=== PATIENT | female | born 1960 | race Caucasian/White ===

== ENCOUNTER 2021-10-06 17:25 | Emergency (ER) | payer OTHER, SELFPAY ==
--- NOTE | ~2021-10-06 | XR_ITS ---
EXAMINATION: XR chest 2V DATE: 10/06/2021 20:00 INDICATION: Hypertension and chest pain TECHNIQUE: AP and lateral views of the chest are obtained. COMPARISON: None available FINDINGS: The lung volumes are low. No definite airspace opacities are identified. There is no pleura l effusion or pneumothorax. The cardiomediastinal silhouette is normal. There is moderate thoracic sp ondylosis. There are multiple age-indeterminate thoracic and lumbar compression fractures. IMPRESSION: 1. No acute cardiopulmonary abnormality. Reviewed, dictated and finalized at location F.
[2021-10-06 17:39] VITALS: BP 116/68; PULSE 79; RESP 16; TEMP 36.7; O2SAT 100
--- NOTE | 2021-10-06 19:48 | ECG_ITS ---
Measurements Intervals [place] Rate: 72 P: 144 NC: 173 QRS: -27 QRSD: 140 T: -13 QT: 447 QTc: 489 Interpretive Statements SINUS RHYTHM BORDERLINE LEFT AXIS DEVIATION [QRS AXIS < -20] INTRAVENTRICULAR CONDUCTION DELAY [130+ ms QRS DURATION] LEFT VENTRICULAR HYPERTROPHY SECONDARY REPOLARIZATION NO PREVIOUS ECG AVAILABLE FOR COMPARISON Electronically Signed On 10-07-2021 11:23:50 CDT by Enmanuel Duke M.D.
[2021-10-06] MEDS: ACETAMINOPHEN 500 MG TABLET 1000 MG PO (20:07)
[2021-10-06] MEDS: MECLIZINE HCL 25 MG TABLET PO (20:08)
[2021-10-06 20:18] LABS: Basophils Percent Auto 0.3 % (0.2-1.2); Hemoglobin 12.5 g/dL (12.0-15.0); Immature Granulocyte Absolute 0.06 K/mm3 (0.00-0.031); Immature Granulocyte Percent A 0.5 % (0-0.5); Lymphocytes Absolute Auto 1.81 K/mm3 (0.9-3.2); Lymphocytes Percent Auto 16.5 % (18.3-44.2); Mean Corpuscular HGB Conc 32.1 g/dl (32-36); Mean Corpuscular Hemoglobin 28.1 pg (26-34); Mean Corpuscular Volume 87.6 fl (80-100); Mean Platelet Volume 12.4 fl (7.4-10.4); Monocytes Absolute Auto 0.8 K/mm3 (0.1-0.6); Monocytes Percent Auto 7.1 % (2.6-8.5); Neutrophils Absolute Auto 8.3 K/mm3 (1.3-6.7); Neutrophils Percent Auto 75.6 % (45.5-73.1); Platelet Count Result 193 k/mm3 (150-375); Red Blood Count 4.45 M/mm3 (4.2-5.4); Red Cell Distribution Width 14.4 % (11.5-14.5)
[2021-10-06 20:28] LABS: Alanine Aminotransferase 21 U/L (4-35); Albumin Level 4.4 g/dL (3.5-5.1); Alkaline Phosphatase 117 U/L (38-126); Anion Gap 9 mmol/L (8-16); Aspartate Amino Transferase 27 U/L (14-36); Bilirubin,Total 0.6 mg/dL (0.2-1.3); Blood Urea Nitrogen 29 mg/dL (7-17); Calcium 8.9 mg/dL (8.4-10.2); Carbon Dioxide 23 mmol/L (22-30); Chloride 107 mmol/L (98-107); Estimated Glomerular Filt Rate > 60; Glucose 112 mg/dL (65-110); Potassium 3.5 mmol/L (3.4-5.0); Sodium 139 mmol/L (137-145)
[2021-10-06 20:29] LABS: INR 1.1; Prothrombin Time 13.7 Seconds (11.1-14.7)
[2021-10-06 20:30] LABS: Partial Thromboplastin Time 30.2 SECONDS (22.3-36.8)
--- NOTE | 2021-10-06 20:44 | ED.GENADULT ---
HPI - General Adult General Chief complaint: Recheck/Abnormal Lab/Rx Stated complaint: htn Time Seen by Provider: 10/06/21 19:35 History of Present Illness HPI narrative: Patient is a 61-year-old female who presents ER with concerns for elevated blood pressures. Occurred last night and systolic was in the 200s. Patient was having back and shoulder pain. Symptoms have since subsided. No chest pain or pressure. Patient is also reporting some intermittent dizziness which is been going on for couple days and precipitated her discomfort last night. Worse with movement of head. No sinus congestion or sore throat or cough. Patient does report history of heart failure but no CAD. Related Data Allergies Allergy/AdvReac Type Severity Reaction Status Date / Time codeine AdvReac Nausea Verified 10/06/21 20:48 Review of Systems Review of Systems: All systems reviewed & are unremarkable except as noted in HPI and below Constitutional: Constitutional: Denies chills, Denies fever(s) and Denies weakness ENT: Reports dizziness and Denies sore throat Cardiovascular: Cardiovascular: Denies chest pain, Denies rapid heart rate and Denies radiating jaw, neck or arm pain Respiratory: Respiratory: Denies cough, Denies dyspnea and Denies wheezing Gastrointestinal: Gastrointestinal: Denies abdominal pain, Denies nausea and Denies vomiting Musculoskeletal: Musculoskeletal: Reports back pain and Reports arthralgias PMFSH Past Medical History Medical History (Updated 10/06/21 @ 21:39 by Harris Kim MD) Asthma Hard of hearing Hypertension Neuropathy Surgical History Surgical History (Updated 10/06/21 @ 21:39 by Harris Kim MD) History of section History of cholecystectomy History of hysterectomy Social History Social History (Updated 10/06/21 @ 21:39 by Harris Kim MD) Smoking status: Never smoker Exam Narrative: GENERAL: Well-appearing, well-nourished, and in no acute distress. HEAD: Normocephalic, atraumatic. EYES: PERRL and EOMI. ENT: Mucous membranes moist. TMs normal bilaterally. CHEST: Clear to auscultation. No respiratory distress. HEART: Regular rate and rhythm. Normal peripheral pulses. ABDOMEN: Soft, nontender, nondistended. EXTREMITIES: Normal range of motion. 2+ edema. SKIN: Warm, dry, no rash. NEURO: Alert and oriented x3. PSYCH: Normal mood and affect. Course Course Emergency Course: Patient resting comfortably. Dizziness improved with meclizine. Patient has no chest pain or shortness of breath. She reports that she has had that shoulder pain yesterday. Blood pressure has been within a normal range that is noncritical. Discharge home and follow-up with PCP. Vital Signs Vital signs: Vital Signs Temperature 98.0 F 10/06/21 17:39 Pulse Rate 79 10/06/21 17:39 Respiratory Rate 16 10/06/21 17:39 Blood Pressure 116/68 10/06/21 17:39 Pulse Oximetry 100 10/06/21 17:39 Temperature 98.0 F 10/06/21 17:39 Pulse Rate 73 10/06/21 21:17 Respiratory Rate 20 10/06/21 21:17 Blood Pressure 145/80 H 10/06/21 21:17 Pulse Oximetry 99 10/06/21 21:17 Medical Decision Making Vital Signs Vital Signs: Vital Signs Temperature 98.0 F 10/06/21 17:39 Pulse Rate 79 10/06/21 17:39 Respiratory Rate 16 10/06/21 17:39 Blood Pressure 116/68 10/06/21 17:39 Pulse Oximetry 100 10/06/21 17:39 Temperature 98.0 F 10/06/21 17:39 Pulse Rate 73 10/06/21 21:17 Respiratory Rate 20 10/06/21 21:17 Blood Pressure 145/80 H 10/06/21 21:17 Pulse Oximetry 99 10/06/21 21:17 Lab Data Result diagrams: 10/06/21 20:12 10/06/21 20:12 Labs: Lab Results 10/06/21 10/06/21 10/06/21 Range/Units 20:11 20:12 20:12 WBC 11.0 H (4.5-10.0) K/mm3 RBC 4.45 (4.2-5.4) M/mm3 Hgb 12.5 (12.0-15.0) g/dL Hct 39.0 (37.0-47.0) % MCV 87.6 (80-100) fl MCH 28.1 (26-34) pg MCHC 32.1 (32-
[2021-10-06 21:17] VITALS: BP 145/80; PULSE 73; RESP 20; O2SAT 99
[2021-10-06 21:18] LABS: Troponin I < 0.012 ng/mL (0.000-0.034)
== END 2021-10-06 21:55 | disposition home or self-care (01) ==
PROVIDERS: Emergency Provider Emergency Medicine
DX: I10 Essential (primary) hypertension (principal); R42 Dizziness and giddiness; J45.909 Unspecified asthma, uncomplicated; G62.9 Polyneuropathy, unspecified; I45.9 Conduction disorder, unspecified; I51.7 Cardiomegaly
CPT/HCPCS: 36415; 71046; 80053; 84484; 85025; 85610; 85730; 93005; 99284; A9270

== ENCOUNTER 2022-09-11 12:08 | Outpatient (CLI) | payer OTHER, SELFPAY ==
[2022-09-11 12:32] LABS: Basophils Percent Auto 0.6 % (0.2-1.2); Eosinophils Absolute Auto 0.3 K/mm3 (0-0.3); Eosinophils Percent Auto 5.9 % (0-4.4); Hematocrit 39.9 % (37.0-47.0); Hemoglobin 12.8 g/dL (12.0-15.0); Immature Granulocyte Absolute 0.01 K/mm3 (0.00-0.031); Immature Granulocyte Percent A 0.2 % (0-0.5); Lymphocytes Absolute Auto 2.04 K/mm3 (0.9-3.2); Lymphocytes Percent Auto 38.9 % (18.3-44.2); Mean Corpuscular HGB Conc 32.1 g/dl (32-36); Mean Corpuscular Hemoglobin 27.8 pg (26-34); Mean Corpuscular Volume 86.6 fl (80-100); Mean Platelet Volume 12.4 fl (7.4-10.4); Monocytes Absolute Auto 0.5 K/mm3 (0.1-0.6); Monocytes Percent Auto 10.1 % (2.6-8.5); Neutrophils Absolute Auto 2.3 K/mm3 (1.3-6.7); Neutrophils Percent Auto 44.3 % (45.5-73.1); Platelet Count Result 164 k/mm3 (150-375); Red Blood Count 4.61 M/mm3 (4.2-5.4); Red Cell Distribution Width 14.9 % (11.5-14.5); White Blood Count 5.2 K/mm3 (4.5-10.0)
[2022-09-11 12:41] LABS: Appearance Urine Clear (Clear); Bacteria Urine None Seen /hpf; Bilirubin Urine Negative (Negative); Blood Urine Negative (Negative); Color Urine Dark Yellow (Yellow); Glucose Urine UA Negative (Negative); Ketones Urine Negative (Negative); Leukocyte Esterase Ur Trace LEU/UL (NEGATIVE); Nitrate Urine Negative (Negative); Non Pathogenic Casts 0-2; Protein Urine Trace mg/dL (Negative); RBC Urine 0-2 /hpf (0-2); Specific Grav Ur 1.025 (1.001-1.035); Squamous Epithelial Cell Urine Occasional /hpf (Few); WBC Urine 0-5 /hpf (0-3)
[2022-09-11 12:44] LABS: Add Urine Microscopic? YES
[2022-09-11 12:47] LABS: Alanine Aminotransferase 24 U/L (6-35); Albumin Level 4.1 g/dL (3.5-5.1); Alkaline Phosphatase 122 U/L (38-126); Anion Gap 7 mmol/L (8-16); Aspartate Amino Transferase 30 U/L (14-36); Bilirubin,Total 1.7 mg/dL (0.2-1.3); Blood Urea Nitrogen 23 mg/dL (7-17); Calcium 9.2 mg/dL (8.4-10.2); Carbon Dioxide 28 mmol/L (22-30); Chloride 105 mmol/L (98-107); Cholesterol 185 mg/dL (0-200); Estimated Glomerular Filt Rate > 60; Glucose 105 mg/dL (65-110); HDL Direct 43 mg/dL; Hemoglobin A1C 5.1 % (<5.7); Sodium 140 mmol/L (137-145); Triglycerides 351 mg/dL (<150)
[2022-09-11 12:57] LABS: LDL Cholesterol Direct 65 mg/dL
[2022-09-11 14:05] LABS: Folic Acid 9.2 ng/mL (2.76->20)
== END 2022-09-11 12:09 | disposition home or self-care (01) ==
LOC: ANHLAB 12:09
PROVIDERS: PCP Internal Medicine; Visit Provider Internal Medicine
DX: E66.01 Morbid (severe) obesity due to excess calories (principal); R73.9 Hyperglycemia, unspecified
CPT/HCPCS: 36415; 80053; 80061; 81001; 82607; 82746; 83036; 84443; 85025; 86038

== ENCOUNTER 2022-10-02 15:50 | Outpatient (CLI) | payer OTHER, SELFPAY ==
--- NOTE | ~2022-10-02 | XR_ITS ---
XR foot LT min 3V 10/02/2022 16:58 Indication: Left foot pain Procedure: 4 views left foot Comparison: No prior studies for comparison. Findings: Osteopenia. Lisfranc joint intact. There is a degenerative calcaneal enthesophyte. There is mild polyarticular osteoarthritis. No focal soft tissue abnormality. There are vascular calcificatio ns of the foot. No erosive changes. Impression: 1: No acute fracture. 2: Polyarticular osteoarthritis. Reviewed, dictated and finalized at location A. Impression: 1: No acute fracture. 2: Polyarticular osteoarthritis.
--- NOTE | ~2022-10-02 | XR_ITS ---
XR lumbar spine 2-3V 10/02/2022 16:58 Indication: Back pain. Procedure: 3 views lumbar spine Comparison: No prior studies for comparison. Findings: There is expected lumbar lordosis. There are compression fractures of T8, T11, T12 and L1, age indeterminate. There is disc narrowing at T11-12, T12-L1 and L1-2. No evidence for spondylolisthe sis. Impression: 1: Multiple compression fractures of the lower thoracic and upper lumbar spine, age indeterminate. 2: Moderate lumbar spondylosis. Reviewed, dictated and finalized at location A. Impression: 1: Multiple compression fractures of the lower thoracic and upper lumbar spine, age indeterminate. 2: Moderate lumbar spondylosis.
== END 2022-10-02 15:51 | disposition home or self-care (01) ==
PROVIDERS: PCP Internal Medicine; Visit Provider Clinical Nurse Specialist
DX: M79.675 Pain in left toe(s) (principal); M54.9 Dorsalgia, unspecified; M15.9 Polyosteoarthritis, unspecified; M47.816 Spondylosis without myelopathy or radiculopathy, lumbar region; M48.55XA Collapsed vertebra, not elsewhere classified, thoracolumbar region, initial encounter for fracture
CPT/HCPCS: 72100; 73630

== ENCOUNTER 2022-10-25 14:32 | Outpatient (CLI) | payer OTHER, SELFPAY ==
--- NOTE | ~2022-10-25 | MR_ITS ---
EXAMINATION: MR thoracic spine wo con DATE: 10/25/2022 15:32 INDICATION: Compression fractures in thoracic spine. TECHNIQUE: Magnetic resonance imaging (MRI) of the thoracic spine was performed without intravenous c ontrast. COMPARISON: Lumbar spine radiographs 10/02/2022, chest 2 views 10/06/2021 FINDINGS: There is kyphosis of thoracic spine. There is a chronic compression fracture of T2 with 1/5 loss of height. There is a chronic compression fracture of T7 with 2/5 loss of height. There is a ch ronic burst fracture of T8 with 3/5 loss of height and retropulsion of bone 2 mm into central spinal canal. There are chronic burst fractures of T11, T12, and L1 with 2/5 loss of height and retropulsion of bone 3 mm into central spinal canal. There are hemangiomas in T2, T4, and T10 vertebral bodies. T here is mildly decreased disc height from T4-T5 through T6-T7 and at T8-T9. At T6-T7, there is a nadya tral protrusion with mild central canal stenosis. At T8-T9, the disc is bulging with mild central can al stenosis. There is multilevel mild to moderate facet joint osteoarthritis. On the right, there is mild neural foraminal stenosis at T8-T9 and T11-T12. On the left, there is mild neural foraminal sten osis at T2-T3 and T11-T12. The spinal cord signal intensity is normal. The conus medullaris is at L1. IMPRESSION: 1. Multiple chronic vertebral body fractures. 2. Mild thoracic spondylosis. 3. Thoracic kyphosis. Reviewed, dictated and finalized at location E.
== END 2022-10-25 14:33 | disposition home or self-care (01) ==
PROVIDERS: PCP Internal Medicine; Visit Provider Clinical Nurse Specialist
DX: S22.000A Wedge compression fracture of unspecified thoracic vertebra, initial encounter for closed fracture (principal); M47.814 Spondylosis without myelopathy or radiculopathy, thoracic region; M40.204 Unspecified kyphosis, thoracic region
CPT/HCPCS: 72146

== ENCOUNTER 2022-11-15 10:17 | Outpatient (CLI) | payer OTHER, SELFPAY ==
--- NOTE | 2022-11-15 11:00 | NEURO_ITS ---
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 # Mild asymmetrical sensory neuropathy but with good motor responses though requiring extra strength stimulation. No neurogenic changes noted. # Clinical correlation recommended. Nerve Conduction Studies Anti Sensory Summary Table Stim Site NR Peak (ms) P-T Amp (?V) Site1 Site2 Delta-P (ms) Dist (cm) Gary (m/s) Left Sup Fibular Anti Sensory (Ant Lat Mall) 14 cm 3.8 10.2 14 cm Ant Lat Mall 3.8 16.0 42 Right Sup Fibular Anti Sensory (Ant Lat Mall) NO RESPONSE 14 cm NR 14 cm Ant Lat Mall 16.0 Left Sural Anti Sensory (Lat Mall) Calf 4.0 9.1 Calf Lat Mall 4.0 16.0 40 Right Sural Anti Sensory (Lat Mall) Calf 4.0 5.8 Calf Lat Mall 4.0 16.0 40 Motor Summary Table Stim Site NR Onset (ms) O-P Amp (mV) Site1 Site2 Delta-0 (ms) Dist (cm) Gary (m/s) Left Peroneal Motor (Vastus Med) Ankle 4.1 1.0 Popit Ankle 6.9 37.0 54 Popit 11.0 0.9 Right Peroneal Motor (Vastus Med) Ankle 4.1 0.7 Popit Ankle 6.5 36.0 55 Popit 10.6 0.9 Left Tibial Motor (Abd Fournier Brev) Ankle 4.1 5.9 Knee Ankle 7.6 39.0 51 Knee 11.7 3.4 Right Tibial Motor (Abd Fournier Brev) Ankle 4.0 5.8 Knee Ankle 7.4 40.0 54 Knee 11.4 2.8 F Wave Studies NR F-Lat (ms) L-R F-Lat (ms) Left Peroneal (Mrkrs) (EDB) 48.42 0.82 Right Peroneal (Mrkrs) (EDB) 49.24 0.82 Left Tibial (Mrkrs) (Abd Hallucis) 47.39 0.97 Right Tibial (Mrkrs) (Abd Hallucis) 48.36 0.97 EMG Side Muscle Nerve Root Ins Act Fibs Amp Dur Recrt Comment Right AntTibialis Dp Br Fibular L4-5 Nml Nml Nml Nml Nml Right Gastroc Tibial S1-2 Nml Nml Nml Nml Nml Right Fibularis Long Sup Br Fibular L5-S1 Nml Nml Nml Nml Nml Right Flex Dig Long Tibial L5-S2 Nml Nml Nml Nml Nml Right Ext Dig Brev Dp Br Fibular L5, S1 Nml Nml Nml Nml Nml Left AntTibialis Dp Br Fibular L4-5 Nml Nml Nml Nml Nml Left Gastroc Tibial S1-2 Nml Nml Nml Nml Nml Left Fibularis Long Sup Br Fibular L5-S1 Nml Nml Nml Nml Nml Left Flex Dig Long Tibial L5-S2 Nml Nml Nml Nml Nml Left Ext Dig Brev Dp Br Fibular L5, S1 Nml Nml Nml Nml Nml MTDD
== END 2022-11-15 10:18 | disposition home or self-care (01) ==
PROVIDERS: PCP Internal Medicine; Visit Provider Clinical Nurse Specialist
DX: G62.9 Polyneuropathy, unspecified (principal)
CPT/HCPCS: 95886; 95910

== ENCOUNTER 2022-12-12 13:56 | Outpatient (CLI) | payer OTHER, SELFPAY ==
--- NOTE | ~2022-12-12 | DEXA_ITS ---
Bone Density Report Name: HECTOR MACDONALD Age: 62 Sex: Female Ethnicity: White Date of : 1960 Indication: postmenopausal; screening for osteoporosis; height loss; prior fracture; asthma or emphysema; hysterectomy; Referring Provider: SARAH NEVAREZ Study: Bone densitometry was performed. Exam Date: December 12, 2022 Accession number: [id number] Bone Density: Region BMD T-score Z-score Classification AP Spine(L1-L4) 0.575 -4.3 -2.9 Osteoporosis Femoral Neck (Left) 0.395 -4.1 -2.8 Osteoporosis Total Hip (Left) 0.531 -3.4 -2.4 Osteoporosis Femoral Neck (Right) 0.348 -4.5 -3.2 Osteoporosis Total Hip (Right) 0.486 -3.7 -2.8 Osteoporosis Total Hip Mean 0.509 -3.6 -2.6 Osteoporosis World Health Organization criteria for BMD impression classify patients as: Normal (T-score at or above -1.0), Osteopenia (T-score between -1.0 and -2.5), or Osteoporosis (T-score at or below -2.5). 10-year Fracture Risk: FRAX not reported because: Some T-score for Spine Total or Hip Total or Femoral Neck at or below -2.5 Prior hip or vertebral fracture Clinical Information Provided by Patient: Have had a previous hip or vertebral fracture Has had a low trauma fracture Has used the following medications: Vitamin D Has the following medical conditions: Asthma or Emphysema, Hysterectomy Patient maximum height was 58 Menopause Age: 36 Drinks caffeinated beverages Onset of menses at age 17 Number of children 3 Impression: The patient has established osteoporosis, based on the Right Femoral Neck T-score and the existence of a prior fracture. The patient has risk factors, including: previous fracture. Discussion: HIGH RISK OF FRACTURE. BONE DENSITY IS UNDESIRABLY LOW AT ONE OR MORE SKELETAL SITES, CONSISTENT WITH POSTMENOPAUSAL OSTEOPOROSIS. This patient's lowest T-score, in a patient who has previously fractured, meets the World Health Organization's (WHO) criteria for severe osteoporosis. In untreated patients, the risk of osteoporotic fracture increases approximately two-fold for each 1.0 SD decrease in T-score. Low bone density is not the only risk factor for fracture; also consider factors such as patient's age, frailty or poor health, risk of falling, risk of injury, previous osteoporotic fracture, family history of osteoporosis, cigarette smoking, low body weight, etc. Not everyone with low bone mineral density has osteoporosis; osteomalacia and other metabolic bone disorders should also be considered. Patients who have osteoporosis should be evaluated for specific diseases and conditions (secondary causes) that may cause or contribute to bone loss. The [place] [employer] Clinical Endocrinologists (AACE) and National Osteoporosis Foundation (NOF) recommend pharmacologic intervention for all postmenopausal women wi
== END 2022-12-12 13:57 | disposition home or self-care (01) ==
LOC: ANHIMG 13:59
PROVIDERS: PCP Internal Medicine; Visit Provider Clinical Nurse Specialist
DX: S32.000A Wedge compression fracture of unspecified lumbar vertebra, initial encounter for closed fracture (principal); Z78.0 Asymptomatic menopausal state; X58.XXXA Exposure to other specified factors, initial encounter; M81.0 Age-related osteoporosis without current pathological fracture
CPT/HCPCS: 77080

== ENCOUNTER 2022-12-20 15:30 | Outpatient (RCR) | payer OTHER, SELFPAY ==
--- NOTE | 2022-10-18 19:18 | PTOPEVAL1 ---
Assessment and note entered by Mitesh Shine, PT Evaluation Information Assessment Status Evaluation Diagnosis unsteadiness on her feet, weakness, dorsalgia unspecified Onset 6 years ago Subjective Information Patient who has a past medical history of a closed head injury reports that she has been having increased pain behind her knees and trouble getting around. Patient admits that she has gained a lot of weight. Patient is looking for exercises that will allow her to feel better, lose weight, and decrease pain. Reports she is supposed to get a R knee replacement when she looses enough weight. Assessment PT Clinical Summary Sidra is a 62 year old female coming into the clinic with a diagnosis of unsteadiness on her feet, weakness, and dorsalgia unspecified. Her main complaint in posterior knee pain. She has general weakness in her JAIMIE LE. Physical therapy will start with aquatic therapy to allow for strengthening with reduced stress on the joints hopeful to progress to land based therapy. Plan of Care Interventions Aquatic Therapy,Electrical Stimulation,Gait Training,Hot Pack/Cold Pack,Manual Therapy,Neuro Re-education,Patient/Caregiver Education,Therapeutic Activities,Therapeutic Exercise,Ultrasound Other Interventions cupping, taping, IASTM PT Services Indicated Yes Treatment Frequency and 1-2x/wk for 4 weeks Duration These treatments will address the objective and functional deficits as defined above. The patient will be advanced safely and appropriately in order for the patient to progress towards his/her prior level of function. Additional exercises will be introduced and as well as a comprehensive home exercise program upon discharge, if needed, ?to ensure carryover of functional gains achieved in the clinic. This treatment plan has been reviewed and agreement upon by the patient.
--- NOTE | 2022-11-09 12:03 | PCPTNOTE ---
pt called and canceled today's appt;
--- NOTE | 2022-11-14 10:58 | PCPTNOTE ---
Patient called & cancelled scheduled appointment this date due to patient not wanting to come in.
--- NOTE | 2022-11-22 11:42 | PTOPPROG ---
Assessment and note entered by Mitesh Shine, PT Evaluation Information Assessment Status Progress Diagnosis Unsteady on feet, weakness, dorsalgia Onset 6 years ago Subjective Information Patient reports the knees are better following JAIMIE injections, she is doing her exercises at home and walking a lap or two a day around her apartment building. Trying really hard to follow her diet. Assessment PT Clinical Summary Sidra is a 62 year old fmeale coming into the clinic with a diagnosis of unsteadiness on her feet, and weakness. She was evaluated on 10/17/22 and has attended 5 sessions. She has met her knee pain, but not functional strength goal. Recommend continued aquatic therapy as an adjunct to her home program to help get ready for a potential future knee surgery. Plan of Care Interventions Aquatic Therapy,Electrical Stimulation,Gait Training,Hot Pack/Cold Pack,Manual Therapy,Neuro Re-education,Patient/Caregiver Education,Therapeutic Activities,Therapeutic Exercise,Ultrasound Other Interventions cupping, taping, IASTM PT Services Indicated Yes Treatment Frequency and 1-2x/wk for 4 weeks Duration These treatments will address the objective and functional deficits as defined above. The patient will be advanced safely and appropriately in order for the patient to progress towards his/her prior level of function. Additional exercises will be introduced and as well as a comprehensive home exercise program upon discharge, if needed, ?to ensure carryover of functional gains achieved in the clinic. This treatment plan has been reviewed and agreement upon by the patient.
--- NOTE | 2022-12-07 12:48 | PCPTNOTE ---
Patient's sister called & cancelled scheduled appointment this date due to patient being fearful of the pool lift, and isn't able to use the steps due to Jeremy knee pain. Explained to the sister that we would be able to do land therapy for her next visit. Will talk to the PT Mitesh on Saturday.
--- NOTE | 2022-12-17 11:45 | PCPTNOTE ---
Called pt. and she noted that she canceled today's (12/17/22) appointment when she left last week. Will be back on .
--- NOTE | 2022-12-20 16:33 | PTOPDC ---
Assessment and note entered by Mitesh Shine, PT Evaluation Information Assessment Status Discharge Diagnosis unsteadiness on feet, weakness, dorsalgia Onset 6 years ago Subjective Information Patient reports she is walking 2 laps around her building a day most days and doing her exercises at home. She still has knee pain and because of the pain does not want to do aquatic therapy as the steps up to the pool hurt too much and the lift chair is too scary for her to use. Patient states she thinks she can do all of her exercises at home and can be discharged from physical therapy, but her sister states only therapy can make that determination. Reported Pain Level Pain Score Mild Pain: Finn Meza Assessment PT Clinical Summary Sidra is a 62 year old female coming into the clinic with a diagnosis of unsteadiness on feet, weakness, and dorsalgia. Patient was evaluated on 10/17/22 and has attended 11 sessions some aquatic and some land based physical therapy. Her knees are self reported better, but she states that is from the injections not therapy. Strength is the same although she is using a cane instead of her rollator. Discharged from skilled physical therapy. Plan of Care PT Services Indicated No
== END 2022-12-21 09:32 | disposition home or self-care (01) ==
LOC: ANHPT 15:30
PROVIDERS: PCP Internal Medicine; Visit Provider Clinical Nurse Specialist
DX: R26.81 Unsteadiness on feet (principal); R53.1 Weakness; M54.9 Dorsalgia, unspecified
CPT/HCPCS: 97110; 97113; 97161; 97530; 99199

== ENCOUNTER 2023-02-19 13:43 | Outpatient (CLI) | payer OTHER, SELFPAY ==
[2023-02-19 19:31] LABS: Alanine Aminotransferase 25 U/L (6-35); Albumin Level 4.3 g/dL (3.5-5.1); Alkaline Phosphatase 122 U/L (38-126); Anion Gap 8 mmol/L (8-16); Aspartate Amino Transferase 38 U/L (14-36); Bilirubin,Total 1.4 mg/dL (0.2-1.3); Blood Urea Nitrogen 21 mg/dL (7-17); Calcium 9.1 mg/dL (8.4-10.2); Carbon Dioxide 29 mmol/L (22-30); Chloride 103 mmol/L (98-107); Estimated Glomerular Filt Rate > 60; Glucose 78 mg/dL (65-110); Potassium 3.9 mmol/L (3.4-5.0); Sodium 140 mmol/L (137-145)
[2023-02-19 19:32] LABS: Vitamin D 25 Hydroxy 49.2 ng/mL
[2023-02-19 19:41] LABS: Parathyroid Intact 94.2 pg/mL (7.5-53.5)
[2023-02-19 20:28] LABS: Iron 105 ug/dL (37-170); Percent Iron Saturation 28 % (20-50)
== END 2023-02-19 13:44 | disposition home or self-care (01) ==
LOC: ANHGOSHLAB 13:45
PROVIDERS: PCP Internal Medicine; Visit Provider Internal Medicine
DX: E55.9 Vitamin D deficiency, unspecified (principal); S22.000A Wedge compression fracture of unspecified thoracic vertebra, initial encounter for closed fracture; M81.0 Age-related osteoporosis without current pathological fracture; E66.01 Morbid (severe) obesity due to excess calories; I10 Essential (primary) hypertension; I50.9 Heart failure, unspecified; Z83.49 Family history of other endocrine, nutritional and metabolic diseases
CPT/HCPCS: 36415; 80053; 82306; 82728; 83540; 83550; 83970

== ENCOUNTER 2023-04-26 13:36 | Outpatient (CLI) | payer OTHER, SELFPAY ==
--- NOTE | ~2023-04-26 | US_ITS ---
EXAMINATION: US soft tissue abdomen DATE: 04/26/2023 14:10 INDICATION: Right flank pain and lump. TECHNIQUE: Multiple grayscale and Doppler ultrasound images of the abdomen were obtained. COMPARISON: None FINDINGS: In the patient's area of concern, there is a 4.4 x 5.8 x 2.4 cm subcutaneous mass that demo nstrates similar echogenicity and echotexture to normal subcutaneous fat. IMPRESSION: 1. 5.8 cm subcutaneous mass in right flank, likely a lipoma. Reviewed, dictated and finalized at location E. UTER FORENSICS EXAMINER
== END 2023-04-26 13:37 | disposition home or self-care (01) ==
PROVIDERS: PCP Internal Medicine; Visit Provider Clinical Nurse Specialist
DX: R19.00 Intra-abdominal and pelvic swelling, mass and lump, unspecified site (principal)
CPT/HCPCS: 76705

== ENCOUNTER 2023-05-01 12:37 | Outpatient (CLI) | payer OTHER, SELFPAY ==
--- NOTE | ~2023-05-01 | MR_ITS ---
MRI of the lumbar spine spine Clinical History: Compression fracture Technique: Exam was terminated after localizer sequences were performed. No diagnostic sequences were performed. Findings: Exam is essentially nondiagnostic given lack of diagnostic sequences. Questionable mild com pression deformity of L1 seen on the sagittal localizer image. Impression: Nearly nondiagnostic exam, with only localizer sequences performed. Possible mild compression fractur e of L1 seen on sagittal localizer image. Reviewed, dictated and finalized at location M. RAFT ELECTRICIAN Impression: Nearly nondiagnostic exam, with only localizer sequences performed. Possible mi ld compression fracture of L1 seen on sagittal localizer image.
--- NOTE | ~2023-05-01 | XR_ITS ---
EXAMINATION: XR abdomen/kub 1V DATE: 05/01/2023 13:45 INDICATION: Foreign body. TECHNIQUE: Anteroposterior and crosstable lateral views of the abdomen were obtained. COMPARISON: None. FINDINGS: There are no dilated loops of bowel. Surgical clips in the right upper quadrant are likely from cholecystectomy. There is a surgical clip in the pelvis. There is a 13 mm radiopaque foreign bod y in right lower quadrant of the abdomen. IMPRESSION: 1. 13 mm radiopaque foreign body in right lower quadrant of the abdomen. Reviewed, dictated and finalized at location A. ICAL SERVICES DIRECTOR
== END 2023-05-01 12:38 | disposition home or self-care (01) ==
PROVIDERS: PCP Internal Medicine; Visit Provider Anesthesiology Pain Medicine
DX: M54.9 Dorsalgia, unspecified (principal); S32.000A Wedge compression fracture of unspecified lumbar vertebra, initial encounter for closed fracture; M79.5 Residual foreign body in soft tissue
CPT/HCPCS: 72148; 74018

== ENCOUNTER 2023-07-23 10:59 | Outpatient (CLI) | payer OTHER, SELFPAY ==
[2023-07-23 11:36] LABS: Basophils Absolute Auto 0.1 K/mm3 (0.0-0.1); Basophils Percent Auto 0.7 % (0.2-1.2); Eosinophils Absolute Auto 0.2 K/mm3 (0-0.3); Eosinophils Percent Auto 2.3 % (0-4.4); Hematocrit 44.9 % (37.0-47.0); Immature Granulocyte Absolute 0.04 K/mm3 (0.00-0.031); Immature Granulocyte Percent A 0.5 % (0-0.5); Lymphocytes Absolute Auto 2.17 K/mm3 (0.9-3.2); Lymphocytes Percent Auto 26.4 % (18.3-44.2); Mean Corpuscular HGB Conc 31.2 g/dl (32-36); Mean Corpuscular Hemoglobin 27.9 pg (26-34); Mean Corpuscular Volume 89.6 fl (80-100); Mean Platelet Volume 11.9 fl (7.4-10.4); Monocytes Absolute Auto 0.5 K/mm3 (0.1-0.6); Monocytes Percent Auto 6.1 % (2.6-8.5); Neutrophils Absolute Auto 5.3 K/mm3 (1.3-6.7); Platelet Count Result 194 k/mm3 (150-375); Red Blood Count 5.01 M/mm3 (4.2-5.4); White Blood Count 8.2 K/mm3 (4.5-10.0)
[2023-07-23 11:46] LABS: Alanine Aminotransferase 18 U/L (6-35); Albumin Level 4.1 g/dL (3.5-5.1); Alkaline Phosphatase 154 U/L (38-126); Anion Gap 5 mmol/L (8-16); Aspartate Amino Transferase 24 U/L (14-36); Bilirubin,Total 1.1 mg/dL (0.2-1.3); Blood Urea Nitrogen 24 mg/dL (7-17); Calcium 9.2 mg/dL (8.4-10.2); Carbon Dioxide 28 mmol/L (22-30); Chloride 107 mmol/L (98-107); Estimated Glomerular Filt Rate > 60; Glucose 103 mg/dL (65-110); Sodium 140 mmol/L (137-145)
[2023-07-23 11:57] LABS: NT Pro B Type Natriuretic Pept 131 pg/mL (19.9-100); Troponin I < 0.012 ng/mL (0.000-0.034)
== END 2023-07-23 11:00 | disposition home or self-care (01) ==
LOC: ANHLAB 11:01
PROVIDERS: PCP Internal Medicine; Visit Provider Internal Medicine
DX: R07.9 Chest pain, unspecified (principal); I50.9 Heart failure, unspecified
CPT/HCPCS: 36415; 80053; 83880; 84484; 85025

== ENCOUNTER 2023-08-08 17:13 | Emergency (ER) | payer OTHER, SELFPAY ==
[2023-08-08] VITALS (17 sets, daily range): BP systolic 116–133; BP diastolic 60–97; PULSE 76–86; RESP 15–28; TEMP 36.3; O2SAT 93–100
--- NOTE | ~2023-08-08 | CT_ITS ---
EXAMINATION: CTA chest PE protocol DATE: 08/08/2023 20:34 INDICATION: Shortness of breath. Generalized chest pain. TECHNIQUE: Computed tomography angiography (CTA) of the chest was performed with 100 mL Omnipaque-350 intravenous contrast timed to evaluate the pulmonary arteries. Coronal maximum intensity projection 3D-reconstructions were created by the technologist. Automated exposure control and iterative reconst ruction technique were employed. The dose-length product was 594.21 mGy-cm. COMPARISON: None. FINDINGS: The lungs demonstrate mild atelectasis. A calcified right lung nodule and calcified right h ilar lymph nodes are consistent with old granulomatous disease. No pleural effusion. Cardiomegaly is noted. There are coronary artery calcifications. There is no pericardial effusion. The central pulmon nhung arteries are enlarged, consistent with pulmonary arterial hypertension. There is no pulmonary emb olus. There are changes of cholecystectomy. There are peripheral calcifications in the spleen, which may be from old trauma. Aortic atherosclerosis is noted. There is a hemangioma in T4 vertebral body. There are chronic fractures of T7, T8, T11, T12, and L1 vertebral bodies. There is moderate thoracic spondylosis. There are old healed bilateral rib fractures. IMPRESSION: 1. No pulmonary embolus. Reviewed, dictated and finalized at location E. ANALYST IMPRESSION: 1. No pulmonary embolus.
--- NOTE | ~2023-08-08 | XR_ITS ---
EXAMINATION: XR chest 2V DATE: 08/08/2023 18:13 INDICATION: Chest pain. Shortness of breath. TECHNIQUE: Frontal and lateral views of the chest were obtained. COMPARISON: Chest 2 views 10/06/2021 FINDINGS: There are airspace opacities in right lower lobe. No pleural effusion or pneumothorax. The heart size is normal. There is chronic height loss of multiple vertebral bodies. IMPRESSION: 1. Airspace opacities in right lower lobe, consistent with atelectasis versus pneumonia. Reviewed, dictated and finalized at location E. ER IMPRESSION: 1. Airspace opacities in right lower lobe, consistent with atelectasis versus p neumonia.
--- NOTE | ~2023-08-08 | CT_ITS ---
EXAMINATION: CT lumbar spine wo con DATE: 08/08/2023 21:31 INDICATION: Low back pain. Fall. TECHNIQUE: Computed tomography (CT) of the lumbar spine was performed without intravenous contrast. A utomated exposure control and iterative reconstruction technique were employed. The dose-length produ ct was 1305.98 mGy-cm. COMPARISON: Lumbar spine radiographs 10/02/2022 FINDINGS: There are changes of cholecystectomy. There is a 12 mm cyst in right kidney. There is 6 deg cody dextrocurvature of lumbar spine. There are chronic burst fractures of T11, T12, L1, and L4. Ther e is 3 mm anterolisthesis of L5 on S1. Intervertebral disc heights are normal. The following disc lev els are specifically discussed: L1-L2: The disc is bulging. There is severe right and mild left facet joint osteoarthritis. There is mild bilateral neural foraminal stenosis. There is mild central canal stenosis. L2-L3: The disc is bulging. There is mild bilateral facet joint osteoarthritis. There is mild bilater al neural foraminal stenosis. There is no central canal stenosis. L3-L4: The disc is bulging. There is severe bilateral facet joint osteoarthritis. There is mild bilat eral neural foraminal stenosis. There is no central canal stenosis. L4-L5: The disc is bulging. There is moderate right and severe left facet joint osteoarthritis. There is mild bilateral neural foraminal stenosis. There is no central canal stenosis. L5-S1: The disc is bulging. There is severe bilateral facet joint osteoarthritis. There is mild bilat eral neural foraminal stenosis. There is mild central canal stenosis. IMPRESSION: 1. No acute fracture. 2. Mild lumbar spondylosis. Reviewed, dictated and finalized at location E. N PICKER
--- NOTE | 2023-08-08 17:20 | ECG_ITS ---
Measurements Intervals [place] Rate: 77 P: 45 MS: 180 QRS: -2 QRSD: 136 T: 51 QT: 408 QTc: 463 Interpretive Statements SINUS RHYTHM LEFT VENTRICULAR HYPERTROPHY WITH QRS WIDENING AND SECONDARY REPOLARIZATION ABNORMALITY ABNORMAL ECG COMPARED TO ECG 10/06/2021 20:18:54 NO SIGNIFICANT DIFFERENCE Electronically Signed On 08-09-2023 12:25:10 ASSISTANT LIBRARIAN by Enmanuel Duke M.D.
--- NOTE | 2023-08-08 17:54 | ED.CHESTPAIN ---
HPI - Chest Pain General Chief Complaint: Chest Pain Stated Complaint: CP/SOB Time Seen by Provider: 08/08/23 17:27 Source: patient Mode of arrival: EMS Limitations: no limitations History of Present Illness HPI narrative: Patient is a 62 y/o female, with PMH of CHF, hearing impairment, who presents to the ED via EMS with report of CP/SOB. Patient reports having intermittent midsternal chest pain over the last 3-4 days. At times worse with exertion, but no consistent correlation. Pain radiates through to her back and down to her lumbar region. Patient reports pain became worse today at which point EMS was called. She was given a nitroglycerin EN route to the ED and states her chest pain has since resolved. She does still have some discomfort throughout her lower back. History of chronic back pain. She also reports having mild shortness breath over the last 3-4 days as well as increased swelling in her lower extremities, denies significant cough, fevers, BLE pain. Related Data Home Medications Medication Instructions Recorded Confirmed meloxicam 7.5 mg tablet 7.5 mg PO DAILY 09/10/22 07/23/23 albuterol 90 mcg/actuation aerosol mcg inhalation 07/23/23 07/23/23 inhaler Allergies Allergy/AdvReac Type Severity Reaction Status Date / Time codeine AdvReac Nausea Verified 07/23/23 09:33 Review of Systems Review of Systems: CONSTITUTIONAL: Denies fever, chills, or sweats. ENT: Denies rhinorrhea, congestion, sore throat. CARDIOVASCULAR: See HPI. RESPIRATORY: See HPI. GASTROINTESTINAL: Denies abdominal pain, nausea, vomiting. MUSCULOSKELETAL: See HPI. NEUROLOGIC: Denies headache, dizziness, numbness, or weakness. All systems reviewed & are unremarkable except as noted in HPI and below [facility] Past Medical History Medical History Anxiety Arthritis Asthma CHF (congestive heart failure) Hard of hearing Heart disease Hypertension Neuropathy Surgical History Surgical History History of section History of cholecystectomy History of hysterectomy Family History Family History Father Hypertension Heart problem Mother Diabetes mellitus Hypertension Depression Anxiety Heart problem Cerebrovascular accident Social History Social History Smoking status: Never smoker Substance use: never Lack of Transportation: No Lack of Food: Sometimes True Current Housing: I Have Housing Concerned About Future Housing: No Difficulty Paying Gas/Electric Bills: No Difficulty Paying for Meds: YES Currently Unemployed: No Education: Grade School Difficulty w/ Childcare or Family Care: No Living arrangements: alone Agree to blood products: Yes Exam Narrative: GENERAL: Well appearing, morbidly obese with BMI of 49.3, non-toxic, in no acute distress. HEAD: Normocephalic, atraumatic. RESPIRATORY: Airway patent, respirations nonlabored. Clear to auscultation bilaterally, no rales, rhonchi, wheezing. No focal lung sounds. CARDIOVASCULAR: Regular rate and rhythm without murmurs, rubs, or gallops. ABDOMINAL: Soft, nontender, nondistended. Normoactive BS. MUSCULOSKELETAL: Moves all extremities. No gross deformities. Mild nonpitting edema to bilateral lower extremities. SKIN: Warm, dry, normal color. NEURO: A&O X3. Speech clear. Cranial nerves II-XII grossly intact. No ataxic movements. PSYCHIATRIC: Appropriate mood and affect. Normal interaction. Course Vital Signs Vital signs: Vital Signs Temperature 97.4 F L 08/08/23 17:10 Pulse Rate 84 08/08/23 17:10 Respiratory Rate 15 08/08/23 17:10 Blood Pressure 129/65 08/08/23 17:10 Pulse Oximetry 100 08/08/23 17:10 Oxygen Delivery Room Air 08/08/23 17:10 Temperature 97
[2023-08-08 18:11] LABS: Basophils Absolute Auto 0.1 K/mm3 (0.0-0.1); Basophils Percent Auto 0.5 % (0.2-1.2); Eosinophils Absolute Auto 0.1 K/mm3 (0-0.3); Eosinophils Percent Auto 1.3 % (0-4.4); Hematocrit 42.4 % (37.0-47.0); Hemoglobin 12.8 g/dL (12.0-15.0); Immature Granulocyte Absolute 0.04 K/mm3 (0.00-0.031); Immature Granulocyte Percent A 0.4 % (0-0.5); Lymphocytes Percent Auto 20.5 % (18.3-44.2); Mean Corpuscular HGB Conc 30.2 g/dl (32-36); Mean Corpuscular Hemoglobin 27.3 pg (26-34); Mean Corpuscular Volume 90.4 fl (80-100); Monocytes Absolute Auto 0.6 K/mm3 (0.1-0.6); Monocytes Percent Auto 5.6 % (2.6-8.5); Neutrophils Percent Auto 71.7 % (45.5-73.1); Platelet Count Result 190 k/mm3 (150-375); Red Blood Count 4.69 M/mm3 (4.2-5.4); Red Cell Distribution Width 14.9 % (11.5-14.5); White Blood Count 9.8 K/mm3 (4.5-10.0)
[2023-08-08 18:20] LABS: Partial Thromboplastin Time 29.3 SECONDS (22.3-36.8); Prothrombin Time 13.5 Seconds (11.1-14.7)
[2023-08-08 18:20] LABS: Alanine Aminotransferase 19 U/L (6-35); Albumin Level 4.1 g/dL (3.5-5.1); Alkaline Phosphatase 126 U/L (38-126); Anion Gap 4 mmol/L (8-16); Aspartate Amino Transferase 26 U/L (14-36); Bilirubin,Total 1.2 mg/dL (0.2-1.3); Blood Urea Nitrogen 27 mg/dL (7-17); Calcium 9.1 mg/dL (8.4-10.2); Carbon Dioxide 28 mmol/L (22-30); Chloride 106 mmol/L (98-107); Estimated Glomerular Filt Rate 57; Glucose 102 mg/dL (65-110); Lipase 56 U/L (23-300); Potassium 4.1 mmol/L (3.4-5.0); Sodium 138 mmol/L (137-145)
[2023-08-08 18:28] LABS: NT Pro B Type Natriuretic Pept 346 pg/mL (19.9-100)
[2023-08-08 18:31] LABS: Troponin I < 0.012 ng/mL (0.000-0.034)
[2023-08-08 18:50] LABS: Influenza A QL RT-PCR Negative (Negative); Influenza B QL RT-PCR Negative (Negative); RSV RNA, RT-PCR Negative (Negative); SARS-CoV-2 RNA PCR Negative (Negative)
[2023-08-08 19:54] LABS: D Dimer 0.98 ug/mL (<0.48)
--- NOTE | 2023-08-08 20:22 | PC.NURSE ---
Pt to CT at this time
[2023-08-08 21:19] LABS: Troponin I < 0.012 ng/mL (0.000-0.034)
[2023-08-08] MEDS: ACETAMINOPHEN 500 MG TABLET 1000 MG PO (21:54)
== END 2023-08-08 22:49 | disposition home or self-care (01) ==
PROVIDERS: Emergency Medicine; Emergency Provider Physician Assistant; PCP Internal Medicine
DX: R07.89 Other chest pain (principal); S39.012A Strain of muscle, fascia and tendon of lower back, initial encounter; Z20.822 Contact with and (suspected) exposure to COVID-19; I11.0 Hypertensive heart disease with heart failure; I50.9 Heart failure, unspecified; J45.909 Unspecified asthma, uncomplicated; M19.90 Unspecified osteoarthritis, unspecified site; G62.9 Polyneuropathy, unspecified; Z90.49 Acquired absence of other specified parts of digestive tract; Z90.710 Acquired absence of both cervix and uterus; M47.816 Spondylosis without myelopathy or radiculopathy, lumbar region; X58.XXXA Exposure to other specified factors, initial encounter
CPT/HCPCS: 36415; 71046; 71275; 72131; 80053; 83690; 83880; 84484; 85025; 85380; 85610; 85730; 87637; 93005; 99284; A9270; Q9967

== ENCOUNTER 2024-02-25 11:18 | Outpatient (CLI) | payer OTHER, SELFPAY ==
--- NOTE | ~2024-02-25 | XR_ITS ---
EXAMINATION: XR knee RT min 4V, XR tibia fibula RT 2V DATE: 02/25/2024 12:24 INDICATION: Right lower leg pain TECHNIQUE: 1. Anteroposterior, 2 oblique and crosstable lateral views of the right knee were obtained. 2. AP and lateral views of the right tibia and fibula were obtained. COMPARISON: None. FINDINGS: Alignment is normal. No fracture. Tricompartmental osteoarthritis at the right knee with moderate to large marginal osteophytes all 3 compartments and at least moderate severity joint space narrowing i n all 3 compartments which could be underestimated on nonweightbearing imaging. Additional mild osteo arthritis at the right ankle. Moderate-sized plantar calcaneal spur. Soft tissues are unremarkable. N o right knee or ankle joint effusions. IMPRESSION: 1. No right knee or ankle joint effusion or acute osseous abnormality. 2. Tricompartmental osteoarthritis at the right knee with moderate to large marginal osteophytes and at least moderate joint space narrowing which could be underestimated on nonweightbearing imaging. Reviewed, dictated and finalized at location B. IMPRESSION: 1. No right knee or ankle joint effusion or acute osseous abnormality. 2. Tricompartmental osteoarthritis at the right knee with moderate to large mar ginal osteophytes and at least moderate joint space narrowing which could be un derestimated on nonweightbearing imaging.
--- NOTE | ~2024-02-25 | US_ITS ---
RIGHT LOWER EXTREMITY VENOUS ULTRASOUND Ordering provider: Zach Telles DO History: . M79.604 - Pain in right leg . Comparison: None FINDINGS: --COMMON FEMORAL: Patent and free of thrombus. Normal compressibility, phasic flow and augmentation. --PROXIMAL SUPERFICIAL FEMORAL: Patent and free of thrombus. Normal compressibility, phasic flow and augmentation. --DISTAL SUPERFICIAL FEMORAL: Patent and free of thrombus. Normal compressibility, phasic flow and au gmentation. --POPLITEAL: Patent and free of thrombus. Normal compressibility, phasic flow and augmentation. --POSTERIOR TIBIAL: Patent and free of thrombus. Normal compressibility, phasic flow and augmentation . IMPRESSION: Negative right lower extremity venous US. No deep vein thrombosis. Reviewed, dictated and finalized at location A.
== END 2024-02-25 11:19 | disposition home or self-care (01) ==
PROVIDERS: PCP Internal Medicine; Visit Provider Internal Medicine
DX: M17.11 Unilateral primary osteoarthritis, right knee (principal); M25.761 Osteophyte, right knee
CPT/HCPCS: 73564; 73590; 93971

== ENCOUNTER 2024-07-14 14:39 | Outpatient (CLI) | payer OTHER, SELFPAY ==
--- NOTE | ~2024-07-14 | XR_ITS ---
EXAMINATION: XR shoulder LT min 2V DATE: 07/14/2024 14:57 INDICATION: Left shoulder pain. TECHNIQUE: 3 views of left shoulder were obtained. COMPARISON: None. FINDINGS: Alignment is normal. There is a nondisplaced fracture deformity of distal clavicle. There i s mild osteoarthritis of glenohumeral joint and moderate osteoarthritis of acromioclavicular joint. T here is calcific tendinitis of supraspinatus tendon. IMPRESSION: 1. Age-indeterminate nondisplaced fracture deformity of distal clavicle. 2. Polyarticular osteoarthritis. 3. Calcific tendinitis of the rotator cuff. Reviewed, dictated and finalized at location A. ER MACHINE OPERATOR
--- NOTE | ~2024-07-14 | XR_ITS ---
EXAMINATION: XR_CERV2-3V_CR DATE: 07/14/2024 14:57 INDICATION: Radiculopathy, cervical region. TECHNIQUE: 3 views of cervical spine were obtained. COMPARISON: None. FINDINGS: There is 7 degrees dextrocurvature of cervicothoracic spine. Vertebral body heights are nor mal. There is mildly decreased disc height at C6-C7. There is multilevel facet joint osteoarthritis, severe at C7-T1. No central canal stenosis or prevertebral soft tissue swelling. IMPRESSION: 1. Mild cervical spondylosis. Reviewed, dictated and finalized at location A. AL DELIVERY OFFICER
--- OUTSIDE RECORDS SUMMARY | 2024-07-14 15:15 | XMS_ITS | Clinical Summary ---
Author Organization [facility] [address] Address [address] [place] [address] Care Team Providers Care Hand Candy Molder Name Role Phone Zach Telles DO Primary Care Provider [phone] Allergies Active Allergy Reactions Criticality Noted Date Comments Codeine Nausea And Vomiting,Unknown Low 11/15/2015 Patient states she broke out in hive with N/V Medications traMADoL (ULTRAM) 50 mg tablet Take 1 tablet (50 mg total) by mouth 2 (two) times a day Active alendronate (FOSAMAX) 70 mg/75 mL solution Take by mouth every 7 days Take in the morning with a full glass of water, on an empty stomach, and do not take anything else by mouth or lie down for the next 30 min. Active cholecalciferol (VITAMIN D-3) 2000 unit capsule 0.625 capsules (1,250 Units total) once a week Active gabapentin (NEURONTIN) 300 mg capsule Take 1 capsule (300 mg total) by mouth 3 (three) times a day Active meloxicam (MOBIC) 7.5 mg tablet Take 1 tablet (7.5 mg total) by mouth daily Active [id number]-epa-dpa-fis h oil 1,050-1,200 mg capsule 1 capsule Active albuterol HFA (PROVENTIL HFA,VENTOLIN HFA,PROAIR HFA) 90 mcg/actuation inhaler Inhale 2 puffs every 6 (six) hours as needed for wheezing Active furosemide (LASIX) 20 mg tablet Take 1 tablet (20 mg total) by mouth daily 90 tablet 1 09/08/19 22 Active amLODIPine (NORVASC) 5 mg tablet Take 2 tablets (10 mg total) by mouth every morning 60 tablet 10/12/19 22 Active potassium chloride ER (KLOR-CON) 10 mEq CR tablet potassium chloride ER 10 mEq tablet,exten ded release TAKE 1 TABLET BY MOUTH EVERY DAY IN THE MORNING Active atorvastatin (LIPITOR) 20 mg tabletIndications:Pure hypercholesterolemia TAKE 1 TABLET BY MOUTH EVERY DAY 30 tablet 3 08/21/19 23 Active Symbicort 80-4.5 mcg/actuation inhaler INHALE 2 PUFFS BY MOUTH EVERY 12 HOURS 11/13/19 24 Active ergocalciferol (VITAMIN D) 50,000 unit capsule TAKE 1 CAPSULE BY MOUTH WEEKLY 10/30/19 24 Active Active Problems Problem Noted Date Diagnosed Date CHELSEA (obstructive sleep apnea) 11/21/2023 Osteoporosis 10/17/2023 Assessment & Plan (04/22/2024 3:47 PM COMPARATIVE SOCIOLOGY PROFESSOR): 63 y.o. female with history of Osteopenia-Osteoporosis and meets criteria for pharmacological therapy indications (post-menopausal and age > 50 yrs) with: 1) history of low-trauma fragility fracture (hip or vertebral) and 2) osteoporosis on DEXA per T-score <=-2.5 at the femoral neck or spine (exclude secondary causes) without improvement, despite being adherent with PO Alendronate (Fosamax) 70 mg q weekly (treatment) Risk factors for falls: no prior history of falls, no frailty or foot problems, no impaired vision, no dementia, no history of stroke or Parkinson's disease, no use of benzodiazepines, anticholinergics, or anticonvulsants Referral states diagnosis = Hyperparathyroidism (but not seeing evidence of this diagnosis via labs or documentation), but can work-up in context of low BMD per below Plan: 1) Confirm normal serum calcium and 25(OH) vitamin D levels prior to starting therapy 2) Failed therapy with PO Alendronate (Fosamax) 70 mg q weekly (treatment) 3) May further benefit from anabolic agent such as: Teriparatide (rPTH, Forteo) 20 mcg SQ daily or Abaloparatide (Tymlos) 80 mcg SQ daily = option for women with SEVERE osteoporosis BMD T-score of -2.5 or below + fragility fracture BMD T-score of -3.5 or below + no fractures 4) Monitor serum and/or urine calcium levels 5) Repeat DEXA scan every 2 years 6) Counseled on diet and lifestyle changes Calcium (1,200 mg/day) & Vit D3 (2,000 IU/day) supplementation Exercise (moderate-intensity) 30 min x 3 days/week Smoking cessation, if appropriate Assessment & Plan (10/17/2023 3:43 PM CDT): 63 y.o. female with history of Osteopenia-Osteoporosis and meets criteria for pharmacological therapy indications (post-menopausal and age > 50 yrs) with: 1) history of low-trauma fragility fracture (hip or vertebral) and 2) osteoporosis on DEXA per T-score <=-2.5 at the femoral neck or spine (exclude secondary causes) without improvement, despite being adherent with PO Alendronate (Fosamax) 70 mg q weekly (treatment) Risk factors for falls: no prior history of falls, no frailty or foot problems, no impaired vision, no dementia, no history of stroke or Parkinson's disease, no use of benzodiazepines, anticholinergics, or anticonvulsants Referral states diagnosis = Hyperparathyroidism (but not seeing evidence of this diagnosis via labs or documentation), but can work-up in context of low BMD per below Plan: 1) Confirm normal serum calcium and 25(OH) vitamin D levels prior to starting therapy 2) Failed therapy with PO Alendronate (Fosamax) 70 mg q weekly (treatment) 3) May further benefit from anabolic agent such as: Teriparatide (rPTH, Forteo) 20 mcg SQ daily or Abaloparatide (Tymlos) 80 mcg SQ daily = option for women with SEVERE osteoporosis BMD T-score of -2.5 or below + fragility fracture BMD T-score of -3.5 or below + no fractures 4) Monitor serum and/or urine calcium levels 5) Repeat DEXA scan every 2 years 6) Counseled on diet and lifestyle changes Calcium (1,200 mg/day) & Vit D3 (2,000 IU/day) supplementation Exercise (moderate-intensity) 30 min x 3 days/week Smoking cessation, if appropriate Bilateral lower extremity edema 08/27/2022 Morbid (severe) obesity due to excess calories 0 02/01/2022 Body mass index (BMI) 45.0-49.9, adult 2 Patent ductus arteriosus 01/11/2021 Pure hypercholesterolemia 01/09/2021 Assessment & Plan (04/22/2024 3:46 PM COMPARATIVE SOCIOLOGY PROFESSOR): 63 y.o. and female with dyslipidemia, including hypercholesterolemia and mild hypertriglyceridemia, currently treated with lipid-lowering therapies; most recent lipid profile reviewed. History of statin intolerance = No 10-year risk of future ASCVD = 4.4% and low risk (<5%) CT coronary calcium score = N/A Most recent lipid profile Lab Results Component Value Date POCCHOL 171 11/21/2023 POCTRIG 151 11/21/2023 POCHDL 54 11/21/2023 POCLDL 87 11/21/2023 No results found for: CHOL , TRIG , HDL , LDLCALC No results found for: LDLDIRECT No results found for: LIPOA No results found for: APOB No results found for: HSCRP , CRPHS TG = 151(H) [ref. range: <= 149 mg/dL] - Persistently elevated, primary hypertriglyceridemia ( >=175 mg/dl) constitutes a risk enhancing factor Consider checking Lp(a) and ApoB; especially if personal history or first-degree relative with premature ASCVD (particularly if otherwise considered low-risk), severe hypercholesterolemia (LDL-C >=190), or borderline ASCVD risk (10-year risk = 5 to 7.5%) Levels of apo B and LDL-C are discordant in 20% of patients, including those with elevated triglycerides, type 2 diabetes or obesity. In some patients, LDL-C levels can appear satisfactory, but the true level of circulating atherogenic particles is actually high. An elevated apo B level in these patients predicts a higher risk of atherosclerotic cardiovascular disease. In such patients, treatment with a lipid-lowering drug should be considered. Plan: 1) Repeat lipid panel at least annually; check Lp(a), ApoB, and hs-CRP as indicated 2) Weight control, exercise, diet (low saturated fat and sugar), smoking cessation (if applicable) 3) Continue Atorvastatin (Lipitor) 20 mg/day (for both LDL-C & TG reduction) 4) No indications for adding other non-statin LDL-C lowering agents (if LDL-C remains > 70 mg/dl and/or statin intolerant) 5) No indications for adding PCSK9 inhibitor (if further LDL-C reduction needed and/or statin intolerant) 6) No indications for adding other TG-lowering agents Hypertensive heart disease w ith chronic diastolic congestive heart failure (CMS/HCC) 01/09/2021 History of subarachnoid hemorrhage 01/09/2021 Atypical chest pain 11/09/2011 Encounters Date Type Department Care Team Description 04/22/2024 6:40 PM COMPARATIVE SOCIOLOGY PROFESSOR Lab [facility] Advanced Medicine ([facility]) [address] [place] [address] Other osteoporosis with current pathological fracture, sequela; Other hyperlipidemia 04/22/2024 2:20 PM COMPARATIVE SOCIOLOGY PROFESSOR Office Visit [facility] Endocrinology Metabolism and Lipid [address] [facility] [address] [place] [address] [place] [address] Herb Wooten MD PhD Other hyperlipidemia (Primary Dx); Other osteoporosis with current pathological fracture, sequela from Last 3 Months Surgical History Surgery Date Site/Laterality Comments CHOLECYSTECTOMY CRANIOTOMY HYSTERECTOMY Medical History Medical History Date Comments Asthma Hard of hearing Intracranial hemorrhage (HCC) SOB (shortness of breath) Cardiomegaly Pulmonary edema Hypertension Abnormal chest CT Usher's syndrome Legally blind Family History Medical History Relation Name Comments Diabetes Father Heart attack Father Alzheimer's disease Mother Deep vein thrombosis Mother Diabetes Mother Heart disease Mother Relation Name Status Comments Father Mother Social History Tobacco Use Types Packs/Day Years Used Date Smoking Tobacco: Never Smokeless Tobacco: Never Tobacco Cessation:Counseling Given: Not Answered Comments Unknown Sex and Gender Information Value Date Recorded Sex Assigned at Not on file Legal Sex Female 7:35 AM COMPARATIVE SOCIOLOGY PROFESSOR Gender Identity Not on file Sexual Orientation Not on file Obstetrics History Last Filed Vital Signs Vital Sign Reading Time Taken Comments Blood Pressure 124/77 04/22/2024 3:02 PM COMPARATIVE SOCIOLOGY PROFESSOR Pulse 83 04/22/2024 3:02 PM COMPARATIVE SOCIOLOGY PROFESSOR Temperature 36.7 ??C (98.1 ??F) 04/22/2024 3:02 PM CS T Respiratory Rate 16 11/21/2023 10:0 7 AM CDT Oxygen Saturation 95% 11/21/2023 10: 07 AM CDT Inhaled Oxygen Concentration - - Weight 111.9 kg (246 lb 9.6 oz) 04/22/2024 3:02 PM COMPARATIVE SOCIOLOGY PROFESSOR Height 147.3 cm (4' 10 ) 04/22/2024 3:02 PM COMPARATIVE SOCIOLOGY PROFESSOR Body Mass Index 51.54 04/22/2024 3:02 PM COMPARATIVE SOCIOLOGY PROFESSOR Plan of Treatment Health Maintenance Due Date Last Done Comments Breast Cancer Screening-Mammogram 1962 Colon Cancer Screening-Colonoscopy 1962 Depression Screening 1962 Hepatitis C Screening 1962 DTaP/Tdap/Td Vaccine (1 - Tdap) 1973 Hepatitis B Screening 1980 Regular Well Visit/Exam 18-64 1980 Zoster Vaccine (1 of 2) 2012 Pneumococcal vaccine <65 (2 of 2 - PCV) 11/07/2022 11/07/2021 Influenza Vaccine (#1) 2024 1, 06/01/2019, 02/26/2017, Additional history exists Procedures Procedure Name Priority Date/Time Associated Diagnosis Comments EGFR Routine 04/22/2024 4:03 PM COMPARATIVE SOCIOLOGY PROFESSOR Other osteoporosis with current pathological fracture, sequela Other hyperlipidemia DIFFERENTIAL AUTO Routine 04/22/2024 4:0 3 PM COMPARATIVE SOCIOLOGY PROFESSOR Other osteoporosis with current pathological fracture, sequela Other hyperlipidemia VITAMIN D 25 HYDROXY Routine 04/22/2024 4:03 PM COMPARATIVE SOCIOLOGY PROFESSOR Other osteoporosis with current pathological fracture, sequela Other hyperlipidemia PTH Routine 04/22/2024 4:03 PM COMPARATIVE SOCIOLOGY PROFESSOR Other osteoporosis with current pathological fracture, sequela Other hyperlipidemia CBC WITH AUTO DIFFERENTIAL Routine 04/22/2024 4:03 PM COMPARATIVE SOCIOLOGY PROFESSOR Other osteoporosis with current pathological fracture, sequela Other hyperlipidemia CALCIUM, IONIZED Routine 04/22/2024 4:03 PM COMPARATIVE SOCIOLOGY PROFESSOR Other osteoporosis with current pathological fracture, sequela Other hyperlipidemia RENAL FUNCTION PANEL Routine 04/22/2024 4:03 PM COMPARATIVE SOCIOLOGY PROFESSOR Other osteoporosis with current pathological fracture, sequela Other hyperlipidemia CRP, HIGH SENSITIVITY Routine 04/22/2024 4:03 PM COMPARATIVE SOCIOLOGY PROFESSOR Other osteoporosis with current pathological fracture, sequela Other hyperlipidemia LIPOPROTEIN A (LPA) Routine 04/22/2024 4 :03 PM COMPARATIVE SOCIOLOGY PROFESSOR Other osteoporosis with current pathological fracture, sequela Other hyperlipidemia APOLIPOPROTEIN B Routine 04/22/2024 4:03 PM COMPARATIVE SOCIOLOGY PROFESSOR Other osteoporosis with current pathological fracture, sequela Other hyperlipidemia from Last 3 Months Results * eGFR (04/22/2024 4:03 PM COMPARATIVE SOCIOLOGY PROFESSOR) eGFR 83 >=60 mL/min/1. 73 m2 Comment: Interpretive Data Reference Interval Normal ?>/= 90 mL/min/1.73m2 Mildly decreased* ? 60 - 89 mL/min/1.73m2 Mildly to moderately decreased ?45 - 59 mL/min/1.73m2 Moderately to severely decreased ??30 - 44 mL/min/1.73m2 Severely decreased ?15 - 29 mL/min/1.73m2 Kidney Failure ?< 15 ??mL/min/1.73m2 *Relative to young adult level Estimated glomerular filtration rate is determined by the 2020 CKD-EPI equation recommended by the National Kidney Foundation (A Unifying Approach to GFR Estimation: Recommendations of the NKF-ASK Task Force on Reassessing the Inclusion of Race in Diagnosing Kidney Disease, JASN 2020). The CKD-EPI equation should not be used for patients with unstable renal function and has not been validated in children and those over 70. Current interpretive data was last reviewed 2021. Blood 04/22/2024 4:03 PM COMPARATIVE SOCIOLOGY PROFESSOR 04/22/2024 4:23 PM COMPARATIVE SOCIOLOGY PROFESSOR us Herb Wooten MD PhD LAB BLOOD ORDERABLES Fin al Result [facility] Department [place] [address] * (ABNORMAL) Differential, auto (04/22/2024 4:03 PM COMPARATIVE SOCIOLOGY PROFESSOR) Neutrophil abs 7.2(H) 1.5 - 6.5 K/cumm Imm gran abs 0.1 0.0 - 0.1 K/cumm [facility] Lymphocyte abs 1.9 0.8 - 3.3 K/cumm [facility] Monocyte abs 0.6 0.2 - 0.8 K/cumm [facility] Eosinophil abs 0.1 0.0 - 0.5 K/cumm [facility] Basophil abs 0.0 0.0 - 0.1 K/cumm [facility] Neutrophil pct 73.0 % [facility] Comment: Interpretive Data Percent cell count reference ranges are not reported, since discordance with absolute values may lead to misinterpretation of CBC data. Current Interpretive Data was last revised on 2017. Imm gran pct 0.8 % [facility] Comment: Interpretive Data Percent cell count reference ranges are not reported, since discordance with absolute values may lead to misinterpretation of CBC data. Current Interpretive Data was last revised on 2017. Lymphocyte pct 18.9 % [facility] Comment: Interpretive Data Percent cell count reference ranges are not reported, since discordance with absolute values may lead to misinterpretation of CBC data. Current Interpretive Data was last revised on 2017. Monocyte pct 6.0 % [facility] Comment: Interpretive Data Percent cell count reference ranges are not reported, since discordance with absolute values may lead to misinterpretation of CBC data. Current Interpretive Data was last revised on 2017. Eosinophil pct 0.9 % [facility] Comment: Interpretive Data Percent cell count reference ranges are not reported, since discordance with absolute values may lead to misinterpretation of CBC data. Current Interpretive Data was last revised on 2017. Basophil pct 0.4 % [facility] Comment: Interpretive Data Percent cell count reference ranges are not reported, since discordance with absolute values may lead to misinterpretation of CBC data. Current Interpretive Data was last revised on 2017. Blood 04/22/2024 4:03 PM COMPARATIVE SOCIOLOGY PROFESSOR 04/22/2024 4:17 PM COMPARATIVE SOCIOLOGY PROFESSOR Herb Wooten MD PhD LAB BLOOD ORDERABLES Fin al Result Performing Organization Address [facility] de Phone Number [facility] Department [place] [address] * Calcium, ionized (04/22/2024 4:03 PM COMPARATIVE SOCIOLOGY PROFESSOR) Calcium, Ionized 4.94 4.50 - 5.10 mg/dL Blood 04/22/2024 4:03 PM COMPARATIVE SOCIOLOGY PROFESSOR 04/22/2024 4:17 PM COMPARATIVE SOCIOLOGY PROFESSOR Result [facility] Herb Wooten MD PhD LAB BLOOD ORDERABLES Fin al Result Performing Organization Address [facility] de Phone Number [facility] Department [place] [address] * Apolipoprotein B, serum (04/22/2024 4:03 PM COMPARATIVE SOCIOLOGY PROFESSOR) Apolipoprotein B 87 mg/dL [facility] Comment: REFERENCE VALUE Desirable: <90 Above Desirable: 90-99 Borderline high: 100-119 High: 120-139 Very high: > or = 140 Test Performed by: [facility] [address] [address] Dog Licenser: Tristin Diaz Ph.D.; CLIA# [id number] Blood 04/22/2024 4:03 PM COMPARATIVE SOCIOLOGY PROFESSOR 04/22/2024 5:41 PM COMPARATIVE SOCIOLOGY PROFESSOR Result [facility] Herb Wooten MD PhD LAB BLOOD ORDERABLES Fin al Result Performing Organization Address [facility] de Phone Number [facility] Department [place] [address] [facility] * (ABNORMAL) CBC with auto differential (04/22/2024 4:03 PM COMPARATIVE SOCIOLOGY PROFESSOR) [facility] WBC 9.9 3.8 - 9.9 K/cumm Hgb 13.8 11.9 - 15.5 g/dL [facility] Hct 43.7 35.6 - 45.5 % [facility] Plt 213 150 - 400 K/cumm [facility] MPV 12.0 9.1 - 12.3 fL [facility] RBC 5.00 3.90 - 5.20 M/cumm [facility] MCV 87.4 81.3 - 96.4 fL [facility] MCH 27.6 27.1 - 33.3 pg [facility] MCHC 31.6(L) 32.3 - 35.7 g/dL [facility] RDW CV 15.7(H) 11.1 - 14.9 % [facility] RDW SD 49.7(H) 35.7 - 48.1 fL [facility] NRBC abs 0.00 0.00 - 0.01 K/cumm [facility] Blood 04/22/2024 4:03 PM COMPARATIVE SOCIOLOGY PROFESSOR 04/22/2024 4:17 PM COMPARATIVE SOCIOLOGY PROFESSOR us Herb Wooten MD PhD LAB BLOOD ORDERABLES Fin al Result [facility] Department [place] [address] * (ABNORMAL) Lipoprotein a (LPa) (04/22/2024 4:03 PM COMPARATIVE SOCIOLOGY PROFESSOR) Pathologist [facility] Lipoprotein A 79(H) <75 nmol/L [facility] Comment: Lp(a) confers increased risk for coronary disease and aortic stenosis starting at concentrations of 75 nmol/L and greater. ?? Lp(a) >=125 nmol/L is considered a risk-enhancing factor for cardiovascular disease by several professional societies. ??Clinician-patient discussion of therapeutic strategy is warranted. ADDITIONAL INFORMATION Please notice that Lp(a) values are reported in molar units (nmol/L). ??These units are recommended by professional society guidelines and expert opinion statements. ??Measured results and risk thresholds are higher than those generated using mass units (mg/dL). Cardiovascular risk increases starting at 75 nmol/L. Lp(a) >=125 nmol/L is considered a risk enhancing factor by the [place] [employer]. This test has been modified from the plant clerk's instructions. Its performance characteristics were determined by [facility] in a manner consistent with CLIA requirements. This test has not been cleared or approved by the U.S. Food and Drug Administration. Test Performed by: [place] [address] Dog Licenser: Tristin Diaz Ph.D.; CLIA# [id number] Blood 04/22/2024 4:03 PM COMPARATIVE SOCIOLOGY PROFESSOR 04/22/2024 5:41 PM COMPARATIVE SOCIOLOGY PROFESSOR Herb Wooten MD PhD LAB BLOOD ORDERABLES Fin al Result [facility] [place] [email or web address] [address] [facility] * (ABNORMAL) Vitamin D 25 hydroxy (04/22/2024 4:03 PM COMPARATIVE SOCIOLOGY PROFESSOR) Pathologist [facility] Vitamin D 25-OH 28(L) 30 - 80 ng/mL Blood 04/22/2024 4:03 PM COMPARATIVE SOCIOLOGY PROFESSOR 04/22/2024 4:17 PM COMPARATIVE SOCIOLOGY PROFESSOR Herb Wooten MD PhD LAB BLOOD ORDERABLES Fin al Result Performing Organization Address City/[facility]/ZIP Co de Phone Number [facility] [place] [email or web address] [address] * CRP (cardiac risk) (04/22/2024 4:03 PM COMPARATIVE SOCIOLOGY PROFESSOR) Pathologist [facility] hsCRP 2.99 mg/L Comment: Interpretive data Adult only - values greater than or equal to 10 mg/L are consistent with infection or inflammation. ?? Individuals with evidence of active infection, systemic inflammatory processes, or trauma should not be tested until these conditions have abated. When using HS CRP to assess cardiovascular risk, two measurements should be taken, two weeks apart (averaging results). ?? The CDC/AHA recommended the following HS CRP cut off points (tertiles) for CVD assessment. ? Adult low risk ? <1.0 mg/L Average risk ??1.0 - 3.0 mg/L High Risk ?>3.0 mg/L Current interpretive data was last revised on 2018. Blood 04/22/2024 4:03 PM COMPARATIVE SOCIOLOGY PROFESSOR 04/22/2024 4:17 PM COMPARATIVE SOCIOLOGY PROFESSOR Herb Wooten MD PhD LAB BLOOD ORDERABLES Fin al Result Performing Organization Address [facility] Co de Phone Number [facility] Department [place] [email or web address] [address] * (ABNORMAL) PTH (04/22/2024 4:03 PM COMPARATIVE SOCIOLOGY PROFESSOR) [facility] PTH 70(H) 15 - 65 pg/mL Blood 04/22/2024 4:03 PM COMPARATIVE SOCIOLOGY PROFESSOR 04/22/2024 4:17 PM COMPARATIVE SOCIOLOGY PROFESSOR Herb Wooten MD PhD LAB BLOOD ORDERABLES Fin al Result Performing Organization Address [facility] Co de Phone Number [facility] Department [place] [email or web address] [address] * Renal function panel (04/22/2024 4:03 PM COMPARATIVE SOCIOLOGY PROFESSOR) [facility] Sodium 141 135 - 145 mmol/L Potassium, pl 4.4 3.3 - 4.9 mmol/L [facility] Chloride 104 97 - 110 mmol/L [facility] CO2 29 22 - 32 mmol/L [facility] Anion gap 8 2 - 15 mmol/L [facility] BUN 23 6 - 25 mg/dL [facility] Creatinine 0.81 0.60 - 1.10 mg/dL [facility] Glucose 93 70 - 199 mg/dL [facility] Comment: Interpretive Data Fasting glucose >/= 126 mg/dl is diagnostic for diabetes. ?? Fasting is defined as no caloric intake for at least 8 hours. Fasting glucose between 100 mg/dl to 125 mg/dl is diagnostic of prediabetes. In a patient with classic symptoms of hyperglycemia or hyperglycemic crisis, a random glucose >/= 200 mg/dl is diagnostic for diabetes. In the absence of unequivocal hyperglycemia, results should be confirmed by repeat testing. The classification and Diagnosis of Diabetes Diabetes Care 202; 46: S19-S40. Current interpretive data was last revised 2022. Calcium 9.5 8.5 - 10.3 mg/dL [facility] Phosphorus, pl 3.8 2.3 - 4.5 mg/dL [facility] Albumin 4.1 3.5 - 5.0 g/dL [facility] Blood 04/22/2024 4:03 PM COMPARATIVE SOCIOLOGY PROFESSOR 04/22/2024 4:17 PM COMPARATIVE SOCIOLOGY PROFESSOR Herb Wooten MD PhD LAB BLOOD ORDERABLES Fin al Result Performing Organization Address City/State/[facility] Co de Phone Number [facility] Department [place] [address] from Last 3 Months Insurance [facility] Care Teams Hand Candy Molder Relationship Specialty Start Date End Date Zach Telles DO PCP - General Internal Medicine 07/23/23
--- OUTSIDE RECORDS SUMMARY | 2024-07-14 15:15 | XMS_ITS | Referral Summary ---
Author Organization [facility] [address] Address [address] [place] [address] Care Team Providers Care Digital Marketing Officer Name Role Phone Zach Telles DO Primary Care Provider [phone] Encounters Date Type Department Care Team Description 04/22/2024 6:40 PM PROCESS PLANNER Lab [facility] [address] [place] [phone] Other osteoporosis with current pathological fracture, sequela; Other hyperlipidemia 04/22/2024 2:20 PM PROCESS PLANNER Office Visit [facility] Endocrinology Metabolism and Lipid [address] [facility] Medicine 13th [place] [address] [place] [phone] Herb Wooten MD PhD Other hyperlipidemia (Primary Dx); Other osteoporosis with current pathological fracture, sequela from Last 3 Months Allergies Active Allergy Reactions Criticality Noted Date [...] (7.5 mg total) by mouth daily Active [id number] h oil 1,050-1,200 mg capsule 1 capsule [...] 10/17/2023 Assessment & Plan (04/22/2024 3:47 PM PROCESS PLANNER): 63 y.o. female with history of Osteopenia-Osteoporosis [...] 02/01/2022 Body mass index (BMI) 45.0-49.9, adult Patent ductus arteriosus 01/11/2021 Pure hypercholesterolemia 01/09/2021 Assessment & Plan (04/22/2024 3:46 PM PROCESS PLANNER): 63 y.o. and female with dyslipidemia, including [...] subarachnoid hemorrhage 01/09/2021 Atypical chest pain 11/09/2011 Social History Tobacco Use Types Packs/Day Years Used Date Smoking Tobacco: Never Smokeless Tobacco: Never Tobacco Cessation:Counseling Given: Not Answered Comments Unknown Sex and Gender Information Value Date Recorded Sex Assigned at Not on file Legal Sex Female 7:35 AM PROCESS PLANNER Gender Identity Not on file Sexual Orientation Not on file Last Filed Vital Signs Vital Sign Reading Time Taken Comments Blood Pressure 124/77 04/22/2024 3:02 PM PROCESS PLANNER Pulse 83 04/22/2024 3:02 PM PROCESS PLANNER Temperature 36.7 ??C (98.1 ??F) 04/22/2024 3:02 PM CS T Respiratory Rate 16 11/21/2023 10:0 7 AM CDT Oxygen Saturation 95% 11/21/2023 10: 07 AM CDT Inhaled Oxygen Concentration - - Weight 111.9 kg (246 lb 9.6 oz) 04/22/2024 3:02 PM PROCESS PLANNER Height 147.3 cm (4' 10 ) 04/22/2024 3:02 PM PROCESS PLANNER Body Mass Index 51.54 04/22/2024 3:02 PM PROCESS PLANNER Plan of Treatment Not on file Procedures Procedure Name Priority Date/Time Associated Diagnosis Comments EGFR Routine 04/22/2024 4:03 PM PROCESS PLANNER Other osteoporosis with current pathological fracture, sequela Other hyperlipidemia DIFFERENTIAL AUTO Routine 04/22/2024 4:0 3 PM PROCESS PLANNER Other osteoporosis with current pathological fracture, sequela Other hyperlipidemia VITAMIN D 25 HYDROXY Routine 04/22/2024 4:03 PM PROCESS PLANNER Other osteoporosis with current pathological fracture, sequela Other hyperlipidemia PTH Routine 04/22/2024 4:03 PM PROCESS PLANNER Other osteoporosis with current pathological fracture, sequela Other hyperlipidemia CBC WITH AUTO DIFFERENTIAL Routine 04/22/2024 4:03 PM PROCESS PLANNER Other osteoporosis with current pathological fracture, sequela Other hyperlipidemia CALCIUM, IONIZED Routine 04/22/2024 4:03 PM PROCESS PLANNER Other osteoporosis with current pathological fracture, sequela Other hyperlipidemia RENAL FUNCTION PANEL Routine 04/22/2024 4:03 PM PROCESS PLANNER Other osteoporosis with current pathological fracture, sequela Other hyperlipidemia CRP, HIGH SENSITIVITY Routine 04/22/2024 4:03 PM PROCESS PLANNER Other osteoporosis with current pathological fracture, sequela Other hyperlipidemia LIPOPROTEIN A (LPA) Routine 04/22/2024 4 :03 PM PROCESS PLANNER Other osteoporosis with current pathological fracture, sequela Other hyperlipidemia APOLIPOPROTEIN B Routine 04/22/2024 4:03 PM PROCESS PLANNER Other osteoporosis with current pathological fracture, sequela Other hyperlipidemia from Last 3 Months Results * eGFR (04/22/2024 4:03 PM PROCESS PLANNER) eGFR 83 >=60 mL/min/1. 73 m2 Comment: [...] last reviewed 2021. Blood 04/22/2024 4:03 PM PROCESS PLANNER 04/22/2024 4:23 PM PROCESS PLANNER Herb Wooten MD PhD LAB BLOOD ORDERABLES Fin al Result [facility] [place] [address] * (ABNORMAL) Differential, auto (04/22/2024 4:03 PM PROCESS PLANNER) Neutrophil abs 7.2(H) 1.5 - 6.5 K/cumm Imm gran abs 0.1 0.0 - 0.1 K/cumm [facility] Lymphocyte abs 1.9 0.8 - 3.3 K/cumm [facility] Monocyte abs 0.6 0.2 - 0.8 K/cumm [facility] Eosinophil abs 0.1 0.0 - 0.5 K/cumm [facility] Basophil abs 0.0 0.0 - 0.1 K/cumm [facility] Neutrophil pct 73.0 % [facility] Comment: Interpretive Data Percent cell count reference ranges are not reported, since discordance with absolute values may lead to misinterpretation of CBC data. Current Interpretive Data was last revised on 2017. Imm gran pct 0.8 % [facility] Comment: Interpretive Data Percent cell count reference ranges are not reported, since discordance with absolute values may lead to misinterpretation of CBC data. Current Interpretive Data was last revised on 2017. Lymphocyte pct 18.9 % [facility] Comment: Interpretive Data Percent cell count reference ranges are not reported, since discordance with absolute values may lead to misinterpretation of CBC data. Current Interpretive Data was last revised on 2017. Monocyte pct 6.0 % [facility] Comment: Interpretive Data Percent cell count reference ranges are not reported, since discordance with absolute values may lead to misinterpretation of CBC data. Current Interpretive Data was last revised on 2017. Eosinophil pct 0.9 % [facility] Comment: Interpretive Data Percent cell count reference ranges are not reported, since discordance with absolute values may lead to misinterpretation of CBC data. Current Interpretive Data was last revised on 2017. Basophil pct 0.4 % [facility] Comment: Interpretive Data Percent cell count reference ranges are not reported, since discordance with absolute values may lead to misinterpretation of CBC data. Current Interpretive Data was last revised on 2017. Blood 04/22/2024 4:03 PM PROCESS PLANNER 04/22/2024 4:17 PM PROCESS PLANNER Herb Wooten MD PhD LAB BLOOD ORDERABLES Fin al Result Performing Organization Address [facility] Co de Phone Number [facility] Department [place] [address] * Calcium, ionized (04/22/2024 4:03 PM PROCESS PLANNER) Calcium, Ionized 4.94 4.50 - 5.10 mg/dL Blood 04/22/2024 4:03 PM PROCESS PLANNER 04/22/2024 4:17 PM PROCESS PLANNER Herb Wooten MD PhD LAB BLOOD ORDERABLES Fin al Result Performing Organization Address City/[facility] Co de Phone Number [facility] Department [place] [address] * Apolipoprotein B, serum (04/22/2024 4:03 PM PROCESS PLANNER) [facility] Apolipoprotein B 87 mg/dL [facility] Lab Comment: REFERENCE VALUE Desirable: <90 Above Desirable: 90-99 Borderline high: 100-119 High: 120-139 Very high: > or = 140 Test Performed by: [place] [address] Granulator Machine Operator: Tristin Diaz Ph.D.; CLIA# [id number] Blood 04/22/2024 4:03 PM PROCESS PLANNER 04/22/2024 5:41 PM PROCESS PLANNER Herb Wooten MD PhD LAB BLOOD ORDERABLES Fin al Result [facility] Department [place] [address] [facility] * (ABNORMAL) CBC with auto differential (04/22/2024 4:03 PM PROCESS PLANNER) [facility] WBC 9.9 3.8 - 9.9 K/cumm Hgb 13.8 11.9 - 15.5 g/dL [facility] Hct 43.7 35.6 - 45.5 % [facility] Plt 213 150 - 400 K/cumm [facility] MPV 12.0 9.1 - 12.3 fL [facility] RBC 5.00 3.90 - 5.20 M/cumm [facility] MCV 87.4 81.3 - 96.4 fL [facility] MCH 27.6 27.1 - 33.3 pg [facility] MCHC 31.6(L) 32.3 - 35.7 g/dL [facility] RDW CV 15.7(H) 11.1 - 14.9 % [facility] RDW SD 49.7(H) 35.7 - 48.1 fL [facility] NRBC abs 0.00 0.00 - 0.01 K/cumm [facility] Blood 04/22/2024 4:03 PM PROCESS PLANNER 04/22/2024 4:17 PM PROCESS PLANNER us Herb Wooten MD PhD LAB BLOOD ORDERABLES Fin al Result [facility] Department [place] [address] * (ABNORMAL) Lipoprotein a (LPa) (04/22/2024 4:03 PM PROCESS PLANNER) Lipoprotein A 79(H) <75 nmol/L [place] [facility] Comment: Lp(a) confers increased risk [...] considered a risk enhancing factor by the [employer]. This test has been modified from the dust collector ore crushing's instructions. Its performance characteristics were determined by [facility] in a manner consistent with CLIA requirements. This test has not been cleared or approved by the U.S. Food and Drug Administration. Test Performed by: [facility] Laboratories [address] [address] Granulator Machine Operator: Tristin Diaz Ph.D.; CLIA# [id number] Blood 04/22/2024 4:03 PM PROCESS PLANNER 04/22/2024 5:41 PM PROCESS PLANNER Result [facility] Herb Wooten MD PhD LAB BLOOD ORDERABLES Fin al Result Performing Organization Address [facility] Co de Phone Number [facility] [place] [address] [facility] * (ABNORMAL) Vitamin D 25 hydroxy (04/22/2024 4:03 PM PROCESS PLANNER) Pathologist [facility] Vitamin D 25-OH 28(L) 30 - 80 ng/mL Blood 04/22/2024 4:03 PM PROCESS PLANNER 04/22/2024 4:17 PM PROCESS PLANNER Herb Wooten MD PhD LAB BLOOD ORDERABLES Fin al Result Performing Organization Address [facility] de Phone Number JOSEP [facility] [place] [address] * CRP (cardiac risk) (04/22/2024 4:03 PM PROCESS PLANNER) [facility] hsCRP 2.99 mg/L Comment: Interpretive data Adult [...] revised on 2018. Blood 04/22/2024 4:03 PM PROCESS PLANNER 04/22/2024 4:17 PM PROCESS PLANNER Herb Wooten MD PhD LAB BLOOD ORDERABLES Fin al Result Performing Organization Address [facility]/ZIP Co de Phone Number [facility] Department [place] [address] * (ABNORMAL) PTH (04/22/2024 4:03 PM PROCESS PLANNER) Pathologist [facility] PTH 70(H) 15 - 65 pg/mL Blood 04/22/2024 4:03 PM PROCESS PLANNER 04/22/2024 4:17 PM PROCESS PLANNER Herb Wooten MD PhD LAB BLOOD ORDERABLES Fin al Result [facility] Department [place] [address] * Renal function panel (04/22/2024 4:03 PM PROCESS PLANNER) [facility] Sodium 141 135 - 145 mmol/L Potassium, pl 4.4 3.3 - 4.9 mmol/L [facility] Chloride 104 97 - 110 mmol/L [facility] CO2 29 22 - 32 mmol/L [facility] Anion gap 8 2 - 15 mmol/L [facility] BUN 23 6 - 25 mg/dL [facility] Creatinine 0.81 0.60 - 1.10 mg/dL [facility] Glucose 93 70 - 199 mg/dL [facility] Comment: Interpretive Data Fasting glucose >/= [...] 2022. Calcium 9.5 8.5 - 10.3 mg/dL [facility] Phosphorus, pl 3.8 2.3 - 4.5 mg/dL [facility] Albumin 4.1 3.5 - 5.0 g/dL [facility] Blood 04/22/2024 4:03 PM PROCESS PLANNER 04/22/2024 4:17 PM PROCESS PLANNER us Herb Wooten MD PhD LAB BLOOD ORDERABLES Fin al Result [facility] [place] [address] from Last 3 Months Insurance Care Teams Digital Marketing Officer Relationship Specialty Start Date End Date Zach Telles DO PCP - General Internal Medicine 07/23/23
--- OUTSIDE RECORDS SUMMARY | 2024-07-14 15:15 | XMS_ITS | Encounter Summary ---
Author Organization [facility] Address [address] [place] [address] Care Team Providers Care Rn Case Manager Name Role Phone Zach Telles DO Primary Care Provider [phone] Reason for Visit * Reason Onset Date Comments Rx Medication Issue 03/12/2024 Spk to daljit willard Floridalma Anupjoannsilvia, stated her sister is requesting a medication refill for a muscle relaxer and the pharmacy has not received anything yet. [facility] [address] in [facility] [phone]. Please follow up Denisha Encounter Details Date Type Department Care Team (Late st Contact Info) Description 03/12/2024 Telephone [facility] - Centralized Scheduling [address] [place] [phone] Bernard Kurtz MD [address] [address] Rx Medication Issue (Spk to friend Floridalma Duran, stated her sister is requesting a medication refill for a muscle relaxer and the pharmacy has not received anything yet. [facility] [address] in [facility] [phone]. 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 Yes 06/01/2019 Is person blind or have serious difficulty seein g? Yes 06/01/2019 Does person have serious dif ficulty walking/climbing stairs? Yes 06/01/2019 Does person have difficulty dressing/bathing? No 06/01/2019 Does person have difficulty doing errands alone? Yes 06/01/2019 Cognitive Status Response Date of Assessm ent Does person have difficulty concentrating/remembering/making decisions? Yes 06/01/2019 documented as of this encounter Miscellaneous Notes * Telephone Encounter - Murtaza Chawla - 03/12/2024 10:23 AM CDT Spk to friend Floridalma Duran, stated her sister is requesting a medication refill for a muscle relaxer and the pharmacy has not received anything yet. Chayo [facility] in [facility] [phone]. Please follow up documented in this encounter Plan of Treatment Upcoming Encounters Date Type Department Care Team (Late st Contact Info) Description 10/13/2024 1:15 PM CDT Office Visit [facility] - Orthopedic Surgery [address] [place] [address] Bernard Kurtz MD [address] [facility] [address] [place] [address] documented as of this encounter Goals Goal Patient Goal Type Associated Problems Recent Progress Patient-Stated? Author Mobility General Worsening(08/15 11:15 AM CDT) No Lu Cope, RN Note: Expected end date: 06/17/2019 The goal is to maintain or improve your mobility at the optimum level for you. Interventions: documented as of this encounter Visit Diagnoses Not on filedocumented in this encounter Care Teams Rn Case Manager Relationship Specialty Start Date End Date Zach Telles DO PCP - General 08/14/22 documented as of this encounter
--- OUTSIDE RECORDS SUMMARY | 2024-07-14 15:15 | XMS_ITS | Clinical Summary ---
Author Organization [facility] Address [address] [place] [address] Care Team Providers Care Truss Assembler Name Role Phone Zach Telles DO Primary Care Provider Source Comments [facility],non-owned Affiliates and Associated Physician Practices is amultiple site organization consisting of ambulatory clinics and hospital sitesin [place], [place], [place] and [place]. This disclosure is being madepursuant to the Care Everywhere program and may not contain all information available regarding this patient. Last updated 18.[facility] Allergies Active Allergy Reactions Criticality Noted Date Comments Codeine Nausea and/or Vomiting Low 11/15/2015 Medications * Be aware that medications may not be up to date on this document. Alwaysverify current medications with the patient. Medication Sig Dispensed Refills Start Date End Date Status piroxicam (FELDENE) 20 MG capsule Take 20 mg by mouth DAILY. 30 capsule 3 08/28/2016 Active Additional Information Patient not taking.Reported on 10/22/2023 albuterol HFA (VENTOLIN HFA) 108 (90 BASE) MCG/ACT inhaler 3 03/23/2016 Active fenofibrate (LOFIBRA) 160 MG tablet 6 01/29/2016 Active nortriptyline (PAMELOR) 10 MG capsule 6 01/29/2016 Active losartan (COZAAR) 100 MG tablet 12/23/2015 Active PARoxetine (PAXIL) 20 MG tablet 5 11/16/2015 Active gabapentin (NEURONTIN) 300 MG capsule Take 1 (one) capsule by mouth TID 01/24/2016 Active baclofen (LIORESAL) 10 MG tablet 11/14/2015 Active aspirin (ASPIRIN) 81 MG tablet Take 1 (one) tablet by mouth DAILY 01/24/2016 Active fluticasone propionate (FLONASE) 50 MCG/ACT nasal spray 0 07/21/2017 Activ e albuterol HFA (PROVENTIL;VENTOLIN ;PROAIR) 108 (90 Base) MCG/ACT inhaler Inhale 2 (two) puffs by mouth every 6 hours as needed Active acetaminophen (TYLENOL) 160 MG/5ML solution Take 20.3125 mL by mouth every 4 hours as needed 06/05/2019 Active Additional Information Patient not taking.Reported on 10/22/2023 Acetaminophen Childrens 160 MG/5ML SOLN Take 20.3125 mL by mouth every 6 hours as needed 06/15/2019 Active QVAR REDIHALER 80 MCG/ACT inhaler 05/04/2019 Active carisoprodol (SOMA) 350 MG tablet carisoprodol 350 mg tablet Active levETIRAcetam (KEPPRA) 500 MG tablet 06/05/2019 Active mirtazapine (REMERON) 15 MG tablet 05/04/2019 Active polyethylene glycol 3350 (MIRALAX) packet 06/05/2019 Active prochlorperazine (COMPAZINE) 10 MG tablet Take 1 (one) tablet by mouth every 6 hours as needed 06/15/2019 Active raNITIdine (ZANTAC) 300 MG tablet 05/04/2019 Active [facility] SENNA 8.6 MG tablet 06/05/2019 Active senna-docusate (SENOKOT-S) 8.6-50 MG tablet Take 1 (one) tablet by mouth once daily as needed 06/15/2019 Active sertraline (ZOLOFT) 100 MG tablet sertraline 100 mg tablet Active simvastatin (ZOCOR) 20 MG tablet simvastatin 20 mg tablet Active traMADol (ULTRAM) 50 MG tablet tramadol 50 mg tablet Active traZODone (DESYREL) 50 MG tablet trazodone 50 mg tablet Active atorvastatin (LIPITOR) 20 MG tablet 09/20/2021 Active vitamin D, ergocalciferol, (DRISDOL) 1.25 MG (34222 UT) capsule 09/10/2021 Active furosemide (LASIX) 20 MG tablet 09/07/2021 Active furosemide (LASIX) 20 MG tablet Take 1 (one) tablet by mouth once daily 09/07/2021 Active [employer]-3 Fatty Acids (fish oil) 1000 MG capsule TAKE 1 CAPSULE BY MOUTH TWICE DAILY BEFORE A MEAL 03/25/2022 Active potassium chloride ER (Klor-Con) 10 MEQ tablet TAKE 1 TABLET BY MOUTH EVERY DAY IN THE MORNING 05/01/2022 Active amLODIPine (Norvasc) 5 MG tablet Take 1 (one) tablet by mouth every morning 10/14/2022 Active alendronate (Fosamax) 70 MG tablet TAKE 1 TABLET BY MOUTH WEEKLY 10/11/2023 Active Symbicort 80-4.5 MCG/ACT inhaler INHALE 2 PUFFS BY MOUTH EVERY 12 HOURS 10/15/2023 Active Vitamin D3 (D2000 Ultra Strength) 50 MCG (2000 UT) capsule 1,250 Units Active cyclobenzaprine (Flexeril) 10 MG tablet Take 1 (one) tablet by mouth nightly as needed for Muscle Spasms 40 tablet 03/12/2024 Active celecoxib (CeleBREX) 200 MG capsule Take 1 (one) capsule by mouth once daily 90 capsule 06/23/2024 Active naproxen (NAPROSYN) 500 MG tablet 4 12/28/2016 06/23/19 25 Discontinu ed(List Clean-Up) meloxicam (Mobic) 7.5 MG tabletIndications:P rimary osteoarthritis of both knees Take 1 (one) tablet by mouth once daily 30 tablet 09/06/2022 06/23/19 25 Discontinu ed(List Clean-Up) celecoxib (CeleBREX) 200 MG capsuleIndications: Primary osteoarthritis of both knees Take 1 (one) capsule by mouth once daily 90 capsule 3 11/22/2023 06/23/19 25 Discontinu ed(List Clean-Up) Active Problems Problem Noted Date Diagnosed Date Dysphagia 06/03/2019 TBI (traumatic brain injury) 06/03/2019 Acute post-traumatic delirium 06/03/2019 Acute blood loss anemia 06/03/2019 Altered mental status 05/31/2019 Epidural hematoma 05/31/2019 Fall 05/31/2019 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 (F LUZONE; FLULAVAL; FLUARIX; AFLURIA QUADRIVALENT; 6MO+), 0.5 ML (IIV4) 06/01/2019 Family History Medical History Relation Name Comments Cataract Mother Diabetes Mother Relation Name Status Comments Mother Social History Tobacco Use Types Packs/Day Years Used Date Smoking Tobacco: Never Smokeless Tobacco: Never Tobacco Cessation:Counseling Given: Not Answered Alcohol Use Standard Drinks/Week Comments No 0 (1 standard drink = 0.6 oz pur e alcohol) AUDIT-C Answer Date Recorded Frequency of Alcohol Consumption Never 06/01/2019 Average Number of Drinks Not on file 019 Frequency of Binge Drinking Not on file 05/17 Sex and Gender Information Value Date Recorded Sex Assigned at Not on file Gender Identity Female 06/01/2019 7:38 AM CUSTOMER SERVICES MANAGER Sexual Orientation Not on file Last Filed Vital Signs Vital Sign Reading Time Taken Comments Blood Pressure 124/85 10/22/2023 2:46 PM CDT Pulse 94 10/22/2023 2:46 PM CDT Temperature 36.1 ??C (97 ??F) 06/18/2019 3:27 PM CUSTOMER SERVICES MANAGER Respiratory Rate 20 06/18/2019 3:27 PM CUSTOMER SERVICES MANAGER Oxygen Saturation 92% 10/22/2023 2:46 PM CDT Inhaled Oxygen Concentration 50% 06/01/2019 8 :20 AM CUSTOMER SERVICES MANAGER Weight 111.1 kg (245 lb) 03/11/2024 1:39 PM CDT Height 149.9 cm (4' 11 ) 03/11/2024 1:39 PM CDT Body Mass Index 49.48 03/11/2024 1:39 PM CDT Plan of Treatment Upcoming Encounters Date Type Department Care Team (Late st Contact Info) Description 10/13/2024 1:15 PM CDT Office Visit [facility] - Orthopedic Surgery [address] [place] [address] Bernard Kurtz MD [address] [place] [address] Health Maintenance Due Date Last Done Comments COLOGUARD (AGES 45-75) - COLON CA SCREENING 1962 COLON MONITORING 1962 COLONOSCOPY - COLON CA SCREENING 1962 CT COLONOGRAPHY - COLON CA SCREENING 1962 Colorectal Cancer Screening 1962 FIT - COLON CA SCREENING 1962 FLEX SIG - COLON CA SCREENING 1962 MAMMOGRAM 1962 PAP SMEAR 1962 HIV SCREENING 1977 HEPATITIS C SCREENING 09/11/1980 DTAP/TDAP/TD VACCINES (1 - Tdap) 1981 PNEUMOCOCCAL VACCINE 50+ (1 of 1 - PCV) 2012 ZOSTER VACCINE (1 of 2) 2012 Respiratory Syncytial Virus (RSV) Vaccine Pt: or over 60 yrs (1 - Risk 60-74 years 1-dose series) 2022 SCREENING FOR DIABETES 05/28/2023 0, 06/15/2019, 06/11/2019, Additional history exists COVID-19 VACCINE ( - 2023- season) 2024 INFLUENZA VACCINE (#1) 2024 1, 06/01/2019, 02/26/2017, Additional history exists DEPRESSION SCREENING 06/17/2024 HEPATITIS B VACCINE Aged Out No longe r eligible based on patient's age to complete this topic HIB VACCINE Aged Out No longer eligi ble based on patient's age to complete this topic HPV VACCINE Aged Out No longer eligi ble based on patient's age to complete this topic MENINGOCOCCAL (Group B) VACCINE Aged Out No longer eligible based on patient's age to complete this topic MENINGOCOCCAL VACCINE Aged Out No eulalio tio eligible based on patient's age to complete this topic PNEUMOCOCCAL VACCINE Aged Out No long er eligible based on patient's age to complete this topic Goals Goal Patient Goal Type Associated Problems Recent Progress Patient-Stated? Author Mobility General Worsening(08/15 11:15 AM CDT) Lu Nugent RN Note: Expected end date: 06/17/2019 The goal is to maintain or improve your mobility at the optimum level for you. Interventions: Medical Devices Implanted Type Area Quartz Miner Blasting Device Identifier Shelf Expiration Date Model / Serial / Lot Plate 2 Hl Ult Lopro Chmfr Edg Crnl Implanted:Qty: 3 on 05/31/2019 by Nate Haynes MD at [facility] [employer] [facility] [id number] / / 4mm Screws Implanted:Qty: 21 on 05/31/2019 by Nate Haynes MD at [facility] [employer] [facility] [id number] / / Plate 4 Hl Ult Lopro Chmfr Edg Crnl 14 Implanted:Qty: 2 on 05/31/2019 by Nate Haynes MD at [facility] [employer] [facility] [id number] / / Plate 2 Hl Cntr Spc Rgd Crnl 12mmx.4mm Implanted:Qty: 3 on 05/31/2019 by Nate Haynes MD at [facility] [employer] [id number] / / Synthes Ulp [place] Cover Implanted:Qty: 1 on 05/31/2019 by Nate Haynes MD at [facility] [id number] / / Procedures Procedure Name Priority Date/Time Associated Diagnosis Comments COMPREHENSIVE METABOLIC PANEL Routine 06/18/2019 5:02 AM CUSTOMER SERVICES MANAGER from Last 3 Months or Most Recently Relevant to Health Maintenance Results * (ABNORMAL) COMPREHENSIVE METABOLIC PANEL (06/18/2019 5:02 AM CUSTOMER SERVICES MANAGER) Pathologist [facility] Glucose 98 70 - 105 mg/dL 06/18/2019 6:24 AM CUSTOMER SERVICES MANAGER [facility] Sodium 137 136 - 145 mmol/L 06/18/2019 6:24 AM CUSTOMER SERVICES MANAGER [facility] Potassium 4.4 3.5 - 4.7 mmol/L 06/18/2019 6:24 AM CUSTOMER SERVICES MANAGER [facility] Chloride 104 98 - 107 mmol/L 06/18/2019 6:24 AM CUSTOMER SERVICES MANAGER [facility] CO2 26 23 - 31 mmol/L 06/18/2019 6:24 AM CUSTOMER SERVICES MANAGER [facility] Calcium 9.2 8.4 - 10.4 mg/dL 06/18/2019 6:[address] [facility] Anion Gap 7(L) 8 - 16 mmol/L 06/18/2019 6:[address] [facility] BUN 13 9.8 - 20.1 mg/dL 06/18/2019 6:[address] [facility] Creatinine 0.67 0.57 - 1.11 mg/dL 06/18/2019 6:[address] [facility] Alkaline Phosphatase 107 40 - 150 U/L 06/18/2019 6:[address] [facility] ALT 14 0 - 61 U/L 06/18/2019 6:[address] [facility] AST 17 5 - 34 U/L 06/18/2019 6:[address] [facility] Protein Total 6.7 6.4 - 8.3 gm/dL 06/18/2019 6:[address] [facility] Albumin 3.6 3.5 - 5.2 gm/dL 06/18/2019 6:[address] [facility] Bilirubin Total 0.7 0.2 - 1.0 mg/dL 06/18/2019 6:[address] [facility] eGFR by MDRD >60 >60 mL/min/1.7 3m2 06/18/2019 6:[address] [facility] eGFR by MDRD >60 >60 mL/min/1.7 3m2 06/18/2019 6:[address] [facility] Blood BLOOD SPECIMEN / Unknown Lab Venipuncture / Unknown 06/18/2019 5:02 AM CUSTOMER SERVICES MANAGER 06/18/2019 6:00 AM CUSTOMER SERVICES MANAGER Rosa Elena Guzman UTILITY AIRCREWMAN-CHARGE COORDINATOR LAB - CHEMISTR Y ORDERABLES [facility] [address] [place] [address] from Last 3 Months or Most Recently Relevant to Health Maintenance Advance Directives * Full Code (Latest Code Status on File) Date Activated Date Inactivated Comments 06/05/2019 4:59 PM 06/19/2019 8:59 AM * Full Code Date Activated Date Inactivated Comments 05/31/2019 10:57 PM 06/05/2019 4:53 PM Care Teams Truss Assembler Relationship Specialty Start Date End Date Zach Telles DO PCP - General 08/14/22
--- OUTSIDE RECORDS SUMMARY | 2024-07-14 15:15 | XMS_ITS | Referral Summary ---
Author Organization [facility] Address [address] [place] [address] Care Team Providers Care Saddle Tree Stitcher Name Role Phone Zach Telles DO Primary Care Provider [phone] Source Comments [facility],non-owned Affiliates and Associated Physician Practices is amultiple site organization consisting of ambulatory clinics and hospital sitesin [place], [place], [place] and [place]. This disclosure is being madepursuant to the Care Everywhere program and may not contain all information available regarding this patient. Last updated 18.[facility] Encounters Date Type Department Care Team Description 06/23/2024 Refill [facility] - Orthopedic Surgery [address] [place] [address] Bernard Kurtz MD MEDICATION REFILL; Refill Request 06/23/2024 Travel from Last 3 Months Allergies Active Allergy [...] Active vitamin D, ergocalciferol, (DRISDOL) 1.25 MG (73797 UT) capsule 09/10/2021 Active furosemide (LASIX) 20 MG tablet 09/07/2021 Active furosemide (LASIX) 20 MG tablet Take 1 (one) tablet by mouth once daily 09/07/2021 Active [place]-3 Fatty Acids (fish oil) 1000 MG capsule [...] 03/28/2016 Primary osteoarthritis of both knees 11/15/2015 Immunizations Name Administration Dates Next Due INFLUENZA VACCINE, QUADR. (F LUZONE; FLULAVAL; FLUARIX; AFLURIA QUADRIVALENT; 6MO+), 0.5 ML (IIV4) 06/01/2019 Social History Tobacco Use Types Packs/Day Years [...] file Gender Identity Female 06/01/2019 7:38 AM INFECTION CONTROL COORDINATOR Sexual Orientation Not on file Last Filed Vital Signs Vital Sign Reading Time Taken Comments Blood Pressure 124/85 10/22/2023 2:46 PM CDT Pulse 94 10/22/2023 2:46 PM CDT Temperature 36.1 ??C (97 ??F) 06/18/2019 3:27 PM INFECTION CONTROL COORDINATOR Respiratory Rate 20 06/18/2019 3:27 PM INFECTION CONTROL COORDINATOR Oxygen Saturation 92% 10/22/2023 2:46 PM CDT Inhaled Oxygen Concentration 50% 06/01/2019 8 :20 AM INFECTION CONTROL COORDINATOR Weight 111.1 kg (245 lb) 03/11/2024 1:39 PM CDT Height 149.9 cm (4' 11 ) 03/11/2024 1:39 PM CDT Body Mass Index 49.48 03/11/2024 1:39 PM CDT Functional Status Functional Status Response Date of [...] person have difficulty concentrating/remembering/making decisions? Yes 06/01/2019 Plan of Treatment Upcoming Encounters Date Type Department Care Team (Late st Contact Info) Description 10/13/2024 1:15 PM CDT Office Visit [facility] - Orthopedic Surgery [address] [place] [address] Bernard Kurtz MD [address] [place] [address] Goals Goal Patient Goal Type Associated Problems Recent Progress Patient-Stated? Author Mobility General Worsening(08/15 11:15 AM CDT) No Lu Cope RN Note: Expected end date: 06/17/2019 The goal is to maintain or improve your mobility at the optimum level for you. Interventions: Medical Devices Implanted Type Area Health Information Administrator Device Identifier Shelf Expiration Date Model / Serial / Lot Plate 2 Hl Ult Lopro Chmfr Edg Crnl Implanted:Qty: 3 on 05/31/2019 by Nate Haynes MD at [facility] [employer] [facility] [id number] / / 4mm Screws Implanted:Qty: 21 on 05/31/2019 by Nate Haynes MD at [facility] [employer] [facility] [id number] / / Plate 4 Hl Ult Lopro Chmfr Edg Crnl 14 Implanted:Qty: 2 on 05/31/2019 by Nate Haynes MD at [facility] [employer] [id number] / / Plate 2 Hl Cntr Spc Rgd Crnl 12mmx.4mm Implanted:Qty: 3 on 05/31/2019 by Nate Haynes MD at [facility] [employer] [id number] / / Synthes Ulp [place] Cover Implanted:Qty: 1 on 05/31/2019 by Nate Haynes MD at [facility] [id number] / / Procedures Procedure Name Priority Date/Time Associated Diagnosis Comments COMPREHENSIVE METABOLIC PANEL Routine 06/18/2019 5:02 AM INFECTION CONTROL COORDINATOR from Last 3 Months or Most Recently Relevant to Health Maintenance Results * (ABNORMAL) COMPREHENSIVE METABOLIC PANEL (06/18/2019 5:02 AM INFECTION CONTROL COORDINATOR) Glucose 98 70 - 105 mg/dL 06/18/2019 6:24 AM [facility] Sodium 137 136 - 145 mmol/L 06/18/2019 6:24 AM [facility] Potassium 4.4 3.5 - 4.7 mmol/L 06/18/2019 6:24 AM [facility] Chloride 104 98 - 107 mmol/L 06/18/2019 6:24 AM [facility] CO2 26 23 - 31 mmol/L 06/18/2019 6:24 AM [facility] Calcium 9.2 8.4 - 10.4 mg/dL 06/18/2019 6:24 AM [facility] Anion Gap 7(L) 8 - 16 mmol/L 06/18/2019 6:24 AM [facility] BUN 13 9.8 - 20.1 mg/dL 06/18/2019 6:24 AM [facility] Creatinine 0.67 0.57 - 1.11 mg/dL 06/18/2019 6:24 AM [facility] Alkaline Phosphatase 107 40 - 150 U/L 06/18/2019 6:24 AM [facility] ALT 14 0 - 61 U/L 06/18/2019 6:24 AM [facility] AST 17 5 - 34 U/L 06/18/2019 6:24 AM [facility] Protein Total 6.7 6.4 - 8.3 gm/dL 06/18/2019 6:24 AM [facility] Albumin 3.6 3.5 - 5.2 gm/dL 06/18/2019 6:24 AM [facility] Bilirubin Total 0.7 0.2 - 1.0 mg/dL 06/18/2019 6:24 AM [facility] eGFR by MDRD >60 >60 mL/min/1.7 3m2 06/18/2019 6:24 AM [facility] eGFR by MDRD >60 >60 mL/min/1.7 3m2 06/18/2019 6:24 AM INFECTION CONTROL COORDINATOR [facility] Blood BLOOD SPECIMEN / Unknown Lab Venipuncture / Unknown 06/18/2019 5:02 AM INFECTION CONTROL COORDINATOR 06/18/2019 6:00 AM INFECTION CONTROL COORDINATOR Rosa Elena Guzman GAS PLUMBER-FINE DINING SERVER LAB - CHEMISTR Y ORDERABLES Performing Organization Address City/State/[facility] Co de Phone Number [facility] [address] [place] [address] from Last 3 Months or Most Recently Relevant to Health Maintenance Advance Directives * Full Code (Latest Code Status on File) Date Activated Date Inactivated Comments 06/05/2019 4:59 PM 06/19/2019 8:59 AM * Full Code Date Activated Date Inactivated Comments 05/31/2019 10:57 PM 06/05/2019 4:53 PM Care Teams Saddle Tree Stitcher Relationship Specialty Start Date End Date Zach Telles DO PCP - General 08/14/22
--- OUTSIDE RECORDS SUMMARY | 2024-07-14 15:15 | XMS_ITS | Encounter Summary ---
Author Organization [facility] Address [address] [place] [address] Phone Care Team Providers Care Special Education Tutor Name Role Phone Zach Telles DO Primary Care Provider [phone] Encounter Details Date Type Department Care Team (Late st Contact Info) Description 08/29/2023 Documentation [facility] Endocrinology Metabolism and Lipid [address] [place] [address] [place] [address] Martha Park CMA Social History Tobacco Use Types Packs/Day Years Used Date Smoking Tobacco: Never Smokeless Tobacco: Never Comments Unknown Sex and Gender Information Value Date Recorded Sex Assigned at Not on file Legal Sex Female 7:35 AM OFFICE TECHNOLOGY INSTRUCTOR Gender Identity Not on file Sexual Orientation Not on file documented as of this encounter Plan of Treatment Not on file documented as of this encounter Visit Diagnoses Not on filedocumented in this encounter Care Teams Special Education Tutor Relationship Specialty Start Date End Date Zach Telles DO PCP - General Internal Medicine 07/23/23 documented as of this encounter
--- OUTSIDE RECORDS SUMMARY | 2024-07-14 15:15 | XMS_ITS | Encounter Summary ---
Author Organization [facility] Address [address] [address] Care Team Providers Care Data Abstractor Name Role Phone Zach Telles DO Primary Care Provider [phone] Encounter Details Date Type Department Care Team (Late st Contact Info) Description 07/29/2023 Telephone [facility] - Ophthalmology [address] [place] [phone] Alfonso Koo I, OD [address] [place] [address] [place] [address] Social History Tobacco Use Types Packs/Day Years [...] file Gender Identity Female 06/01/2019 7:38 AM OPEN SHANK COVERER Sexual Orientation Not on file documented as [...] encounter Miscellaneous Notes * Telephone Encounter - Darrick Stevenson - 07/29/2023 2:26 PM CST Patient stated she is needing to get in to see how much more of her vision she has lost. Next available not until November. Please advise, patient's last appt was 02/02/21 SHANK COVERER documented in this encounter Plan of Treatment Upcoming Encounters Date Type Department Care Team (Late st Contact Info) Description 10/13/2024 1:15 PM CDT Office Visit [facility] - Orthopedic Surgery [address] [place] [address] Bernard Kurtz MD [address] [facility] [address] [place] [address] documented as of this encounter Goals Goal Patient Goal Type Associated Problems Recent Progress Patient-Stated? Author Mobility General Worsening(08/15 11:15 AM CDT) No Lu Cope RN Note: Expected end date: 06/17/2019 The goal is to maintain or improve your mobility at the optimum level for you. Interventions: documented as of this encounter Visit Diagnoses Not on filedocumented in this encounter Care Teams Data Abstractor Relationship Specialty Start Date End Date Zach Telles DO PCP - General 08/14/22 documented as of this encounter
--- OUTSIDE RECORDS SUMMARY | 2024-07-14 15:15 | XMS_ITS | Patient Health Record ---
Author Organization [facility] Address [address] [place] [address] Care Team Providers Care User Interface Engineer Name Role Phone Jackelyn Latifjose c Primary Care Provider [phone] Allergies Allergen (clinical drug ingredient) Drug/Non Drug Allergy documented on EMR Reaction Allergy Type Onset Date Status codeine Codeine (uncoded) Unknown Allergy Ac tive Reason For Referral No Information Medications Medication SIG (Take, Route, Frequency, Duration) Notes Start Date End Date Status traMADol HCl 50 MG 1 tablet as needed Orally twice a day Not-Taking Gabapentin 300 MG 1 tablet Orally ever y morning 06/06/2017 Active traMADol HCl 50 MG 1 tablet as needed Orally twice a day for 30 days 06/06/2017 Active Gabapentin 600 MG 2 capsule before bedtime Orally at HS for chronic pain Active Ergocalciferol 16046 UNIT 1 capsule Oral ly weekly for 30 days 06/13/2017 Active Flonase 50 MCG/DOSE 2 spray in each nostril Nasally Once a day for 30 day(s) 07/21/2017 Active Losartan Potassium 100 MG 1 tablet Orall y Once a day for 30 days Active Naproxen 500 MG 1 tablet with food o r milk as needed for pain Orally three a day Active ProAir HFA 108 (90 Base) MCG/ACT 2 puffs as needed Inhalation every 6 hrs for 30 days Active Social History Tobacco Use: Social History Observation Description Date Details (start date - stop date) Never Smoker NA - NA Dont use, Tobacco Use/Smoking Question Answer Notes Are you a nonsmoker Problems Problem Type SNOMED Code ICD Code Onset Dates Problem Status W/U Status Risk Notes Problem 39040667 Other chronic pain (G89.29) Active confirmed Problem 03563688 Vitamin D deficiency (E55.9) Active confirmed Problem 10464166 Essential hypertension (I10) Active confirmed Problem 020746211 Lymphedema (I89.0) Active confirmed Problem 22714671 Bilateral hearin g loss, unspecified hearing loss type (H91.93) Active confirmed Plan Of Treatment Pending Test Test Name Order Date Vitamin D, 25-Hydroxy* 06/13/2017 Insurance Providers Payer Name Payer Address Payer Phone Subscriber Number Group Number Insured Name Patient Relationship to Insured Coverage Start Date Coverage End Date [facility] Attn Claims Department [address] [place] [address] [id number] Cubethanieq Denisha encarnacion Self - patient is the insured 7 Medical (General) History Surgical History Surgery Date(Month/Year) 1986 Gallbladder removed 2014
--- OUTSIDE RECORDS SUMMARY | 2024-07-14 15:16 | XMS_ITS | Patient Health Summary ---
Author Organization [facility] Address [address] [place] [address] Care Team Providers Care Marine Diesel Mechanic Name Role Phone Zach Telles DO Primary Care Provider [phone] Note from [facility],non-owned Affiliates and Associated Physician Practices is amultiple site organization consisting of ambulatory clinics and hospital sitesin [place], [place], [place] and [place]. This disclosure is being madepursuant to the Care Everywhere program and may not contain all information available regarding this patient. Last updated 18.[facility] Allergies * Codeine(Nausea and/or Vomiting) -Low Criticality Medications * Be aware that medications may not be up to date on this document. Alwaysverify current medications with the patient. * piroxicam (FELDENE) 20 MG capsule(Started 08/28/2016) Take 20 mg by mouth DAILY. 3 refills left * albuterol HFA (VENTOLIN HFA) 108 (90 BASE) MCG/ACT inhaler(Started 03/23/2016) 3 refills left * fenofibrate (LOFIBRA) 160 MG tablet(Started 01/29/2016) 6 refills left * nortriptyline (PAMELOR) 10 MG capsule(Started 01/29/2016) 6 refills left * losartan (COZAAR) 100 MG tablet(Started 12/23/2015) * PARoxetine (PAXIL) 20 MG tablet(Started 11/16/2015) 5 refills left * gabapentin (NEURONTIN) 300 MG capsule(Started 01/24/2016) Take 1 (one) capsule by mouth TID * baclofen (LIORESAL) 10 MG tablet(Started 11/14/2015) * aspirin (ASPIRIN) 81 MG tablet(Started 01/24/2016) Take 1 (one) tablet by mouth DAILY * fluticasone propionate (FLONASE) 50 MCG/ACT nasal spray(Started 07/21/2017) * albuterol HFA (PROVENTIL;VENTOLIN;PROAIR) 108 (90 Base) MCG/ACT inhaler Inhale 2 (two) puffs by mouth every 6 hours as needed * acetaminophen (TYLENOL) 160 MG/5ML solution(Started 06/05/2019) Take 20.3125 mL by mouth every 4 hours as needed * Acetaminophen Childrens 160 MG/5ML SOLN(Started 06/15/2019) Take 20.3125 mL by mouth every 6 hours as needed * QVAR REDIHALER 80 MCG/ACT inhaler(Started 05/04/2019) * carisoprodol (SOMA) 350 MG tablet carisoprodol 350 mg tablet * levETIRAcetam (KEPPRA) 500 MG tablet(Started 06/05/2019) * mirtazapine (REMERON) 15 MG tablet(Started 05/04/2019) * polyethylene glycol 3350 (MIRALAX) packet(Started 06/05/2019) * prochlorperazine (COMPAZINE) 10 MG tablet(Started 06/15/2019) Take 1 (one) tablet by mouth every 6 hours as needed * raNITIdine (ZANTAC) 300 MG tablet(Started 05/04/2019) * [facility] SENNA 8.6 MG tablet(Started 06/05/2019) * senna-docusate (SENOKOT-S) 8.6-50 MG tablet(Started 06/15/2019) Take 1 (one) tablet by mouth once daily as needed * sertraline (ZOLOFT) 100 MG tablet sertraline 100 mg tablet * simvastatin (ZOCOR) 20 MG tablet simvastatin 20 mg tablet * traMADol (ULTRAM) 50 MG tablet tramadol 50 mg tablet * traZODone (DESYREL) 50 MG tablet trazodone 50 mg tablet * atorvastatin (LIPITOR) 20 MG tablet(Started 09/20/2021) * vitamin D, ergocalciferol, (DRISDOL) 1.25 MG (66220 UT) capsule(Started 09/10/2021) * furosemide (LASIX) 20 MG tablet(Started 09/07/2021) * furosemide (LASIX) 20 MG tablet(Started 09/07/2021) Take 1 (one) tablet by mouth once daily * [place]-3 Fatty Acids (fish oil) 1000 MG capsule(Started 03/25/2022) TAKE 1 CAPSULE BY MOUTH TWICE DAILY BEFORE A MEAL * potassium chloride ER (Klor-Con) 10 MEQ tablet(Started 05/01/2022) TAKE 1 TABLET BY MOUTH EVERY DAY IN THE MORNING * amLODIPine (Norvasc) 5 MG tablet(Started 10/14/2022) Take 1 (one) tablet by mouth every morning * alendronate (Fosamax) 70 MG tablet(Started 10/11/2023) TAKE 1 TABLET BY MOUTH WEEKLY * Symbicort 80-4.5 MCG/ACT inhaler(Started 10/15/2023) INHALE 2 PUFFS BY MOUTH EVERY 12 HOURS * Vitamin D3 (D2000 Ultra Strength) 50 MCG (2000 UT) capsule 1,250 Units * cyclobenzaprine (Flexeril) 10 MG tablet(Started 03/12/2024) Take 1 (one) tablet by mouth nightly as needed for Muscle Spasms * celecoxib (CeleBREX) 200 MG capsule(Started 06/23/2024) Take 1 (one) capsule by mouth once daily Ended Medications* naproxen (NAPROSYN) 500 MG tablet(Started 12/28/2016) (Discontinued) 4 refills left * meloxicam (Mobic) 7.5 MG tablet(Started 09/06/2022)(Discontinued) Take 1 (one) tablet by mouth once daily * celecoxib (CeleBREX) 200 MG capsule(Started 11/22/2023)(Discontinued) Take 1 (one) capsule by mouth once daily 3 refills by 11/21/2024 Active Problems Problem Noted Date Diagnosed Date Dysphagia 06/03/2019 TBI (traumatic brain injury) 06/03/2019 Acute post-traumatic delirium 06/03/2019 Acute blood loss anemia 06/03/2019 Altered mental status 05/31/2019 Epidural hematoma 05/31/2019 Fall 05/31/2019 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 Sexual Orientation Not on file Last Filed Vital Signs Vital Sign Reading Time Taken Comments Blood Pressure 124/85 10/22/2023 2:46 PM CDT Pulse 94 10/22/2023 2:46 PM CDT Temperature 36.1 ??C (97 ??F) 06/18/2019 3:27 PM TOUR OPERATOR Respiratory Rate 20 06/18/2019 3:27 PM TOUR OPERATOR Oxygen Saturation 92% 10/22/2023 2:46 PM CDT Inhaled Oxygen Concentration 50% 06/01/2019 8 :20 AM TOUR OPERATOR Weight 111.1 kg (245 lb) 03/11/2024 1:39 PM CDT Height 149.9 cm (4' 11 ) 03/11/2024 1:39 PM CDT Body Mass Index 49.48 03/11/2024 1:39 PM CDT Medical Devices Implanted Type Area Staff Pharmacist Device Identifier Shelf Expiration Date Model / Serial / Lot Plate 2 Hl Ult Lopro Chmfr Edg Crnl Implanted:Qty: 3 on 05/31/2019 by Nate Haynes MD at [facility] [employer] [facility] [id number] / / 4mm Screws Implanted:Qty: 21 on 05/31/2019 by Nate Haynes MD at [facility] [employer] [id number] / / Plate 4 Hl Ult Lopro Chmfr Edg Crnl 14 Implanted:Qty: 2 on 05/31/2019 by Nate Haynes MD at [facility] [employer] [id number] / / Plate 2 Hl Cntr Spc Rgd Crnl 12mmx.4mm Implanted:Qty: 3 on 05/31/2019 by Nate Haynes MD at [facility] [employer] [id number] / / [employer]ynthes Ulp Caitlin Hole Cover Implanted:Qty: 1 on 05/31/2019 by Nate Haynes MD at [facility] [id number] / / Procedures * MA DRAIN/INJECT LARGE JOINT/BURSA(Performed 03/11/2024) Performed for Primary osteoarthritis of both knees * MA DRAIN/INJECT LARGE JOINT/BURSA(Performed 03/11/2024) Performed for Primary osteoarthritis of both knees * MA DRAIN/INJECT LARGE JOINT/BURSA(Performed 11/27/2023) Performed for Primary osteoarthritis of both knees * MA DRAIN/INJECT LARGE JOINT/BURSA(Performed 11/27/2023) Performed for Primary osteoarthritis of both knees * MA DRAIN/INJECT LARGE JOINT/BURSA(Performed 08/27/2023) Performed for Primary osteoarthritis of both knees * MA DRAIN/INJECT LARGE JOINT/BURSA(Performed 08/27/2023) Performed for Primary osteoarthritis of both knees * MA DRAIN/INJECT LARGE JOINT/BURSA(Performed 05/28/2023) Performed for Primary osteoarthritis of both knees * MA DRAIN/INJECT LARGE JOINT/BURSA(Performed 05/28/2023) Performed for Primary osteoarthritis of both knees * XR KNEE RIGHT 4VW OR MORE(Performed 02/13/2023) Performed for Primary osteoarthritis of both knees * MA DRAIN/INJECT LARGE JOINT/BURSA(Performed 02/13/2023) Performed for Primary osteoarthritis of both knees * MA DRAIN/INJECT LARGE JOINT/BURSA(Performed 02/13/2023) Performed for Primary osteoarthritis of both knees * MA DRAIN/INJECT LARGE JOINT/BURSA(Performed 11/13/2022) Performed for Primary osteoarthritis of both knees * MA DRAIN/INJECT LARGE JOINT/BURSA(Performed 11/13/2022) Performed for Primary osteoarthritis of both knees * MA DRAIN/INJECT LARGE JOINT/BURSA(Performed 08/14/2022) Performed for Primary osteoarthritis of both knees * MA DRAIN/INJECT LARGE JOINT/BURSA(Performed 08/14/2022) Performed for Primary osteoarthritis of both knees * MA DRAIN/INJECT LARGE JOINT/BURSA(Performed 05/15/2022) Performed for Primary osteoarthritis of both knees * MA DRAIN/INJECT LARGE JOINT/BURSA(Performed 05/15/2022) Performed for Primary osteoarthritis of both knees * MA DRAIN/INJECT LARGE JOINT/BURSA(Performed 01/03/2022) Performed for Primary osteoarthritis of both knees * MA DRAIN/INJECT LARGE JOINT/BURSA(Performed 01/03/2022) Performed for Primary osteoarthritis of both knees * MA DRAIN/INJECT LARGE JOINT/BURSA(Performed 10/03/2021) Performed for Primary osteoarthritis of both knees * MA DRAIN/INJECT LARGE JOINT/BURSA(Performed 10/03/2021) Performed for Primary osteoarthritis of both knees * MA DRAIN/INJECT LARGE JOINT/BURSA(Performed 05/30/2021) Performed for Primary osteoarthritis of both knees * MA DRAIN/INJECT LARGE JOINT/BURSA(Performed 05/30/2021) Performed for Primary osteoarthritis of both knees * MA DRAIN/INJECT LARGE JOINT/BURSA(Performed 02/28/2021) Performed for Primary osteoarthritis of both knees * MA DRAIN/INJECT LARGE JOINT/BURSA(Performed 02/28/2021) Performed for Primary osteoarthritis of both knees * MA DRAIN/INJECT LARGE JOINT/BURSA(Performed 11/22/2020) Performed for Primary osteoarthritis of both knees * MA DRAIN/INJECT LARGE JOINT/BURSA(Performed 11/22/2020) Performed for Primary osteoarthritis of both knees * MA DRAIN/INJECT LARGE JOINT/BURSA(Performed 08/23/2020) Performed for Primary osteoarthritis of both knees * MA DRAIN/INJECT LARGE JOINT/BURSA(Performed 08/23/2020) Performed for Primary osteoarthritis of both knees * MA DRAIN/INJECT LARGE JOINT/BURSA(Performed 05/24/2020) Performed for Primary osteoarthritis of both knees * MA DRAIN/INJECT LARGE JOINT/BURSA(Performed 05/24/2020) Performed for Primary osteoarthritis of both knees * MA DRAIN/INJECT LARGE JOINT/BURSA(Performed 03/10/2020) Performed for Primary osteoarthritis of both knees * MA DRAIN/INJECT LARGE JOINT/BURSA(Performed 03/10/2020) Performed for Primary osteoarthritis of both knees * XR KNEE LEFT 4VW OR MORE(Performed 03/01/2020) Performed for Primary osteoarthritis of both knees * XR KNEE RIGHT 4VW OR MORE(Performed 03/01/2020) Performed for Primary osteoarthritis of both knees * MA DRAIN/INJECT LARGE JOINT/BURSA(Performed 12/01/2019) Performed for Primary osteoarthritis of both knees * MA DRAIN/INJECT LARGE JOINT/BURSA(Performed 12/01/2019) Performed for Primary osteoarthritis of both knees * MA DRAIN/INJECT LARGE JOINT/BURSA(Performed 08/25/2019) Performed for Primary osteoarthritis of both knees * MA DRAIN/INJECT LARGE JOINT/BURSA(Performed 08/25/2019) Performed for Primary osteoarthritis of both knees * LAB RESULTS ORDER(Performed 07/11/2019) * APHERESIS/TRANSFUSION ORDER(Performed 06/24/2019) * COMPREHENSIVE METABOLIC PANEL(Performed 06/18/2019) * CBC W AUTO DIFFERENTIAL(Performed 06/18/2019) * COMPREHENSIVE METABOLIC PANEL(Performed 06/15/2019) * CBC W AUTO DIFFERENTIAL(Performed 06/15/2019) * CT HEAD WO CONTRAST(Performed 06/11/2019) * COMPREHENSIVE METABOLIC PANEL(Performed 06/11/2019) * CBC W AUTO DIFFERENTIAL(Performed 06/11/2019) * CARDIAC PROCEDURE ORDER(Performed 06/10/2019) * COMPREHENSIVE METABOLIC PANEL(Performed 06/08/2019) * CBC W AUTO DIFFERENTIAL(Performed 06/08/2019) * PHOSPHORUS BLOOD(Performed 06/08/2019) * MAGNESIUM BLOOD(Performed 06/08/2019) * POTASSIUM BLOOD(Performed 06/06/2019) * PHOSPHORUS BLOOD(Performed 06/05/2019) * BASIC METABOLIC PANEL (CALCIUM TOTAL)(Performed 06/05/2019) * MAGNESIUM BLOOD(Performed 06/05/2019) * CBC W AUTO DIFFERENTIAL(Performed 06/05/2019) * XR ABDOMEN KUB(Performed 06/04/2019) Performed for Epidural hematoma (HCC) * PHOSPHORUS BLOOD(Performed 06/04/2019) * BASIC METABOLIC PANEL (CALCIUM TOTAL)(Performed 06/04/2019) * MAGNESIUM BLOOD(Performed 06/04/2019) * CBC W AUTO DIFFERENTIAL(Performed 06/04/2019) * CT HEAD WO CONTRAST(Performed 06/03/2019) Performed for Epidural hematoma (HCC) * BASIC METABOLIC PANEL (CALCIUM TOTAL)(Performed 06/02/2019) * PT-INR [facility](Performed 06/02/2019) * MAGNESIUM BLOOD(Performed 06/02/2019) * PHOSPHORUS BLOOD(Performed 06/02/2019) * CALCIUM IONIZED WHOLE BLOOD(Performed 06/02/2019) * CBC W AUTO DIFFERENTIAL(Performed 06/02/2019) * BASIC METABOLIC PANEL (CALCIUM TOTAL)(Performed 06/02/2019) * BASIC METABOLIC PANEL (CALCIUM TOTAL)(Performed 06/02/2019) * PT-INR [facility](Performed 06/02/2019) * MAGNESIUM BLOOD(Performed 06/02/2019) * PHOSPHORUS BLOOD(Performed 06/02/2019) * CALCIUM IONIZED WHOLE BLOOD(Performed 06/02/2019) * CBC W AUTO DIFFERENTIAL(Performed 06/02/2019) * BASIC METABOLIC PANEL (CALCIUM TOTAL)(Performed 06/01/2019) * XR WRIST LEFT 2VW(Performed 06/01/2019) Performed for Epidural hematoma (HCC) * ECHO COMPLETE(Performed 06/01/2019) Performed for Epidural hematoma (HCC) * VAS CAROTID DUPLEX BILATERAL(Performed 06/01/2019) Performed for Epidural hematoma (HCC) * EXTUBATION(Performed 06/01/2019) * BASIC METABOLIC PANEL (CALCIUM TOTAL)(Performed 06/01/2019) * BASIC METABOLIC PANEL (CALCIUM TOTAL)(Performed 06/01/2019) * XR CHEST 1VW PORTABLE(Performed 06/01/2019) Performed for Epidural hematoma (HCC) * XR ABDOMEN KUB PORTABLE(Performed 06/01/2019) Performed for Epidural hematoma (HCC) * XR FOREARM LEFT 2VW OR MORE(Performed 06/01/2019) Performed for Fall, initial encounter * XR TIBIA FIBULA LEFT 2VW(Performed 06/01/2019) Performed for Fall, initial encounter * CT HEAD WO CONTRAST(Performed 06/01/2019) Performed for Epidural hematoma (HCC) * XR CHEST 1VW PORTABLE(Performed 06/01/2019) Performed for Epidural hematoma (HCC) * URINALYSIS NO MICROSCOPIC NO CULTURE(Performed 06/01/2019) * URINE DRUG SCREEN IMMUNOASSAY(Performed 06/01/2019) * CULTURE URINE(Performed 06/01/2019) * MAGNESIUM BLOOD(Performed 06/01/2019) * PHOSPHORUS BLOOD(Performed 06/01/2019) * BASIC METABOLIC PANEL (CALCIUM TOTAL)(Performed 06/01/2019) * BLOOD GASES ART COMPLETE [facility] OR(Performed 06/01/2019) Performed for Epidural hematoma (HCC) * PT-INR [facility](Performed 06/01/2019) * CALCIUM IONIZED WHOLE BLOOD(Performed 06/01/2019) * CBC W AUTO DIFFERENTIAL(Performed 06/01/2019) * BLOOD GASES ARTERIAL(Performed 05/31/2019) * PERIPHERAL IV NOTE(Performed 05/31/2019) * ARTERIAL LINE NOTE(Performed 05/31/2019) * CRANIECTOMY/CRANIOTOMY(Performed 05/31/2019) Performed for Epidural hematoma (HCC) * PREPARE RBC LEUKOREDUCED UNIT(Performed 05/31/2019) * PREPARE PLATELET PHERESIS UNIT(S)(Performed 05/31/2019) * PREPARE FFP UNIT(S)(Performed 05/31/2019) * PREPARE RBC LEUKOREDUCED UNIT(Performed 05/31/2019) * CT HEAD WO CONTRAST(Performed 05/31/2019) Performed for Fall, initial encounter * CT LUMBAR SPINE WO CONTRAST(Performed 05/31/2019) Performed for Fall, initial encounter * CT THORACIC SPINE WO CONTRAST(Performed 05/31/2019) Performed for Fall, initial encounter * CT CERVICAL SPINE WO CONTRAST(Performed 05/31/2019) Performed for Fall, initial encounter * CT CHEST ABDOMEN PELVIS W CONT(Performed 05/31/2019) Performed for Fall, initial encounter * XR PELVIS 1 OR 2VW(Performed 05/31/2019) Performed for Fall, initial encounter * XR CHEST 1VW PORTABLE(Performed 05/31/2019) Performed for Fall, initial encounter * TYPE + SCREEN PANEL(Performed 05/31/2019) * HCG BETA BLOOD QUANTITATIVE(Performed 05/31/2019) * ALCOHOL ETHYL BLOOD(Performed 05/31/2019) * PT-INR [facility](Performed 05/31/2019) * MAGNESIUM BLOOD(Performed 05/31/2019) * PHOSPHORUS BLOOD(Performed 05/31/2019) * COMPREHENSIVE METABOLIC PANEL(Performed 05/31/2019) * CBC W AUTO DIFFERENTIAL(Performed 05/31/2019) * TEG PLATELET MAPPING(Performed 05/31/2019) * XR LUMBAR SPINE 2 OR 3VW(Performed 04/09/2019) Performed for Low back pain * MA DRAIN/INJECT LARGE JOINT/BURSA(Performed 03/03/2019) Performed for Primary osteoarthritis of both knees * MA DRAIN/INJECT LARGE JOINT/BURSA(Performed 03/03/2019) Performed for Primary osteoarthritis of both knees * PROC INJECTION JOINT (SMALL/INTERMED/MAJOR)(Performed 11/11/2018) Performed for Primary osteoarthritis of both knees * MA DRAIN/INJECT LARGE JOINT/BURSA(Performed 11/11/2018) Performed for Primary osteoarthritis of both knees * MA DRAIN/INJECT LARGE JOINT/BURSA(Performed 08/12/2018) Performed for Primary osteoarthritis of both knees * MA DRAIN/INJECT LARGE JOINT/BURSA(Performed 08/12/2018) Performed for Primary osteoarthritis of both knees * MA DRAIN/INJECT LARGE JOINT/BURSA(Performed 04/15/2018) Performed for Primary osteoarthritis of both knees * MA DRAIN/INJECT LARGE JOINT/BURSA(Performed 04/15/2018) Performed for Primary osteoarthritis of both knees * MA DRAIN/INJECT LARGE JOINT/BURSA(Performed 01/07/2018) Performed for Primary osteoarthritis of both knees * MA DRAIN/INJECT LARGE JOINT/BURSA(Performed 01/07/2018) Performed for Primary osteoarthritis of both knees * MA DRAIN/INJECT LARGE JOINT/BURSA(Performed 10/09/2017) Performed for Primary osteoarthritis of both knees * MA DRAIN/INJECT LARGE JOINT/BURSA(Performed 10/09/2017) Performed for Primary osteoarthritis of both knees * XR KNEE RIGHT 4VW OR MORE(Performed 11/15/2015) * XR KNEE LEFT 4VW OR MORE(Performed 11/15/2015) Results * MA DRAIN/INJECT LARGE JOINT/BURSA (03/11/2024 2:31 PM CDT) Narrative Bernard Kurtz MD - 03/11/2024 2:31 PM CDT Bernard Kurtz MD ? 03/11/2024 ??4:04 PM Orthopaedic Surgery Procedure Note Denisha Guzman [id number] Diagnosis: Left knee pain Procedure: Injection of corticosteroid into the left knee Indications: Denisha Guzman is a 63 year old female who has left knee pain and arthritis. Informed consent was obtained for the procedure Risks and adverse drug reaction were discussed. A time out was performed for patient safety. Procedure Details: The patient was informed of her condition, and the potential benefits of injection of steroid. The patient was counseled as to the risks of the procedure and allergies were reviewed. The patient was understanding and agreeable. ?? The patient was placed into the appropriate position. The area was prepped with betadine and alcohol. Utilizing the peripatellar portal, the skin, subcutaneous, and pericapsular tissues were injectedwith 3 cc 1% lidocaine without epinephrine using a 21 Ga needle. The patient's left knee joint was then entered. Confirmation of location inside the joint was evidenced by aspiration of straw colored synovial fluid. 2 cc of Kenalog/3cc lidocaine was injected into the joint. The needle was removed and the needle site cleaned with alcohol and dressed with a sterile bandage. The procedure was performed under sterile conditions. ?? The patient tolerated the procedure well. Remainder of plan per note. Injection performed by: ? Myself Blood Loss: ??Minimal I was present for the entire procedure Bernard Kurtz MD 03/11/2024 2:31 PM Bernard Kurtz MD PROCEDURE/MINOR AMBER GICAL ORDERABLES * MA DRAIN/INJECT LARGE JOINT/BURSA (03/11/2024 2:31 PM CDT) Narrative Bernard Kurtz MD - 03/11/2024 2:31 PM CDT Bernard Kurtz MD ? 03/11/2024 ??4:04 PM Orthopaedic Surgery Procedure Note Denisha Guzman [id number] Diagnosis: Right knee pain Procedure: Injection of corticosteroid into the right knee Indications: Denisha Guzman is a 63 year old female who has right knee pain and arthritis. Informed consent was obtained for the procedure Risks and adverse drug reaction were discussed A time out was performed for patient safety Procedure Details: The patient was informed of her condition, and the potential benefits of injection of steroid. The patient was counseled as to the risks of the procedure and allergies were reviewed. The patient was understanding and agreeable. ?? The patient was placed into the appropriate position. The area was prepped with betadine and alcohol. Utilizing the peripatellar portal, the skin, subcutaneous, and pericapsular tissues were injected with 3 cc 1% lidocaine without epinephrine using a 21 Ga needle. The patient's right knee was then entered. Confirmation of location inside the joint was evidenced by aspiration of straw colored synovial fluid. 2 cc of Kenalog/3cc lidocaine was injected into the joint. The needle was removed and the needle site cleaned with alcohol and dressed with a sterile bandage. The procedure was performed under sterile conditions. ??The patient tolerated the procedure well. Remainder of plan per note. ?? Injection performed by: myself ? Blood Loss: ??Minimal I was present for the entire procedure Bernard Kurtz MD 03/11/2024 2:31 PM Bernard Kurtz MD PROCEDURE/MINOR AMBER GICAL ORDERABLES * MA DRAIN/INJECT LARGE JOINT/BURSA (11/27/2023 12:49 PM CDT) Narrative Bernard Kurtz MD - 11/27/2023 12:49 PM CDT Bernard Kurtz MD ? 11/27/2023 ??1:46 PM Orthopaedic Surgery Procedure Note Denisha Guzman [id number] Diagnosis: Left knee pain Procedure: Injection of corticosteroid into the left knee Indications: Denisha Guzman is a 63 year old female who has left knee pain and arthritis. Informed consent was obtained for the procedure Risks and adverse drug reaction were discussed. A time out was performed for patient safety. Procedure Details: The patient was informed of her condition, and the potential benefits of injection of steroid. The patient was counseled as to the risks of the procedure and allergies were reviewed. The patient was understanding and agreeable. ?? The patient was placed into the appropriate position. The area was prepped with betadine and alcohol. Utilizing the peripatellar portal, the skin, subcutaneous, and pericapsular tissues were injectedwith 3 cc 1% lidocaine without epinephrine using a 21 Ga needle. The patient's left knee joint was then entered. Confirmation of location inside the joint was evidenced by aspiration of straw colored synovial fluid. 2 cc of Kenalog/3cc lidocaine was injected into the joint. The needle was removed and the needle site cleaned with alcohol and dressed with a sterile bandage. The procedure was performed under sterile conditions. ?? The patient tolerated the procedure well. Remainder of plan per note. Injection performed by: ??Resident on service ? Blood Loss: ??Minimal I was present for the entire procedure Bernard Kurtz MD 11/27/2023 12:50 PM Bernard Kurtz MD PROCEDURE/MINOR AMBER GICAL ORDERABLES * MA DRAIN/INJECT LARGE JOINT/BURSA (11/27/2023 12:49 PM CDT) Narrative Bernard Kurtz MD - 11/27/2023 12:49 PM CDT Bernard Kurtz MD ? 11/27/2023 ??1:46 PM Orthopaedic Surgery Procedure Note Denisha Guzman [id number] Diagnosis: Right knee pain Procedure: Injection of corticosteroid into the right knee Indications: Denisha Guzman is a 63 year old female who has right knee pain and arthritis. Informed consent was obtained for the procedure Risks and adverse drug reaction were discussed A time out was performed for patient safety Procedure Details: The patient was informed of her condition, and the potential benefits of injection of steroid. The patient was counseled as to the risks of the procedure and allergies were reviewed. The patient was understanding and agreeable. ?? The patient was placed into the appropriate position. The area was prepped with betadine and alcohol. Utilizing the peripatellar portal, the skin, subcutaneous, and pericapsular tissues were injected with 3 cc 1% lidocaine without epinephrine using a 21 Ga needle. The patient's right knee was then entered. Confirmation of location inside the joint was evidenced by aspiration of straw colored synovial fluid. 2 cc of Kenalog/3cc lidocaine was injected into the joint. The needle was removed and the needle site cleaned with alcohol and dressed with a sterile bandage. The procedure was performed under sterile conditions. ??The patient tolerated the procedure well. Remainder of plan per note. ?? Injection performed by: ??Resident on service ? Blood Loss: ??Minimal I was present for the entire procedure Bernard Kurtz MD 11/27/2023 12:49 PM Bernard Kurtz MD PROCEDURE/MINOR AMBER GICAL ORDERABLES * MA DRAIN/INJECT LARGE JOINT/BURSA (08/27/2023 1:34 PM CDT) Narrative Bernard Kurtz MD - 08/27/2023 1:34 PM CDT Bernard Kurtz MD ? 08/27/2023 ??8:57 PM Orthopaedic Surgery Procedure Note Denisha Guzman [id number] Diagnosis: Left knee pain Procedure: Injection of corticosteroid into the left knee Indications: Denisha Guzman is a 62 year old female who has left knee pain and arthritis. Informed consent was obtained for the procedure Risks and adverse drug reaction were discussed. A time out was performed for patient safety. Procedure Details: The patient was informed of her condition, and the potential benefits of injection of steroid. The patient was counseled as to the risks of the procedure and allergies were reviewed. The patient was understanding and agreeable. ?? The patient was placed into the appropriate position. The area was prepped with betadine and alcohol. Utilizing the peripatellar portal, the skin, subcutaneous, and pericapsular tissues were injectedwith 3 cc 1% lidocaine without epinephrine using a 21 Ga needle. The patient's left knee joint was then entered. Confirmation of location inside the joint was evidenced by aspiration of straw colored synovial fluid. 2 cc of Kenalog/3cc lidocaine was injected into the joint. The needle was removed and the needle site cleaned with alcohol and dressed with a sterile bandage. The procedure was performed under sterile conditions. ?? The patient tolerated the procedure well. Remainder of plan per note. Injection performed by: Myself Blood Loss: ??Minimal I was present for the entire procedure Bernard Kurtz MD 08/27/2023 1:34 PM Bernard Kurtz MD PROCEDURE/MINOR AMBER GICAL ORDERABLES * MA DRAIN/INJECT LARGE JOINT/BURSA (08/27/2023 1:34 PM CDT) Narrative Bernard Kurtz MD - 08/27/2023 1:34 PM CDT Bernard Kurtz MD ? 08/27/2023 ??8:57 PM Orthopaedic Surgery Procedure Note Denisha Guzman [id number] Diagnosis: Right knee pain Procedure: Injection of corticosteroid into the right knee Indications: Denisha Guzman is a 62 year old female who has right knee pain and arthritis. Informed consent was obtained for the procedure Risks and adverse drug reaction were discussed A time out was performed for patient safety Procedure Details: The patient was informed of her condition, and the potential benefits of injection of steroid. The patient was counseled as to the risks of the procedure and allergies were reviewed. The patient was understanding and agreeable. ?? The patient was placed into the appropriate position. The area was prepped with betadine and alcohol. Utilizing the peripatellar portal, the skin, subcutaneous, and pericapsular tissues were injected with 3 cc 1% lidocaine without epinephrine using a 21 Ga needle. The patient's right knee was then entered. Confirmation of location inside the joint was evidenced by aspiration of straw colored synovial fluid. 2 cc of Kenalog/3cc lidocaine was injected into the joint. The needle was removed and the needle site cleaned with alcohol and dressed with a sterile bandage. The procedure was performed under sterile conditions. ??The patient tolerated the procedure well. Remainder of plan per note. ?? Injection performed by: Myself Blood Loss: ??Minimal I was present for the entire procedure Bernard Kurtz MD 08/27/2023 1:34 PM Bernard Kurtz MD PROCEDURE/MINOR AMBER GICAL ORDERABLES * MA DRAIN/INJECT LARGE JOINT/BURSA (05/28/2023 1:06 PM TOUR OPERATOR) Narrative Bernard Kurtz MD - 05/28/2023 1:06 PM TOUR OPERATOR Bernard Kurtz MD ? 05/29/2023 ??8:47 AM Orthopaedic Surgery Procedure Note Denisha Guzman [id number] Diagnosis: Left knee pain Procedure: Injection of corticosteroid into the left knee Indications: Denisha Guzman is a 62 year old female who has left knee pain and arthritis. Procedure Details: The patient was informed of her condition, and the potential benefits of injection of steroid. The patient was counseled as to the risks of the procedure and allergies were reviewed. The patient was understanding and agreeable. ?? The patient was placed into the appropriate position. The area was prepped with betadine and alcohol. Utilizing the peripatellar portal, the skin, subcutaneous, and pericapsular tissues were injectedwith 3 cc 1% lidocaine without epinephrine using a 21 Ga needle. The patient's left knee joint was then entered. Confirmation of location inside the joint was evidenced by aspiration of straw colored synovial fluid. 2 cc of Kenalog/3cc lidocaine was injected into the joint. The needle was removed and the needle site cleaned with alcohol and dressed with a sterile bandage. The procedure was performed under sterile conditions. ?? The patient tolerated the procedure well. Remainder of plan per note. Injection performed by: ??Resident on service ? Blood Loss: ??Minimal I was present for the entire procedure Bernard Kurtz MD 05/28/2023 1:06 PM Bernard Kurtz MD PROCEDURE/MINOR AMBER GICAL ORDERABLES * MA DRAIN/INJECT LARGE JOINT/BURSA (05/28/2023 1:06 PM TOUR OPERATOR) Narrative Bernard Kurtz MD - 05/28/2023 1:06 PM TOUR OPERATOR Bernard Kurtz MD ? 05/29/2023 ??8:47 AM Orthopaedic Surgery Procedure Note Denisha Guzman [id number] Diagnosis: Right knee pain Procedure: Injection of corticosteroid into the right knee Indications: Denisha Guzman is a 62 year old female who has right knee pain and arthritis. Procedure Details: The patient was informed of her condition, and the potential benefits of injection of steroid. The patient was counseled as to the risks of the procedure and allergies were reviewed. The patient was understanding and agreeable. ?? The patient was placed into the appropriate position. The area was prepped with betadine and alcohol. Utilizing the peripatellar portal, the skin, subcutaneous, and pericapsular tissues were injected with 3 cc 1% lidocaine without epinephrine using a 21 Ga needle. The patient's right knee was then entered. Confirmation of location inside the joint was evidenced by aspiration of straw colored synovial fluid. 2 cc of Kenalog/3cc lidocaine was injected into the joint. The needle was removed and the needle site cleaned with alcohol and dressed with a sterile bandage. The procedure was performed under sterile conditions. ??The patient tolerated the procedure well. Remainder of plan per note. ?? Injection performed by: ??Resident on service ? Blood Loss: ??Minimal I was present for the entire procedure Bernard Kurtz MD 05/28/2023 1:06 PM Bernard Kurtz MD PROCEDURE/MINOR AMBER GICAL ORDERABLES * XR KNEE RIGHT 4VW OR MORE (02/13/2023 1:28 PM CDT) Only the most recent of3 resultswithin the time period is included. Anatomical Region Laterality Modality Lower Extremity Radiographic Micki ging 02/13/2023 1:31 PM CDT Narrative 02/13/2023 2:06 PM CDT PROCEDURE: ??XR KNEE RIGHT 4VW OR MORE, DATE/TIME OF EXAM: ??02/13/2023 1:28 PM, LOCATION ??[facility] INDICATION: M17.0: Bilateral primary osteoarthritis of knee RIGHT KNEE, FIVE VIEW FINDINGS: Tricompartmental hypertrophic degenerative change is present with joint space narrowing, medial greater than lateral. No evidence of an acute fracture or dislocation or joint effusion is seen. Edited by Kae Sosa on 02/13/2023 1:33 PM > Interpreting Provider: Eliu Calderon MD on 02/13/2023 2:06 PM Procedure Note Eliu Calderon MD - 02/13/2023 PROCEDURE: XR KNEE RIGHT 4VW OR MORE, DATE/TIME OF EXAM: 31:28 PM, LOCATION [facility] INDICATION: M17.0: Bilateral primary osteoarthritis of knee RIGHT KNEE, FIVE VIEW FINDINGS: Tricompartmental hypertrophic degenerative change is present with joint space narrowing, medial greater than lateral. No evidence of an acute fracture or dislocation or joint effusion is seen. Edited by Kae Sosa on 02/13/2023 1:33 PM > Interpreting Provider: Eliu Calderon MD on 02/13/2023 2:06 PM Bernard Kurtz MD DIAGNOSTIC IMAGING ORDERABLES * MA DRAIN/INJECT LARGE JOINT/BURSA (02/13/2023 1:10 PM CDT) Narrative Bernard Kurtz MD - 02/13/2023 1:10 PM CDT Bernard Kurtz MD ? 02/13/2023 ??1:43 PM Orthopaedic Surgery Procedure Note Denisha Guzman [id number] Diagnosis: Left knee pain Procedure: Injection of corticosteroid into the left knee Indications: Denisha Guzman is a 62 year old female who has left knee pain and arthritis. Procedure Details: The patient was informed of her condition, and the potential benefits of injection of steroid. The patient was counseled as to the risks of the procedure and allergies were reviewed. The patient was understanding and agreeable. ?? The patient was placed into the appropriate position. The area was prepped with betadine and alcohol. Utilizing the peripatellar portal, the skin, subcutaneous, and pericapsular tissues were injectedwith 3 cc 1% lidocaine without epinephrine using a 21 Ga needle. The patient's left knee joint was then entered. Confirmation of location inside the joint was evidenced by aspiration of straw colored synovial fluid. 2 cc of Kenalog/3cc lidocaine was injected into the joint. The needle was removed and the needle site cleaned with alcohol and dressed with a sterile bandage. The procedure was performed under sterile conditions. ?? The patient tolerated the procedure well. Remainder of plan per note. Injection performed by: ??Resident on service ? Blood Loss: ??Minimal I was present for the entire procedure Bernard Kurtz MD 02/13/2023 1:11 PM Bernard Kurtz MD PROCEDURE/MINOR AMBER GICAL ORDERABLES * MA DRAIN/INJECT LARGE JOINT/BURSA (02/13/2023 1:10 PM CDT) Narrative Bernard Kurtz MD - 02/13/2023 1:10 PM CDT Bernard Kurtz MD ? 02/13/2023 ??1:43 PM Orthopaedic Surgery Procedure Note Denisha Guzman [id number] Diagnosis: Right knee pain Procedure: Injection of corticosteroid into the right knee Indications: Denisha Guzman is a 62 year old female who has right knee pain and arthritis. Procedure Details: The patient was informed of her condition, and the potential benefits of injection of steroid. The patient was counseled as to the risks of the procedure and allergies were reviewed. The patient was understanding and agreeable. ?? The patient was placed into the appropriate position. The area was prepped with betadine and alcohol. Utilizing the peripatellar portal, the skin, subcutaneous, and pericapsular tissues were injected with 3 cc 1% lidocaine without epinephrine using a 21 Ga needle. The patient's right knee was then entered. Confirmation of location inside the joint was evidenced by aspiration of straw colored synovial fluid. 2 cc of Kenalog/3cc lidocaine was injected into the joint. The needle was removed and the needle site cleaned with alcohol and dressed with a sterile bandage. The procedure was performed under sterile conditions. ??The patient tolerated the procedure well. Remainder of plan per note. ?? Injection performed by: ??Resident on service ? Blood Loss: ??Minimal I was present for the entire procedure Bernard Kurtz MD 02/13/2023 1:10 PM Bernard Kurtz MD PROCEDURE/MINOR AMBER GICAL ORDERABLES * MA DRAIN/INJECT LARGE JOINT/BURSA (11/13/2022 12:56 PM CDT) Narrative Bernard Kurtz MD - 11/13/2022 12:56 PM CDT Bernard Kurtz MD ? 11/14/2022 ??9:15 AM Orthopaedic Surgery Procedure Note Denisha Guzman [id number] Diagnosis: Left knee pain Procedure: Injection of corticosteroid into the left knee Indications: Denisha Guzman is a 62 year old female who has left knee pain and arthritis. Procedure Details: The patient was informed of her condition, and the potential benefits of injection of steroid. The patient was counseled as to the risks of the procedure and allergies were reviewed. The patient was understanding and agreeable. ?? The patient was placed into the appropriate position. The area was prepped with betadine and alcohol. Utilizing the peripatellar portal, the skin, subcutaneous, and pericapsular tissues were injectedwith 3 cc 1% lidocaine without epinephrine using a 21 Ga needle. The patient's left knee joint was then entered. Confirmation of location inside the joint was evidenced by aspiration of straw colored synovial fluid. 2 cc of Kenalog/3cc lidocaine was injected into the joint. The needle was removed and the needle site cleaned with alcohol and dressed with a sterile bandage. The procedure was performed under sterile conditions. ?? The patient tolerated the procedure well. Remainder of plan per note. Injection performed by: ??Resident on service ? Blood Loss: ??Minimal I was present for the entire procedure Bernard Kurtz MD 11/13/2022 12:56 PM Bernard Kurtz MD PROCEDURE/MINOR AMBER GICAL ORDERABLES * MA DRAIN/INJECT LARGE JOINT/BURSA (11/13/2022 12:56 PM CDT) Narrative Bernard Kurtz MD - 11/13/2022 12:56 PM CDT Bernard Kurtz MD ? 11/14/2022 ??9:15 AM Orthopaedic Surgery Procedure Note Denisha Guzman [id number] Diagnosis: Right knee pain Procedure: Injection of corticosteroid into the right knee Indications: Denisha Guzman is a 62 year old female who has right knee pain and arthritis. Procedure Details: The patient was informed of her condition, and the potential benefits of injection of steroid. The patient was counseled as to the risks of the procedure and allergies were reviewed. The patient was understanding and agreeable. ?? The patient was placed into the appropriate position. The area was prepped with betadine and alcohol. Utilizing the peripatellar portal, the skin, subcutaneous, and pericapsular tissues were injected with 3 cc 1% lidocaine without epinephrine using a 21 Ga needle. The patient's right knee was then entered. Confirmation of location inside the joint was evidenced by aspiration of straw colored synovial fluid. 2 cc of Kenalog/3cc lidocaine was injected into the joint. The needle was removed and the needle site cleaned with alcohol and dressed with a sterile bandage. The procedure was performed under sterile conditions. ??The patient tolerated the procedure well. Remainder of plan per note. ?? Injection performed by: ??Resident on service ? Blood Loss: ??Minimal I was present for the entire procedure Bernard Kurtz MD 11/13/2022 12:56 PM Bernard Kurtz MD PROCEDURE/MINOR AMBER GICAL ORDERABLES * MA DRAIN/INJECT LARGE JOINT/BURSA (08/14/2022 1:32 PM TOUR OPERATOR) Narrative Bernard Kurtz MD - 08/14/2022 1:32 PM TOUR OPERATOR Beranrd Kurtz MD ? 08/14/2022 ??6:06 PM Orthopaedic Surgery Procedure Note Denisha Guzman [id number] Diagnosis: Left knee pain Procedure: Injection of corticosteroid into the left knee Indications: Denisha Guzman is a 61 year old female who has left knee pain and arthritis. Procedure Details: The patient was informed of her condition, and the potential benefits of injection of steroid. The patient was counseled as to the risks of the procedure and allergies were reviewed. The patient was understanding and agreeable. ?? The patient was placed into the appropriate position. The area was prepped with betadine and alcohol. Utilizing the peripatellar portal, the skin, subcutaneous, and pericapsular tissues were injectedwith 3 cc 1% lidocaine without epinephrine using a 21 Ga needle. The patient's left knee joint was then entered. Confirmation of location inside the joint was evidenced by aspiration of straw colored synovial fluid. 2 cc of Kenalog/3cc lidocaine was injected into the joint. The needle was removed and the needle site cleaned with alcohol and dressed with a sterile bandage. The procedure was performed under sterile conditions. ?? The patient tolerated the procedure well. Remainder of plan per note. Injection performed by: Myself Blood Loss: ??Minimal I was present for the entire procedure Bernard Kurtz MD 08/14/2022 1:32 PM Bernard Kurtz MD PROCEDURE/MINOR AMBER GICAL ORDERABLES * MA DRAIN/INJECT LARGE JOINT/BURSA (08/14/2022 1:15 PM TOUR OPERATOR) Bernard Sy MD - 08/14/2022 1:15 PM TOUR OPERATOR Bernard Kurtz MD ? 08/14/2022 ??6:06 PM Orthopaedic Surgery Procedure Note Denisha Guzman [id number] Diagnosis: Right knee pain Procedure: Injection of corticosteroid into the right knee Indications: Denisha Guzman is a 61 year old female who has right knee pain and arthritis. Procedure Details: The patient was informed of her condition, and the potential benefits of injection of steroid. The patient was counseled as to the risks of the procedure and allergies were reviewed. The patient was understanding and agreeable. ?? The patient was placed into the appropriate position. The area was prepped with betadine and alcohol. Utilizing the peripatellar portal, the skin, subcutaneous, and pericapsular tissues were injected with 3 cc 1% lidocaine without epinephrine using a 21 Ga needle. The patient's right knee was then entered. Confirmation of location inside the joint was evidenced by aspiration of straw colored synovial fluid. 2 cc of Kenalog/3cc lidocaine was injected into the joint. The needle was removed and the needle site cleaned with alcohol and dressed with a sterile bandage. The procedure was performed under sterile conditions. ??The patient tolerated the procedure well. Remainder of plan per note. ?? Injection performed by: Myself Blood Loss: ??Minimal I was present for the entire procedure Bernard Kurtz MD 08/14/2022 1:31 PM Bernard Kurtz MD PROCEDURE/MINOR AMBER GICAL ORDERABLES * MA DRAIN/INJECT LARGE JOINT/BURSA (05/15/2022 1:23 PM TOUR OPERATOR) Bernard Sy MD - 05/15/2022 1:23 PM TOUR OPERATOR Bernard Kurtz MD ? 05/16/2022 ??8:32 AM Orthopaedic Surgery Procedure Note Diagnosis: Left knee pain Procedure: Injection of corticosteroid into the left knee Indications: Denisha Guzman is a 61 year old female who has left knee pain and arthritis. Procedure Details: The patient was informed of her condition, and the potential benefits of injection of steroid. The patient was counseled as to the risks of the procedure and allergies were reviewed. The patient was understanding and agreeable. ?? The patient was placed into the appropriate position. The area was prepped with betadine and alcohol. Utilizing the peripatellar portal, the skin, subcutaneous, and pericapsular tissues were injectedwith 3 cc 1% lidocaine without epinephrine using a 21 Ga needle. The patient's left knee joint was then entered. Confirmation of location inside the joint was evidenced by aspiration of straw colored synovial fluid. 2 cc of Kenalog/3cc lidocaine was injected into the joint. The needle was removed and the needle site cleaned with alcohol and dressed with a sterile bandage. The procedure was performed under sterile conditions. ?? The patient tolerated the procedure well. Remainder of plan per note. Injection performed by: ??Resident on service ? Blood Loss: ??Minimal I was present for the entire procedure Bernard Kurtz MD 05/15/2022 1:23 PM Bernard Kurtz MD PROCEDURE/MINOR AMBER GICAL ORDERABLES * MA DRAIN/INJECT LARGE JOINT/BURSA (05/15/2022 1:23 PM TOUR OPERATOR) Narrative Bernard Kurtz MD - 05/15/2022 1:23 PM TOUR OPERATOR Bernard Kurtz MD ? 05/16/2022 ??8:32 AM Orthopaedic Surgery Procedure Note Diagnosis: Right knee pain Procedure: Injection of corticosteroid into the right knee Indications: Denisha Guzman is a 61 year old female who has right knee pain and arthritis. Procedure Details: The patient was informed of her condition, and the potential benefits of injection of steroid. The patient was counseled as to the risks of the procedure and allergies were reviewed. The patient was understanding and agreeable. ?? The patient was placed into the appropriate position. The area was prepped with betadine and alcohol. Utilizing the peripatellar portal, the skin, subcutaneous, and pericapsular tissues were injected with 3 cc 1% lidocaine without epinephrine using a 21 Ga needle. The patient's right knee was then entered. Confirmation of location inside the joint was evidenced by aspiration of straw colored synovial fluid. 2 cc of Kenalog/3cc lidocaine was injected into the joint. The needle was removed and the needle site cleaned with alcohol and dressed with a sterile bandage. The procedure was performed under sterile conditions. ??The patient tolerated the procedure well. Remainder of plan per note. ?? Injection performed by: Myself Blood Loss: ??Minimal I was present for the entire procedure Bernard Kurtz MD 05/15/2022 1:23 PM Bernard Kurtz MD PROCEDURE/MINOR AMBER GICAL ORDERABLES * MA DRAIN/INJECT LARGE JOINT/BURSA (01/03/2022 12:35 PM CDT) Narrative Bernard Kurtz MD - 01/03/2022 12:35 PM CDT Bernard Kurtz MD ? 01/04/2022 ??7:06 AM Orthopaedic Surgery Procedure Note Diagnosis: Left knee pain Procedure: Injection of corticosteroid into the left knee Indications: Denisha Guzman is a 61 year old female who has left knee pain and arthritis. Procedure Details: The patient was informed of her condition, and the potential benefits of injection of steroid. The patient was counseled as to the risks of the procedure and allergies were reviewed. The patient was understanding and agreeable. ?? The patient was placed into the appropriate position. The area was prepped with betadine and alcohol. Utilizing the peripatellar portal, the skin, subcutaneous, and pericapsular tissues were injectedwith 3 cc 1% lidocaine without epinephrine using a 21 Ga needle. The patient's left knee joint was then entered. Confirmation of location inside the joint was evidenced by aspiration of straw colored synovial fluid. 2 cc of Kenalog/3cc lidocaine was injected into the joint. The needle was removed and the needle site cleaned with alcohol and dressed with a sterile bandage. The procedure was performed under sterile conditions. ?? The patient tolerated the procedure well. Remainder of plan per note. Injection performed by: Myself Blood Loss: ??Minimal Bernard Kurtz MD 01/03/2022 12:35 PM Bernard Kurtz MD PROCEDURE/MINOR AMBER GICAL ORDERABLES * MA DRAIN/INJECT LARGE JOINT/BURSA (01/03/2022 12:34 PM CDT) Bernard Sy MD - 01/03/2022 12:34 PM CDT Bernard Kurtz MD ? 01/04/2022 ??7:06 AM Orthopaedic Surgery Procedure Note Diagnosis: Right knee pain Procedure: Injection of corticosteroid into the right knee Indications: Denisha Guzman is a 61 year old female who has right knee pain and arthritis. Procedure Details: The patient was informed of her condition, and the potential benefits of injection of steroid. The patient was counseled as to the risks of the procedure and allergies were reviewed. The patient was understanding and agreeable. ?? The patient was placed into the appropriate position. The area was prepped with betadine and alcohol. Utilizing the peripatellar portal, the skin, subcutaneous, and pericapsular tissues were injected with 3 cc 1% lidocaine without epinephrine using a 21 Ga needle. The patient's right knee was then entered. Confirmation of location inside the joint was evidenced by aspiration of straw colored synovial fluid. 2 cc of Kenalog/3cc lidocaine was injected into the joint. The needle was removed and the needle site cleaned with alcohol and dressed with a sterile bandage. The procedure was performed under sterile conditions. ??The patient tolerated the procedure well. Remainder of plan per note. ?? Injection performed by: Myself Blood Loss: ??Minimal Bernard Kurtz MD 01/03/2022 12:35 PM Bernard Kurtz MD PROCEDURE/MINOR AMBER GICAL ORDERABLES * MA DRAIN/INJECT LARGE JOINT/BURSA (10/03/2021 11:27 AM CDT) Narrative Bernard Kurtz MD - 10/03/2021 11:27 AM CDT Bernard Kurtz MD ? 10/04/2021 ??8:20 AM Orthopaedic Surgery Procedure Note Diagnosis: Left knee pain Procedure: Injection of corticosteroid into the left knee Indications: Denisha Guzman is a 61 year old female who has left knee pain and arthritis. Procedure Details: The patient was informed of her condition, and the potential benefits of injection of steroid. The patient was counseled as to the risks of the procedure and allergies were reviewed. The patient was understanding and agreeable. ?? The patient was placed into the appropriate position. The area was prepped with betadine and alcohol. Utilizing the peripatellar portal, the skin, subcutaneous, and pericapsular tissues were injectedwith 3 cc 1% lidocaine without epinephrine using a 21 Ga needle. The patient's left knee joint was then entered. Confirmation of location inside the joint was evidenced by aspiration of straw colored synovial fluid. 2 cc of Kenalog/3cc lidocaine was injected into the joint. The needle was removed and the needle site cleaned with alcohol and dressed with a sterile bandage. The procedure was performed under sterile conditions. ?? The patient tolerated the procedure well. Remainder of plan per note. Injection performed by: ??Myself ? Blood Loss: ??Minimal Bernard Kurtz MD 10/03/2021 11:27 AM Bernard Kurtz MD PROCEDURE/MINOR AMBER GICAL ORDERABLES * MA DRAIN/INJECT LARGE JOINT/BURSA (10/03/2021 11:26 AM CDT) Narrative Bernard Kurtz MD - 10/03/2021 11:26 AM CDT Bernard Kurtz MD ? 10/04/2021 ??8:20 AM Orthopaedic Surgery Procedure Note Diagnosis: Right knee pain Procedure: Injection of corticosteroid into the right knee Indications: Denisha Guzman is a 61 year old female who has right knee pain and arthritis. Procedure Details: The patient was informed of her condition, and the potential benefits of injection of steroid. The patient was counseled as to the risks of the procedure and allergies were reviewed. The patient was understanding and agreeable. ?? The patient was placed into the appropriate position. The area was prepped with betadine and alcohol. Utilizing the peripatellar portal, the skin, subcutaneous, and pericapsular tissues were injected with 3 cc 1% lidocaine without epinephrine using a 21 Ga needle. The patient's right knee was then entered. Confirmation of location inside the joint was evidenced by aspiration of straw colored synovial fluid. 2 cc of Kenalog/3cc lidocaine was injected into the joint. The needle was removed and the needle site cleaned with alcohol and dressed with a sterile bandage. The procedure was performed under sterile conditions. ??The patient tolerated the procedure well. Remainder of plan per note. ?? Injection performed by: Myself Blood Loss: ??Minimal Bernard Kurtz MD 10/03/2021 11:26 AM Bernard Kurtz MD PROCEDURE/MINOR AMBER GICAL ORDERABLES * MA DRAIN/INJECT LARGE JOINT/BURSA (05/30/2021 10:51 AM TOUR OPERATOR) Narrative Bernard Kurtz MD - 05/30/2021 10:51 AM TOUR OPERATOR Bernard Kurtz MD ? 05/30/2021 ??1:26 PM Orthopaedic Surgery Procedure Note Diagnosis: Left knee pain Procedure: Injection of corticosteroid into the left knee Indications: Denisha Zarate is a 60 year old female who has left knee pain and arthritis. Procedure Details: The patient was informed of her condition, and the potential benefits of injection of steroid. The patient was counseled as to the risks of the procedure and allergies were reviewed. The patient was understanding and agreeable. ?? The patient was placed into the appropriate position. The area was prepped with betadine and alcohol. Utilizing the peripatellar portal, the skin, subcutaneous, and pericapsular tissues were injectedwith 3 cc 1% lidocaine without epinephrine using a 21 Ga needle. The patient's left knee joint was then entered. Confirmation of location inside the joint was evidenced by aspiration of straw colored synovial fluid. 2 cc of Kenalog/3cc lidocaine was injected into the joint. The needle was removed and the needle site cleaned with alcohol and dressed with a sterile bandage. The procedure was performed under sterile conditions. ?? The patient tolerated the procedure well. Remainder of plan per note. Injection performed by: ??Resident on service ? Blood Loss: ??Minimal Bernard Kurtz MD 05/30/2021 10:51 AM Bernard Kurtz MD PROCEDURE/MINOR AMBER GICAL ORDERABLES * MA DRAIN/INJECT LARGE JOINT/BURSA (05/30/2021 10:51 AM TOUR OPERATOR) Narrative Bernard Kurtz MD - 05/30/2021 10:51 AM TOUR OPERATOR Bernard Kurtz MD ? 05/30/2021 ??1:26 PM Orthopaedic Surgery Procedure Note Diagnosis: Right knee pain Procedure: Injection of corticosteroid into the right knee Indications: Denisha Zarate is a 60 year old female who has right knee pain and arthritis. Procedure Details: The patient was informed of her condition, and the potential benefits of injection of steroid. The patient was counseled as to the risks of the procedure and allergies were reviewed. The patient was understanding and agreeable. ?? The patient was placed into the appropriate position. The area was prepped with betadine and alcohol. Utilizing the peripatellar portal, the skin, subcutaneous, and pericapsular tissues were injected with 3 cc 1% lidocaine without epinephrine using a 21 Ga needle. The patient's right knee was then entered. Confirmation of location inside the joint was evidenced by aspiration of straw colored synovial fluid. 2 cc of Kenalog/3cc lidocaine was injected into the joint. The needle was removed and the needle site cleaned with alcohol and dressed with a sterile bandage. The procedure was performed under sterile conditions. ??The patient tolerated the procedure well. Remainder of plan per note. ?? Injection performed by: ??Resident on service ? Blood Loss: ??Minimal Bernard Kurtz MD 05/30/2021 10:51 AM Bernard Kurtz MD PROCEDURE/MINOR AMBER GICAL ORDERABLES * MA DRAIN/INJECT LARGE JOINT/BURSA (02/28/2021 11:37 AM CDT) Narrative Bernard Kurtz MD - 02/28/2021 11:37 AM CDT Bernard Kurtz MD ? 03/01/2021 10:21 AM Orthopaedic Surgery Procedure Note Diagnosis: Left knee pain Procedure: Injection of corticosteroid into the left knee Indications: Denisha Zarate is a 60 year old female who has left knee pain and arthritis. Procedure Details: The patient was informed of her condition, and the potential benefits of injection of steroid. The patient was counseled as to the risks of the procedure and allergies were reviewed. The patient was understanding and agreeable. ?? The patient was placed into the appropriate position. The area was prepped with betadine and alcohol. Utilizing the peripatellar portal, the skin, subcutaneous, and pericapsular tissues were injectedwith 3 cc 1% lidocaine without epinephrine using a 21 Ga needle. The patient's left knee joint was then entered. Confirmation of location inside the joint was evidenced by aspiration of straw colored synovial fluid. 2 cc of Kenalog/3cc lidocaine was injected into the joint. The needle was removed and the needle site cleaned with alcohol and dressed with a sterile bandage. The procedure was performed under sterile conditions. ?? The patient tolerated the procedure well. Remainder of plan per note. Injection performed by: ??Resident on service ? Bernard Kurtz MD 02/28/2021 11:37 AM Bernard Kurtz MD PROCEDURE/MINOR AMBER GICAL ORDERABLES * MA DRAIN/INJECT LARGE JOINT/BURSA (02/28/2021 11:37 AM CDT) Narrative Bernard Kurtz MD - 02/28/2021 11:37 AM CDT Bernard Kurtz MD ? 03/01/2021 10:21 AM Orthopaedic Surgery Procedure Note Diagnosis: Right knee pain Procedure: Injection of corticosteroid into the right knee Indications: Denisha Zarate is a 60 year old female who has right knee pain and arthritis. Procedure Details: The patient was informed of her condition, and the potential benefits of injection of steroid. The patient was counseled as to the risks of the procedure and allergies were reviewed. The patient was understanding and agreeable. ?? The patient was placed into the appropriate position. The area was prepped with betadine and alcohol. Utilizing the peripatellar portal, the skin, subcutaneous, and pericapsular tissues were injected with 3 cc 1% lidocaine without epinephrine using a 21 Ga needle. The patient's right knee was then entered. Confirmation of location inside the joint was evidenced by aspiration of straw colored synovial fluid. 2 cc of Kenalog/3cc lidocaine was injected into the joint. The needle was removed and the needle site cleaned with alcohol and dressed with a sterile bandage. The procedure was performed under sterile conditions. ??The patient tolerated the procedure well. Remainder of plan per note. ?? Injection performed by: Myself Bernard Kurtz MD 02/28/2021 11:37 AM Bernard Kurtz MD PROCEDURE/MINOR AMBER GICAL ORDERABLES * MA DRAIN/INJECT LARGE JOINT/BURSA (11/22/2020 10:27 AM CDT) Narrative Bernard Kurtz MD - 11/22/2020 10:27 AM CDT Bernard Kurtz MD ? 11/22/2020 11:12 AM Orthopaedic Surgery Procedure Note Diagnosis: Left knee pain Procedure: Injection of corticosteroid into the left knee Indications: Denisha Zarate is a 60 year old female who has left knee pain and arthritis. Procedure Details: The patient was informed of her condition, and the potential benefits of injection of steroid. The patient was counseled as to the risks of the procedure and allergies were reviewed. The patient was understanding and agreeable. ?? The patient was placed into the appropriate position. The area was prepped with betadine and alcohol. Utilizing the peripatellar portal, the skin, subcutaneous, and pericapsular tissues were injectedwith 3 cc 1% lidocaine without epinephrine using a 21 Ga needle. The patient's left knee joint was then entered. Confirmation of location inside the joint was evidenced by aspiration of straw colored synovial fluid. 2 cc of Kenalog/3cc lidocaine was injected into the joint. The needle was removed and the needle site cleaned with alcohol and dressed with a sterile bandage. The procedure was performed under sterile conditions. ?? The patient tolerated the procedure well. Remainder of plan per note. Injection performed by: ??Resident on service ? Bernard Kurtz MD 11/22/2020 10:27 AM Bernard Kurtz MD PROCEDURE/MINOR AMBER GICAL ORDERABLES * MA DRAIN/INJECT LARGE JOINT/BURSA (11/22/2020 10:27 AM CDT) Bernard Sy MD - 11/22/2020 10:27 AM CDT Bernard Kurtz MD ? 11/22/2020 11:12 AM Orthopaedic Surgery Procedure Note Diagnosis: Right knee pain Procedure: Injection of corticosteroid into the right knee Indications: Denisha Zarate is a 60 year old female who has right knee pain and arthritis. Procedure Details: The patient was informed of her condition, and the potential benefits of injection of steroid. The patient was counseled as to the risks of the procedure and allergies were reviewed. The patient was understanding and agreeable. ?? The patient was placed into the appropriate position. The area was prepped with betadine and alcohol. Utilizing the peripatellar portal, the skin, subcutaneous, and pericapsular tissues were injected with 3 cc 1% lidocaine without epinephrine using a 21 Ga needle. The patient's right knee was then entered. Confirmation of location inside the joint was evidenced by aspiration of straw colored synovial fluid. 2 cc of Kenalog/3cc lidocaine was injected into the joint. The needle was removed and the needle site cleaned with alcohol and dressed with a sterile bandage. The procedure was performed under sterile conditions. ??The patient tolerated the procedure well. Remainder of plan per note. ?? Injection performed by: ??Resident on service ? Bernard Kurtz MD 11/22/2020 10:27 AM Bernard Kurtz MD PROCEDURE/MINOR AMBER GICAL ORDERABLES * MA DRAIN/INJECT LARGE JOINT/BURSA (08/23/2020 10:56 AM TOUR OPERATOR) Narrative Bernard Kurtz MD - 08/23/2020 10:56 AM TOUR OPERATOR Bernard Kurtz MD ? 08/23/2020 10:56 AM Orthopaedic Surgery Procedure Note Diagnosis: Left knee pain Procedure: Injection of corticosteroid into the left knee Indications: Denisha Zarate is a 59 year old female who has left knee pain and arthritis. Procedure Details: The patient was informed of her condition, and the potential benefits of injection of steroid. The patient was counseled as to the risks of the procedure and allergies were reviewed. The patient was understanding and agreeable. ?? The patient was placed into the appropriate position. The area was prepped with betadine and alcohol. Utilizing the peripatellar portal, the skin, subcutaneous, and pericapsular tissues were injectedwith 3 cc 1% lidocaine without epinephrine using a 21 Ga needle. The patient's left knee joint was then entered. Confirmation of location inside the joint was evidenced by aspiration of straw colored synovial fluid. 2 cc of Kenalog/3cc lidocaine was injected into the joint. The needle was removed and the needle site cleaned with alcohol and dressed with a sterile bandage. The procedure was performed under sterile conditions. ?? The patient tolerated the procedure well. Remainder of plan per note. Injection performed by: ??Resident on service ? Bernard Kurtz MD 08/23/2020 10:56 AM Bernard Kurtz MD PROCEDURE/MINOR AMBER GICAL ORDERABLES * MA DRAIN/INJECT LARGE JOINT/BURSA (08/23/2020 10:56 AM TOUR OPERATOR) Narrative Bernard Kurtz MD - 08/23/2020 10:56 AM TOUR OPERATOR Bernard Kurtz MD ? 08/23/2020 10:56 AM Orthopaedic Surgery Procedure Note Diagnosis: Right knee pain Procedure: Injection of corticosteroid into the right knee Indications: Denisha Zarate is a 59 year old female who has right knee pain and arthritis. Procedure Details: The patient was informed of her condition, and the potential benefits of injection of steroid. The patient was counseled as to the risks of the procedure and allergies were reviewed. The patient was understanding and agreeable. ?? The patient was placed into the appropriate position. The area was prepped with betadine and alcohol. Utilizing the peripatellar portal, the skin, subcutaneous, and pericapsular tissues were injected with 3 cc 1% lidocaine without epinephrine using a 21 Ga needle. The patient's right knee was then entered. Confirmation of location inside the joint was evidenced by aspiration of straw colored synovial fluid. 2 cc of Kenalog/3cc lidocaine was injected into the joint. The needle was removed and the needle site cleaned with alcohol and dressed with a sterile bandage. The procedure was performed under sterile conditions. ??The patient tolerated the procedure well. Remainder of plan per note. ?? Injection performed by: ??Resident on service ? Bernard Kurtz MD 08/23/2020 10:56 AM Bernard Kurtz MD PROCEDURE/MINOR AMBER GICAL ORDERABLES * MA DRAIN/INJECT LARGE JOINT/BURSA (05/24/2020 1:03 PM TOUR OPERATOR) Bernard Sy MD - 05/24/2020 1:03 PM TOUR OPERATOR Bernard Kurtz MD ? 05/24/2020 ??1:03 PM Orthopaedic Surgery Procedure Note Diagnosis: Left knee pain Procedure: Injection of corticosteroid into the left knee Indications: Denisha Zarate is a 59 year old female who has left knee pain and arthritis. Procedure Details: The patient was informed of her condition, and the potential benefits of injection of steroid. The patient was counseled as to the risks of the procedure and allergies were reviewed. The patient was understanding and agreeable. ?? The patient was placed into the appropriate position. The area was prepped with betadine and alcohol. Utilizing the peripatellar portal, the skin, subcutaneous, and pericapsular tissues were injectedwith 3 cc 1% lidocaine without epinephrine using a 21 Ga needle. The patient's left knee joint was then entered. Confirmation of location inside the joint was evidenced by aspiration of straw colored synovial fluid. 2 cc of Kenalog/3cc lidocaine was injected into the joint. The needle was removed and the needle site cleaned with alcohol and dressed with a sterile bandage. The procedure was performed under sterile conditions. ?? The patient tolerated the procedure well. Remainder of plan per note. Bernard Kurtz MD 05/24/2020 1:03 PM Bernard Kurtz MD PROCEDURE/MINOR AMBER GICAL ORDERABLES * MA DRAIN/INJECT LARGE JOINT/BURSA (05/24/2020 1:03 PM TOUR OPERATOR) Narrative Bernard Kurtz MD - 05/24/2020 1:03 PM TOUR OPERATOR Bernard Kurtz MD ? 05/24/2020 ??1:03 PM Orthopaedic Surgery Procedure Note Diagnosis: Right knee pain Procedure: Injection of corticosteroid into the right knee Indications: Denisha Zarate is a 59 year old female who has right knee pain and arthritis. Procedure Details: The patient was informed of her condition, and the potential benefits of injection of steroid. The patient was counseled as to the risks of the procedure and allergies were reviewed. The patient was understanding and agreeable. ?? The patient was placed into the appropriate position. The area was prepped with betadine and alcohol. Utilizing the peripatellar portal, the skin, subcutaneous, and pericapsular tissues were injected with 3 cc 1% lidocaine without epinephrine using a 21 Ga needle. The patient's right knee was then entered. Confirmation of location inside the joint was evidenced by aspiration of straw colored synovial fluid. 2 cc of Kenalog/3cc lidocaine was injected into the joint. The needle was removed and the needle site cleaned with alcohol and dressed with a sterile bandage. The procedure was performed under sterile conditions. ??The patient tolerated the procedure well. Remainder of plan per note. Bernard Kurtz MD 05/24/2020 1:03 PM Bernard Kutrz MD PROCEDURE/MINOR AMBER GICAL ORDERABLES * MA DRAIN/INJECT LARGE JOINT/BURSA (03/10/2020 1:28 PM CDT) Bernard Sy MD - 03/10/2020 1:28 PM CDT Bernard Kurtz MD ? 03/10/2020 ??1:28 PM Orthopaedic Surgery Procedure Note Diagnosis: Left knee pain Procedure: Injection of corticosteroid into the left knee Indications: Denisha Zarate is a 59 year old female who has left knee pain and arthritis. Procedure Details: The patient was informed of her condition, and the potential benefits of injection of steroid. The patient was counseled as to the risks of the procedure and allergies were reviewed. The patient was understanding and agreeable. ?? The patient was placed into the appropriate position. The area was prepped with betadine and alcohol. Utilizing the peripatellar portal, the skin, subcutaneous, and pericapsular tissues were injectedwith 3 cc 1% lidocaine without epinephrine using a 21 Ga needle. The patient's left knee joint was then entered. Confirmation of location inside the joint was evidenced by aspiration of straw colored synovial fluid. 2 cc of Kenalog/3cc lidocaine was injected into the joint. The needle was removed and the needle site cleaned with alcohol and dressed with a sterile bandage. The procedure was performed under sterile conditions. ?? The patient tolerated the procedure well. Remainder of plan per note. Bernard Kurtz MD 03/10/2020 1:28 PM Bernard Kurtz MD PROCEDURE/MINOR AMBER GICAL ORDERABLES * MA DRAIN/INJECT LARGE JOINT/BURSA (03/10/2020 1:28 PM CDT) Bernard Sy MD - 03/10/2020 1:28 PM CDT Bernard Kurtz MD ? 03/10/2020 ??1:28 PM Orthopaedic Surgery Procedure Note Diagnosis: Right knee pain Procedure: Injection of corticosteroid into the right knee Indications: Denisha Zarate is a 59 year old female who has right knee pain and arthritis. Procedure Details: The patient was informed of her condition, and the potential benefits of injection of steroid. The patient was counseled as to the risks of the procedure and allergies were reviewed. The patient was understanding and agreeable. ?? The patient was placed into the appropriate position. The area was prepped with betadine and alcohol. Utilizing the peripatellar portal, the skin, subcutaneous, and pericapsular tissues were injected with 3 cc 1% lidocaine without epinephrine using a 21 Ga needle. The patient's right knee was then entered. Confirmation of location inside the joint was evidenced by aspiration of straw colored synovial fluid. 2 cc of Kenalog/3cc lidocaine was injected into the joint. The needle was removed and the needle site cleaned with alcohol and dressed with a sterile bandage. The procedure was performed under sterile conditions. ??The patient tolerated the procedure well. Remainder of plan per note. Bernard Kurtz MD 03/10/2020 1:28 PM Bernard Kurtz MD PROCEDURE/MINOR AMBER GICAL ORDERABLES * XR KNEE LEFT 4VW OR MORE (03/01/2020 2:41 PM CDT) Only the most recent of2 resultswithin the time period is included. Anatomical Region Laterality Modality Lower Extremity Radiographic Micki ging 03/01/2020 3:06 PM CDT Impressions 03/01/2020 3:09 PM CDT Impression: Progressive moderate medial compartment predominant tricompartmental bilateral knee osteoarthritis. This report was electronically signed by DARRYL SOTO ??on 03/01/2020 3:09 PM . Narrative 03/01/2020 3:09 PM CDT Examination: XR KNEE RIGHT 4VW OR MORE, XR KNEE LEFT 4VW OR MORE History:Bilateral knee pain Findings: Comparison to 11/15/2015. Right knee: There is progressive moderate medial compartment predominant tricompartmental right knee osteoarthritis. There is no knee effusion. There is no acute fracture. Alignment is normal. Left knee: There is progressive moderate medial compartment predominant tricompartmental left knee osteoarthritis. There is no acute fracture. There is no knee effusion. Alignment is normal. Procedure Note Darryl Soto MD - 03/01/2020 Examination: XR KNEE RIGHT 4VW OR MORE, XR KNEE LEFT 4VW OR MORE History:Bilateral knee pain Findings: Comparison to 11/15/2015. Right knee: There is progressive moderate medial compartment predominant tricompartmental right knee osteoarthritis. There is no knee effusion. There is no acute fracture. Alignment is normal. Left knee: There is progressive moderate medial compartment predominant tricompartmental left knee osteoarthritis. There is no acute fracture. There is no knee effusion. Alignment is normal. Impression: Progressive moderate medial compartment predominant tricompartmental bilateral knee osteoarthritis. This report was electronically signed by DARRYLHaylee SOTO on 03/01/2020 3:09PM . Bernard Kurtz MD DIAGNOSTIC IMAGING ORDERABLES * MA DRAIN/INJECT LARGE JOINT/BURSA (12/01/2019 2:21 PM CDT) Narrative Bernard Kurtz MD - 12/01/2019 2:21 PM CDT Bernard Kurtz MD ? 12/01/2019 ??2:21 PM Orthopaedic Surgery Procedure Note Diagnosis: Left knee pain Procedure: Injection of corticosteroid into the left knee Indications: Denisha Zarate is a 59 year old female who has left knee pain and arthritis. Procedure Details: The patient was informed of her condition, and the potential benefits of injection of steroid. The patient was counseled as to the risks of the procedure and allergies were reviewed. The patient was understanding and agreeable. ?? The patient was placed into the appropriate position. The area was prepped with betadine and alcohol. Utilizing the peripatellar portal, the skin, subcutaneous, and pericapsular tissues were injectedwith 3 cc 1% lidocaine without epinephrine using a 21 Ga needle. The patient's left knee joint was then entered. Confirmation of location inside the joint was evidenced by aspiration of straw colored synovial fluid. 2 cc of Kenalog/3cc lidocaine was injected into the joint. The needle was removed and the needle site cleaned with alcohol and dressed with a sterile bandage. The procedure was performed under sterile conditions. ?? The patient tolerated the procedure well. Remainder of plan per note. Bernard Kurtz MD 12/01/2019 2:21 PM Bernard Kurtz MD PROCEDURE/MINOR AMBER GICAL ORDERABLES * MA DRAIN/INJECT LARGE JOINT/BURSA (12/01/2019 2:21 PM CDT) Bernard Sy MD - 12/01/2019 2:21 PM CDT Bernard Kurtz MD ? 12/01/2019 ??2:21 PM Orthopaedic Surgery Procedure Note Diagnosis: Right knee pain Procedure: Injection of corticosteroid into the right knee Indications: Denisha Zarate is a 59 year old female who has right knee pain and arthritis. Procedure Details: The patient was informed of her condition, and the potential benefits of injection of steroid. The patient was counseled as to the risks of the procedure and allergies were reviewed. The patient was understanding and agreeable. ?? The patient was placed into the appropriate position. The area was prepped with betadine and alcohol. Utilizing the peripatellar portal, the skin, subcutaneous, and pericapsular tissues were injected with 3 cc 1% lidocaine without epinephrine using a 21 Ga needle. The patient's right knee was then entered. Confirmation of location inside the joint was evidenced by aspiration of straw colored synovial fluid. 2 cc of Kenalog/3cc lidocaine was injected into the joint. The needle was removed and the needle site cleaned with alcohol and dressed with a sterile bandage. The procedure was performed under sterile conditions. ??The patient tolerated the procedure well. Remainder of plan per note. Bernard Kurtz MD 12/01/2019 2:21 PM Bernard Kurtz MD PROCEDURE/MINOR AMBER GICAL ORDERABLES * MA DRAIN/INJECT LARGE JOINT/BURSA (08/25/2019 12:11 PM CDT) Narrative Bernard Kurtz MD - 08/25/2019 12:11 PM CDT Bernard Kurtz MD ? 08/25/2019 12:11 PM Orthopaedic Surgery Procedure Note Diagnosis: Left knee pain Procedure: Injection of corticosteroid into the left knee Indications: Denisha Zarate is a 58 year old female who has left knee pain and arthritis. Procedure Details: The patient was informed of her condition, and the potential benefits of injection of steroid. The patient was counseled as to the risks of the procedure and allergies were reviewed. The patient was understanding and agreeable. ?? The patient was placed into the appropriate position. The area was prepped with betadine and alcohol. Utilizing the peripatellar portal, the skin, subcutaneous, and pericapsular tissues were injectedwith 3 cc 1% lidocaine without epinephrine using a 21 Ga needle. The patient's left knee joint was then entered. Confirmation of location inside the joint was evidenced by aspiration of straw colored synovial fluid. 2 cc of Kenalog/3cc lidocaine was injected into the joint. The needle was removed and the needle site cleaned with alcohol and dressed with a sterile bandage. The procedure was performed under sterile conditions. ?? The patient tolerated the procedure well. Remainder of plan per note. Bernard Kurtz MD 08/25/2019 12:11 PM Bernard Kurtz MD PROCEDURE/MINOR AMBER GICAL ORDERABLES * MA DRAIN/INJECT LARGE JOINT/BURSA (08/25/2019 12:10 PM CDT) Narrative Bernard Kurtz MD - 08/25/2019 12:10 PM CDT Bernard Kurtz MD ? 08/25/2019 12:11 PM Orthopaedic Surgery Procedure Note Diagnosis: Right knee pain Procedure: Injection of corticosteroid into the right knee Indications: Denisha Zarate is a 58 year old female who has right knee pain and arthritis. Procedure Details: The patient was informed of her condition, and the potential benefits of injection of steroid. The patient was counseled as to the risks of the procedure and allergies were reviewed. The patient was understanding and agreeable. ?? The patient was placed into the appropriate position. The area was prepped with betadine and alcohol. Utilizing the peripatellar portal, the skin, subcutaneous, and pericapsular tissues were injected with 3 cc 1% lidocaine without epinephrine using a 21 Ga needle. The patient's right knee was then entered. Confirmation of location inside the joint was evidenced by aspiration of straw colored synovial fluid. 2 cc of Kenalog/3cc lidocaine was injected into the joint. The needle was removed and the needle site cleaned with alcohol and dressed with a sterile bandage. The procedure was performed under sterile conditions. ??The patient tolerated the procedure well. Remainder of plan per note. Bernard Kurtz MD 08/25/2019 12:11 PM Bernard Kurtz MD PROCEDURE/MINOR AMBER GICAL ORDERABLES * LAB RESULTS ORDER (07/11/2019 2:55 PM TOUR OPERATOR) Narrative 07/11/2019 2:55 PM TOUR OPERATOR Ordered by an unspecified provider. Scanned Document LAB - THERAPEUTIC DR CARDOSO MONITORING ORDERABLES * APHERESIS/TRANSFUSION ORDER (06/24/2019 3:16 PM TOUR OPERATOR) Narrative 06/24/2019 3:16 PM TOUR OPERATOR Ordered by an unspecified provider. Scanned Document NURSING - VITAL SIGN S AND ASSESSMENT * (ABNORMAL) CBC W AUTO DIFFERENTIAL (06/18/2019 5:02 AM TOUR OPERATOR) Only the most recent of10 resultswithin the time period is included. WBC 5.2 4.4 - 10.7 x10E9/L 06/18/2019 6:06 AM [facility] WBC Corrected 06/18/2019 6:06 AM [facility] RBC 3.78(L) 3.80 - 5.20 x10E12/L 06/18/2019 6:06 AM [facility] Hemoglobin 10.5(L) 12.0 - 15.6 gm/dL 06/18/2019 6:06 AM [facility] Hematocrit 33.7(L) 35.9 - 45.5 % 06/18/2019 6:06 AM [facility] MCV 89.2 80.7 - 98.3 fl 06/18/2019 6:06 AM [facility] MCH 27.8 26.7 - 34.0 pg 06/18/2019 6:06 AM [facility] MCHC 31.2 30.8 - 35.9 gm/dL 06/18/2019 6:06 AM [facility] Platelet Count 259 153 - 416 x10E9/L 06/18/2019 6:06 AM [facility] RDW-CV 14.8 12.1 - 14.9 % 06/18/2019 6:06 AM [facility] MPV 12.1 9.4 - 12.9 fl 06/18/2019 6:06 AM [facility] Neutrophils % 48.4 44.0 - 73.0 % 06/18/2019 6:06 AM [facility] Lymphocytes % 37.4 20.0 - 43.0 % 06/18/2019 6:06 AM [facility] Monocytes % 9.1 5.0 - 13.0 % 06/18/2019 6:06 AM [facility] Eosinophils % 3.7 0.0 - 6.0 % 06/18/2019 6:06 AM [facility] Basophils % 1.0 0.0 - 2.0 % 06/18/2019 6:06 AM [facility] Immature Granulocytes 0.4 0 - 1 % 06/18/2019 6:06 AM [facility] Neutrophil Absolute 2.50 2.01 - 7.14 x10E9/L 06/18/2019 6:06 AM [facility] Lymphocytes Absolute 1.93 1.07 - 3.94 x10E9/L 06/18/2019 6:06 AM [facility] Monocytes Absolute 0.47 0.26 - 1.07 x10E9/L 06/18/2019 6:06 AM [facility] Eosinophils Absolute 0.19 0 - 0.47 x10E9/L 06/18/2019 6:06 AM [facility] Basophils Absolute 0.05 0 - 0.08 x10E9/L 06/18/2019 6:06 AM [facility] Immature Granulocytes Absolute 0.02 0.00 - 0.06 x10E9/L 06/18/2019 6:06 AM [facility] nRBC Auto 0 /100 WBC 06/18/2019 6:06 AM [facility] Blood BLOOD SPECIMEN / Unknown Lab Venipuncture / Unknown 06/18/2019 5:02 AM TOUR OPERATOR 06/18/2019 6:01 AM [facility] Rosa Elena Jasmine Thomas BAIT MAKER-RECORDS AND INFORMATION MANAGER LAB - HEMATOLO GY ORDERABLES Performing Organization Address City/State/[facility] Co de Phone Number [facility] [address] [place] [address] * (ABNORMAL) COMPREHENSIVE METABOLIC PANEL (06/18/2019 5:02 AM [facility]) Only the most recent of5 resultswithin the time period is included. [facility] Signature Glucose 98 70 - 105 mg/dL 06/18/2019 6:24 AM [facility] Sodium 137 136 - 145 mmol/L 06/18/2019 6:24 AM [facility] Potassium 4.4 3.5 - 4.7 mmol/L 06/18/2019 6:24 AM [facility] Chloride 104 98 - 107 mmol/L 06/18/2019 6:24 AM [facility] CO2 26 23 - 31 mmol/L 06/18/2019 6:24 AM [facility] Calcium 9.2 8.4 - 10.4 mg/dL 06/18/2019 6:24 AM [facility] Anion Gap 7(L) 8 - 16 mmol/L 06/18/2019 6:24 AM [facility] BUN 13 9.8 - 20.1 mg/dL 06/18/2019 6:24 AM [facility] Creatinine 0.67 0.57 - 1.11 mg/dL 06/18/2019 6:24 AM [facility] Alkaline Phosphatase 107 40 - 150 U/L 06/18/2019 6:24 AM [facility] ALT 14 0 - 61 U/L 06/18/2019 6:24 AM [facility] AST 17 5 - 34 U/L 06/18/2019 6:24 AM [facility] Protein Total 6.7 6.4 - 8.3 gm/dL 06/18/2019 6:24 AM [facility] Albumin 3.6 3.5 - 5.2 gm/dL 06/18/2019 6:24 AM [facility] Bilirubin Total 0.7 0.2 - 1.0 mg/dL 06/18/2019 6:24 AM [facility] eGFR by MDRD >60 >60 mL/min/1.7 3m2 06/18/2019 6:24 AM [facility] eGFR by MDRD >60 >60 mL/min/1.7 3m2 06/18/2019 6:24 AM [facility] Blood BLOOD SPECIMEN / Unknown Lab Venipuncture / Unknown 06/18/2019 5:02 AM TOUR OPERATOR 06/18/2019 6:00 AM [facility] Rosa Elena Guzman BAIT MAKER-RECORDS AND INFORMATION MANAGER LAB - CHEMISTR Y ORDERABLES [facility] [address] [place] [address] * CT HEAD WO CONTRAST (06/11/2019 11:49 AM TOUR OPERATOR) Only the most recent of4 resultswithin the time period is included. Anatomical Region Laterality Modality Head Computed Tomogra phy 06/11/2019 12:2 6 PM TOUR OPERATOR Impressions 06/11/2019 12:41 PM TOUR OPERATOR Left parietal craniotomy. Small amount of subdural fluid and gas at the operative site. Edited by Ksenia Woods on 06/11/2019 12:29 PM Reading Radiologist: Saul Swartz MD on 06/11/2019 at 12:41 PM Narrative 06/11/2019 12:[address] BRAIN WITHOUT CONTRAST HISTORY: Headache and nausea. Images from the skull base to the vertex are reviewed. No prior CT is available. Postop changes are seen in the left parietal bone. There is a subdural fluid collection of about 6 mm thickness and gas likely from the prior surgery. Thickening of the dura is noted in this area with some possible calcification present as well. There is no brain parenchymal mass or hemorrhage. Procedure Note Saul Swartz MD - 06/11/2019 CT BRAIN WITHOUT CONTRAST HISTORY: Headache and nausea. Images from the skull base to the vertex are reviewed. No prior CT is available. Postop changes are seen in the left parietal bone. There is a subdural fluid collection of about 6 mm thickness and gas likely from the prior surgery. Thickening of the dura is noted in this area with some possible calcification present as well. There is no brain parenchymal mass or hemorrhage. IMPRESSION Left parietal craniotomy. Small amount of subdural fluid and gas at the operative site. Edited by Ksenia Woods on 06/11/2019 12:29 PM Reading Radiologist: Saul Swartz MD on 06/11/2019 at 12:41 PM William Shirley BAIT MAKER-[facility] CT ORDERABLES * CARDIAC PROCEDURE ORDER (06/10/2019 8:49 AM TOUR OPERATOR) Narrative 06/10/2019 8:49 AM TOUR OPERATOR Ordered by an unspecified provider. Scanned Document CARDIAC SERVICES ORD ERABLES * PHOSPHORUS BLOOD (06/08/2019 5:33 AM TOUR OPERATOR) Only the most recent of7 resultswithin the time period is included. [facility] Phosphorus 3.7 2.3 - 4.7 mg/dL 06/08/2019 7:16 AM TOUR OPERATOR [facility] Blood BLOOD SPECIMEN / Unknown Lab Venipuncture / Unknown 06/08/2019 5:33 AM TOUR OPERATOR 06/08/2019 5:50 AM TOUR OPERATOR Rosa Elena Guzman [facility] LAB - CHEMISTR Y ORDERABLES Performing Organization Address [facility] Co de Phone Number [facility] [address] [place] [phone] * MAGNESIUM BLOOD (06/08/2019 5:33 AM TOUR OPERATOR) Only the most recent of7 resultswithin the time period is included. Magnesium 1.8 1.6 - 2.6 mg/dL 06/08/2019 7:15 AM TOUR OPERATOR [facility] Blood BLOOD SPECIMEN / Unknown Lab Venipuncture / Unknown 06/08/2019 5:33 AM TOUR OPERATOR 06/08/2019 5:50 AM TOUR OPERATOR Rosa Elena Guzman [facility] LAB - CHEMISTR Y ORDERABLES Performing Organization Address [facility] Co de Phone Number [facility] [address] [place] [address] * POTASSIUM BLOOD (06/06/2019 5:35 AM TOUR OPERATOR) Potassium 3.6 3.5 - 4.7 mmol/L 06/06/2019 6:07 AM [facility] Blood BLOOD SPECIMEN / Unknown Lab Venipuncture / Unknown 06/06/2019 5:35 AM TOUR OPERATOR 06/06/2019 5:52 AM TOUR OPERATOR Rosa Elena Guzman [facility] LAB - CHEMISTR Y ORDERABLES Performing Organization Address [facility] Co de Phone Number [facility] [address] [place] [id number] * (ABNORMAL) BASIC METABOLIC PANEL (CALCIUM TOTAL) (06/05/2019 4:35 AM TOUR OPERATOR) Only the most recent of9 resultswithin the time period is included. BUN 6(L) 7 - 26 mg/dL 06/05/2019 5:26 AM TOUR OPERATOR [facility] Creatinine 0.6 0.6 - 1.2 mg/dL 06/05/2019 5:26 AM [facility] Sodium 140 136 - 145 mmol/L 06/05/2019 5:26 AM [facility] Potassium 3.4(L) 3.5 - 4.5 mmol/L 06/05/2019 5:26 AM [facility] Chloride 105 98 - 107 mmol/L 06/05/2019 5:26 AM [facility] CO2 23 22 - 29 mmol/L 06/05/2019 5:26 AM [facility] Glucose 85 70 - 115 mg/dL 06/05/2019 5:26 AM [facility] Calcium 8.7 8.4 - 10.2 mg/dL 06/05/2019 5:26 AM [facility] Anion Gap 15 8 - 18 06/05/2019 5:26 AM [facility] BUN/Creatinine Ratio 10 7 - 23 06/05/2019 5:26 AM [facility] Osmolality Calculated 287 270 - 300 mOsm/kg 06/05/2019 5:26 AM [facility] eGFR >60 >60 mL/min/1.7 3 m2 06/05/2019 5:26 AM [facility] Blood BLOOD SPECIMEN / Unknown Lab Venipuncture / Unknown 06/05/2019 4:35 AM TOUR OPERATOR 06/05/2019 5:05 AM TOUR OPERATOR Moises Hernández BAIT MAKER-RECORDS AND INFORMATION MANAGER LAB - CHEMISTRY ORDERABLES Performing Organization Address [facility]/State/[facility] Co de Phone Number [address] [phone] * XR ABDOMEN KUB (06/04/2019 5:48 AM TOUR OPERATOR) Anatomical Region Laterality Modality Abdomen Radiographic Micki ging 06/04/2019 1:32 PM TOUR OPERATOR Impressions 06/04/2019 2:02 PM TOUR OPERATOR FINDINGS/IMPRESSION: The gastric tube is not seen. Nonobstructive bowel gas pattern is noted (no dilated small bowel loops are seen, the colon is not dilated). A clip projects over the pelvis. Free intraperitoneal air cannot be completely excluded on this supine radiograph. Dictated by Eusebio Montero MD (president & ceo [employer]). I, Dr. RIMA CURTIS have personally reviewed and interpreted this examination/study. This report was electronically signed by RIMA CURTIS ??on 06/04/2019 2:02 PM . Narrative 06/04/2019 2:02 PM TOUR OPERATOR EXAMINATION: XR ABDOMEN KUB HISTORY: S06.4X9A: Epidural hematoma COMPARISON: Comparison is made with a study from 06/01/2019 Procedure Note Rima Curtis DO - 06/04/2019 EXAMINATION: XR ABDOMEN KUB HISTORY: S06.4X9A: Epidural hematoma COMPARISON: Comparison is made with a study from 06/01/2019 FINDINGS/IMPRESSION: The gastric tube is not seen. Nonobstructive bowel gas pattern is noted (no dilated small bowel loops are seen, the colon is not dilated). Aclip projects over the pelvis. Free intraperitoneal air cannot be completely excluded on this supine radiograph. Dictated by Eusebio Montero MD (president & ceo [employer]). I, Dr. RIMA CURTIS have personally reviewed and interpreted this examination/study. This report was electronically signed by RIMA CURTIS on 06/04/2019 2:02 PM . Deann Wright MD DIAGNOSTIC IMAGING O RDERABLES * (ABNORMAL) PT-INR [facility] (06/02/2019 11:08 PM TOUR OPERATOR) Only the most recent of4 resultswithin the time period is included. PT 15.5(H) 12.1 - 14.8 Seconds 06/02/2019 11:23 PM [facility] INR 1.3 See Comment 06/02/2019 11:23 PM [facility] Comment: The suggested therapeutic range for standard coumadin (warfarin) therapy is an INR of 2.0-3.0. For high-risk patients (Mechanical Mitral Valve Prosthesis, etc.), the suggested prophylactic therapeutic range is an INR of 2.5-3.5. Blood BLOOD SPECIMEN / Unknown Venipuncture / Unknown 06/02/2019 11:08 PM TOUR OPERATOR 06/02/2019 11:12 PM TOUR OPERATOR Deann Wright MD LAB - COAGULATION OR DERABLES [address] [phone] * (ABNORMAL) CALCIUM IONIZED WHOLE BLOOD (06/02/2019 11:08 PM TOUR OPERATOR) Only the most recent of3 resultswithin the time period is included. Ionized Calcium Whole Blood 1.17 mmol/L 06/02/2019 11:15 PM TOUR OPERATOR [facility] Adjusted Ionized Calcium 1.24 1.19 - 1.34 mmol/L 06/02/2019 11:15 PM TOUR OPERATOR [facility] pH Whole Blood 7.53(H) 7.35 - 7.45 06/02/2019 11:15 PM TOUR OPERATOR [facility] Blood WHOLE BLOOD SPECIMEN / Unknown Venipuncture / Unknown 06/02/2019 11:08 PM TOUR OPERATOR 06/02/2019 11:12 PM TOUR OPERATOR Rayo-Jaimee Wright MD LAB - CHEMISTRY ASTRID [place] Performing Organization Address City/State/[facility] [place] [address], [facility] [phone] * XR WRIST LEFT 2VW (06/01/2019 1:47 PM TOUR OPERATOR) Anatomical Region Laterality Modality Wrist / Hand Radiographic Micki ging 06/01/2019 7:49 PM TOUR OPERATOR Impressions 06/02/2019 12:21 PM TOUR OPERATOR IMPRESSION: No acute fracture or dislocation identified. Dictated by Eusebio Montero MD (president & ceo [employer]). I, Dr. RIMA CURTIS have personally reviewed and interpreted this examination/study. This report was electronically signed by RIMA CURTIS ??on 06/02/2019 12:21 PM . Narrative 06/02/2019 12:21 PM TOUR OPERATOR EXAMINATION: XR WRIST LEFT 2VW HISTORY: S06.4X9A: Epidural hematoma COMPARISON: No prior study is available for comparison. FINDINGS: The osseous structures are intact and well aligned without acute fracture or dislocation. The joint spaces are preserved. The bones are mildly diffusely demineralized. No soft tissue swelling is present. Procedure Note Rima Curtis, DO - 06/02/2019 EXAMINATION: XR WRIST LEFT 2VW HISTORY: S06.4X9A: Epidural hematoma COMPARISON: No prior study is available for comparison. FINDINGS: The osseous structures are intact and well aligned without acutefracture or dislocation. The joint spaces are preserved. The bones are mildly diffusely demineralized. No soft tissue swelling is present. IMPRESSION: No acute fracture or dislocation identified. Dictated by Eusebio Montero MD (president & ceo [employer]). I, Dr. RIMA CURTIS have personally reviewed and interpreted this examination/study. This report was electronically signed by RIMA CURTIS on 06/02/2019 12:21 PM . Amos Frias MD DIAGNOSTIC IMAGING O RDERABLES * ECHO COMPLETE (06/01/2019 12:44 PM TOUR OPERATOR) Anatomical Region Laterality Modality Echo 06/01/2019 8:30 AM TOUR OPERATOR Narrative Procedure Note Stephanie Hope MD - 06/01/2019 Deann Wright MD ECHOCARDIOGRAPHY RAD IANT * VAS CAROTID DUPLEX BILATERAL (06/01/2019 12:02 PM TOUR OPERATOR) Anatomical Region Laterality Modality Intravascular Ul trasound 06/01/2019 11:4 6 AM TOUR OPERATOR Narrative Procedure Note Rima Pierson MD - 06/01/2019 Deann Wright MD VASCULAR LAB ORDERAB LES * XR CHEST 1VW PORTABLE (06/01/2019 6:28 AM TOUR OPERATOR) Only the most recent of3 resultswithin the time period is included. Anatomical Region Laterality Modality Chest Radiographic Micki ging 06/01/2019 12:5 5 PM TOUR OPERATOR Impressions 06/02/2019 12:09 PM TOUR OPERATOR FINDINGS/IMPRESSION: The endotracheal tube tip projects over the distal trachea. A gastric tube can be followed down to the stomach with the tip below the [id number]. There is no pleural effusion or pneumothorax. Minimal left basilar atelectasis is noted. The cardiomediastinal silhouette is unchanged. Dictated by Eusebio Montero MD (president & ce[employer]). Dr. RIMA Brooks have personally reviewed and interpreted this examination/study. This report was electronically signed by RIMA CURTIS ??on 06/02/2019 12:09 PM . Narrative 06/02/2019 12:09 PM TOUR OPERATOR EXAMINATION: XR CHEST 1VW PORTABLE HISTORY: S06.4X9A: Epidural hematoma COMPARISON: Comparison is made with a study from earlier today. Procedure Note Rima Curtis, DO - 06/02/2019 EXAMINATION: XR CHEST 1VW PORTABLE HISTORY: S06.4X9A: Epidural hematoma COMPARISON: Comparison is made with a study from earlier today. FINDINGS/IMPRESSION: The endotracheal tube tip projects over the distal trachea. A gastrictube can be followed down to the stomach with the tip below [id number]. There is no pleural effusion or pneumothorax. Minimal left basilar atelectasis is noted. The cardiomediastinal silhouette is unchanged. Dictated by Eusebio Montero MD (president & ceo [employer]). Dr. RIMA Brooks have personally reviewed and interpreted this examination/study. This report was electronically signed by RIMA CUTRIS on 06/02/2019 12:09 PM . Amos Frias MD DIAGNOSTIC IMAGING O RDERABLES * XR ABDOMEN KUB PORTABLE (06/01/2019 6:16 AM TOUR OPERATOR) Anatomical Region Laterality Modality Radiographic Micki ging 06/01/2019 12:4 7 PM TOUR OPERATOR Impressions 06/02/2019 12:07 PM TOUR OPERATOR FINDINGS/IMPRESSION: The gastric tube tip projects over the gastric body. Dictated by Eusebio Montero MD (president & ceo [employer]). Dr. RIMA Brooks have personally reviewed and interpreted this examination/study. This report was electronically signed by RIMA CURTIS ??on 06/02/2019 12:07 PM . Narrative 06/02/2019 12:07 PM TOUR OPERATOR EXAMINATION: XR ABDOMEN KUB PORTABLE HISTORY: S06.4X9A: Epidural hematoma COMPARISON: No prior study is available for comparison. Procedure Note Rima Curtis, DO - 06/02/2019 EXAMINATION: XR ABDOMEN KUB PORTABLE HISTORY: S06.4X9A: Epidural hematoma COMPARISON: No prior study is available for comparison. FINDINGS/IMPRESSION: The gastric tube tip projects over the gastric body. Dictated by Eusebio Montero MD (president & ceo [employer]). Dr. RIMA Brooks have personally reviewed and interpreted this examination/study. This report was electronically signed by RIMA CURTIS on 06/02/2019 12:07 PM . Amos Frias MD DIAGNOSTIC IMAGING O RDERABLES * XR FOREARM LEFT 2VW (06/01/2019 6:16 AM TOUR OPERATOR) Anatomical Region Laterality Modality Upper Extremity Radiographic Micki ging 06/01/2019 12:5 2 PM TOUR OPERATOR Impressions 06/02/2019 12:04 PM TOUR OPERATOR IMPRESSION: No acute radial or ulnar fracture identified. Dictated by Eusebio Montero MD (president & ceo [employer]). Dr. RIMA Brooks have personally reviewed and interpreted this examination/study. This report was electronically signed by RIMA CURTIS ??on 06/02/2019 12:04 PM . Narrative 06/02/2019 12:04 PM TOUR OPERATOR EXAMINATION: XR FOREARM LEFT 2VW HISTORY: W19.XXXA: Fall, initial encounter COMPARISON: No prior study is available for comparison. FINDINGS: The radius and ulna are intact without evidence of acute fracture. The bones are mildly diffusely demineralized. No soft tissue swelling is present. Procedure Note Rima Curtis DO - 06/02/2019 EXAMINATION: XR FOREARM LEFT 2VW HISTORY: W19.XXXA: Fall, initial encounter COMPARISON: No prior study is available for comparison. FINDINGS: The radius and ulna are intact without evidence of acute fracture. The bones are mildly diffusely demineralized. No soft tissue swelling is present. IMPRESSION: No acute radial or ulnar fracture identified. Dictated by Eusebio Montero MD (president & ceo [employer]). Dr. RIMA Brooks have personally reviewed and interpreted this examination/study. This report was electronically signed by RIMA CURTIS on 06/02/2019 12:04 PM . Deann Wright MD DIAGNOSTIC IMAGING O RDERABLES * XR TIBIA FIBULA LEFT 2VW (06/01/2019 6:16 AM TOUR OPERATOR) Anatomical Region Laterality Modality Lower Extremity Radiographic Micki ging 06/01/2019 12:4 9 PM TOUR OPERATOR Impressions 06/02/2019 12:06 PM TOUR OPERATOR IMPRESSION: No acute tibial or fibular fracture identified. Dictated by ??Eusebio Montero MD (president & ceo [employer]). IDr. RIMA have personally reviewed and interpreted this examination/study. This report was electronically signed by RIMA CURTIS ??on 06/02/2019 12:06 PM . Narrative 06/02/2019 12:06 PM TOUR OPERATOR EXAMINATION: XR TIBIA FIBULA LEFT 2VW HISTORY: W19.XXXA: Fall, initial encounter COMPARISON: No prior study is available for comparison. FINDINGS: The tibia and fibula are intact without evidence of acute fracture. The bones are mildly diffusely demineralized. Phleboliths are seen in the soft tissues. Degenerative changes are seen in the left knee joint. Osteophyte is seen along the plantar aspect of the posterior calcaneum. Procedure Note Rima Curtis DO - 06/02/2019 EXAMINATION: XR TIBIA FIBULA LEFT 2VW HISTORY: W19.XXXA: Fall, initial encounter COMPARISON: No prior study is available for comparison. FINDINGS: The tibia and fibula are intact without evidence of acute fracture. The bones are mildly diffusely demineralized. Phleboliths are seen in thesoft tissues. Degenerative changes are seen in the left knee joint.Osteophyte is seen along the plantar aspect of the posterior calcaneum. IMPRESSION: No acute tibial or fibular fracture identified. Dictated by Eusebio Montero MD (president & ceo [employer]). Dr. RIMA Brooks have personally reviewed and interpreted this examination/study. This report was electronically signed by RIMA CURTIS on 06/02/2019 12:06 PM . Deann Wright MD DIAGNOSTIC IMAGING O RDERABLES * (ABNORMAL) URINALYSIS NO MICROSCOPIC NO CULTURE (06/01/2019 3:57 AM TOUR OPERATOR) Color UA Yellow Straw, Yellow, Colorless 06/01/2019 4:33 AM [facility] Clarity UA Cloudy(A) Clear, Slt Cloudy 06/01/2019 4:33 AM [facility] Specific [place] UA 1.039(H) 1.005 - 1.030 06/01/2019 4:33 AM [facility] pH UA 5.0 5.0 - 8.0 pH 06/01/2019 4:33 AM [facility] Protein UA Negative Negative mg/dL 06/01/2019 4:33 AM [facility] Glucose UA Negative Negative mg/dL 06/01/2019 4:33 AM [facility] Ketone UA Negative Negative mg/dL 06/01/2019 4:33 AM [facility] Bilirubin UA Negative Negative mg/dL 06/01/2019 4:33 AM [facility] Blood UA 1+(A) Negative 06/01/2019 4:33 AM [facility] Nitrite UA Negative Negative 06/01/2019 4:33 AM [facility] Leukocyte Esterase 3+(A) Negative 06/01/2019 4:33 AM [facility] Urobilinogen UA Negative Negative mg/dL 06/01/2019 4:33 AM [facility] Urine URINE SPECIMEN OBTAINED VIA [employer] URINARY CATHETER / Unknown Collection / Unknown 06/01/2019 3:57 AM TOUR OPERATOR 06/01/2019 4:04 AM TOUR OPERATOR Narrative [facility] - 06/01/2019 4:33 AM TOUR OPERATOR Jackelyn Rothman MD LAB - URINALYSIS ORD ERABLES Performing Organization Address City/State/[facility] Co de Phone Number [address] [phone] * CULTURE URINE (06/01/2019 3:57 AM TOUR OPERATOR) Culture Urine No growth (<100 CFU/mL) GABRIELLA 06/02/2019 8:37 AM [facility] Urine URINE SPECIMEN OBTAINED VIA [employer] URINARY CATHETER / Unknown Collection / Unknown 06/01/2019 3:57 AM TOUR OPERATOR 06/01/2019 4:04 AM TOUR OPERATOR Jackelyn Rothman MD LAB - MICROBIOLOGY O RDERABLES [facility] [address] [place] [address], [facility] [phone] * (ABNORMAL) DRUG SCREEN TOX URINE PANEL (06/01/2019 3:57 AM [facility]) Pathologist [facility] Amphetamines Screen Urine Negative Negative : < 1000 ng/mL 06/01/2019 4:26 AM [facility] Barbiturates Screen Urine Negative Negative : < 200 ng/mL 06/01/2019 4:26 AM [facility] Benzodiazepine Screen Urine Positive(A) Negative : < 200 ng/mL 06/01/2019 4:26 AM [facility] Comment: Positive urine benzodiazepine screening results should be confirmed by another generally accepted non-immunological method such as gas chromatography or mass spectrometry. ? Opiates Urine Negative Negative : < 300 ng/mL 06/01/2019 4:26 AM [facility] Cocaine Metabolites Urine Negative Negative : < 300 ng/mL 06/01/2019 4:26 AM [facility] Phencyclidine Screen Urine Negative Negative : < 25 ng/ml 06/01/2019 4:26 AM [facility] Cannabinoids Screen Urine Negative Negative : <50 ng/mL 06/01/2019 4:26 AM [facility] Methadone Screen Urine Negative Negative : < 300 ng/mL 06/01/2019 4:26 AM [facility] Fentanyl Screen Urine Positive(A) Negative : <1.0 ng/mL 06/01/2019 4:26 AM [facility] Comment: Positive urine fentanyl screening results should be confirmed by another generally accepted non-immunological method such as gas chromatography or mass spectrometry. Urine URINE / Unknown Collection / Unknown 06/01/2019 3:57 AM [facility] 06/01/2019 4:04 AM [facility] - 06/01/2019 4:26 AM [facility] The Urine Toxicology Screening Panel does not screen for Propoxyphene, Meprobamate, Carisoprodol, Trazodone, [id number] medications and/or volatiles (Acetone, Isopropanol, Methanol or Ethylene Glycol). Ethanol, Salicylate, Acetaminophen, Tricyclic Antidepressants and several therapeutic drugs may be individually assayed in serum or plasma specimen. Toxicology testing by the [facility] is an aid to medical diagnosis and treatment of patients. No documented chain of custody was maintained. Results are intended to be used for clinical purposes only. ? Deann Wright MD LAB - URINE CHEMISTR Y ORDERABLES Performing Organization Address [facility]/State/ZIP Co de Phone Number [address] [phone] * (ABNORMAL) BLOOD GASES ART COMPLETE [facility] OR (06/01/2019 1:31 AM [facility]) pH Arterial 7.34(L) 7.35 - 7.45 06/01/2019 1:39 AM [facility] pCO2 Arterial 38 35 - 45 mmHg 06/01/2019 1:39 AM [facility] pO2 Arterial 129 mmHg 06/01/2019 1:39 AM [facility] HCO3 Arterial 20.2(L) 22.0 - 26.0 mmol/L 06/01/2019 1:39 AM [facility] TCO2 Arterial 21.4(L) 25.0 - 29.0 mmol/L 06/01/2019 1:39 AM [facility] Base Excess Arterial -5.1(L) -2.0 - 2.0 mmol/L 06/01/2019 1:39 AM [facility] Hemoglobin Arterial 11.4(L) 12.0 - 15.5 g/dL 06/01/2019 1:39 AM [facility] Oxyhemoglobin Arterial 97.2 92.0 - 100.0 % 06/01/2019 1:39 AM [facility] Carboxyhemoglobin 0.3 0.0 - 3.0 % 06/01/2019 1:39 AM [facility] Methemoglobin 0.5 0.0 - 2.0 % 06/01/2019 1:39 AM [facility] FI O2 Arterial 50.0 % 06/01/2019 1:39 AM [facility] Ionized Calcium Whole Blood 1.31 mmol/L 06/01/2019 1:39 AM [facility] Adjusted Ionized Calcium 1.28 1.19 - 1.34 mmol/L 06/01/2019 1:39 AM [facility] Sodium Whole Blood 138 135 - 145 mmol/L 06/01/2019 1:39 AM [facility] Potassium Whole Blood 4.1 3.5 - 5.5 mmol/L 06/01/2019 1:39 AM [facility] Chloride Whole Blood 106 101 - 111 mmol/L 06/01/2019 1:39 AM [facility] Glucose Whole Blood 119(H) 70 - 110 mg/dL 06/01/2019 1:39 AM [facility] Lactic Acid Whole Blood 1.0 0.5 - 3.4 mmol/L 06/01/2019 1:39 AM [facility] Blood ARTERIAL BLOOD SPECIMEN / Unknown Venipuncture / Unknown 06/01/2019 1:31 AM TOUR OPERATOR 06/01/2019 1:35 AM [facility] Ramandeep Nichols MD LAB - BLOOD GASES OR DERABLES [address] [phone] * (ABNORMAL) BLOOD GASES ARTERIAL (05/31/2019 11:45 PM TOUR OPERATOR) pH Arterial 7.27(L) 7.35 - 7.45 05/31/2019 11:52 PM [facility] pCO2 Arterial 51(H) 35 - 45 mmHg 05/31/2019 11:52 PM [facility] pO2 Arterial 210 mmHg 05/31/2019 11:52 PM [facility] HCO3 Arterial 22.6 22.0 - 26.0 mmol/L 05/31/2019 11:52 PM [facility] TCO2 Arterial 24.2(L) 25.0 - 29.0 mmol/L 05/31/2019 11:52 PM [facility] Base Excess Arterial -4.5(L) -2.0 - 2.0 mmol/L 05/31/2019 11:52 PM [facility] Hemoglobin Arterial 11.0(L) 12.0 - 15.5 g/dL 05/31/2019 11:52 PM [facility] Oxyhemoglobin Arterial 98.1 92.0 - 100.0 % 05/31/2019 11:52 PM [facility] Carboxyhemoglobin 0.2 0.0 - 3.0 % 05/31/2019 11:52 PM [facility] Methemoglobin 0.3 0.0 - 2.0 % 05/31/2019 11:52 PM [facility] FI O2 Arterial 50.0 % 05/31/2019 11:52 PM [facility] Blood, arterial ARTERIAL BLOOD SPECIMEN / Unknown 05/31/2019 11:45 PM TOUR OPERATOR 05/31/2019 11:51 PM TOUR OPERATOR Rayo-Jaimee Wright MD LAB - BLOOD GASES OR DERABLES Performing Organization Address [facility]/State/[facility] de Phone Number [address] [phone] * IV PLACEMENT PERFORMABLE (05/31/2019 11:15 PM TOUR OPERATOR) Narrative Radu Lowry MD - 05/31/2019 11:15 PM TOUR OPERATOR Radu Lowry MD ? 05/31/2019 11:15 PM Peripheral IV Line Placement: Patient Location: ??OR Procedure: IV start (38400). Procedure Section: ?? Skin Prep: Chloraprep. Orientation: left Location: foot Local Anesthetic Used? ??No Catheter Gauge: 18 Number of Attempts: 1. Procedure Tolerance: performed while patient under general anesthesia. Staff Section ?? Anesthesia Provider: Radu Lowry MD, Performed the procedure Ramandeep Nichols MD GENERAL ANESTHESIA O RDERABLES * ARTERIAL LINE PERFORMABLE (05/31/2019 11:06 PM TOUR OPERATOR) Narrative Radu Lowry MD - 05/31/2019 11:06 PM TOUR OPERATOR Radu Lowry MD ? 05/31/2019 11:15 PM Arterial Line Placement Procedure Note Patient Location: OR. Procedure: Arterial Line ([id number]). Procedure Section ?? Indications: continuous blood pressure monitoring, blood sampling needed and hypotension. Consent: informed consent was obtained for the procedure. Skin Prep: Chloraprep. Location: right radial. Site Identification: palpation. Sterile Technique: small sterile fenestrated drape, sterile gloves, mask and cap. Gauge: 20. Catheter Type: Arrow. Seldinger Technique Used? ??Yes Number of Attempts: 1. Line Secured with: tape and Tegaderm. Procedure Tolerance: tolerated well, performed while patient under general anesthesia and no immediate complications. Events: none. Staff Section ?? Anesthesia Provider: Radu Lowry MD, Performed the procedure Ramandeep Nichols MD GENERAL ANESTHESIA O RDERABLES * PREPARE (CROSSMATCH) RBC UNIT(S), 4 Units (05/31/2019 10:51 PM TOUR OPERATOR) Only the most recent of2 resultswithin the time period is included. Unit Description LR Red Cells [facility] BLOOD BANK LAB Unit ABO O [facility] BLOOD BANK LAB Unit POS [facility] BLOOD BANK LAB Product Code RL1 [facility] OD BANK LAB Unit Donor # [id number] 9 [facility] BLOOD BANK LAB Unit Status released [facility] D BANK LAB Product Number [id number] [facility] B LOOD BANK LAB Blood Type Barcode 5100 [facility] BLOOD BANK LAB Unit Description LR Red Cells [facility] BLOOD BANK LAB Unit ABO O [facility] BLOOD [facility]ANK LAB Unit Rh POS [facility] BLOOD BANK LAB Product Code RL1 [facility] BLO OD BANK LAB Unit Donor # [id number] 6 [facility] BLOOD BANK LAB Unit Status released [facility] Product Number [id number] [facility] B LOOD BANK LAB Blood Type Barcode 5100 [facility] BLOOD BANK LAB Unit Description LR Red Cells [facility] BLOOD BANK LAB Unit ABO O [facility] BLOOD [facility]ANK LAB Unit Rh POS [facility] BLOOD BANK LAB Product Code RL1 [facility] BLO OD BANK LAB Unit Donor # [id number] 8 [facility] BLOOD BANK LAB Unit Status released [facility] BLOO D BANK LAB Product Number [id number] [facility] B LOOD BANK LAB Blood Type Barcode 5100 [facility] BLOOD BANK LAB Unit Description LR Red Cells [facility] BLOOD BANK LAB Unit ABO O [facility] BLOOD [facility]ANK LAB Unit Rh POS [facility] BLOOD BANK LAB Product Code RL1 [facility] BLO OD BANK LAB Unit Donor # [id number] 7 [facility] BLOOD BANK LAB Unit Status released [facility] BLOO D BANK LAB Product Number [id number] [facility] B LOOD BANK LAB Blood Type Barcode 5100 [facility] BLOOD BANK LAB Blood Bank BLOOD SPECIMEN / Unknown 05/31/2019 10:51 PM TOUR OPERATOR 05/31/2019 10:51 PM TOUR OPERATOR Rima Schafer MD LAB - BLOOD BANK ORD ERABLES [facility] BLOOD BANK LAB [address] [place] [address] * PREPARE PLATELET PHERESIS UNIT(S), 1 Units (05/31/2019 10:51 PM TOUR OPERATOR) Unit Description PL Pheres LR IRR [facility] BLOOD BANK LAB Unit ABO O [facility] BLOOD BANK LAB Unit Rh POS [facility] BLOOD BANK LAB Product Code P7 [facility] BLO OD BANK LAB Unit Donor # [id number] 7 [facility] BLOOD BANK LAB Unit Status released [facility] Product Number [id number] [facility] B LOOD BANK LAB Blood Type Barcode 5100 [facility] BLOOD BANK LAB Blood Bank BLOOD SPECIMEN / Unknown 05/31/2019 10:51 PM TOUR OPERATOR 05/31/2019 10:51 PM TOUR OPERATOR Ramandeep Nichols MD LAB - BLOOD BANK ORD ERABLES [facility] BLOOD BANK LAB [address] [place] [address] * PREPARE FFP UNIT(S), 4 Units (05/31/2019 10:51 PM TOUR OPERATOR) Unit Description Plasma, Thawed [facility] BLOOD BANK LAB Unit ABO AB [facility] BLOOD BANK LAB Unit Rh POS [facility] BLOOD BANK LAB Product Code F00 [facility] BLO OD BANK LAB Unit Donor # [id number] 9 [facility] BLOOD BANK LAB Unit Status released [facility] BLOO D BANK LAB Product Number [id number] [facility] B LOOD BANK LAB Blood Type Barcode 8400 [facility] BLOOD BANK LAB Unit Description Plasma, Thawed [facility] BLOOD BANK LAB Unit ABO AB [facility] BLOOD BANK LAB Unit Rh POS [facility] BLOOD BANK LAB Product Code F00 [facility] BLO OD BANK LAB Unit Donor # [id number] 5 [facility] BLOOD BANK LAB Unit Status released [facility] BLOO D BANK LAB Product Number [id number] [facility] B LOOD BANK LAB Blood Type Barcode 8400 [facility] BLOOD BANK LAB Unit Description Plasma, Thawed [facility] BLOOD BANK LAB Unit ABO AB [facility] BLOOD BANK LAB Unit Rh POS [facility] BLOOD BANK LAB Product Code F00 [facility] BLO OD BANK LAB Unit Donor # [id number] 0 [facility] BLOOD BANK LAB Unit Status released [facility] BLOO D BANK LAB Product Number [id number] [facility] B LOOD BANK LAB Blood Type Barcode 8400 [facility] BLOOD BANK LAB Unit Description Plasma, Thaw, 24 [facility] BLOOD BANK LAB Unit ABO AB [facility] BLOOD [facility]ANK LAB Unit Rh NEG [facility] BLOOD BANK LAB Product Code TP2 [facility] BLO OD BANK LAB Unit Donor # [id number] 4 [facility] BLOOD BANK LAB Unit Status released [facility] BLOO D BANK LAB Product Number [id number] [facility] B LOOD BANK LAB Blood Type Barcode 2800 [facility] BLOOD BANK LAB Blood Bank BLOOD SPECIMEN / Unknown 05/31/2019 10:51 PM TOUR OPERATOR 05/31/2019 10:51 PM TOUR OPERATOR Ramandeep Nichols MD LAB - BLOOD BANK ORD ERABLES [facility] BLOOD BANK LAB [address] * CT CHEST ABDOMEN PELVIS W CONT (05/31/2019 10:43 PM TOUR OPERATOR) Anatomical Region Laterality Modality Chest, Abdomen, Pelvis Computed Tomography 05/31/2019 10:3 7 PM TOUR OPERATOR Impressions 06/01/2019 11:11 AM TOUR OPERATOR IMPRESSION: 1. Bibasilar consolidations which may represent atelectasis. Superimposed infection/aspiration cannot entirely excluded. 2. Otherwise, no acute visceral, vascular, or osseus injury identified in the chest, abdomen, or pelvis. 3. Mild cardiomegaly. 4. Multiple chronic appearing compression deformities throughout the thoracic and lumbar spine as outlined above. Dictated by Archana Henley MD (president & ceo [employer]). I, Dr. Surinder OSMAN M.D. have personally reviewed and interpreted this examination/study. This report was electronically signed by Surinder OSMAN M.D. ??on 06/01/2019 11:11 AM . Narrative 06/01/2019 11:11 AM TOUR OPERATOR EXAMINATION: Computed tomography (CT) of the chest, abdomen, and pelvis with contrast HISTORY: Fall in scientologist TECHNIQUE: CT of the chest, abdomen, and pelvis was performed after the uneventful administration of 100 mL of Isovue 370 intravenous contrast according to standard protocol. COMPARISON: No prior study is available for comparison. FINDINGS: Chest: There is a left-sided three-vessel aortic arch. The aorta and main pulmonary arteries are normal in course and caliber. There are bibasilar consolidations which may represent atelectasis. Superimposed infection/aspiration cannot entirely excluded. No pleural effusion or focal pleural thickening is identified. There is no evidence of pneumothorax. No suspicious pulmonary nodule is identified. The trachea is patent and midline. An endotracheal tube terminates in the distal thoracic trachea. The heart is enlarged. No pericardial effusion is present. No mediastinal, hilar, supraclavicular, or axillary lymphadenopathy is seen. The thyroid gland enhances homogenously. Abdomen/pelvis: The liver enhances homogenously. The gallbladder is surgically absent. The intrahepatic ducts are mildly dilated likely related to post cholecystectomy state. The common bile duct is not dilated. The portal vein is nondilated. The portal and main hepatic veins are patent without evidence of thrombi. There is a 2.2 cm linear calcification in the periphery of the spleen (series 4 image 40) which may related with prior trauma . Otherwise, the spleen enhances homogenously without focal lesion. The pancreas and adrenal glands are normal. Bilateral simple renal cysts are present. The kidneys enhance symmetrically. There is no evidence of renal calculus or hydronephrosis. An enteric tube terminates in the stomach. Otherwise, the esophagus and stomach appear normal. The small bowel and large bowel are normal in caliber without evidence of wall thickening or obstruction. The appendix appears normal without appendicolith or surrounding inflammatory changes. No free air or free fluid is identified within the abdomen. There is no abdominal lymphadenopathy. There is a small fat-containing umbilical hernia. A Peterson catheter terminates within a decompressed urinary bladder. The uterus is absent. No free fluid is seen within the pelvis. There is no pelvic lymphadenopathy. Bone windows demonstrate no suspicious lytic or blastic lesions. There is exaggeration of the thoracic kyphosis. There are chronic appearing compression fractures involving T7 vertebral body with 50 percent anterior height loss, T8 vertebral body with 80 percent height loss and 3 mm posterior bulging of posterior cortex into the spinal canal, as well as chronic compression deformities of the T11, T12, and L1 vertebral bodies with approximately 25 percent height loss. There is intraosseous hemangioma in the T4 vertebral body. Procedure Note Juliana Osman MD - 06/01/2019 EXAMINATION: Computed tomography (CT) of the chest, abdomen, and pelvis with contrast HISTORY: Fall in scientologist TECHNIQUE: CT of the chest, abdomen, and pelvis was performed after the uneventful administration of 100 mL of Isovue 370 intravenous contrast according to standard protocol. COMPARISON: No prior study is available for comparison. FINDINGS: Chest: There is a left-sided three-vessel aortic arch. The aorta and main pulmonary arteries are normal in course and caliber. There are bibasilar consolidations which may represent atelectasis. Superimposed infection/aspiration cannot entirely excluded. No pleural effusion or focal pleural thickening is identified. There is no evidence of pneumothorax. No suspicious pulmonary nodule is identified. Thetrachea is patent and midline. An endotracheal tube terminates in the distal thoracic trachea. The heart is enlarged. No pericardial effusion is present. Nomediastinal, hilar, supraclavicular, or axillary lymphadenopathy is seen. The thyroid gland enhances homogenously. Abdomen/pelvis: The liver enhances homogenously. The gallbladder is surgically absent.The intrahepatic ducts are mildly dilated likely related to post cholecystectomy state. The common bile duct is not dilated. The portal vein is nondilated. The portal and main hepatic veins are patent without evidence of thrombi. There is a 2.2 cm linear calcification in the periphery of the spleen (series 4 image 40) which may related with prior trauma . Otherwise, the spleen enhances homogenously without focallesion. The pancreas and adrenal glands are normal. Bilateral simple renal cysts are present. The kidneys enhance symmetrically. There is no evidence of renal calculus or hydronephrosis. An enteric tube terminates in the stomach. Otherwise, the esophagus and stomach appear normal. The small bowel and large bowel are normal in caliber without evidence of wall thickening or obstruction. The appendix appears normal without appendicolith or surrounding inflammatorychanges. No free air or free fluid is identified within the abdomen. There is no abdominal lymphadenopathy. There is a small fat-containing umbilical hernia. A Peterson catheter terminates within a decompressed urinary bladder. The uterus is absent. No free fluid is seen within the pelvis. There is no pelvic lymphadenopathy. Bone windows demonstrate no suspicious lytic or blastic lesions. Thereis exaggeration of the thoracic kyphosis. There are chronic appearing compression fractures involving T7 vertebral body with 50 percentanterior height loss, T8 vertebral body with 80 percent height loss and 3 mm posterior bulging of posterior cortex into the spinal canal, as well as chronic compression deformities of the T11, T12, and L1 vertebral bodies with approximately 25 percent height loss. There is intraosseous hemangioma in the T4 vertebral body. IMPRESSION: 1. Bibasilar consolidations which may represent atelectasis.Superimposed infection/aspiration cannot entirely excluded. 2. Otherwise, no acute visceral, vascular, or osseus injury identifiedin the chest, abdomen, or pelvis. 3. Mild cardiomegaly. 4. Multiple chronic appearing compression deformities throughout the thoracic and lumbar spine as outlined above. Dictated by Archana Henley MD (president & ceo [employer]). I, Dr. Surinder OSMAN M.D. have personally reviewed and interpretedthis examination/study. This report was electronically signed by Surinder OSMAN M.D. on 06/01/2019 11:11 AM . Deann Wright MD CT ORDERABLES * CT LUMBAR SPINE WO CONTRAST (05/31/2019 10:43 PM TOUR OPERATOR) Anatomical Region Laterality Modality Spine Computed Tomogra phy 06/01/2019 8:37 AM TOUR OPERATOR Impressions 06/01/2019 10:46 AM TOUR OPERATOR IMPRESSION: 1.Nondisplaced left parietal calvarium fracture, with adjacent acute epidural hematoma, causing noncritical mass effect including mild rightward midline shift. 2.Bilateral traumatic subarachnoid hemorrhage. 3. Bony osteopenia, with nonacute-appearing compression fracture deformities involving thoracic and lumbar spine, however chronicity may be more accurately evaluated with MRI if clinically warranted. No acute appearing spine fracture. Per chart review, Dr. Wright and the trauma team where we are of acute intracranial hemorrhage at the time of these studies. I, Dr. SINA BYRD have personally reviewed and interpreted this examination/study. This report was electronically signed by SINA BYRD ??on 06/01/2019 10:46 AM . Narrative 06/01/2019 10:46 AM TOUR OPERATOR EXAMINATION: 1. Computed tomography (CT) of the head without contrast 2. CT of the cervical spine without contrast 3. CT of the thoracic spine without contrast 4. CT of the lumbar spine without contrast HISTORY: [id number].XXXA: Fall, initial encounter TECHNIQUE: CT of the head and cervical spine were performed without contrast according to standard protocol. Reformatted axial, sagittal, and coronal images of the thoracic and lumbar spine were obtained by the technologist from a concurrently performed body CT and sent to the workstation for review. Automated dose reduction techniques were employed. FINDINGS: Head: Left-sided scalp edema/hematoma. Subtle nondisplaced fracture of the left parietal calvarium. Acute epidural hematoma located along the left cerebral (primarily parietal) convexity. This measures up 2.6 cm in thickness, and measures 9.3 cm in AP length by 7.5 cm in craniocaudal length. This is primarily hyperdense, with some isodense hyperacute blood components interspersed centrally. Subarachnoid hemorrhage in bilateral sylvian cisterns/fissures bilaterally, and regional sulci. This measures slightly greater than 1 mm in thickness. Right cerebral sulcal effacement adjacent epidural hematoma. Mild partial effacement of left lateral ventricle. 0.4 cm rightward midline shift. The basal cisterns are patent. Joel-white matter differentiation is preserved. The visualized paranasal sinuses are well-aerated. Cervical spine: Normal cervical alignment. Intervertebral disc space heights are maintained. Small endplate spurs. Mild facet arthropathy. Vertebral body heights are grossly maintained. No acute cervical spine fracture. Limited assessment of canal contents demonstrates no evidence for hematoma within the cervical canal. No soft tissue swelling in the prevertebral compartment. Thoracic spine: Mildly exaggerated kyphosis, otherwise normal alignment. Intervertebral disc space heights are grossly maintained. Multilevel endplate spurs. Bony osteopenia. T4 vertebral body has large hemangioma. Nonacute appearing compression fracture deformities at multiple levels, including: -T2 superior endplate with about 25 percent loss of vertebral body height. No retropulsion. - T7 superior endplate, with about 30 percent loss of vertebral body height. Distinct lucent fracture line with marginating sclerosis paralleling superior endplate. No retropulsion. -T8 vertebral body with about 60 percent loss of vertebral body height. Lucent fracture cleft with corticated margins extending into anterior cortex, and superior and inferior endplates. No retropulsion. -T11 and T12 superior endplates, with about 25 percent loss of vertebral body height.. Minimal retropulsion adjacent to T12 superior endplate. No acute appearing thoracic spine fracture. No evidence of hematoma in the imaged spinal canal. Paraspinal space appears unremarkable. Lumbar spine: Normal alignment. Intervertebral disc space heights are maintained. Bony osteopenia. L1 nonacute appearing compression fracture involving inferior endplate, with about 50 percent loss of vertebral body height. Minimal retropulsion adjacent to inferior endplate. No acute appearing lumbar spine fracture. No evidence of hematoma in the imaged spinal canal. Paraspinal space appears unremarkable. Procedure Note Sina Byrd MD - 06/01/2019 EXAMINATION: 1. Computed tomography (CT) of the head without contrast 2. CT of the cervical spine without contrast 3. CT of the thoracic spine without contrast 4. CT of the lumbar spine without contrast HISTORY: [id number].XXXA: Fall, initial encounter TECHNIQUE: CT of the head and cervical spine were performed without contrast according to standard protocol. Reformatted axial, sagittal,and coronal images of the thoracic and lumbar spine were obtained by the technologist from a concurrently performed body CT and sent to the workstation for review. Automated dose reduction techniques wereemployed. FINDINGS: Head: Left-sided scalp edema/hematoma. Subtle nondisplaced fracture of theleft parietal calvarium. Acute epidural hematoma located along the left cerebral (primarily parietal) convexity. This measures up 2.6 cm in thickness, and measures 9.3 cm in AP length by 7.5 cm in craniocaudal length. This is primarily hyperdense, with some isodense hyperacute blood components interspersed centrally. Subarachnoid hemorrhage in bilateral sylvian cisterns/fissures bilaterally, and regional sulci. This measures slightly greater than 1mm in thickness. Right cerebral sulcal effacement adjacent epidural hematoma. Mildpartial effacement of left lateral ventricle. 0.4 cm rightward midline shift.The basal cisterns are patent. Joel-white matter differentiation is preserved. The visualized paranasal sinuses are well-aerated. Cervical spine: Normal cervical alignment. Intervertebral disc space heights are maintained. Small endplate spurs. Mild facet arthropathy. Vertebral body heights are grossly maintained. No acute cervical spine fracture. Limited assessment of canal contents demonstrates no evidence forhematoma within the cervical canal. No soft tissue swelling in the prevertebral compartment. Thoracic spine: Mildly exaggerated kyphosis, otherwise normal alignment. Intervertebral disc space heights are grossly maintained. Multilevel endplate spurs. Bony osteopenia. T4 vertebral body has large hemangioma. Nonacute appearing compression fracture deformities at multiple levels, including: -T2 superior endplate with about 25 percent loss of vertebral bodyheight. No retropulsion. - T7 superior endplate, with about 30 percent loss of vertebral body height. Distinct lucent fracture line with marginating sclerosis paralleling superior endplate. No retropulsion. -T8 vertebral body with about 60 percent loss of vertebral body height. Lucent fracture cleft with corticated margins extending into anterior cortex, and superior and inferior endplates. No retropulsion. -T11 and T12 superior endplates, with about 25 percent loss of vertebral body height.. Minimal retropulsion adjacent to T12 superior endplate. No acute appearing thoracic spine fracture. No evidence of hematoma in the imaged spinal canal. Paraspinal space appears unremarkable. Lumbar spine: Normal alignment. Intervertebral disc space heights are maintained. Bony osteopenia. L1 nonacute appearing compression fracture involving inferior endplate, with about 50 percent loss of vertebral body height. Minimalretropulsion adjacent to inferior endplate. No acute appearing lumbar spine fracture. No evidence of hematoma in the imaged spinal canal. Paraspinal space appears unremarkable. IMPRESSION: 1.Nondisplaced left parietal calvarium fracture, with adjacent acute epidural hematoma, causing noncritical mass effect including mild rightward midline shift. 2.Bilateral traumatic subarachnoid hemorrhage. 3. Bony osteopenia, with nonacute-appearing compression fracture deformities involving thoracic and lumbar spine, however chronicity maybe more accurately evaluated with MRI if clinically warranted. No acute appearing spine fracture. Per chart review, Dr. Wright and the trauma team where we are of acute intracranial hemorrhage at the time of these studies. I, Dr. SINA BYRD have personally reviewed and interpreted this examination/study. This report was electronically signed by SINA BYRD on 06/01/201910:46 AM . Deann Wright MD CT ORDERABLES * CT THORACIC SPINE WO CONTRAST (05/31/2019 10:43 PM TOUR OPERATOR) Anatomical Region Laterality Modality Spine Computed Tomogra phy 06/01/2019 8:37 AM TOUR OPERATOR Impressions 06/01/2019 10:46 AM TOUR OPERATOR IMPRESSION: 1.Nondisplaced left parietal calvarium fracture, with adjacent acute epidural hematoma, causing noncritical mass effect including mild rightward midline shift. 2.Bilateral traumatic subarachnoid hemorrhage. 3. Bony osteopenia, with nonacute-appearing compression fracture deformities involving thoracic and lumbar spine, however chronicity may be more accurately evaluated with MRI if clinically warranted. No acute appearing spine fracture. Per chart review, Dr. Wright and the trauma team where we are of acute intracranial hemorrhage at the time of these studies. I, Dr. SINA BYRD have personally reviewed and interpreted this examination/study. This report was electronically signed by SINA BYRD ??on 06/01/2019 10:46 AM . Narrative 06/01/2019 10:46 AM TOUR OPERATOR EXAMINATION: 1. Computed tomography (CT) of the head without contrast 2. CT of the cervical spine without contrast 3. CT of the thoracic spine without contrast 4. CT of the lumbar spine without contrast HISTORY: [id number].XXXA: Fall, initial encounter TECHNIQUE: CT of the head and cervical spine were performed without contrast according to standard protocol. Reformatted axial, sagittal, and coronal images of the thoracic and lumbar spine were obtained by the technologist from a concurrently performed body CT and sent to the workstation for review. Automated dose reduction techniques were employed. FINDINGS: Head: Left-sided scalp edema/hematoma. Subtle nondisplaced fracture of the left parietal calvarium. Acute epidural hematoma located along the left cerebral (primarily parietal) convexity. This measures up 2.6 cm in thickness, and measures 9.3 cm in AP length by 7.5 cm in craniocaudal length. This is primarily hyperdense, with some isodense hyperacute blood components interspersed centrally. Subarachnoid hemorrhage in bilateral sylvian cisterns/fissures bilaterally, and regional sulci. This measures slightly greater than 1 mm in thickness. Right cerebral sulcal effacement adjacent epidural hematoma. Mild partial effacement of left lateral ventricle. 0.4 cm rightward midline shift. The basal cisterns are patent. Joel-white matter differentiation is preserved. The visualized paranasal sinuses are well-aerated. Cervical spine: Normal cervical alignment. Intervertebral disc space heights are maintained. Small endplate spurs. Mild facet arthropathy. Vertebral body heights are grossly maintained. No acute cervical spine fracture. Limited assessment of canal contents demonstrates no evidence for hematoma within the cervical canal. No soft tissue swelling in the prevertebral compartment. Thoracic spine: Mildly exaggerated kyphosis, otherwise normal alignment. Intervertebral disc space heights are grossly maintained. Multilevel endplate spurs. Bony osteopenia. T4 vertebral body has large hemangioma. Nonacute appearing compression fracture deformities at multiple levels, including: -T2 superior endplate with about 25 percent loss of vertebral body height. No retropulsion. - T7 superior endplate, with about 30 percent loss of vertebral body height. Distinct lucent fracture line with marginating sclerosis paralleling superior endplate. No retropulsion. -T8 vertebral body with about 60 percent loss of vertebral body height. Lucent fracture cleft with corticated margins extending into anterior cortex, and superior and inferior endplates. No retropulsion. -T11 and T12 superior endplates, with about 25 percent loss of vertebral body height.. Minimal retropulsion adjacent to T12 superior endplate. No acute appearing thoracic spine fracture. No evidence of hematoma in the imaged spinal canal. Paraspinal space appears unremarkable. Lumbar spine: Normal alignment. Intervertebral disc space heights are maintained. Bony osteopenia. L1 nonacute appearing compression fracture involving inferior endplate, with about 50 percent loss of vertebral body height. Minimal retropulsion adjacent to inferior endplate. No acute appearing lumbar spine fracture. No evidence of hematoma in the imaged spinal canal. Paraspinal space appears unremarkable. Procedure Note Sina Byrd MD - 06/01/2019 EXAMINATION: 1. Computed tomography (CT) of the head without contrast 2. CT of the cervical spine without contrast 3. CT of the thoracic spine without contrast 4. CT of the lumbar spine without contrast HISTORY: [id number].XXXA: Fall, initial encounter TECHNIQUE: CT of the head and cervical spine were performed without contrast according to standard protocol. Reformatted axial, sagittal,and coronal images of the thoracic and lumbar spine were obtained by the technologist from a concurrently performed body CT and sent to the workstation for review. Automated dose reduction techniques wereemployed. FINDINGS: Head: Left-sided scalp edema/hematoma. Subtle nondisplaced fracture of theleft parietal calvarium. Acute epidural hematoma located along the left cerebral (primarily parietal) convexity. This measures up 2.6 cm in thickness, and measures 9.3 cm in AP length by 7.5 cm in craniocaudal length. This is primarily hyperdense, with some isodense hyperacute blood components interspersed centrally. Subarachnoid hemorrhage in bilateral sylvian cisterns/fissures bilaterally, and regional sulci. This measures slightly greater than 1mm in thickness. Right cerebral sulcal effacement adjacent epidural hematoma. Mildpartial effacement of left lateral ventricle. 0.4 cm rightward midline shift.The basal cisterns are patent. Joel-white matter differentiation is preserved. The visualized paranasal sinuses are well-aerated. Cervical spine: Normal cervical alignment. Intervertebral disc space heights are maintained. Small endplate spurs. Mild facet arthropathy. Vertebral body heights are grossly maintained. No acute cervical spine fracture. Limited assessment of canal contents demonstrates no evidence forhematoma within the cervical canal. No soft tissue swelling in the prevertebral compartment. Thoracic spine: Mildly exaggerated kyphosis, otherwise normal alignment. Intervertebral disc space heights are grossly maintained. Multilevel endplate spurs. Bony osteopenia. T4 vertebral body has large hemangioma. Nonacute appearing compression fracture deformities at multiple levels, including: -T2 superior endplate with about 25 percent loss of vertebral bodyheight. No retropulsion. - T7 superior endplate, with about 30 percent loss of vertebral body height. Distinct lucent fracture line with marginating sclerosis paralleling superior endplate. No retropulsion. -T8 vertebral body with about 60 percent loss of vertebral body height. Lucent fracture cleft with corticated margins extending into anterior cortex, and superior and inferior endplates. No retropulsion. -T11 and T12 superior endplates, with about 25 percent loss of vertebral body height.. Minimal retropulsion adjacent to T12 superior endplate. No acute appearing thoracic spine fracture. No evidence of hematoma in the imaged spinal canal. Paraspinal space appears unremarkable. Lumbar spine: Normal alignment. Intervertebral disc space heights are maintained. Bony osteopenia. L1 nonacute appearing compression fracture involving inferior endplate, with about 50 percent loss of vertebral body height. Minimalretropulsion adjacent to inferior endplate. No acute appearing lumbar spine fracture. No evidence of hematoma in the imaged spinal canal. Paraspinal space appears unremarkable. IMPRESSION: 1.Nondisplaced left parietal calvarium fracture, with adjacent acute epidural hematoma, causing noncritical mass effect including mild rightward midline shift. 2.Bilateral traumatic subarachnoid hemorrhage. 3. Bony osteopenia, with nonacute-appearing compression fracture deformities involving thoracic and lumbar spine, however chronicity maybe more accurately evaluated with MRI if clinically warranted. No acute appearing spine fracture. Per chart review, Dr. Wright and the trauma team where we are of acute intracranial hemorrhage at the time of these studies. I, Dr. SINA BYRD have personally reviewed and interpreted this examination/study. This report was electronically signed by SINA BYRD on 06/01/201910:46 AM . Deann Wright MD CT ORDERABLES * CT CERVICAL SPINE WO CONTRAST (05/31/2019 10:43 PM TOUR OPERATOR) Anatomical Region Laterality Modality Spine Computed Tomogra phy 06/01/2019 8:37 AM TOUR OPERATOR Impressions 06/01/2019 10:46 AM TOUR OPERATOR IMPRESSION: 1.Nondisplaced left parietal calvarium fracture, with adjacent acute epidural hematoma, causing noncritical mass effect including mild rightward midline shift. 2.Bilateral traumatic subarachnoid hemorrhage. 3. Bony osteopenia, with nonacute-appearing compression fracture deformities involving thoracic and lumbar spine, however chronicity may be more accurately evaluated with MRI if clinically warranted. No acute appearing spine fracture. Per chart review, Dr. Wright and the trauma team where we are of acute intracranial hemorrhage at the time of these studies. I, Dr. SINA BYRD have personally reviewed and interpreted this examination/study. This report was electronically signed by SINA BYRD ??on 06/01/2019 10:46 AM . Narrative 06/01/2019 10:46 AM TOUR OPERATOR EXAMINATION: 1. Computed tomography (CT) of the head without contrast 2. CT of the cervical spine without contrast 3. CT of the thoracic spine without contrast 4. CT of the lumbar spine without contrast HISTORY: [id number].XXXA: Fall, initial encounter TECHNIQUE: CT of the head and cervical spine were performed without contrast according to standard protocol. Reformatted axial, sagittal, and coronal images of the thoracic and lumbar spine were obtained by the technologist from a concurrently performed body CT and sent to the workstation for review. Automated dose reduction techniques were employed. FINDINGS: Head: Left-sided scalp edema/hematoma. Subtle nondisplaced fracture of the left parietal calvarium. Acute epidural hematoma located along the left cerebral (primarily parietal) convexity. This measures up 2.6 cm in thickness, and measures 9.3 cm in AP length by 7.5 cm in craniocaudal length. This is primarily hyperdense, with some isodense hyperacute blood components interspersed centrally. Subarachnoid hemorrhage in bilateral sylvian cisterns/fissures bilaterally, and regional sulci. This measures slightly greater than 1 mm in thickness. Right cerebral sulcal effacement adjacent epidural hematoma. Mild partial effacement of left lateral ventricle. 0.4 cm rightward midline shift. The basal cisterns are patent. Joel-white matter differentiation is preserved. The visualized paranasal sinuses are well-aerated. Cervical spine: Normal cervical alignment. Intervertebral disc space heights are maintained. Small endplate spurs. Mild facet arthropathy. Vertebral body heights are grossly maintained. No acute cervical spine fracture. Limited assessment of canal contents demonstrates no evidence for hematoma within the cervical canal. No soft tissue swelling in the prevertebral compartment. Thoracic spine: Mildly exaggerated kyphosis, otherwise normal alignment. Intervertebral disc space heights are grossly maintained. Multilevel endplate spurs. Bony osteopenia. T4 vertebral body has large hemangioma. Nonacute appearing compression fracture deformities at multiple levels, including: -T2 superior endplate with about 25 percent loss of vertebral body height. No retropulsion. - T7 superior endplate, with about 30 percent loss of vertebral body height. Distinct lucent fracture line with marginating sclerosis paralleling superior endplate. No retropulsion. -T8 vertebral body with about 60 percent loss of vertebral body height. Lucent fracture cleft with corticated margins extending into anterior cortex, and superior and inferior endplates. No retropulsion. -T11 and T12 superior endplates, with about 25 percent loss of vertebral body height.. Minimal retropulsion adjacent to T12 superior endplate. No acute appearing thoracic spine fracture. No evidence of hematoma in the imaged spinal canal. Paraspinal space appears unremarkable. Lumbar spine: Normal alignment. Intervertebral disc space heights are maintained. Bony osteopenia. L1 nonacute appearing compression fracture involving inferior endplate, with about 50 percent loss of vertebral body height. Minimal retropulsion adjacent to inferior endplate. No acute appearing lumbar spine fracture. No evidence of hematoma in the imaged spinal canal. Paraspinal space appears unremarkable. Procedure Note Sina Byrd MD - 06/01/2019 EXAMINATION: 1. Computed tomography (CT) of the head without contrast 2. CT of the cervical spine without contrast 3. CT of the thoracic spine without contrast 4. CT of the lumbar spine without contrast HISTORY: [id number].XXXA: Fall, initial encounter TECHNIQUE: CT of the head and cervical spine were performed without contrast according to standard protocol. Reformatted axial, sagittal,and coronal images of the thoracic and lumbar spine were obtained by the technologist from a concurrently performed body CT and sent to the workstation for review. Automated dose reduction techniques wereemployed. FINDINGS: Head: Left-sided scalp edema/hematoma. Subtle nondisplaced fracture of theleft parietal calvarium. Acute epidural hematoma located along the left cerebral (primarily parietal) convexity. This measures up 2.6 cm in thickness, and measures 9.3 cm in AP length by 7.5 cm in craniocaudal length. This is primarily hyperdense, with some isodense hyperacute blood components interspersed centrally. Subarachnoid hemorrhage in bilateral sylvian cisterns/fissures bilaterally, and regional sulci. This measures slightly greater than 1mm in thickness. Right cerebral sulcal effacement adjacent epidural hematoma. Mildpartial effacement of left lateral ventricle. 0.4 cm rightward midline shift.The basal cisterns are patent. Joel-white matter differentiation is preserved. The visualized paranasal sinuses are well-aerated. Cervical spine: Normal cervical alignment. Intervertebral disc space heights are maintained. Small endplate spurs. Mild facet arthropathy. Vertebral body heights are grossly maintained. No acute cervical spine fracture. Limited assessment of canal contents demonstrates no evidence forhematoma within the cervical canal. No soft tissue swelling in the prevertebral compartment. Thoracic spine: Mildly exaggerated kyphosis, otherwise normal alignment. Intervertebral disc space heights are grossly maintained. Multilevel endplate spurs. Bony osteopenia. T4 vertebral body has large hemangioma. Nonacute appearing compression fracture deformities at multiple levels, including: -T2 superior endplate with about 25 percent loss of vertebral bodyheight. No retropulsion. - T7 superior endplate, with about 30 percent loss of vertebral body height. Distinct lucent fracture line with marginating sclerosis paralleling superior endplate. No retropulsion. -T8 vertebral body with about 60 percent loss of vertebral body height. Lucent fracture cleft with corticated margins extending into anterior cortex, and superior and inferior endplates. No retropulsion. -T11 and T12 superior endplates, with about 25 percent loss of vertebral body height.. Minimal retropulsion adjacent to T12 superior endplate. No acute appearing thoracic spine fracture. No evidence of hematoma in the imaged spinal canal. Paraspinal space appears unremarkable. Lumbar spine: Normal alignment. Intervertebral disc space heights are maintained. Bony osteopenia. L1 nonacute appearing compression fracture involving inferior endplate, with about 50 percent loss of vertebral body height. Minimalretropulsion adjacent to inferior endplate. No acute appearing lumbar spine fracture. No evidence of hematoma in the imaged spinal canal. Paraspinal space appears unremarkable. IMPRESSION: 1.Nondisplaced left parietal calvarium fracture, with adjacent acute epidural hematoma, causing noncritical mass effect including mild rightward midline shift. 2.Bilateral traumatic subarachnoid hemorrhage. 3. Bony osteopenia, with nonacute-appearing compression fracture deformities involving thoracic and lumbar spine, however chronicity maybe more accurately evaluated with MRI if clinically warranted. No acute appearing spine fracture. Per chart review, Dr. Wright and the trauma team where we are of acute intracranial hemorrhage at the time of these studies. I, Dr. SINA BYRD have personally reviewed and interpreted this examination/study. This report was electronically signed by SINA BYRD on 06/01/201910:46 AM . Rayo-Jaimee Wright MD CT ORDERABLES * XR PELVIS 1 OR 2VW (05/31/2019 10:16 PM TOUR OPERATOR) Anatomical Region Laterality Modality Pelvis Radiographic Micki ging 06/01/2019 12:4 2 PM TOUR OPERATOR Impressions 06/01/2019 3:33 PM TOUR OPERATOR IMPRESSION: No acute fracture or dislocation is identified. Dictated by ??Eusebio Montero MD (president & ceo [employer]). This report was approved ??by Eusebio Montero M.D. ?? on 06/01/2019 3:[address] MADDY Brooks M.D. have personally reviewed and interpreted this examination/study. This report was electronically signed by MADDY LACEY M.D. ??on 06/01/2019 3:33 PM . Narrative 06/01/2019 3:33 PM TOUR OPERATOR EXAMINATION: XR PELVIS 1 OR 2VW HISTORY: W19.XXXA: Fall, initial encounter COMPARISON: No prior study is available for comparison. FINDINGS: No acute fracture is identified. The femoral heads appear well-seated within their respective acetabula. The pubic symphysis is intact. The bones are mildly diffusely demineralized. A clip projects over the pelvis. Procedure Note Maddy Lacey MD - 06/01/2019 EXAMINATION: XR PELVIS 1 OR 2VW HISTORY: W19.XXXA: Fall, initial encounter COMPARISON: No prior study is available for comparison. FINDINGS: No acute fracture is identified. The femoral heads appear well-seated within their respective acetabula. The pubic symphysis is intact. The bones are mildly diffusely demineralized. A clip projects over thepelvis. IMPRESSION: No acute fracture or dislocation is identified. Dictated by Eusebio Montero MD (president & ceo [employer]). This report was approved by Eusebio Montero M.D. on 06/01/2019 3:15 PM. I, Dr. MADDY LACEY M.D. have personally reviewed and interpreted this examination/study. This report was electronically signed by MADDY LACEY M.D. on06/01/2019 3:33 PM . Deann Wright MD DIAGNOSTIC IMAGING O RDERABLES * TYPE + SCREEN PANEL (05/31/2019 10:15 PM TOUR OPERATOR) [facility] Signature Antibody Screen NEG 9 11:28 PM TOUR OPERATOR [facility] BLOOD BANK LAB ABO Rh O POS 05/31/2019 11:28 PM TOUR OPERATOR [facility] B[facility]OD [facility] LAB Blood Bank BLOOD SPECIMEN / Unknown Venipuncture / Unknown 05/31/2019 10:15 PM TOUR OPERATOR 05/31/2019 10:48 PM TOUR OPERATOR Deann Wright MD LAB - BLOOD BANK ORD ABIEL Performing Organization Address [facility] Co de Phone Number [facility] BLOOD BANK LAB [address] [place] [address] * (ABNORMAL) HCG BETA BLOOD QUANTITATIVE (05/31/2019 10:15 PM [facility]) Beta-hCG Total Quantitative 8(H) <5 mIU/mL 05/31/2019 10:48 PM [facility] Comment: This assay is cleared for use in the early detection of only. It is not approved for any other uses such as tumor marker screening, tumor marker monitoring, etc. and should not be used for any other purposes. HCG Numeric Result Interpretation: ? Non- Females: ? < 5 mIU/mL ? Post-Menopausal Females: ??< 7 mIU/mL ? Blood BLOOD SPECIMEN / Unknown Venipuncture / Unknown 05/31/2019 10:15 PM TOUR OPERATOR 05/31/2019 10:20 PM TOUR OPERATOR Deann Wright MD LAB - CHEMISTRY ASTRID [place] Performing Organization Address [facility] Co de Phone Number [address] [phone] * ALCOHOL ETHYL BLOOD (05/31/2019 10:15 PM TOUR OPERATOR) Interpretation Ethanol None Detected None Detected mg/dL 05/31/2019 10:38 PM [facility] Comment: Ethanol levels less than 10 mg/dL are resulted as None detected . Blood BLOOD SPECIMEN / Unknown Venipuncture / Unknown 05/31/2019 10:15 PM TOUR OPERATOR 05/31/2019 10:20 PM TOUR OPERATOR Deann Wright MD LAB - CHEMISTRY ASTRID [place] [facility] LABORATORY [facility] [address] [phone] * (ABNORMAL) TEG PLATELET MAPPING (05/31/2019 10:02 PM TOUR OPERATOR) Interpretation TEG See Comment 06/01/2019 12:44 AM [facility] BLOOD BANK LAB React-Time 4.8(L) 5.0 - 10.0 MIN 06/01/2019 12:44 AM [facility] BLOOD BANK LAB K-Time 0.8(L) 1.0 - 3.0 MIN 06/01/2019 12:44 AM [facility] BLOOD BANK LAB Angle A-BB 77.2(H) 53.0 - 72.0 Degrees 06/01/2019 12:44 AM [facility] BLOOD BANK LAB MA (CK) BB 76.4(H) 50.0 - 70.0 mm 06/01/2019 12:44 AM [facility] BLOOD BANK LAB LY30 0.0 0.0 - 8.0 % 06/01/2019 12:44 AM [facility] BLOOD BANK LAB CI-Coagulation Index 4.0(H) -3.0 - 3.0 06/01/2019 12:44 AM [facility] BLOOD BANK LAB MA-ADP 17.4 Reference Range: None mm 06/01/2019 12:44 AM [facility] BLOOD BANK LAB MA AA-BB 14.8 Reference Range: None mm 06/01/2019 12:44 AM [facility] BLOOD BANK LAB % ADP Inhibition 95.3 Reference Range:None % 06/01/2019 12:44 AM [facility] BLOOD BANK LAB G-Clot Strength 16.2(H) 4.5 - 11.0 d/sc 06/01/2019 12:44 AM [facility] BLOOD BANK LAB % AA Inhibition 99.5 Reference Range: None % 06/01/2019 12:44 AM [facility] BLOOD BANK LAB Blood BLOOD SPECIMEN / Unknown 05/31/2019 10:02 PM TOUR OPERATOR 05/31/2019 11:43 PM TOUR OPERATOR Narrative [facility] BLOOD BANK LAB - 06/01/2019 12:44 AM TOUR OPERATOR SEE BELOW ?TEG Kaolin Sample Type Interpretation TEG Value ?Hemostasis State R < than 4 min: ?Enzymatic Hypercoagulability R 11-14 min: ? Low Clotting Factors R > than 14 min: ?? Very low clotting factors MA 46-54 mm: ? Low Platelet function MA 41-45 mm: ? Very low platelet function MA 40 mm or less: ??Extremely low platelet function MA > 73 mm: ?Platelet hypercoagulability R < 4 min and ?Enzymatic and platelet hypercoagulability MA > 73 mm: Angle < 45 deg: ?Low fibrinogen level LY30 at 7.5% or >, Primary Fibrinolysis CI < than 1.0: ?? LY30 at 7.5% or >, Secondary fibrinolysis CI > than 3.0: LY30 < 7.5%, ? Prothrombotic state CI > 3.0: Rima Schafer MD LAB - BLOOD BANK ORD ERABLES [facility] BLOOD BANK LAB [address] [place] [address], [facility] * XR LUMBAR SPINE 2 OR 3VW (04/09/2019 10:06 AM CDT) Anatomical Region Laterality Modality Spine Radiographic Micki ging 04/09/2019 10:3 0 AM CDT Impressions 04/09/2019 11:18 AM CDT IMPRESSION: Height loss of the T12, L1, and possibly T11 vertebral bodies concerning for age-indeterminate compression fractures. Please correlate with history and physical examination and consider follow-up such as CT or MRI. The results were submitted via the radiology department critical results reporting system at 11:18 AM on 04/09/2019. Dictated by Wilmar Reddy MD (president & ceo [employer]). I, Dr. LANRE MEIER MD have personally reviewed and interpreted this examination/study. This report was electronically signed by LANRE MEIER MD ??on 04/09/2019 11:18 AM . Narrative 04/09/2019 11:18 AM CDT EXAMINATION: XR LUMBAR SPINE 2 view HISTORY: back pain COMPARISON: None FINDINGS: The lumbar lordosis is normal. Height loss of the T12 and L1 and possibly T11 vertebral bodies is suggested concerning for compression fractures, age indeterminate. The L2-L5 vertebral bodies are normal in height. There is no subluxation. Mild degenerative changes are seen. Right upper quadrant clips are visible. Mild dextrocurvature. Procedure Note Lanre Meier MD - 04/09/2019 EXAMINATION: XR LUMBAR SPINE 2 view HISTORY: back pain COMPARISON: None FINDINGS: The lumbar lordosis is normal. Height loss of the T12 and L1 andpossibly T11 vertebral bodies is suggested concerning for compression fractures, age indeterminate. The L2-L5 vertebral bodies are normal in height.There is no subluxation. Mild degenerative changes are seen. Right upper quadrant clips are visible. Mild dextrocurvature. IMPRESSION: Height loss of the T12, L1, and possibly T11 vertebral bodies concerning for age-indeterminate compression fractures. Please correlate withhistory and physical examination and consider follow-up such as CT or MRI. The results were submitted via the radiology department critical results reporting system at 11:18 AM on 04/09/2019. Dictated by Wilmar Reddy MD (president & ceo [employer]). I, Dr. LANRE MEIER MD have personally reviewed and interpreted this examination/study. This report was electronically signed by LANRE MEIER MD on 04/09/2019 11:18 AM . Mone Johnston PA-C DIAGNOSTIC IMAG ING ORDERABLES * MA DRAIN/INJECT LARGE JOINT/BURSA (03/03/2019 11:49 AM CDT) Narrative Bernard Kurtz MD - 03/03/2019 11:49 AM CDT Bernard Kurtz MD ? 03/03/2019 11:49 AM Orthopaedic Surgery Procedure Note Diagnosis: Left knee pain Procedure: Injection of corticosteroid into the left knee Indications: Denisha Zarate is a 58 year old female who has left knee pain and arthritis. Procedure Details: The patient was informed of her condition, and the potential benefits of injection of steroid. The patient was counseled as to the risks of the procedure and allergies were reviewed. The patient was understanding and agreeable. ?? The patient was placed into the appropriate position. The area was prepped with betadine and alcohol. Utilizing the peripatellar portal, the skin, subcutaneous, and pericapsular tissues were injectedwith 3 cc 1% lidocaine without epinephrine using a 21 Ga needle. The patient's left knee joint was then entered. Confirmation of location inside the joint was evidenced by aspiration of straw colored synovial fluid. 2 cc of Kenalog/3cc lidocaine was injected into the joint. The needle was removed and the needle site cleaned with alcohol and dressed with a sterile bandage. The procedure was performed under sterile conditions. ?? The patient tolerated the procedure well. Remainder of plan per note. Bernard Kurtz MD 03/03/2019 11:49 AM Bernard Kurtz MD PROCEDURE/MINOR AMBER GICAL ORDERABLES * MA DRAIN/INJECT LARGE JOINT/BURSA (03/03/2019 11:49 AM CDT) Narrative Bernard Kurtz MD - 03/03/2019 11:49 AM CDT Bernard Kurtz MD ? 03/03/2019 11:49 AM Orthopaedic Surgery Procedure Note Diagnosis: Right knee pain Procedure: Injection of corticosteroid into the right knee Indications: Denisha Zarate is a 58 year old female who has right knee pain and arthritis. Procedure Details: The patient was informed of her condition, and the potential benefits of injection of steroid. The patient was counseled as to the risks of the procedure and allergies were reviewed. The patient was understanding and agreeable. ?? The patient was placed into the appropriate position. The area was prepped with betadine and alcohol. Utilizing the peripatellar portal, the skin, subcutaneous, and pericapsular tissues were injected with 3 cc 1% lidocaine without epinephrine using a 21 Ga needle. The patient's right knee was then entered. Confirmation of location inside the joint was evidenced by aspiration of straw colored synovial fluid. 2 cc of Kenalog/3cc lidocaine was injected into the joint. The needle was removed and the needle site cleaned with alcohol and dressed with a sterile bandage. The procedure was performed under sterile conditions. ??The patient tolerated the procedure well. Remainder of plan per note. Bernard Kurtz MD 03/03/2019 11:49 AM Bernard Kurtz MD PROCEDURE/MINOR AMBER GICAL ORDERABLES * PROC INJECTION JOINT (SMALL/INTERMED/MAJOR) (11/11/2018 10:04 AM CDT) Narrative Bernard Kurtz MD - 11/11/2018 10:04 AM CDT Bernard Kurtz MD ? 11/11/2018 10:04 AM Orthopaedic Surgery Procedure Note Diagnosis: Right knee pain Procedure: Injection of corticosteroid into the right knee Indications: Denisha Zarate is a 58 year old female who has right knee pain and arthritis. Procedure Details: The patient was informed of her condition, and the potential benefits of injection of steroid. The patient was counseled as to the risks of the procedure and allergies were reviewed. The patient was understanding and agreeable. ?? The patient was placed into the appropriate position. The area was prepped with betadine and alcohol. Utilizing the peripatellar portal, the skin, subcutaneous, and pericapsular tissues were injected with 3 cc 1% lidocaine without epinephrine using a 21 Ga needle. The patient's right knee was then entered. Confirmation of location inside the joint was evidenced by aspiration of straw colored synovial fluid. 2 cc of Kenalog/3cc lidocaine was injected into the joint. The needle was removed and the needle site cleaned with alcohol and dressed with a sterile bandage. The procedure was performed under sterile conditions. ??The patient tolerated the procedure well. Remainder of plan per note. Bernard Kurtz MD 11/11/2018 10:04 AM Bernard Kurtz MD PROCEDURE/MINOR AMBER GICAL ORDERABLES * MA DRAIN/INJECT LARGE JOINT/BURSA (11/11/2018 10:04 AM CDT) Bernard Sy MD - 11/11/2018 10:04 AM CDT Bernard Kurtz MD ? 11/11/2018 10:04 AM Orthopaedic Surgery Procedure Note Diagnosis: Left knee pain Procedure: Injection of corticosteroid into the left knee Indications: Denisha Zarate is a 58 year old female who has left knee pain and arthritis. Procedure Details: The patient was informed of her condition, and the potential benefits of injection of steroid. The patient was counseled as to the risks of the procedure and allergies were reviewed. The patient was understanding and agreeable. ?? The patient was placed into the appropriate position. The area was prepped with betadine and alcohol. Utilizing the peripatellar portal, the skin, subcutaneous, and pericapsular tissues were injectedwith 3 cc 1% lidocaine without epinephrine using a 21 Ga needle. The patient's left knee joint was then entered. Confirmation of location inside the joint was evidenced by aspiration of straw colored synovial fluid. 2 cc of Kenalog/3cc lidocaine was injected into the joint. The needle was removed and the needle site cleaned with alcohol and dressed with a sterile bandage. The procedure was performed under sterile conditions. ?? The patient tolerated the procedure well. Remainder of plan per note. Bernard Kurtz MD 11/11/2018 10:04 AM Bernard Kurtz MD PROCEDURE/MINOR AMBER GICAL ORDERABLES * MA DRAIN/INJECT LARGE JOINT/BURSA (08/12/2018 10:07 AM TOUR OPERATOR) Bernard Sy MD - 08/12/2018 10:07 AM TOUR OPERATOR Bernard Kurtz MD ? 08/12/2018 10:07 AM Orthopaedic Surgery Procedure Note Diagnosis: Left knee pain Procedure: Injection of corticosteroid into the left knee Indications: Denisha Zarate is a 57 y.o. female who has left knee pain and arthritis. Procedure Details: The patient was informed of her condition, and the potential benefits of injection of steroid. The patient was counseled as to the risks of the procedure and allergies were reviewed. The patient was understanding and agreeable. ?? The patient was placed into the appropriate position. The area was prepped with betadine and alcohol. Utilizing the peripatellar portal, the skin, subcutaneous, and pericapsular tissues were injectedwith 3 cc 1% lidocaine without epinephrine using a 21 Ga needle. The patient's left knee joint was then entered. Confirmation of location inside the joint was evidenced by aspiration of straw colored synovial fluid. 2 cc of Kenalog/3cc lidocaine was injected into the joint. The needle was removed and the needle site cleaned with alcohol and dressed with a sterile bandage. The procedure was performed under sterile conditions. ?? The patient tolerated the procedure well. Remainder of plan per note. Bernard Kurtz MD 08/12/2018 10:07 AM Bernard Kurtz MD PROCEDURE/MINOR AMBER GICAL ORDERABLES * MA DRAIN/INJECT LARGE JOINT/BURSA (08/12/2018 10:07 AM TOUR OPERATOR) Narrative Bernard Kurtz MD - 08/12/2018 10:07 AM TOUR OPERATOR Bernard Kurtz MD ? 08/12/2018 10:07 AM Orthopaedic Surgery Procedure Note Diagnosis: Right knee pain Procedure: Injection of corticosteroid into the right knee Indications: Denisha Zarate is a 57 y.o. female who has right knee pain and arthritis. Procedure Details: The patient was informed of her condition, and the potential benefits of injection of steroid. The patient was counseled as to the risks of the procedure and allergies were reviewed. The patient was understanding and agreeable. ?? The patient was placed into the appropriate position. The area was prepped with betadine and alcohol. Utilizing the peripatellar portal, the skin, subcutaneous, and pericapsular tissues were injected with 3 cc 1% lidocaine without epinephrine using a 21 Ga needle. The patient's right knee was then entered. Confirmation of location inside the joint was evidenced by aspiration of straw colored synovial fluid. 2 cc of Kenalog/3cc lidocaine was injected into the joint. The needle was removed and the needle site cleaned with alcohol and dressed with a sterile bandage. The procedure was performed under sterile conditions. ??The patient tolerated the procedure well. Remainder of plan per note. Bernard Kurtz MD 08/12/2018 10:07 AM Bernard Kurtz MD PROCEDURE/MINOR AMBER GICAL ORDERABLES * MA DRAIN/INJECT LARGE JOINT/BURSA (04/15/2018 10:13 AM CDT) Bernard Sy MD - 04/15/2018 10:13 AM CDT Bernard Kurtz MD ? 04/15/2018 10:13 AM Orthopaedic Surgery Procedure Note Diagnosis: Left knee pain Procedure: Injection of corticosteroid into the left knee Indications: Denisha Zarate is a 57 y.o. female who has left knee pain and arthritis. Procedure Details: The patient was informed of her condition, and the potential benefits of injection of steroid. The patient was counseled as to the risks of the procedure and allergies were reviewed. The patient was understanding and agreeable. ?? The patient was placed into the appropriate position. The area was prepped with betadine and alcohol. Utilizing the peripatellar portal, the skin, subcutaneous, and pericapsular tissues were injectedwith 3 cc 1% lidocaine without epinephrine using a 21 Ga needle. The patient's left knee joint was then entered. Confirmation of location inside the joint was evidenced by aspiration of straw colored synovial fluid. 2 cc of Kenalog/3cc lidocaine was injected into the joint. The needle was removed and the needle site cleaned with alcohol and dressed with a sterile bandage. The procedure was performed under sterile conditions. ?? The patient tolerated the procedure well. Remainder of plan per note. Bernard Kurtz MD 04/15/2018 10:13 AM Bernard Kurtz MD PROCEDURE/MINOR AMBER GICAL ORDERABLES * MA DRAIN/INJECT LARGE JOINT/BURSA (04/15/2018 10:12 AM CDT) Bernard Sy MD - 04/15/2018 10:12 AM CDT Bernard Kurtz MD ? 04/15/2018 10:12 AM Orthopaedic Surgery Procedure Note Diagnosis: Right knee pain Procedure: Injection of corticosteroid into the right knee Indications: Denisha Zarate is a 57 y.o. female who has right knee pain and arthritis. Procedure Details: The patient was informed of her condition, and the potential benefits of injection of steroid. The patient was counseled as to the risks of the procedure and allergies were reviewed. The patient was understanding and agreeable. ?? The patient was placed into the appropriate position. The area was prepped with betadine and alcohol. Utilizing the peripatellar portal, the skin, subcutaneous, and pericapsular tissues were injected with 3 cc 1% lidocaine without epinephrine using a 21 Ga needle. The patient's right knee was then entered. Confirmation of location inside the joint was evidenced by aspiration of straw colored synovial fluid. 2 cc of Kenalog/3cc lidocaine was injected into the joint. The needle was removed and the needle site cleaned with alcohol and dressed with a sterile bandage. The procedure was performed under sterile conditions. ??The patient tolerated the procedure well. Remainder of plan per note. Bernard Kurtz MD 04/15/2018 10:12 AM Bernard Kurtz MD PROCEDURE/MINOR AMBER GICAL ORDERABLES * MA DRAIN/INJECT LARGE JOINT/BURSA (01/07/2018 11:15 AM CDT) Narrative Bernard Kurtz MD - 01/07/2018 11:15 AM CDT Bernard Kurtz MD ? 01/07/2018 11:15 AM Orthopaedic Surgery Procedure Note Diagnosis: Left knee pain Procedure: Injection of corticosteroid into the left knee Indications: Denisha Zarate is a 57 y.o. female who has left knee pain and arthritis. Procedure Details: The patient was informed of her condition, and the potential benefits of injection of steroid. The patient was counseled as to the risks of the procedure and allergies were reviewed. The patient was understanding and agreeable. ?? The patient was placed into the appropriate position. The area was prepped with betadine and alcohol. Utilizing the peripatellar portal, the skin, subcutaneous, and pericapsular tissues were injectedwith 3 cc 1% lidocaine without epinephrine using a 21 Ga needle. The patient's left knee joint was then entered. Confirmation of location inside the joint was evidenced by aspiration of straw colored synovial fluid. 2 cc of Kenalog/3cc lidocaine was injected into the joint. The needle was removed and the needle site cleaned with alcohol and dressed with a sterile bandage. The procedure was performed under sterile conditions. ?? The patient tolerated the procedure well. Remainder of plan per note. Bernard Kurtz MD 01/07/2018 11:15 AM Bernard Kurtz MD PROCEDURE/MINOR AMBER GICAL ORDERABLES * MA DRAIN/INJECT LARGE JOINT/BURSA (01/07/2018 11:15 AM CDT) Bernard Sy MD - 01/07/2018 11:15 AM CDT Bernard Kurtz MD ? 01/07/2018 11:15 AM Orthopaedic Surgery Procedure Note Diagnosis: Right knee pain Procedure: Injection of corticosteroid into the right knee Indications: Denisha Zarate is a 57 y.o. female who has right knee pain and arthritis. Procedure Details: The patient was informed of her condition, and the potential benefits of injection of steroid. The patient was counseled as to the risks of the procedure and allergies were reviewed. The patient was understanding and agreeable. ?? The patient was placed into the appropriate position. The area was prepped with betadine and alcohol. Utilizing the peripatellar portal, the skin, subcutaneous, and pericapsular tissues were injected with 3 cc 1% lidocaine without epinephrine using a 21 Ga needle. The patient's right knee was then entered. Confirmation of location inside the joint was evidenced by aspiration of straw colored synovial fluid. 2 cc of Kenalog/3cc lidocaine was injected into the joint. The needle was removed and the needle site cleaned with alcohol and dressed with a sterile bandage. The procedure was performed under sterile conditions. ??The patient tolerated the procedure well. Remainder of plan per note. Bernard Kurtz MD 01/07/2018 11:15 AM Bernard Kurtz MD PROCEDURE/MINOR AMBER GICAL ORDERABLES * MA DRAIN/INJECT LARGE JOINT/BURSA (10/09/2017 10:42 AM CDT) Bernard Sy MD - 10/09/2017 10:42 AM CDT Bernard Kurtz MD ? 10/09/2017 10:42 AM Orthopaedic Surgery Procedure Note Diagnosis: Right knee pain Procedure: Injection of corticosteroid into the right knee Indications: Denisha Zarate is a 57 y.o. female who has right knee pain and arthritis. Procedure Details: The patient was informed of her condition, and the potential benefits of injection of steroid. The patient was counseled as to the risks of the procedure and allergies were reviewed. The patient was understanding and agreeable. ?? The patient was placed into the appropriate position. The area was prepped with betadine and alcohol. Utilizing the peripatellar portal, the skin, subcutaneous, and pericapsular tissues were injected with 3 cc 1% lidocaine without epinephrine using a 21 Ga needle. The patient's right knee was then entered. Confirmation of location inside the joint was evidenced by aspiration of straw colored synovial fluid. 2 cc of Kenalog/3cc lidocaine was injected into the joint. The needle was removed and the needle site cleaned with alcohol and dressed with a sterile bandage. The procedure was performed under sterile conditions. ??The patient tolerated the procedure well. Remainder of plan per note. Bernard Kurtz MD 10/08/2017 11:17 AM Bernard Kurtz MD PROCEDURE/MINOR AMBER GICAL ORDERABLES * MA DRAIN/INJECT LARGE JOINT/BURSA (10/09/2017 10:42 AM CDT) Narrative Bernard Kurtz MD - 10/09/2017 10:42 AM CDT Bernard Kurtz MD ? 10/09/2017 10:42 AM Orthopaedic Surgery Procedure Note Diagnosis: Left knee pain Procedure: Injection of corticosteroid into the left knee Indications: Denisha Zarate is a 57 y.o. female who has left knee pain and arthritis. Procedure Details: The patient was informed of her condition, and the potential benefits of injection of steroid. The patient was counseled as to the risks of the procedure and allergies were reviewed. The patient was understanding and agreeable. ?? The patient was placed into the appropriate position. The area was prepped with betadine and alcohol. Utilizing the peripatellar portal, the skin, subcutaneous, and pericapsular tissues were injectedwith 3 cc 1% lidocaine without epinephrine using a 21 Ga needle. The patient's left knee joint was then entered. Confirmation of location inside the joint was evidenced by aspiration of straw colored synovial fluid. 2 cc of Kenalog/3cc lidocaine was injected into the joint. The needle was removed and the needle site cleaned with alcohol and dressed with a sterile bandage. The procedure was performed under sterile conditions. ?? The patient tolerated the procedure well. Remainder of plan per note. Bernard Kurtz MD 10/08/2017 11:17 AM Bernard Kurtz MD PROCEDURE/MINOR AMBER GICAL ORDERABLES Care Teams Marine Diesel Mechanic Relationship Specialty Start Date End Date Zach Telles DO PCP - General 08/14/22
== END 2024-07-14 14:40 | disposition home or self-care (01) ==
LOC: ANHASCIMG 14:42
PROVIDERS: PCP Internal Medicine; Visit Provider Clinical Nurse Specialist
DX: S42.035A Nondisplaced fracture of lateral end of left clavicle, initial encounter for closed fracture (principal); M19.012 Primary osteoarthritis, left shoulder; M75.32 Calcific tendinitis of left shoulder; M43.02 Spondylolysis, cervical region; X58.XXXA Exposure to other specified factors, initial encounter
CPT/HCPCS: 72040; 73030

== ENCOUNTER 2024-11-24 10:31 | Outpatient (CLI) | payer OTHER, SELFPAY ==
[2024-11-24 11:00] LABS: Basophils Percent Auto 0.6 % (0.2-1.2); Eosinophils Absolute Auto 0.1 K/mm3 (0-0.3); Eosinophils Percent Auto 1.3 % (0-4.4); Hematocrit 44.5 % (37.0-47.0); Immature Granulocyte Absolute 0.03 K/mm3 (0.00-0.031); Immature Granulocyte Percent A 0.4 % (0-0.5); Lymphocytes Absolute Auto 2.08 K/mm3 (0.9-3.2); Mean Corpuscular HGB Conc 31.5 g/dl (32-36); Mean Corpuscular Hemoglobin 27.8 pg (26-34); Mean Corpuscular Volume 88.3 fl (80-100); Mean Platelet Volume 11.6 fl (7.4-10.4); Monocytes Absolute Auto 0.5 K/mm3 (0.1-0.6); Monocytes Percent Auto 6.7 % (2.6-8.5); Neutrophils Absolute Auto 4.5 K/mm3 (1.3-6.7); Platelet Count Result 166 k/mm3 (150-375); Red Blood Count 5.04 M/mm3 (4.2-5.4); Red Cell Distribution Width 16.3 % (11.5-14.5); White Blood Count 7.2 K/mm3 (4.5-10.0)
[2024-11-24 11:19] LABS: Alanine Aminotransferase 20 U/L (6-35); Albumin Level 4.1 g/dL (3.5-5.1); Alkaline Phosphatase 120 U/L (38-126); Anion Gap 6 mmol/L (4-12); Aspartate Amino Transferase 23 U/L (14-36); Bilirubin,Total 1.6 mg/dL (0.2-1.3); Blood Urea Nitrogen 20 mg/dL (7-17); Calcium 9.3 mg/dL (8.4-10.2); Carbon Dioxide 25 mmol/L (22-30); Chloride 109 mmol/L (98-107); Cholesterol 145 mg/dL (0-200); Estimated Glomerular Filt Rate > 60; Glucose 93 mg/dL (65-110); HDL Direct 51 mg/dL; Potassium 4.3 mmol/L (3.4-5.0); Sodium 140 mmol/L (137-145); Total Protein 7.1 g/dL (6.3-8.2); Triglycerides 152 mg/dL (<150)
[2024-11-24 11:30] LABS: LDL Cholesterol Direct 48 mg/dL
[2024-11-24 11:38] LABS: Vitamin D 25 Hydroxy 21.6 ng/mL
--- OUTSIDE RECORDS SUMMARY | 2024-11-24 11:44 | XMS_ITS | Encounter Summary ---
Author Organization [facility] Address [address] [facility] [place] [address] Care Team Providers Care Lines Tender Name Role Phone Zach Telles DO Primary Care Provider Encounter Details Date Type Department Care Team (Late st Contact Info) Description 07/29/2023 Telephone [facility] - Ophthalmology [address] [place] [phone] Alfonso Koo I, OD [address] [place] [address] [place] [phone] Social History Tobacco Use Types Packs/Day Years Used Date Smoking Tobacco: Never Smokeless Tobacco: Never Alcohol Use Standard Drinks/Week Comments No 0 (1 standard drink = 0.6 oz pur e alcohol) AUDIT-C Answer Date Recorded Frequency of Alcohol Consumption Never 06/01/2019 Average Number of Drinks Not on file 019 Frequency of Binge Drinking Not on file 05/17 Comments Unknown Sex and Gender Information Value Date Recorded Sex Assigned at Not on file Legal Sex Female 10:02 PM CAR LOADER Gender Identity Female 06/01/2019 7:38 AM CAR LOADER Sexual Orientation Not on file documented as of this encounter Functional Status * Is person deaf or have serious hearing difficulty? Answer Date of Assessment Author Yes 06/01/2019 12:30 PM CAR LOADER Rob Coronado RN * Is person blind or have serious difficulty seeing? Answer Date of Assessment Author Yes 06/01/2019 12:30 PM CAR LOADER Rob Coronado RN * Does person have serious difficulty walking/climbing stairs? Answer Date of Assessment Author Yes 06/01/2019 12:30 PM CAR LOADER Rob Coronado RN * Does person have difficulty dressing/bathing? Answer Date of Assessment Author No 06/01/2019 12:30 PM Rob Moseley RN * Does person have difficulty doing errands alone? Answer Date of Assessment Author Yes 06/01/2019 12:30 PM CAR LOADER Rob Coronado RN documented as of this encounter Mental Status * Does person have difficulty concentrating/remembering/making decisions? Answer Entry Date Author Yes 06/01/2019 12:30 PM Rob Moseley RN documented in this encounter Miscellaneous Notes * Telephone Encounter - Darrick Stevenson - 07/29/2023 2:26 PM CST Patient stated she is needing to get in to see how much more of her vision she has lost. Next available not until November. Please advise, patient's last appt was 02/02/21 LOADER documented in this encounter Plan of Treatment Upcoming Encounters Date Type Department Care Team (Late st Contact Info) Description 01/12/2025 1:00 PM CDT Office Visit [facility] - Orthopedic Surgery [address] [place] [phone] Bernard Kurtz MD [address] [facility] [address] [place] [address] documented as of this encounter Goals Goal Patient Goal Type Associated Problems Recent Progress Patient-Stated? Author Mobility General Worsening(08/15 11:15 AM CDT) No Lu Cope RN Note: Expected end date: 06/17/2019 The goal is to maintain or improve your mobility at the optimum level for you. Interventions: documented as of this encounter Visit Diagnoses Not on filedocumented in this encounter Care Teams Lines Tender Relationship Specialty Start Date End Date Zach Telles DO PCP - General 08/14/22 documented as of this encounter
--- OUTSIDE RECORDS SUMMARY | 2024-11-24 11:44 | XMS_ITS | Clinical Summary ---
Author Organization [facility] Address [address] [facility] [place] [address] Care Team Providers Care Concessionist Name Role Phone Zach Telles DO Primary Care Provider Source Comments [facility],non-owned Affiliates and Associated Physician Practices is amultiple site organization consisting of ambulatory clinics and hospital sitesin [place], [place], [place] and [place]. This disclosure is being madepursuant to the Care Everywhere program and may not contain all information available regarding this patient. Last updated 18.[facility] Allergies Active Allergy Reactions Criticality Noted Date Comments Codeine Nausea and/or Vomiting Low 11/15/2015 Medications * Be aware that medications may not be up to date on this document. Alwaysverify current medications with the patient. piroxicam (FELDENE) 20 MG capsule Take 20 mg by mouth DAILY. 30 capsule 3 7 Active Additional Information Patient not taking.Reported on 10/13/2024 albuterol HFA (VENTOLIN HFA) 108 (90 BASE) MCG/ACT inhaler 3 6 Active fenofibrate (LOFIBRA) 160 MG tablet 6 6 Active nortriptyline (PAMELOR) 10 MG capsule 6 6 Active losartan (COZAAR) 100 MG tablet 6 Active PARoxetine (PAXIL) 20 MG tablet 5 6 Active gabapentin (NEURONTIN) 300 MG capsule Take 1 (one) capsule by mouth TID 6 Active baclofen (LIORESAL) 10 MG tablet 6 Active aspirin (ASPIRIN) 81 MG tablet Take 1 (one) tablet by mouth DAILY 6 Active fluticasone propionate (FLONASE) 50 MCG/ACT nasal spray 0 8 Active albuterol HFA (PROVENTIL;VENT ANNETTE;PROAIR) 108 (90 Base) MCG/ACT inhaler Inhale 2 (two) puffs by mouth every 6 hours as needed Active acetaminophen (TYLENOL) 160 MG/5ML solution Take 20.3125 mL by mouth every 4 hours as needed 9 Active Additional Information Patient not taking.Reported on 10/13/2024 Acetaminophen Childrens 160 MG/5ML SOLN Take 20.3125 mL by mouth every 6 hours as needed 9 Active QVAR REDIHALER 80 MCG/ACT inhaler 9 Active carisoprodol (SOMA) 350 MG tablet carisoprodol 350 mg tablet Active levETIRAcetam (KEPPRA) 500 MG tablet 9 Active mirtazapine (REMERON) 15 MG tablet 9 Active polyethylene glycol 3350 (MIRALAX) packet 9 Active prochlorperazin e (COMPAZINE) 10 MG tablet Take 1 (one) tablet by mouth every 6 hours as needed 9 Active raNITIdine (ZANTAC) 300 MG tablet 9 Active [facility] SENNA 8.6 MG tablet 9 Active senna-docusate (SENOKOT-S) 8.6-50 MG tablet Take 1 (one) tablet by mouth once daily as needed 9 Active sertraline (ZOLOFT) 100 MG tablet sertraline 100 mg tablet Active simvastatin (ZOCOR) 20 MG tablet simvastatin 20 mg tablet Active traMADol (ULTRAM) 50 MG tablet tramadol 50 mg tablet Active traZODone (DESYREL) 50 MG tablet trazodone 50 mg tablet Active atorvastatin (LIPITOR) 20 MG tablet 2 Active vitamin D, ergocalciferol, (DRISDOL) 1.25 MG (50604 UT) capsule 2 Active furosemide (LASIX) 20 MG tablet 2 Active furosemide (LASIX) 20 MG tablet Take 1 (one) tablet by mouth once daily 2 Active [place]-3 Fatty Acids (fish oil) 1000 MG capsule TAKE 1 CAPSULE BY MOUTH TWICE DAILY BEFORE A MEAL 2 Active potassium chloride ER (Klor-Con) 10 MEQ tablet TAKE 1 TABLET BY MOUTH EVERY DAY IN THE MORNING 2 Active amLODIPine (Norvasc) 5 MG tablet Take 1 (one) tablet by mouth every morning 3 Active alendronate (Fosamax) 70 MG tablet TAKE 1 TABLET BY MOUTH WEEKLY 4 Active Symbicort 80-4.5 MCG/ACT inhaler INHALE 2 PUFFS BY MOUTH EVERY 12 HOURS 4 Active Vitamin D3 (D2000 Ultra Strength) 50 MCG (2000 UT) capsule 1,250 Units Active cyclobenzaprine (Flexeril) 10 MG tablet Take 1 (one) tablet by mouth nightly as needed for Muscle Spasms 40 tablet 4 Active celecoxib (CeleBREX) 200 MG capsule Take 1 (one) capsule by mouth once daily 90 capsule 5 Active Active Problems Problem Noted Date Diagnosed [...] Encounters Date Type Department Care Team Description 10/13/2024 1:15 PM CDT Office Visit [facility] - Orthopedic Surgery [address] [place] [phone] Bernard Kurtz MD Primary osteoarthritis of both knees (Primary Dx) 10/13/2024 Travel 09/17/2024 Telephone [facility] - Orthopedic Surgery [address] [place] [phone] Peyton Moseley RN Question from Last 3 Months Immunizations Immunization Administration Dates Next Due INFLUENZA VACCINE, QUADR. [...] on file Legal Sex Female 10:02 PM SOCK LINING STITCHER Gender Identity Female 06/01/2019 7:38 AM SOCK LINING STITCHER Sexual Orientation Not on file Last Filed Vital Signs Vital Sign Reading Time Taken Comments Blood Pressure 124/85 10/22/2023 2:46 PM CDT Pulse 94 10/22/2023 2:46 PM CDT Temperature 36.1 C (97 F) 06/18/2019 3:27 PM SOCK LINING STITCHER Respiratory Rate 20 06/18/2019 3:27 PM SOCK LINING STITCHER Oxygen Saturation 92% 10/22/2023 2:46 PM CDT Inhaled Oxygen Concentration 50% 06/01/2019 8 :20 AM SOCK LINING STITCHER Weight 111.1 kg (245 lb) 03/11/2024 1:39 PM CDT Height 149.9 cm (4' 11) 03/11/2024 1:39 PM CDT Body Mass Index 49.48 03/11/2024 1:39 PM CDT Plan of Treatment Upcoming Encounters Date Type Department Care Team (Late st Contact Info) Description 01/12/2025 1:00 PM CDT Office Visit [facility] - Orthopedic Surgery [address] [place] [phone] Bernard Kurtz MD [address] [address] Health Maintenance Due Date Last Done Comments [...] - Risk 60-74 years 1-dose series) 2022 COVID-19 VACCINE ( - season) 2024 DEPRESSION SCREENING 06/17/2024 INFLUENZA VACCINE (Season Ended) 2025 05/03/2021, 06/01/2019, 02/26/2017, Additional history exists SCREENING FOR DIABETES 11/20/2026 , 01/09/2021, 06/18/2019, Additional history exists HEPATITIS B VACCINE Aged Out No longe r eligible based on patient's age to complete this topic HIB VACCINE Aged Out No longer eligi ble based on patient's age to complete this topic HPV VACCINE Aged Out No longer eligi ble based on patient's age to complete this topic MENINGOCOCCAL (Group B) VACCINE SHARED DECISION-MAKING Aged Out No longer eligible based on patient's age to complete this topic MENINGOCOCCAL GROUPS A/C/Y/W VACCINE Aged Out No longer eligible based on patient's age to complete this topic Goals Goal Patient Goal Type Associated Problems Recent Progress Patient-Stated? Author Mobility General Worsening(08/15 11:15 AM CDT) Lu Nugent, RN Note: Expected end date: 06/17/2019 The goal is to maintain or improve your mobility at the optimum level for you. Interventions: Medical Devices Implanted Type Area Court Transcriber Device Identifier Shelf Expiration Date Model / Serial / Lot Plate 2 Hl Ult Lopro Chmfr Edg Crnl Implanted:Qty: 3 on 05/31/2019 by Nate Haynes MD at [facility] [employer] [facility] [id number] / / 4mm Screws Implanted:Qty: 21 on 05/31/2019 by Nate Haynes MD at [facility] [id number] / / Plate 4 Hl Ult Lopro Chmfr Edg Crnl 14 Implanted:Qty: 2 on 05/31/2019 by Nate Haynes MD at [facility] [employer] [facility] [id number] / / Plate 2 Hl Cntr Spc Rgd Crnl 12mmx.4mm Implanted:Qty: 3 on 05/31/2019 by Nate Haynes MD at [facility] [employer] [id number] / / Synthes Ulp [place] Cover Implanted:Qty: 1 on 05/31/2019 by Nate Haynes MD at [facility] [id number] / / Procedures Procedure Name Priority Date/Time Associated Diagnosis Comments RI DRAIN/INJECT LARGE JOINT/BURSA Routine 10/13/2024 1:38 PM CDT Primary osteoarthritis of both knees RI DRAIN/INJECT LARGE JOINT/BURSA Routine 10/13/2024 1:38 PM CDT Primary osteoarthritis of both knees COMPREHENSIVE METABOLIC PANEL Routine 06/18/2019 5:02 AM SOCK LINING STITCHER from Last 3 Months or Most Recently Relevant to Health Maintenance Results * RI DRAIN/INJECT LARGE JOINT/BURSA (10/13/2024 1:38 PM CDT) Narrative Bernard Kurtz MD - 10/13/2024 1:38 PM CDT Bernard Kurtz MD 10/14/2024 8:46 AM Orthopaedic Surgery Procedure Note Denisha Macdonald [id number] Diagnosis: Left knee pain Procedure: Injection of corticosteroid into the left knee Indications: Denisha Macdonald is a 64 year old female who has left knee [...] reviewed. The patient was understanding and agreeable. The patient was placed into the appropriate [...] The procedure was performed under sterile conditions. The patient tolerated the procedure well. Remainder of plan per note. Injection performed by: Resident on service Blood Loss: Minimal I was present for the entire procedure Bernard Kurtz MD 10/13/2024 1:39 PM Bernard Kurtz MD PROCEDURE/MINOR SURGICAL OR DERABLES Final Result * RI DRAIN/INJECT LARGE JOINT/BURSA (10/13/2024 1:38 PM CDT) Narrative Bernard Kurtz MD - 10/13/2024 1:38 PM CDT Bernard Kurtz MD 10/14/2024 8:46 AM Orthopaedic Surgery Procedure Note Denisha Macdonald [id number] Diagnosis: Right knee pain Procedure: Injection of corticosteroid into the right knee Indications: Denisha Macdonald is a 64 year old female who has right knee [...] reviewed. The patient was understanding and agreeable. The patient was placed into the appropriate [...] The procedure was performed under sterile conditions. The patient tolerated the procedure well. Remainder of plan per note. Injection performed by: Resident on service Blood Loss: Minimal I was present for the entire procedure Bernard Kurtz MD 10/13/2024 1:38 PM Bernard Kurtz MD PROCEDURE/MINOR SURGICAL OR DERABLES Final Result * (ABNORMAL) COMPREHENSIVE METABOLIC PANEL (06/18/2019 5:02 AM SOCK LINING STITCHER) Glucose 98 70 - 105 mg/dL 06/18/2019 6:24 AM [facility] Sodium 137 136 - 145 mmol/L 06/18/2019 6:24 AM [facility] Potassium 4.4 3.5 - 4.7 mmol/L 06/18/2019 6:24 AM [facility] Chloride 104 98 - 107 mmol/L 06/18/2019 6:24 AM [facility] CO2 26 23 - 31 mmol/L 06/18/2019 6:24 AM [facility] Calcium 9.2 8.4 - 10.4 mg/dL 06/18/2019 6:24 AM [facility] Anion Gap 7(L) 8 - 16 mmol/L 06/18/2019 6:24 AM [facility] BUN 13 9.8 - 20.1 mg/dL 06/18/2019 6:24 AM [facility] Creatinine 0.67 0.57 - 1.11 mg/dL 06/18/2019 6:24 AM [facility] Alkaline Phosphatase 107 40 - 150 U/L 06/18/2019 6:24 AM [facility] ALT 14 0 - 61 U/L 06/18/2019 6:24 AM [facility] AST 17 5 - 34 U/L 06/18/2019 6:24 AM [facility] Protein Total 6.7 6.4 - 8.3 gm/dL 06/18/2019 6:24 AM [facility] Albumin 3.6 3.5 - 5.2 gm/dL 06/18/2019 6:24 AM [facility] Bilirubin Total 0.7 0.2 - 1.0 mg/dL 06/18/2019 6:24 AM SOCK LINING STITCHER [facility] eGFR by MDRD >60 >60 mL/min/1.7 3m2 06/18/2019 6:24 AM SOCK LINING STITCHER [facility] eGFR by MDRD >60 >60 mL/min/1.7 3m2 06/18/2019 6:24 AM SOCK LINING STITCHER [facility] Blood BLOOD SPECIMEN / Unknown Lab Venipuncture / Unknown 06/18/2019 5:02 AM SOCK LINING STITCHER 06/18/2019 6:00 AM SOCK LINING STITCHER Orsa Elena Jasmine Thomas CLIENT TECHNICAL SPECIALIST-CHECKERER HAND LAB - CHEMISTRY ORDERA BLES Final Result Performing Organization Address City/State/[facility] Co de Phone Number [facility] [address] [place] [address] from Last 3 Months or Most Recently Relevant to Health Maintenance Insurance [facility] Advance Directives * Full Code (Latest Code Status on File) Date Activated Date Inactivated Comments 06/05/2019 4:59 PM 06/19/2019 8:59 AM * Full Code Date Activated Date Inactivated Comments 05/31/2019 10:57 PM 06/05/2019 4:53 PM Care Teams Concessionist Relationship Specialty Start Date End Date Zach Telles DO PCP - General 08/14/22
--- OUTSIDE RECORDS SUMMARY | 2024-11-24 11:44 | XMS_ITS | Referral Summary ---
Author Organization [facility] [address] Address [address] [place] [address] Care Team Providers Care Underwriting Support Specialist Name Role Phone Zach Telles DO Primary Care Provider [phone] Allergies Active Allergy Reactions Criticality Noted Date [...] (7.5 mg total) by mouth daily Active [id number] h oil 1,050-1,200 mg capsule 1 capsule [...] 10/17/2023 Assessment & Plan (04/22/2024 3:47 PM PLATE MOLDER): 63 y.o. female with history of Osteopenia-Osteoporosis [...] 01/09/2021 Assessment & Plan (04/22/2024 3:46 PM PLATE MOLDER): 63 y.o. and female with dyslipidemia, including [...] POCLDL 87 11/21/2023 No results found for: CHOL, TRIG, HDL, LDLCALC No results found for: LDLDIRECT No results found for: LIPOA No results found for: APOB No results found for: HSCRP, CRPHS TG = 151(H) [ref. range: <= [...] w ith chronic diastolic congestive heart failure 01/09/2021 History of subarachnoid hemorrhage 01/09/2021 Atypical chest pain 11/09/2011 Social History Tobacco Use Types Packs/Day Years Used Date Smoking Tobacco: Never Smokeless Tobacco: Never Tobacco Cessation:Counseling Given: Not Answered Comments Unknown Sex and Gender Information Value Date Recorded Sex Assigned at Not on file Legal Sex Female 7:35 AM PLATE MOLDER Gender Identity Not on file Sexual Orientation Not on file Last Filed Vital Signs Vital Sign Reading Time Taken Comments Blood Pressure 124/77 04/22/2024 3:02 PM PLATE MOLDER Pulse 83 04/22/2024 3:02 PM PLATE MOLDER Temperature 36.7 C (98.1 F) 04/22/2024 3:02 PM PLATE MOLDER Respiratory Rate 16 11/21/2023 10:0 7 AM CDT Oxygen Saturation 95% 11/21/2023 10: 07 AM CDT Inhaled Oxygen Concentration - - Weight 111.9 kg (246 lb 9.6 oz) 04/22/2024 3:02 PM PLATE MOLDER Height 147.3 cm (4' 10) 04/22/2024 3:02 PM PLATE MOLDER Body Mass Index 51.54 04/22/2024 3:02 PM PLATE MOLDER Plan of Treatment Not on file Insurance [facility] Care Teams Underwriting Support Specialist Relationship Specialty Start Date End Date Zach Telles DO PCP - General Internal Medicine 07/23/23
--- OUTSIDE RECORDS SUMMARY | 2024-11-24 11:44 | XMS_ITS | Data Portability ---
Author Organization [facility] ABDELRAHMANZan Address [address] [place] [address] Assessment No assessment recorded. Plan of Treatment Reminders Order Date Submit Date Provider Last Modified By Organization Details Last Modified Time Details Appointments None recorded. Lab drug screen, 14 drugs (detectimed ), urine 2021 GUILLE STEPHAN, [facility], [facility] [address], [place], [address], 11:21:31 amylase + lipase, serum 2021 GUILLE STEPHAN, [address] [place], [place] [address]dena Yanez, [address], [place], [address], 10:10:10 CBC w/ auto diff 2021 GUILLE STEPHAN, [address] [place], [place] [address]dena Beau, [facility] [address], [place], [address], 10:10:09 CMP, serum or plasma 2021 [facility], [address], [place], [address], 10:10:09 TSH + free T4, serum 2021 [facility], [address] [place], [place] [address]dena Yanez, [facility] [address], [place], [address], 10:10:08 HbA1c (hemoglobin A1c), blood 2021 GUILLE GALLARDOIVAN, [address] nelida Beau, [address], [place], [address], 10:10:10 hepatitis panel (A+B+C), acute, serum 2021 GUILLENAHOMI BROWNINGMARTELLRP, [address]ael [facility] 1926[facility]a Yanez, [address], [place], [address], 10:10:07 HIV 1 + 2, meaningful use set 2021 GUILLE BROWNINGCALVIN, 120R[facility], [address], [place], [address], 13:11:58 HIV 2 Ab, signal/cuto ff, IA, serum or plasma 2021 GUILLE BROWNINGCALVIN, 120R[facility], [address], [place], [address], 13:11:57 hepatitis C Ab, signal-to-c utoff, serum or plasma 2021 GUILLE BROWNINGCALVIN, 120R[facility]ael [facility], [address], [place], [address], 13:11:58 RPR (rapid plasma reagin), serum 2021 GUILLENAHOMI BROWNINGCALVIN, [address]ael [facility], 1926[facility]dena Yanez, [address], [place], [address], 13:11:59 CBC w/ auto diff 2021 GUILLENAHOMI BROWNINGCALVIN, [address]ael [facility], 1926[facility]dena Yanez, [address], [place], [address], 13:11:57 Referral None recorded. Procedures None recorded. Surgeries None recorded. Imaging MAMMO, screening, digital, bilateral 2021 [facility] ([facility]), [address] [place], [address], 11:37:09 US, abdomen + pelvis - knot to left of belly button 2021 [facility] ([facility]), [address] [place], [address], 10:11:24 CT, head + brain, w/o contrast [address] ([facility]), [address] [place], [address], 17:11:41 Medication Orders tramadol 50 mg tablet 2021 [facility] #[id number], [address], [place], [place], [id number], 11:23:24 amlodipine 5 mg tablet 2021 [facility] #62261, [address] [place], [id number], 11:23:07 gabapentin 300 mg capsule 2021 [facility] #98789, [address], [place], [place], [id number], 11:21:33 tramadol 50 mg tablet 2021 [facility] #45205, [address], [id number], 14:22:17 ergocalcife rol (vitamin D2) 1,250 mcg (50,000 unit) capsule 2021 [facility] #36324, [address], [place], [place], [id number], 17:22:44 cyclobenzap rine 10 mg tablet [address] [facility]51699, [address], [place], [place], [id number], 11:09:24 potassium chloride ER 10 mEq capsule,ext ended release 2021 [facility] #76798, [address], [place], [place], [id number], 17:22:47 furosemide 20 mg tablet 2021 [facility] #23109, [address], [place], [place], [id number], 17:22:45 Symbicort 160 mcg-4.5 mcg/actuati on HFA aerosol inhaler [address] [facility] #00764, [address], [place], [place], [id number], 12:50:58 albuterol sulfate HFA 90 mcg/actuati on aerosol inhaler 2021 [facility] #96324, [address], [place], [place], [id number], 17:06:43 tramadol 50 mg tablet 2021 [facility] #33952, [address], [place], [place], [id number], 14:18:57 gabapentin 300 mg capsule 2021 Maurilio Mendoza [facility] #34656, [address], [place], [place], [id number], 17:12:11 Patient TargetsNo targets recorded. Patient Instructions Encounter Date Encounter Id Patient Instructions Last Modified By Organization Details Last Modified Time 05/31/2022 [id number] back care and preventing injuries: care instructions [email or web address] Not available 05/31/2022 11:21:16 When You Want to Lose Weight: Care Instructions [email or web address] Not available 05/31/2022 11:21:17 A healthy lifestyle: care instructions [email or web address] Not available 05/31/2022 11:21:16 high cholesterol : care instructions [email or web address] Not available 05/31/2022 11:21:16 neuropathic pain : care instructions [email or web address] Not available 05/31/2022 11:21:16 body mass index: care instructions [email or web address] Not available 05/31/2022 11:21:16 learning about healthy weight [email or web address] Not available 05/31/2022 11:21:16 Reason for Referral None Reported. Results Created Date Observation Date Name Description Value Unit Range Abnormal Flag Note LastModifiedBy Organization Detail LastModifiedTime 11/08/19 22 11/08/2021 CBC WITH DIFFE RENTI AL/PL ATELE T WBC 9.0 x10e3 /uL 3.4-10 .8 Not Available [facility] ([facility]) [address] [facility], [place], [address], 11/09/2021 13:11:57 11/08/19 22 11/08/2021 CBC WITH DIFFE RENTI AL/PL ATELE T RBC 4.94 x10e6 /uL 3.77-5 .28 Not Available [facility] ([facility]) [address] [facility], [place], [address], 11/09/2021 13:11:57 11/08/19 22 11/08/2021 CBC WITH DIFFE RENTI AL/PL ATELE T hemoglobin 13.5 g/dL 11.1-1 5.9 Not Available [facility] ([facility]) [address] [facility], [place], [address], 11/09/2021 13:11:57 11/08/19 22 11/08/2021 CBC WITH DIFFE RENTI AL/PL ATELE T hematocrit 42.9 % 34.0-4 6.6 Not Available [facility] ([facility]) [address] [place], [address], 11/09/2021 13:11:57 11/08/19 22 11/08/2021 CBC WITH DIFFE RENTI AL/PL ATELE T MCV 87 fL 79-97 Not Available [facility] ([facility]) [address] [facility], [place], [address], 11/09/2021 13:11:57 11/08/19 22 11/08/2021 CBC WITH DIFFE RENTI AL/PL ATELE T MCH 27.3 pg 26.6-3 3.0 Not Available [facility] ([facility]) [address] [place], [address], 11/09/2021 13:11:57 11/08/19 22 11/08/2021 CBC WITH DIFFE RENTI AL/PL ATELE T MCHC 31.5 g/dL 31.5-3 5.7 Not Available [facility] ([facility]) [address] [place], [address], 11/09/2021 13:11:57 11/08/19 22 11/08/2021 CBC WITH DIFFE RENTI AL/PL ATELE T RDW 15.2 % 11.7-1 5.4 Not Available [facility] ([facility]) [address] [place], [address], 11/09/2021 13:11:57 11/08/19 22 11/08/2021 CBC WITH DIFFE RENTI AL/PL ATELE T platelets 205 x10e3 /uL 150-45 0 Not Available [facility] ([facility]) [address] [facility], [place], [address], 11/09/2021 13:11:57 11/08/19 22 11/08/2021 CBC WITH DIFFE RENTI AL/PL ATELE T neutrophils 70 % not estab. Not Available [facility] ([facility]) [address] [facility], [place], [address], 11/09/2021 13:11:57 11/08/19 22 11/08/2021 CBC WITH DIFFE RENTI AL/PL ATELE T lymphs 20 % not estab. Not Available [facility] ([facility]) [address] [facility], [place], [address], 11/09/2021 13:11:57 11/08/19 22 11/08/2021 CBC WITH DIFFE RENTI AL/PL ATELE T monocytes 7 % not estab. Not Available [facility] ([facility]) [address] [facility], [place], [address], 11/09/2021 13:11:57 11/08/19 22 11/08/2021 CBC WITH DIFFE RENTI AL/PL ATELE T eos 2 % not estab. Not Available [facility] ([facility]) [address] [facility], [place], [address], 11/09/2021 13:11:57 11/08/19 22 11/08/2021 CBC WITH DIFFE RENTI AL/PL ATELE T basos 0 % not estab. Not Available [facility] ([facility]) [address] [facility], [place], [address], 11/09/2021 13:11:57 11/08/19 22 11/08/2021 CBC WITH DIFFE RENTI AL/PL ATELE T immature cells FLOTATION OPERATOR Not Available [facility] ([facility]) [address] [facility], [place], [address], 11/09/2021 13:11:57 11/08/19 22 11/08/2021 CBC WITH DIFFE RENTI AL/PL ATELE T neutrophils (absolute) 6.4 x10e3 /uL 1.4-7. 0 Not Available [facility] ([facility]) [address] [place], [address], 11/09/2021 13:11:57 11/08/19 22 11/08/2021 CBC WITH DIFFE RENTI AL/PL ATELE T lymphs (absolute) 1.8 x10e3 /uL 0.7-3. 1 Not Available [facility] ([facility]) [address] [facility], [place], [address], 11/09/2021 13:11:57 11/08/19 22 11/08/2021 CBC WITH DIFFE RENTI AL/PL ATELE T monocytes(ab solute) 0.6 x10e3 /uL 0.1-0. 9 Not Available [facility] ([facility]) [address] [place], [address], 11/09/2021 13:11:57 11/08/19 22 11/08/2021 CBC WITH DIFFE RENTI AL/PL ATELE T eos (absolute) 0.1 x10e3 /uL 0.0-0. 4 Not Available [facility] ([facility]) [address] [place], [address], 11/09/2021 13:11:57 11/08/19 22 11/08/2021 CBC WITH DIFFE RENTI AL/PL ATELE T baso (absolute) 0.0 x10e3 /uL 0.0-0. 2 Not Available [facility] ([facility]) [address] [place], [address], 11/09/2021 13:11:57 11/08/19 22 11/08/2021 CBC WITH DIFFE RENTI AL/PL ATELE T immature granulocytes 1 % not estab. Not Available [facility] ([facility]) [address] [facility], [place], [address], 11/09/2021 13:11:57 11/08/19 22 11/08/2021 CBC WITH DIFFE RENTI AL/PL ATELE T immature grans (abs) 0.1 x10e3 /uL 0.0-0. 1 Not Available [facility] ([facility]) [address] [facility], [place], [address], 11/09/2021 13:11:57 11/08/19 22 11/08/2021 CBC WITH DIFFE RENTI AL/PL ATELE T NRBC FLOTATION OPERATOR Not Available [facility] ([facility]) [address] [facility], [place], [address], 11/09/2021 13:11:57 11/08/19 22 11/08/2021 CBC WITH DIFFE RENTI AL/PL ATELE T hematology comments: FLOTATION OPERATOR Not Available [facility] ([facility]) [address] [facility], [place], [address], 11/09/2021 13:11:57 11/08/19 22 11/09/2021 PANEL 03152 0 HIV-2 Ab-O.D. ratio Negati ve neg:<1 .00 Inter preta tion: A repea tedly react jesse HIV-2 resul t may indic ate infec tion with HIV-2 virus . Howev er, HIV1 posit jesse patie nts (50-9 0%) may also react in HIV-2 EIA. React jesse resul ts shoul d be inves tigat ed by suppl ement al tests . Posit jesse HIV-2 resul ts shoul d be consi dered indic ative of infec tion if HIV-1 has been ruled out with negat jesse HIV-1 testi ng, patie nt has epide miolo gical risk facto rs for HIV-2 , and suppl ement al tests such as HIV-2 Immun oblot (Inve stiga andrae l use only) show the prese nce of HIV-2 speci fic viral bands . Not Available [facility] ([facility]) [address] [facility], [place], [address], 11/09/2021 13:11:57 11/08/1911/08/2021 HIV AB/P2 4 AG WITH REFLE X HIV Ab/P24 Ag screen Non Reacti ve non reacti ve HIV Negat jesse HIV-1 /HIV- 2 antib odies and HIV-1 p24 antig en were NOT detec carroll. There is no labor atory evide nce of HIV infec tion. Not Available [facility] ([facility]) [address] [facility], [place], [address], 11/09/2021 13:11:58 11/08/19 22 11/08/2021 HCV ANTIB DAVID hep C virus Ab 0.2 s/co_ ratio 0.0-0. 9 Negat jesse: < 0.8 Indet ermin ate: 0.8 - 0.9 Posit jesse: > 0.9 HCV antib david alone does not diffe renti ate betwe en previ ous resol jasmeet infec tion and activ e infec tion. The CDC and curre nt clini jamaal guide lines recom mend that a posit jesse HCV antib david resul t be follo wed up with an HCV RNA test to suppo rt the diagn osis of acute HCV infec tion. [facility] offer s Hepat itis C Virus (HCV) RNA, Diagn osis, JENA (5591 98) and Hepat itis C Virus (HCV) Antib david with refle x to Quant itati ve Real- time PCR (7978 50). Not Available [facility] ([facility]) [address] [facility], [place], [address], 11/09/2021 13:11:58 11/08/19 22 11/08/2021 RPR RPR Non Reacti ve non reacti ve Not Available [facility] ([facility]) [address] [facility], [place], [address], 11/09/2021 13:11:59 12/02/19 22 12/02/2021 ACUTE HEPAT ITIS hep A Ab, IgM Negati ve negati ve Not Available [facility] ([facility]) [address] [place], [address], 12/02/2021 10:10:07 12/02/19 22 12/02/2021 ACUTE HEPAT ITIS HBsAg screen Negati ve negati ve Not Available [facility] ([facility]) [address] [place], [address], 12/02/2021 10:10:07 12/02/19 22 12/02/2021 ACUTE HEPAT ITIS hep B core Ab, IgM Negati ve negati ve Not Available [facility] ([facility]) [address] [place], [address], 12/02/2021 10:10:07 12/02/19 22 12/02/2021 ACUTE HEPAT ITIS HCV Ab 0.2 s/co_ ratio 0.0-0. 9 Not Available [facility] ([facility]) [address] [place], [address], 12/02/2021 10:10:07 12/02/19 22 12/02/2021 ACUTE HEPAT ITIS interpretati on: Commen t Negat jesse Not infec carroll with HCV, unles s recen t infec tion is suspe cted or other evide nce exist s to indic ate HCV infec tion. Not Available [facility] ([facility]) [address] [facility], [place], [address], 12/02/2021 10:10:07 12/02/19 22 12/02/2021 TSH+F REE T4 TSH 2.000 uIU/m L 0.450- 4.500 Not Available [facility] ([facility]) [address] [place], [address], 12/02/2021 10:10:08 12/02/19 22 12/02/2021 TSH+F REE T4 T4,free(dire ct) 1.44 NG/dL 0.82-1 .77 Not Available [facility] ([facility]) [address] [facility], [place], [address], 12/02/2021 10:10:08 12/02/19 22 12/02/2021 CBC WITH DIFFE RENTI AL/PL ATELE T WBC 8.9 x10e3 /uL 3.4-10 .8 Not Available [facility] ([facility]) [address] [place], [address], 12/02/2021 10:10:09 12/02/19 22 12/02/2021 CBC WITH DIFFE RENTI AL/PL ATELE T RBC 4.71 x10e6 /uL 3.77-5 .28 Not Available [facility] ([facility]) [address] [place], [address], 12/02/2021 10:10:09 12/02/19 22 12/02/2021 CBC WITH DIFFE RENTI AL/PL ATELE T hemoglobin 13.2 g/dL 11.1-1 5.9 Not Available [facility] ([facility]) [address] [place], [address], 12/02/2021 10:10:09 12/02/19 22 12/02/2021 CBC WITH DIFFE RENTI AL/PL ATELE T hematocrit 40.8 % 34.0-4 6.6 Not Available [facility] ([facility]) [address] [place], [address], 12/02/2021 10:10:09 12/02/19 22 12/02/2021 CBC WITH DIFFE RENTI AL/PL ATELE T MCV 87 fL 79-97 Not Available [facility] ([facility]) [address] [place], [address], 12/02/2021 10:10:09 12/02/19 22 12/02/2021 CBC WITH DIFFE RENTI AL/PL ATELE T MCH 28.0 pg 26.6-3 3.0 Not Available [facility] ([facility]) [address] [facility], [place], [address], 12/02/2021 10:10:09 12/02/19 22 12/02/2021 CBC WITH DIFFE RENTI AL/PL ATELE T MCHC 32.4 g/dL 31.5-3 5.7 Not Available [facility] ([facility]) [address] [place], [address], 12/02/2021 10:10:09 12/02/19 22 12/02/2021 CBC WITH DIFFE RENTI AL/PL ATELE T RDW 15.4 % 11.7-1 5.4 Not Available [facility] ([facility]) [address] [facility], [place], [address], 12/02/2021 10:10:09 12/02/19 22 12/02/2021 CBC WITH DIFFE RENTI AL/PL ATELE T platelets 230 x10e3 /uL 150-45 0 Not Available [facility] ([facility]) [address] [facility], [place], [address], 12/02/2021 10:10:09 12/02/19 22 12/02/2021 CBC WITH DIFFE RENTI AL/PL ATELE T neutrophils 65 % not estab. Not Available [facility] ([facility]) [address] [place], [address], 12/02/2021 10:10:09 12/02/19 22 12/02/2021 CBC WITH DIFFE RENTI AL/PL ATELE T lymphs 26 % not estab. Not Available [facility] ([facility]) [address] [place], [address], 12/02/2021 10:10:09 12/02/19 22 12/02/2021 CBC WITH DIFFE RENTI AL/PL ATELE T monocytes 6 % not estab. Not Available [facility] ([facility]) [address] [place], [address], 12/02/2021 10:10:09 12/02/19 22 12/02/2021 CBC WITH DIFFE RENTI AL/PL ATELE T eos 2 % not estab. Not Available [facility] ([facility]) [address] [place], [address], 12/02/2021 10:10:09 12/02/19 22 12/02/2021 CBC WITH DIFFE RENTI AL/PL ATELE T basos 1 % not estab. Not Available [facility] ([facility]) [address] [facility], [place], [address], 12/02/2021 10:10:09 12/02/19 22 12/02/2021 CBC WITH DIFFE RENTI AL/PL ATELE T immature cells FLOTATION OPERATOR Not Available [facility] ([facility]) [address] [place], [address], 12/02/2021 10:10:12/02/19 22 12/02/2021 CBC WITH DIFFE RENTI AL/PL ATELE T neutrophils (absolute) 5.8 x10e3 /uL 1.4-7. 0 Not Available [facility] ([facility]) [address] [place], [address], 12/02/2021 10:10:09 12/02/19 22 12/02/2021 CBC WITH DIFFE RENTI AL/PL ATELE T lymphs (absolute) 2.3 x10e3 /uL 0.7-3. 1 Not Available [facility] ([facility]) [address] [place], [address], 12/02/2021 10:10:09 12/02/19 22 12/02/2021 CBC WITH DIFFE RENTI AL/PL ATELE T monocytes(ab solute) 0.6 x10e3 /uL 0.1-0. 9 Not Available [facility] ([facility]) [address] [facility], [place], [address], 12/02/2021 10:10:09 12/02/19 22 12/02/2021 CBC WITH DIFFE RENTI AL/PL ATELE T eos (absolute) 0.2 x10e3 /uL 0.0-0. 4 Not Available [facility] ([facility]) [address] [facility], [place], [address], 12/02/2021 10:10:09 12/02/19 22 12/02/2021 CBC WITH DIFFE RENTI AL/PL ATELE T baso (absolute) 0.1 x10e3 /uL 0.0-0. 2 Not Available [facility] ([facility]) [address] [facility], [place], [address], 12/02/2021 10:10:09 12/02/19 22 12/02/2021 CBC WITH DIFFE RENTI AL/PL ATELE T immature granulocytes 0 % not estab. Not Available [facility] ([facility]) [address] [facility], [place], [address], 12/02/2021 10:10:09 12/02/19 22 12/02/2021 CBC WITH DIFFE RENTI AL/PL ATELE T immature grans (abs) 0.0 x10e3 /uL 0.0-0. 1 Not Available [facility] ([facility]) [address] [facility], [place], [address], 12/02/2021 10:10:09 12/02/19 22 12/02/2021 CBC WITH DIFFE RENTI AL/PL ATELE T NRBC FLOTATION OPERATOR Not Available [facility] ([facility]) [address] [facility], [place], [address], 12/02/2021 10:10:09 12/02/19 22 12/02/2021 CBC WITH DIFFE RENTI AL/PL BRIGETTE T hematology comments: FLOTATION OPERATOR Not Available [facility] ([facility]) [address] [place], [address], 12/02/2021 10:10:09 12/02/19 22 12/02/2021 COMP. METAB OLIC PANEL (14) glucose 89 mg/dL 65-99 Not Available [facility] ([facility]) [address] [place], [address], 12/02/2021 10:10:09 12/02/19 22 12/02/2021 COMP. METAB OLIC PANEL (14) BUN 20 mg/dL 6-24 Not Available [facility] ([facility]) [address] [place], [address], 12/02/2021 10:10:09 12/02/19 22 12/02/2021 COMP. METAB OLIC PANEL (14) creatinine 0.80 mg/dL 0.57-1 .00 Not Available [facility] ([facility]) [address] [place], [address], 12/02/2021 10:10:09 12/02/19 22 12/02/2021 COMP. METAB OLIC PANEL (14) eGFR 85 mL/mi n/1.7 3 >59 Not Available [facility] ([facility]) [address] [place], [address], 12/02/2021 10:10:09 12/02/19 22 12/02/2021 COMP. METAB OLIC PANEL (14) BUN/creatini ne ratio 25 9-23 above high normal Not Available [facility] ([facility]) [address] [place], [address], 12/02/2021 10:10:09 12/02/19 22 12/02/2021 COMP. METAB OLIC PANEL (14) sodium 145 mmol/ L 134-14 4 above high normal Not Available [facility] ([facility]) [address] [facility], [address], 12/02/2021 10:10:09 12/02/19 22 12/02/2021 COMP. METAB OLIC PANEL (14) potassium 4.0 mmol/ L 3.5-5. 2 Not Available [facility] ([facility]) [address] [place], [address], 12/02/2021 10:10:09 12/02/19 22 12/02/2021 COMP. METAB OLIC PANEL (14) chloride 106 mmol/ L 96-106 Not Available [facility] ([facility]) [address] [place], [address], 12/02/2021 10:10:09 12/02/19 22 12/02/2021 COMP. METAB OLIC PANEL (14) carbon dioxide, total 23 mmol/ L 20-29 Not Available [facility] ([facility]) [address] [place], [address], 12/02/2021 10:10:09 12/02/19 22 12/02/2021 COMP. METAB OLIC PANEL (14) calcium 10.0 mg/dL 8.7-10 .2 Not Available [facility] ([facility]) [address] [place], [address], 12/02/2021 10:10:09 12/02/19 22 12/02/2021 COMP. METAB OLIC PANEL (14) protein, total 6.7 g/dL 6.0-8. 5 Not Available [facility] ([facility]) [address] [place], [address], 12/02/2021 10:10:09 12/02/19 22 12/02/2021 COMP. METAB OLIC PANEL (14) albumin 4.1 g/dL 3.8-4. 9 Not Available [facility] ([facility]) [address] [facility] [place], [address], 12/02/2021 10:10:09 12/02/19 22 12/02/2021 COMP. METAB OLIC PANEL (14) globulin, total 2.6 g/dL 1.5-4. 5 Not Available [facility] ([facility]) [address] [facility] [place], [address], 12/02/2021 10:10:09 12/02/19 22 12/02/2021 COMP. METAB OLIC PANEL (14) A/G ratio 1.6 1.2-2. 2 Not Available [facility] ([facility]) [address] [facility] [place], [address], 12/02/2021 10:10:09 12/02/19 22 12/02/2021 COMP. METAB OLIC PANEL (14) bilirubin, total 0.9 mg/dL 0.0-1. 2 Not Available [facility] ([facility]) [address] [facility] [place], [address], 12/02/2021 10:10:09 12/02/19 22 12/02/2021 COMP. METAB OLIC PANEL (14) alkaline phosphatase 114 IU/L 44-121 Not Available [facility] ([facility]) [address] [facility] [place], [address], 12/02/2021 10:10:09 12/02/19 22 12/02/2021 COMP. METAB OLIC PANEL (14) AST (SGOT) 14 IU/L 0-40 Not Available [facility] ([facility]) [address] [facility] [place], [address], 12/02/2021 10:10:09 12/02/19 22 12/02/2021 COMP. METAB OLIC PANEL (14) ALT (SGPT) 14 IU/L 0-32 Not Available [facility] ([facility]) [address] [facility] [place], [address], 12/02/2021 10:10:09 12/02/19 22 12/02/2021 ALTAF+L IPASE amylase 72 U/L 31-110 Not Available [facility] ([facility]) [address] [facility], [place], [address], 12/02/2021 10:10:10 12/02/19 22 12/02/2021 ALTAF+L IPASE lipase 30 U/L 14-72 Not Available [facility] ([facility]) [address] [facility], [place], [address], 12/02/2021 10:10:10 12/02/19 22 12/02/2021 HEMOG LOBIN A1C hemoglobin A1C 5.3 % 4.8-5. 6 Predi abete s: 5.7 - 6.4 Diabe ericka: >6.4 Glyce cami contr ol for adult s with diabe ericka: <7.0 Not Available [facility] ([facility]) [address] [facility], [place], [address], 12/02/2021 10:10:10 12/16/19 22 12/15/2021 US, abdom en + pelvi s No observ ation record ed. [email or web address] [facility] [address] [place], [address], 12/20/2021 18:09:16 12/20/19 22 12/19/2021 CT, head + brain , w/wo contr ast No observ ation record ed. [email or web address] [facility] [address] [place], [address], 01/15/2022 16:35:37 02/17/20 22 02/16/2022 CT, abdom en + pelvi s, w/wo contr ast No observ ation record ed. [email or web address] [facility] [address] [place], [address], 03/01/2022 22:46:48 02/29/20 22 02/27/2022 trans -thor acic echoc ardio gram (TTE) (PROC ) No observ ation record ed. [email or web address] Not Available 04/18 10:52:21 03/13/20 22 03/13/2022 MAMMO , scree olivia, digit al, bilat eral No observ ation record ed. [email or web address] [facility] [address] [place], [address], 03/26/2022 16:25:53 06/05/20 22 06/04/2022 XR, foot No observ ation record ed. [email or web address] [facility] [address] [place], [address], 06/06/2022 08:52:41 08/06/19 23 08/06/2022 CT, abdom en + pelvi s, w/ contr ast No observ ation record ed. [email or web address] [facility] [address] [place], [address], 08/22/2022 13:49:16 Result Notes None recorded. Problems Name Problem SNOMED Code Status Onset Date Resolution Date Notes Provider Name and Address Organization Details Recorded Time Acute urinary tract infection 264299786 Active 2017 Not Available [facility] 2 11:54:32 Itching 784950563 Active 2017 Not Available [facility] 2 11:54:33 Easy bruising 914456308 Active 2017 Not Available [facility] 2 11:54:33 Pharyngit is 618944778 Active 2017 Not Available [facility] 2 11:54:33 Snoring 97185797 Active 2017 Not Available [facility] 2 11:54:33 On examinati on - abdominal mass - hard Active 2017 Not Available [facility] 2 11:54:33 Incontine nce 22052264 Active 2017 Not Available [facility] 2 11:54:33 Pain provoked by eating 784967598 Active 2017 Not Available [facility] 2 11:54:33 Nausea and vomiting 66799166 Active 2017 Not Available [facility] 2 11:54:32 Acute sciatica 032433675 Active 2017 Not Available [facility] 2 11:54:33 Acute sinusitis 70403575 Active 2017 Not Available [facility] 2 11:54:33 Acute gastritis 84302057 Active 2018 Not Available [facility] 2 11:54:32 Screening for malignant neoplasm of breast Active 2018 Not Available [facility] 2 11:54:33 Cramp in lower limb 190264080 Active 2018 Not Available [facility] 2 11:54:33 Bilateral arthritis of knees 82313059167 98780 Active 2018 Not Available [facility] 2 11:54:33 Serum vitamin B12 below reference range 531536355 Active 2018 Not Available [facility] 2 11:54:33 Fracture of thoracic spine 513065122 Active 2018 T-8 Not Available [facility] 2 11:54:33 Vitamin D deficienc y 25138286 Active 2018 Not Available [facility] 2 11:54:33 Rehabilit ation following brain surgery Active 2019 Not Available [facility] 2 11:54:33 Traumatic brain injury 077591353 Active 2019 Not Available [facility] 2 11:54:33 Gastroeso phageal reflux disease 323094989 Active 2019 Not Available [facility] 2 11:54:33 Labyrinth itis 42564369 Active 2019 Not Available [facility] 2 11:54:33 Subarachn oid hemorrhag e 73732215 Active 2019 Not Available [facility] 2 11:54:33 Screening for osteoporo sis Active 2019 Not Available [facility] 2 11:54:33 Bilateral earache 404765052 Active 2019 Not Available [facility] 2 11:54:33 Osteoporo sis 69106387 Active 2019 see bone density 01/15/2020 Not Available [facility] 2 11:54:33 Dyspnea 490576981 Active 2019 Not Available [facility] 2 11:54:32 Nocturnal dyspnea 670506734 Active 2019 Not Available [facility] 2 11:54:33 Dysuria 89558090 Active 2020 Not Available [facility] 2 11:54:33 Congestiv e heart failure 19885826 Active 2020 Not Available [facility] 2 11:54:33 Pulmonary arterial hypertens ion 09391867 Active [address] angiogram chest 12/26/2020 Not Available [facility] 2 11:54:33 Bilateral hearing loss 31574643 Active 2021 [facility] Available [facility] 2 11:54:[facility] Administr ation of pneumococ jamaal vaccine Active 2021 Not Available [facility] 2 11:54:33 HIV screening Active 2021 Not Available [facility] 2 11:54:32 Abdominal pain 60025086 Active 2021 Not Available [facility] 2 11:54:33 Umbilical hernia 011328340 Active 2021 Not Available [facility] 2 11:54:33 Morbid obesity 064906088 Active 2021 Joshua Hamilton MD Attn: Accounting ,[address] [place], [address] , [place] [facility] 2 11:04:41 Body mass index 30+ - obesity 960076111 Active 2021 Joshua Hamilton MD Attn: Accounting ,[address] [place], [address] , [place] [facility] 2 11:05:22 Medicatio n monitorin g Active 2021 Joshua Hamilton MD Attn: Accounting ,[address], [place], [address] , [place] [facility] 2 11:16:51 Hypokalem ia 48188948 Active 2021 Joshua Hamilton MD Attn: Accounting ,[address] [facility], [place], [address] , [place] [facility] 2 18:57:09 Edema of lower extremity 507885616 Active Not Available [facility] 2 11:54:32 Low back pain 231172338 Active Not Available [facility] 2 11:54:32 Neuropath y 731948892 Active Not Available [facility] 2 11:54:33 Insomnia 779957994 Active Not Available [facility] 2 11:54:33 Spasm of back muscles 157397981 Active Not Available [facility] 2 11:54:33 Essential hypertens ion 76028279 Active Not Available [facility] 2 11:54:33 Celluliti s 486812931 Active Not Available [facility] 2 11:54:33 Depressiv e disorder 85310689 Active Not Available [facility] 2 11:54:33 Hyperlipi demia 30432556 Active Not Available [facility] 2 11:54:33 Asthma 068898439 Active Not Available [facility] 2 11:54:32 Choking sensation 973087404 Active 2016 Not Available [facility] 2 11:54:33 Skin nodule 25373442 Active 2016 Not Available [facility] 2 11:54:33 Pain in both feet 04985542878 756814 Active 2016 Not Available [facility] 2 11:54:33 Fracture of radius AND ulna 89580465 Active 2016 Not Available [facility] 2 11:54:33 Influenza vaccine needed 42414818500 06 Active 2016 Not Available [facility] 2 11:54:33 Obese 663769183 Active 2016 Not Available [facility] 2 11:54:33 Vertigo 648675898 Active 2016 Not Available [facility] 2 11:54:32 Administr ation of influenza vaccine Active 2016 Not Available [facility] 2 11:54:33 Sinusitis 12190011 Active 2016 Not Available [facility] 2 11:54:33 Notes:Some problems listed i n Document: #[id number] could not be added to this patient's chart. Please review this document and add these problems to the patient's chart manually as needed. Problem Notes None recorded. Procedures Surgical History Date Name Laterality Status Provider Name and Address Organization Details Recorded Time 06/17/2013 Other completed Ute Morgan MA [facility] 03/28/2015 16:10:16 Imaging Results None recorded. Procedure Notes None recorded. Medical Equipment None Reported. Allergies Allergen ID Allergen Name Allergen Category Reaction Reaction Severity Criticality Documentation Date Start Date Code Code System Note Provider Name and Address Organization Details Recorded Time 81130 codeine medicatio n vomiting Not available Not available 10/21/2015 2670 RxNorm Elena cedeño, [facility] 6 14:07:26 Medications Name Sig Start Date Stop Date Status Note LastModified by Organization Details LastModified Time Prescript ion - Prior Authoriza tion Request 05/31 completed Not Available Not Available Not Available losartan 50 mg tablet TAKE 1 TABLET BY MOUTH EVERY DAY IN THE MORNING FOR BLOOD PRESSURE 01/17 completed Not Available Not Available Not Available cyclobenz aprine 10 mg tablet TAKE 1 TABLET BY MOUTH EVERY DAY AT BEDTIME active Not Available Not Available No t Available Qvar 80 mcg/actua tion Metered Aerosol oral inhaler Inhale 2 puffs twice a day by inhalati on route for 30 days. 01/06 completed Not Available Not Available Not Available potassium chloride ER 10 mEq capsule,e xtended release TAKE 1 CAPSULE BY MOUTH EVERY DAY IN THE MORNING active Not Available Not Available No t Available prednison e 10 mg tablet TAKE 4 TABS BID FOR 2 DAYS TAKE 2 TABS BID FOR 5 DAYS TAKE 1 TAB BID FOR 2 DAYS TAKE 1 TAB FOR 1 DAY STOP 05/31 completed Not Available Not Available Not Available gabapenti n 600 mg tablet 06/13 completed Not Available Not Available Not Available Gaviscon Extra Strength 160 mg-105 mg chewable tablet Take 1 tablet 3 times a day by oral route for 30 days. 05/31 completed Not Available Not Available Not Available atorvasta tin 20 mg tablet TAKE 1 TABLET BY MOUTH EVERY DAY active Not Available Not Available No t Available Klor-Con 10 mEq tablet,ex tended release Take 1 capsule by mouth every day in the morning. active Not Available Not Available No t Available trazodone 50 mg tablet TAKE 1 TABLET BY MOUTH EVERY NIGHT AT BEDTIME NEEDED 06/25 completed Not Available Not Available Not Available polyethyl efrain glycol 3350 17 gram oral powder packet 05/31 completed Not Available Not Available Not Available ibuprofen 800 mg tablet Take 1 tablet 3 times a day by oral route with meals for 30 days. 06/13 completed Not Available Not Available Not Available fluconazo le 150 mg tablet TAKE 1 TABLET BY MOUTH 3 TIMES A WEEK FOR 7 DAYS 05/31 completed Not Available Not Available Not Available levetirac etam 500 mg tablet 05/31 completed Not Available Not Available Not Available ranitidin e 300 mg tablet Take 1 tablet twice a day by oral route before meals for 30 days. 07/31 completed contamin ants Not Available Not Available Not Available hydrocodo ne 5 mg-acetam inophen 325 mg tablet 06/25 completed Not Available Not Available Not Available meloxicam 15 mg tablet Take 1 tablet every day by oral route for 30 days. 06/13 completed Not Available Not Available Not Available phenazopy ridine 200 mg tablet Take 1 tablet 3 times a day by oral route for 2 days. 06/13 completed Not Available Not Available Not Available ondansetr on HCl 4 mg tablet TAKE 1 TABLET BY MOUTH EVERY 8 HOURS active Not Available Not Available No t Available prednison e 20 mg tablet TAKE 1 TABLET BY MOUTH ONCE DAILY FOR 7 DAYS active Not Available Not Available No t Available alendrona te 70 mg tablet TAKE 1 TABLET BY MOUTH EVERY WEEK active Not Available Not Available No t Available sertralin e 100 mg tablet 10/07 completed Not Available Not Available Not Available acetazola mide 250 mg tablet 10/07 completed Not Available Not Available Not Available meclizine 12.5 mg tablet Take 1 tablet 3 times a day by oral route as needed for 30 days. 05/31 completed Not Available Not Available Not Available metronida zole 500 mg tablet 01/06 completed Not Available Not Available Not Available amlodipin e 5 mg tablet TAKE 1 TABLET BY MOUTH EVERY MORNING active Not Available Not Available No t Available prochlorp erazine maleate 10 mg tablet 05/31 completed Not Available Not Available Not Available ciproflox acin 500 mg tablet TAKE 1 TABLET BY MOUTH EVERY 12 HOURS FOR 10 DAYS 11/15 completed Not Available Not Available Not Available sulfameth oxazole 800 mg-trimet hoprim 160 mg tablet Take 1 tablet every 12 hours by oral route for 10 days. 06/13 completed Not Available Not Available Not Available tramadol 50 mg tablet TAKE 2 TABLETS BY MOUTH EVERY 8 HOURS NEEDED FOR PAIN active Not Available Not Available No t Available amoxicill in 500 mg tablet Take 2 tablets twice a day by oral route for 10 days. 04/25 completed Not Available Not Available Not Available amoxicill in 400 mg-potass ium clavulana te 57 mg/5 mL oral suspensio n 09/23 completed Not Available Not Available Not Available methylpre dnisolone acetate 80 mg/mL suspensio n for injection Take 1 mL by injectio n route for 1 day. 05/31 completed Not Available Not Available Not Available meloxicam 7.5 mg tablet TAKE 1 TABLET BY MOUTH EVERY DAY active Not Available Not Available No t Available oxycodone -acetamin ophen 5 mg-325 mg tablet TAKE 1 TABLET BY MOUTH EVERY 4-6 HOURS NEEDED 05/31 completed Not Available Not Available Not Available amoxicill in 875 mg tablet 06/13 completed Not Available Not Available Not Available citalopra m 20 mg tablet Take 1 tablet every day by oral route for 30 days. 10/07 completed Not Available Not Available Not Available dicyclomi ne 20 mg tablet 05/31 completed Not Available Not Available Not Available phenazopy ridine 100 mg tablet 06/13 completed Not Available Not Available Not Available baclofen 10 mg tablet TAKE 1 TABLET BY MOUTH THREE TIMES DAILY NEEDED FOR MUSCLE SPASMS 05/31 completed Not Available Not Available Not Available amlodipin e 10 mg tablet 10/07 completed Not Available Not Available Not Available doxycycli ne monohydra te 100 mg capsule 06/13 completed Not Available Not Available Not Available hydrocodo ne 7.5 mg-acetam inophen 325 mg tablet 10/07 completed Not Available Not Available Not Available paroxetin e 20 mg tablet Take 1 tablet every day by oral route in the evening for 30 days. 10/07 completed Not Available Not Available Not Available simvastat in 20 mg tablet 10/09 completed Not Available Not Available Not Available nortripty line 10 mg capsule Take 4 capsules as needed by oral route at bedtime for 30 days. 06/13 completed Not Available Not Available Not Available promethaz ine 25 mg tablet 10/07 completed Not Available Not Available Not Available gabapenti n 300 mg capsule TAKE 2 CAPSULES BY MOUTH THREE TIMES DAILY active Not Available Not Available No t Available omeprazol e 20 mg capsule,d elayed release Take 1 capsule every day by oral route for 30 days. 05/31 completed Not Available Not Available Not Available cyanocoba pamela (vit B-12) 1,000 mcg sublingua l tablet Place 1 tablet twice a day by sublingu al route for 30 days. 05/31 completed Not Available Not Available Not Available furosemid e 20 mg tablet TAKE 1 TABLET BY MOUTH EVERY MORNING active Not Available Not Available No t Available mirtazapi ne 15 mg tablet Take 1 tablet every day by oral route as needed for 30 days. 05/31 completed Not Available Not Available Not Available ergocalci ferol (vitamin D2) 1,250 mcg (50,000 unit) capsule TAKE 1 CAPSULE BY MOUTH EVERY WEEK WITH MEALS active Not Available Not Available No t Available ibuprofen 600 mg tablet 06/25 completed Not Available Not Available Not Available levofloxa дмитрий 500 mg tablet 06/13 completed Not Available Not Available Not Available methylpre dnisolone 4 mg tablets in a dose pack 05/31 completed Not Available Not Available Not Available albuterol sulfate HFA 90 mcg/actua tion aerosol inhaler INHALE 2 PUFFS BY MOUTH EVERY 4 HOURS active Not Available Not Available No t Available ondansetr on 4 mg disintegr ating tablet Take 1 tablet 3 times a day by oral route for 30 days. 06/13 completed Not Available Not Available Not Available losartan 100 mg tablet TAKE 1 TABLET BY MOUTH EVERY DAY 01/06 completed Not Available Not Available Not Available piroxicam 20 mg capsule 10/07 completed Not Available Not Available Not Available fluticaso ne propionat e 50 mcg/actua tion nasal spray,[place] pension 06/13 completed Not Available Not Available Not Available loratadin e 10 mg tablet 05/31 completed Not Available Not Available Not Available naproxen 500 mg tablet TAKE 1 TABLET BY MOUTH TWICE DAILY WITH MEALS 05/31 completed Not Available Not Available Not Available amoxicill in 875 mg-potass ium clavulana te 125 mg tablet TAKE 1 TABLET BY MOUTH EVERY 12 HOURS FOR 10 DAYS 05/04 completed Not Available Not Available Not Available Vitamin B-12 1,000 mcg tablet Take 1 tablet twice a day by oral route with meals for 30 days. 05/31 completed Not Available Not Available Not Available rosuvasta tin 5 mg tablet Take 1 tablet every day by oral route for 90 days. 06/13 completed Not Available Not Available Not Available nitrofura ntoin monohydra te/macroc rystals 100 mg capsule 10/07 completed Not Available Not Available Not Available duloxetin e 30 mg capsule,d elayed release Take 1 capsule every day by oral route for 7 days. 06/13 completed Not Available Not Available Not Available duloxetin e 60 mg capsule,d elayed release Take 1 capsule every day by oral route for 30 days. 06/13 completed Not Available Not Available Not Available fenofibra te 160 mg tablet Take 1 tablet every day by oral route in the morning for 90 days. 05/31 completed Not Available Not Available Not Available Fish Oil 340 mg-1,000 mg capsule TAKE 1 CAPSULE BY MOUTH TWICE DAILY BEFORE MEALS 2022 active Not Available Not Available Not Avai lable Symbicort 160 mcg-4.5 mcg/actua tion HFA aerosol inhaler INHALE 2 PUFFS BY MOUTH TWICE DAILY DIRECTED active Not Available Not Available No t Available cholecalc iferol (vitamin D3) 1,250 mcg (50,000 unit) capsule TAKE 1 CAPSULE BY MOUTH EVERY WEEK WITH MEALS 06/13 completed Not Available Not Available Not Available diclofena c 1 % topical gel APPLY 2 GRAMS TO THE AFFECTED AREA(S) FOUR TIMES DAILY 05/31 completed Not Available Not Available Not Available omega 3-dha-epa -fish oil 1,000 mg (120 mg-180 mg) capsule Take 1 capsule twice a day by oral route before meals for 30 days. 05/31 completed Not Available Not Available Not Available Pennsaid 20 mg/gram/a ctuation (2 %) topical soln in metered-d ose pump APPLY TOPICALL Y 2 PUMPS TO THE AFFECTED AREA ON SKIN TWICE DAILY 2021 active Not Available Not Available Not Avai lable Pennsaid 2 % topical solution in packet active Not Available Not Available No t Available Qvar RediHaler 80 mcg/actua tion HFA breath activated aerosol INHALE 2 PUFF(S) TWICE A DAY BY INHALATI ON ROUTE FOR BEST RESULTS USE 10 MINUTES AFTER USING ALBUTERO L INHALER 05/31 completed Not Available Not Available Not Available omega3 300 mg-dha,ep a 250 mg-other omega 3s-fish oil 1,000 mg capsule TAKE 1 CAPSULE BY MOUTH TWICE DAILY BEFORE A MEAL active Not Available Not Available No t Available omega-3 300 mg-dha 120 mg-epa 180 mg-fish oil 1,000 mg capsule TAKE 1 CAPSULE BY MOUTH TWICE DAILY BEFORE MEALS active Not Available Not Available No t Available Vitals Date Recorded Body height Body mass index (BMI) Body weight Oxygen saturation Oxygen saturation in Arterial blood by Pulse oximetry Heart rate Systolic blood pressure Diastolic blood pressure Provider Name and Address Organization Details Last Updated DateTime 2 149.86 cm 47.3 kg/m2 575793. 05 g 97 % 97 % 86 /min 144 mm[Hg] 74 mm[Hg] Kirsten Kay [place] [facility] 2 13:59:34 Date Recorded Body height Body mass index (BMI) Body weight Oxygen saturation Oxygen saturation in Arterial blood by Pulse oximetry Heart rate Systolic blood pressure Diastolic blood pressure Provider Name and Address Organization Details Last Updated DateTime 2 149.86 cm 47.5 kg/m2 096474. 21 g 97 % 97 % 90 /min 138 mm[Hg] 78 mm[Hg] Kirsten Kay MA [facility] 2 16:56:14 Date Recorded Body height Body mass index (BMI) Body weight Oxygen saturation Oxygen saturation in Arterial blood by Pulse oximetry Heart rate Systolic blood pressure Diastolic blood pressure Provider Name and Address Organization Details Last Updated DateTime 2 149.86 cm 47.1 kg/m2 518897. 45 g 97 % 97 % 102 /min 138 mm[Hg] 70 mm[Hg] Kirsten Kay MA [facility] 2 17:13:42 Date Recorded Body height Body mass index (BMI) Body weight Oxygen saturation Oxygen saturation in Arterial blood by Pulse oximetry Heart rate Systolic blood pressure Diastolic blood pressure Provider Name and Address Organization Details Last Updated DateTime 2 149.86 cm 47.8 kg/m2 761650. 67 g 98 % 98 % 71 /min 130 mm[Hg] 78 mm[Hg] Kirsten Kay MA [facility] 2 13:52:59 Date Recorded Body height Body temperature Oxygen saturation Oxygen saturation in Arterial blood by Pulse oximetry Heart rate Body mass index (BMI) Body weight Systolic blood pressure Diastolic blood pressure Provider Name and Address Organization Details Last Updated DateTime 2 149.86 cm 98.1 [degF] 93 % 93 % 85 /min 47.1 kg/m2 470472. 02 g 122 mm[Hg] 86 mm[Hg] Pat Guzman MA [facility] 2 10:29:54 Social History Question Answer Notes LastModified by Organizat ion Details LastModified Time Tobacco Smoking Status Never Smoker CHRISTIE Carter [facility] 03/28/2015 16:10:32 What Was The Date Of Your Most Recent Tobacco Screening? 05/31/2022 Information not available 05/31/2022 On What Date Was Tobacco Cessation Counseling Provided? 05/31/2022 Information not available 05/31/2022 Sex: Unknown Functional Status Question Answer Note LastModified by Organization D etails LastModified Time What is your level of alcohol consumption? None [email or web address] Information not available 05/03/2021 Mental Status None recorded. Family History Relationship Description Onset Age of this Age Resolved Age Notes LastModified by Organization Details LastModified Time Father No current problems or disability [email or web address] Not available 01/06 09:17:49 Mother No current problems or disability [email or web address] Not available 01/06 09:17:49 Medical History No medical history recorded. Gynecological HistoryNo gynecological history recorded. Obstetrics History GPAL:G 0 P 0 0 0 0 Immunizations Vaccine Type Date Status Note Provider Nam e and Address Organization Details Recorded Time SARS-COV-2 (COVID-19) vaccine, UNSPECIFIED 1 completed Not Available [facility] 03/21/2022 11:54:34 Influenza, split virus, quadrivalent, preservative 7 completed Not Available [facility] 07/04/2019 02:33:52 Influenza, split virus, quadrivalent, preservative 7 completed Not Available [facility] 07/04/2019 02:33:52 Influenza, split virus, quadrivalent, preservative 7 completed Not Available [facility] 07/04/2019 02:33:57 Influenza, split virus, quadrivalent, preservative 1 completed CHRISTIE Henderson, [facility] 05/03/2021 12:15:40 pneumococcal polysaccharide PPV23 2 completed CHRISTIE Henderson, [place] [facility] 11/07/2021 14:33:48 Influenza, split virus, quadrivalent, preservative 5 completed Not Available [facility] 07/04/2019 02:44:53 Past Encounters Encounter ID Performer Location Encounter Start Date Encounter Closed Date Diagnosis/Indication Diagnosis SNOMED-CT Code Diagnosis ICD10 Code Diagnosis Note [id number] AYDE Lopez (Adult Med) [address] [place] [address] [id number] 03/28/2015 15:23:21 03/28/2015 16:54:10 Edema of lower extremity 968922459 R60.0 Low back pain 032815930 M54.5 Neuropathy 381551208 G62 .9 Active or passive immunization 464960521 Z23 [id number] AYDE Lopez (Adult Med) [address] [place] [address] [id number] 0 05/27/2015 11:08:50 05/27/2015 17:14:38 Edema of lower extremity 171361670 R60.0 Low back pain 612835194 M54.5 Neuropathy 737877611 G62 .9 Insomnia 170947234 G47.0 0 [id number] AYDE Lopez (Adult Med) [address] [place] [address] 83035-364 0 07/22/2015 11:43:04 07/25/2015 12:34:15 Spasm of back muscles 329457538 M62.830 Essential hypertension 35596525 I10 [id number] AYDE Lopez (Adult Med) [address] [place] [address] [id number] 0 10/21/2015 13:55:35 10/21/2015 14:28:16 Edema of lower extremity 108981423 R60.0 Essential hypertension 11475763 I10 Insomnia 153276928 G47.0 0 Low back pain 221643750 M54.5 Cellulitis 524191046 L03 .90 Depressive disorder 3548 9007 F32.9 [id number] AYDE Lopez (Adult Med) [address] [place] [address] [id number] 0 01/24/2016 10:26:51 01/24/2016 17:44:11 Asthma 002348738 J45.909 Depressive disorder 3548 9007 F32.9 Essential hypertension 32780365 I10 Hyperlipidemia 26206178 E78.5 Insomnia 366798577 G47.0 0 Low back pain 378891297 M54.5 Neuropathy 405021946 G62 .9 Spasm of back muscles 20 0813231 M62.830 Thyroid di sorder screening 653658757 Z13.29 [id number] AYDE Lopez (Adult Med) [address] [place] [address] [id number] 0 06/19/2016 12:22:42 06/19/2016 14:43:07 Choking sensation 154585924 R09.89 Skin nodule 29097910 R22 .9 right upper arm Insomnia 332265196 G47.0 0 Pain in both feet 936108 9124 6305168 M79.671 M79.992 [id number] MD Yue William (Adult Med) [address] [place] [address] [id number] 0 10/05/2016 11:31:54 10/05/2016 12:29:22 Administration of influenza vaccine 60378584 Z23 Depressive disorder 3548 9007 F32.9 Low back pain 587823529 M54.5 Asthma 600866273 J45.90 9 Insomnia 549356319 G47.0 0 Influenza vaccine needed 9923357662 106 Z23 Hyperlipidemia 75457781 E78.5 Essential hypertension 32752655 I10 Obese 951806346 E66.9 [id number] Filipe Rojas MD [facility] (Adult Med) [address] [place] [address] 46523-185 0 12/07/2016 11:14:51 12/10/2016 10:42:25 Essential hypertension 51621631 I10 Hyperlipidemia 70257710 E78.5 Low back pain 381861416 M54.5 Vertigo 019503882 R42 Asthma 246890837 J45.90 9 Neuropathy 811611042 G62 .9 [id number] MD [facility] (Adult Med) [address] [place] [address] 26237-482 0 02/26/2017 09:47:41 02/26/2017 11:16:03 Neuropathy 351075929 G62.9 Low back pain 423048334 M54.5 Pain in both feet 372689 9313 0920466 M79.671 M79.672 Insomnia 467786898 G47.0 0 Administra tion of influenza vaccine 70030906 Z23 Depressive disorder 3548 9007 F32.9 Hyperlipidemia 61333400 E78.5 Essential hypertension 43916886 I10 [id number] MD [facility] (Adult Med) [address] [place] [address] 20295-573 0 05/13/2017 11:51:10 05/14/2017 08:50:39 Spasm of back muscles 059583653 M62.830 Low back pain 739443670 M54.5 Pain in both feet 183412 4333 6927021 M79.671 M79.672 Insomnia 723404330 G47.0 0 Sinusitis 22601584 J32.9 Obese 369256636 E66.9 Depressive disorder 3548 9007 F32.9 Hyperlipidemia 06255852 E78.5 Essential hypertension 95122981 I10 [id number] Filipe Rojas MD [facility] (Adult Med) [address] [place] [address] 61662-716 0 08/15/2017 10:21:25 08/15/2017 12:57:02 Essential hypertension 96517383 I10 Hyperlipidemia 40263586 E78.5 Neuropathy 212386379 G62 .9 Acute urin nhung tract infection 913551489 N39.0 Pain in both feet 527868 2121 7359524 M79.671 M79.672 Itching 434529554 L29.9 macrobid making her itch all over ; no rash Easy bruising 900769805 R58 both legs [id number] MD [facility] (Adult Med) [address] [place] [address] 90417-955 0 10/07/2017 16:04:13 10/07/2017 17:05:33 Low back pain 594198296 M54.5 Neuropathy 116824701 G62 .9 Asthma 389675866 J45.90 9 [id number] [facility] [address] [place] [address] 63049-084 0 10/16/2017 10:48:21 10/16/2017 12:33:07 Adult health examination 000167322 Z00.00 Pharyngitis 543482332 J0 2.9 Obese 608299167 E66.9 [id number] MD [facility] (Adult Med) [address] [place] [address] 35513-643 0 11/15/2017 15:38:56 11/15/2017 17:12:44 Pain in both feet 3819198216 3179937 M79.671 M79.672 Insomnia 505304864 G47.0 0 Hyperlipidemia 49039008 E78.5 Essential hypertension 25578530 I10 Snoring 44407832 R06.83 Low back pain 824629895 M54.5 [id number] MD [facility] (Adult Med) [address] [place] [address] 24885-489 0 12/12/2017 10:22:40 12/16/2017 09:39:54 On examination - abdominal mass - hard 660933770 R19.00 right mid axillary line upper abdomen below rib cage Pain in both feet 822584 3257 6154044 M79.671 M79.672 Insomnia 218636411 G47.0 0 Incontinence 83261746 R3 2 Pain provo ked by eating 812606101 R52 for 1 month every time she eats Acute urin nhung tract infection 897136291 N39.0 [id number] MD [facility] (Adult Med) [address] [place] [address] 31437-316 0 02/11/2018 10:19:43 02/12/2018 10:19:22 Acute urinary tract infection 586073731 N39.0 Pain in both feet 068415 9046 0097061 M79.671 M79.672 Hyperlipidemia 81662158 E78.5 Insomnia 445189740 G47.0 0 Low back pain 047736635 M54.5 Neuropathy 454856557 G62 .9 Essential hypertension 70072965 I10 Obese 297793488 E66.9 [id number] Filipe Rojas MD [facility] (Adult Med) [address] [place] [address] 16743-625 0 02/27/2018 13:48:04 03/04/2018 10:41:18 Nausea and vomiting 88496499 R11.2 Acute sciatica 428407330 M54.31 Insomnia 912954159 G47.0 0 Low back pain 045411902 M54.5 Neuropathy 999947966 G62 .9 Spasm of back muscles 20 4208394 M62.203 [id number] MD [facility] (Adult Med) [address] [place] [address] 55758-731 0 04/14/2018 11:56:43 04/15/2018 09:51:31 Pain in both feet 6926791360 3104749 M79.671 M79.672 Acute sciatica 036391820 M54.31 Low back pain 114039503 M54.5 Asthma 594353518 J45.90 9 Insomnia 076300499 G47.0 0 Neuropathy 927125516 G62 .9 Sinusitis 73044433 J32.9 Essential hypertension 13783230 I10 Hyperlipidemia 45031380 E78.5 Depressive disorder 3548 9007 F32.9 Spasm of back muscles 20 3292079 M62.873 [id number] [facility] [address] [place] [address] 40334-636 0 06/13/2018 14:49:17 06/16/2018 08:54:17 Acute sinusitis 17434334 J01.90 Sinusitis 80450212 J32.9 Asthma 384172173 J45.90 9 Pain in both feet 770041 1159 7326165 M79.671 M79.672 Obese 714310652 E66.9 Depressive disorder 3548 9007 F32.9 Neuropathy 312265337 G62 .9 Hyperlipidemia 31566963 E78.5 Essential hypertension 59059235 I10 [id number] [facility] [address] [place] [address] 63062-069 0 07/14/2018 17:38:34 07/15/2018 09:05:13 Acute gastritis 36094240 K29.00 Screening for malignant neoplasm of breast 263243905 Z12.31 Hyperlipidemia 39152591 E78.5 Sinusitis 89527796 J32.9 Insomnia 522839914 G47.0 0 Pain in both feet 475426 0983 7167376 M79.671 M79.672 Acute sciatica 586626489 M54.31 Asthma 813239094 J45.90 9 Cramp in lower limb 4499 86372 R25.2 Vertigo 139634191 R42 Essential hypertension 51785826 I10 Neuropathy 689720326 G62 .9 Depressive disorder 3548 9007 F32.9 Low back pain 505181629 M54.5 [id number] [facility] [address] [place] [address] 52801-643 0 10/09/2018 16:13:30 10/09/2018 17:08:08 Asthma 060788306 J45.909 Pain in both feet 457178 1126 7882556 M79.671 M79.672 Essential hypertension 07699021 I10 Acute sciatica 691279411 M54.31 Acute gastritis 20801869 K29.00 Sinusitis 50339140 J32.9 Insomnia 462808366 G47.0 0 Neuropathy 989992997 G62 .9 Hyperlipidemia 39853460 E78.5 Low back pain 058463455 M54.5 Easy bruising 957598411 R58 both legs Obese 441366150 E66.9 [id number] Filipe Rojas MD [facility] (Adult Med) [address] [place] [address] 46865-364 0 11/07/2018 11:08:03 11/11/2018 09:12:37 Vertigo 705557620 R42 Obese 626600694 E66.9 Bilateral arthritis of knees 7899438703 817788 M13.861 Screening for malignant neoplasm of breast 398641859 Z12.31 Incontinence 58531285 R3 2 Insomnia 952096330 G47.0 0 Asthma 920033779 J45.90 9 Neuropathy 687333148 G62 .9 Hyperlipidemia 00846777 E78.5 Essential hypertension 22527307 I10 [id number] CRISTI VELA [facility] (Adult Med) [address] [place] [address] 92665-149 0 01/06/2019 09:04:02 01/06/2019 10:05:22 Compression fracture of thoracic vertebra 4303898397 104 M48.54XA Back pain x 1 monthXray showed multiple chronic compressio n fractures of thoracic and lumbar spine + degenerati ve disc diseaseWai ting for MRI results from second ER visit to rule out acute fractures of spineCompr ession fractures likely due to osteoporos is, no DEXA scan seen in chart, highly recommend taking a multi-savannah min, Ca and Vit. D supplement s- Ordered a back brace for the patient, gave her the order to pick it up- Provided care instructio ns for the patient, advised to refrain from vigorous activity but also best to stay active/mob ile as possible- Apply ice/heat to the affected area 15 minutes 3x/day- Patient already takes Vicodin and tramadol, she is to pick these medication s up from the pharmacy- Continue to apply Voltaren 1% topical gel to the affected area- Patient has a cane at home, she is encouraged to use the cane to avoid future falls- Will wait on PT and neurosurge ry referrals until recent MRI results are received- Make follow up appointmen t with Sarath Dickerson [id number] MD [facility] (Adult Med) [address] [place] [address] 05442-929 0 01/22/2019 10:38:14 01/23/2019 09:02:39 Acute sciatica 816580642 M54.31 Spasm of back muscles 20 7925593 M62.830 Fracture o f thoracic spine 979701192 S22.009A Obese 927613427 E66.9 Insomnia 491564432 G47.0 0 Asthma 195748963 J45.90 9 Low back pain 430924864 M54.5 Neuropathy 107334634 G62 .9 Hyperlipidemia 52353370 E78.5 Essential hypertension 70112326 I10 Bilateral arthritis of knees 6055177835 200887 M13.861 Serum savannah min B12 below reference range 158438356 R79.89 Pain in both feet 472606 0712 6633750 M79.671 M79.266 [id number] [facility] [address] [place] [address] 13871-930 0 04/13/2019 16:08:42 04/13/2019 16:58:18 Serum vitamin B12 below reference range 124552099 R79.89 Vitamin D deficiency 347 37901 E55.9 Fracture o f thoracic spine 702325311 S22.009A Spasm of back muscles 20 7302288 M62.830 Low back pain 678413413 M54.5 Hyperlipidemia 62554284 E78.5 Essential hypertension 89318329 I10 Asthma 577707941 J45.90 9 Insomnia 333805742 G47.0 0 Bilateral arthritis of knees 1730235495 049250 M13.514 [id number] MD [facility] (Adult Med) [address] [place] [address] 18378-851 0 06/25/2019 15:11:31 06/25/2019 16:21:07 Vitamin D deficiency 64404043 E55.9 Neuropathy 847140482 G62 .9 Traumatic subdural hemorrhage 780629145 S06.5X9A Pain in both feet 855050 2890 6956455 M79.671 M79.672 Asthma 333951340 J45.90 9 Bilateral arthritis of knees 1200827034 394328 M13.861 Depressive disorder 3548 9007 F32.9 Essential hypertension 57082418 I10 Hyperlipidemia 55488132 E78.5 Insomnia 070018728 G47.0 0 Low back pain 521878775 M54.5 Serum savannah min B12 below reference range 069651288 R79.89 [id number] MD [facility] (Adult Med) [address] [place] [address] 59474-512 0 07/31/2019 11:24:04 07/31/2019 12:11:05 Low back pain 133016720 M54.5 Bilateral arthritis of knees 3659426600 277501 M13.861 Depressive disorder 3548 9007 F32.9 Essential hypertension 20910237 I10 Hyperlipidemia 79844207 E78.5 Insomnia 752251351 G47.0 0 Obese 432483122 E66.9 Serum savannah min B12 below reference range 622370251 R79.89 Vitamin D deficiency 347 85510 E55.9 Gastroesop hageal reflux disease 916745116 K21.9 Labyrinthitis 46708354 H 83.03 Traumatic brain injury 123954346 S06.5X9D Asthma 367148726 J45.90 9 Neuropathy 856421999 G62 .9 [id number] AYDE Lopez (Adult Med) [address] [place] [address] 34262-681 0 09/24/2019 09:36:18 09/24/2019 14:01:13 Pain in both feet 9014308447 2273504 M79.671 M79.672 Fracture o f thoracic spine 174052217 S22.009A Asthma 085697267 J45.90 9 Depressive disorder 3548 9007 F32.9 Essential hypertension 12764881 I10 Gastroesop hageal reflux disease 325144255 K21.9 Hyperlipidemia 43726464 E78.5 Insomnia 390156759 G47.0 0 Low back pain 033455899 M54.5 Neuropathy 122148830 G62 .9 Serum savannah min B12 below reference range 867579097 R79.89 Vitamin D deficiency 347 69799 E55.9 Bilateral arthritis of knees 2891419119 321044 M13.574 [id number] MD [facility] (Adult Med) [address] [place] [address] 67634-627 0 10/15/2019 09:30:30 10/15/2019 10:56:47 Labyrinthitis 99938723 H83.03 Acute gastritis 91415490 K29.00 Asthma 119691741 J45.90 9 Subarachno id hemorrhage 20251230 I60.9 Gastroesop hageal reflux disease 097956399 K21.9 Essential hypertension 58627301 I10 Neuropathy 951507868 G62 .9 Vitamin D deficiency 347 72329 E55.9 Serum savannah min B12 below reference range 992824642 R79.89 [id number] MD [facility] (Adult Med) [address] [place] [address] 13543-472 0 12/08/2019 07:57:49 12/08/2019 11:47:30 Neuropathy 444154625 G62.9 Labyrinthitis 89525532 H 83.03 Acute sciatica 279861741 M54.31 Screening for osteoporosis 117817502 Z13.820 Subarachno id hemorrhage 95757359 I60.9 Bilateral arthritis of knees 5168261326 995290 M13.861 Essential hypertension 23895890 I10 Gastroesop hageal reflux disease 672850316 K21.9 Hyperlipidemia 88745520 E78.5 Incontinence 80562378 R3 2 Insomnia 762459592 G47.0 0 Low back pain 351114483 M54.5 Obese 845771578 E66.9 Serum savannah min B12 below reference range 933355384 R79.89 Vitamin D deficiency 347 30184 E55.9 Traumatic brain injury 124263693 S06.5X9D [id number] MD [facility] (Adult Med) [address] [place] [address] 16826-840 0 02/11/2020 08:05:38 02/15/2020 16:40:11 Acute urinary tract infection 497505466 N39.0 Acute sciatica 705899909 M54.31 Bilateral arthritis of knees 6338074366 785181 M13.861 Depressive disorder 3548 9007 F32.9 Essential hypertension 59027533 I10 Gastroesop hageal reflux disease 897723608 K21.9 Hyperlipidemia 23361040 E78.5 Insomnia 812444770 G47.0 0 Low back pain 031255653 M54.5 Neuropathy 672593510 G62 .9 Pain in both feet 305208 9262 3976623 M79.671 M79.672 Serum savannah min B12 below reference range 301077570 R79.89 Vitamin D deficiency 347 60766 E55.9 [id number] [facility] [address] [place] [address] 72582-662 0 03/11/2020 08:24:36 03/14/2020 13:14:15 Acute sciatica 933646467 M54.31 Labyrinthitis 31857108 H 83.03 Bilateral arthritis of knees 2585514071 757771 M13.861 Nocturnal dyspnea 122584 009 R06.00 Asthma 388951927 J45.90 9 Depressive disorder 3548 9007 F32.9 Essential hypertension 71386967 I10 Gastroesop hageal reflux disease 168429084 K21.9 Hyperlipidemia 55188057 E78.5 Incontinence 56899633 R3 2 Insomnia 860307231 G47.0 0 Low back pain 983610971 M54.5 Neuropathy 980593226 G62 .9 Obese 335372771 E66.9 Osteoporosis 01099879 M8 1.0 Serum savannah min B12 below reference range 152973823 R79.89 Snoring 54895151 R06.83 Traumatic brain injury 621645520 S06.5X9D Vitamin D deficiency 347 78457 E55.9 [id number] [facility] [address] [place] [address] 19826-517 0 04/25/2020 08:31:43 04/26/2020 08:42:04 Nocturnal dyspnea 629183247 R06.00 Bilateral arthritis of knees 5543401529 074748 M13.861 Asthma 931793570 J45.90 9 Depressive disorder 3548 9007 F32.9 Essential hypertension 36473476 I10 Gastroesop hageal reflux disease 922885417 K21.9 Hyperlipidemia 06856734 E78.5 Incontinence 25722915 R3 2 Insomnia 228488259 G47.0 0 Low back pain 202545667 M54.5 Neuropathy 846838302 G62 .9 Obese 644149899 E66.9 Osteoporosis 08213572 M8 1.0 Serum savannah min B12 below reference range 770038922 R79.89 Subarach[place] hemorrhage 27065124 I60.9 Vitamin D deficiency 347 62895 E55.9 [id number] [facility] [address] [place] [address] 24951-923 0 06/07/2020 08:21:46 06/07/2020 16:23:55 Acute sciatica 332888817 M54.31 Neuropathy 483467390 G62 .9 Asthma 441425240 J45.90 9 Bilateral arthritis of knees 6402668269 509062 M13.861 Cramp in lower limb 4499 23249 R25.2 Depressive disorder 3548 9007 F32.9 Edema of l ower extremity 834630588 R60.0 Essential hypertension 84466282 I10 Gastroesop hageal reflux disease 048937176 K21.9 Hyperlipidemia 87533967 E78.5 Insomnia 245846463 G47.0 0 Low back pain 257804100 M54.5 Obese 326359145 E66.9 Osteoporosis 64767284 M8 1.0 Serum savannah min B12 below reference range 305852441 R79.89 Snoring 23066293 R06.83 Subarach[place] hemorrhage 61207434 I60.9 Traumatic brain injury 661345559 S06.5X9D Vitamin D deficiency 347 40190 E55.9 [id number] MD [facility] (Adult Med) [address] [place] [address] 77701-917 0 07/11/2020 09:13:01 07/11/2020 15:26:23 Depressive disorder 32785458 F32.9 Essential hypertension 89922511 I10 Gastroesop hageal reflux disease 461398825 K21.9 Hyperlipidemia 61884365 E78.5 Neuropathy 775542212 G62 .9 Obese 536631882 E66.9 Osteoporosis 92286068 M8 1.0 Serum savannah min B12 below reference range 108938412 R79.89 Vitamin D deficiency 347 38235 E55.9 Snoring 42531342 R06.83 Asthma 723575938 J45.90 9 Bilateral arthritis of knees 6531476039 872711 M13.861 Fracture o f thoracic spine 262571308 S22.009A Insomnia 283071333 G47.0 0 Traumatic brain injury 459567452 S06.5X9D [id number] Filipe Rojas MD [facility] (Adult Med) [address] [place] [address] 74225-712 0 08/11/2020 08:32:25 08/11/2020 15:38:04 Neuropathy 970600182 G62.9 Fracture o f thoracic spine 049482957 S22.009A Acute urin nhung tract infection 332584629 N39.0 Bilateral arthritis of knees 9519996313 813837 M13.861 Asthma 289911732 J45.90 9 Depressive disorder 3548 9007 F32.9 Essential hypertension 53999143 I10 Gastroesop hageal reflux disease 492488429 K21.9 Hyperlipidemia 92371878 E78.5 Insomnia 943667444 G47.0 0 Low back pain 577805826 M54.5 Osteoporosis 73602494 M8 1.0 Traumatic brain injury 043372824 S06.5X9D Vitamin D deficiency 347 75139 E55.9 Subarach[place] hemorrhage 87086660 I60.9 Serum savannah min B12 below reference range 784109294 R79.89 [id number] [facility] [address] [place] [address] 17310-928 0 09/15/2020 14:32:50 09/15/2020 15:41:39 Asthma 806392435 J45.909 Bilateral arthritis of knees 2715374761 928767 M13.861 Depressive disorder 3548 9007 F32.9 Essential hypertension 41703712 I10 Gastroesop hageal reflux disease 447021851 K21.9 Hyperlipidemia 04506952 E78.5 Insomnia 229220197 G47.0 0 Low back pain 508094759 M54.5 Neuropathy 953938814 G62 .9 Obese 064970494 E66.9 Osteoporosis 31295831 M8 1.0 Serum savannah min B12 below reference range 203610456 R79.89 Traumatic brain injury 510405929 S06.5X9D Vitamin D deficiency 347 05562 E55.9 [id number] [facility] [address] [place] [address] 53155-413 0 01/17/2021 08:24:14 01/17/2021 14:06:37 Asthma 032297470 J45.909 Bilateral arthritis of knees 8458160995 906119 M13.861 Depressive disorder 3548 9007 F32.9 Essential hypertension 94438833 I10 Gastroesop hageal reflux disease 847437797 K21.9 Hyperlipidemia 04698038 E78.5 Insomnia 261960006 G47.0 0 Low back pain 997611218 M54.5 Neuropathy 668673370 G62 .9 Obese 194833748 E66.9 Serum savannah min B12 below reference range 652455948 R79.89 Subar[place] hemorrhage 66942336 I60.9 Vitamin D deficiency 347 96986 E55.9 Congestive heart failure 13523980 I50.9 Osteoporosis 46659512 M8 1.0 [id number] MD [facility] (Adult Med) [address] [place] [address] 44572-896 0 05/03/2021 11:12:49 05/03/2021 12:13:56 Neuropathy 746383537 G62.9 Administra tion of influenza vaccine 63880680 Z23 Asthma 918027008 J45.90 9 Bilateral arthritis of knees 8747638049 293924 M13.861 Congestive heart failure 89462242 I50.9 Depressive disorder 3548 9007 F32.9 Essential hypertension 02923508 I10 Gastroesop hageal reflux disease 716300168 K21.9 Hyperlipidemia 29947480 E78.5 Insomnia 502486322 G47.0 0 Low back pain 340610525 M54.50 Obese 932639825 E66.9 Osteoporosis 75390585 M8 1.0 Pulmonary arterial hypertension 79169831 I27.21 Serum savannah min B12 below reference range 534130614 R79.89 Traumatic brain injury 262534684 S06.5X9D Vitamin D deficiency 347 05005 E55.9 [id number] MD [facility] (Adult Med) [address] [place] [address] 08979-481 0 07/19/2021 08:30:06 07/20/2021 16:35:33 Traumatic brain injury 545450373 S06.5X9D Renewal of prescription 419359401 Z76.0 Asthma 421875572 J45.90 9 Bilateral arthritis of knees 0324990497 835095 M13.861 Depressive disorder 3548 9007 F32.9 Essential hypertension 43188642 I10 Gastroesop hageal reflux disease 165940648 K21.9 Hyperlipidemia 78883614 E78.5 Insomnia 148289392 G47.0 0 Low back pain 663010485 M54.50 Neuropathy 829879999 G62 .9 Obese 874372526 E66.9 Osteoporosis 80719057 M8 1.0 Pulmonary arterial hypertension 27458699 I27.21 Serum savannah min B12 below reference range 085822924 R79.89 Subarach[place] id hemorrhage 43464516 I60.9 Vitamin D deficiency 347 57994 E55.9 [id number] MD [facility] (Adult Med) [address] [place] [address] 13750-620 0 08/17/2021 10:32:02 08/17/2021 11:28:41 Renewal of prescription 303291343 Z76.0 Osteoporosis 70745474 M8 1.0 Asthma 149875343 J45.90 9 Bilateral arthritis of knees 0827016125 370241 M13.861 Congestive heart failure 24781934 I50.9 Depressive disorder 3548 9007 F32.9 Gastroesop hageal reflux disease 718318812 K21.9 Hyperlipidemia 79515572 E78.5 Insomnia 411978265 G47.0 0 Low back pain 255685796 M54.50 Neuropathy 343621732 G62 .9 Pulmonary arterial hypertension 97466335 I27.21 Serum savannah min B12 below reference range 711891227 R79.89 Subar[place] hemorrhage 63249089 I60.9 Traumatic brain injury 922005501 S06.5X9D Vitamin D deficiency 347 58709 E55.9 [id number] MD [facility] (Adult Med) [address] [place] [address] 36909-875 0 11/07/2021 13:44:06 11/08/2021 10:28:16 Neuropathy 722020957 G62.9 Bilateral hearing loss 89534644 H91.93 Acute sinusitis 82663837 J01.90 Low back pain 558982073 M54.50 Administra tion of pneumococcal vaccine 47338570 Z23 HIV screening 309594648 Z11.4 Asthma 535323561 J45.90 9 Bilateral arthritis of knees 9669676741 575232 M13.861 Congestive heart failure 62898251 I50.9 Depressive disorder 3548 9007 F32.9 Gastroesop hageal reflux disease 313399997 K21.9 Hyperlipidemia 15528168 E78.5 Incontinence 41293768 R3 2 Insomnia 988581701 G47.0 0 Osteoporosis 09294204 M8 1.0 Pulmonary arterial hypertension 76290968 I27.21 Serum savannah min B12 below reference range 172384814 R79.89 Traumatic brain injury 214663824 S06.5X9D Vitamin D deficiency 347 44482 E55.9 [id number] Filipe Rojas MD [facility] (Adult Med) [address] [place] [address] 62523-326 0 12/01/2021 16:49:54 12/05/2021 09:53:21 Renewal of prescription 159832731 Z76.0 Asthma 538463531 J45.90 9 Abdominal pain 37106511 R10.9 Traumatic brain injury 854599013 S06.5X9D Depressive disorder 3548 9007 F32.9 Essential hypertension 34391436 I10 Gastroesop hageal reflux disease 935769829 K21.9 Hyperlipidemia 30102860 E78.5 Osteoporosis 72657167 M8 1.0 Neuropathy 301436027 G62 .9 Incontinence 60083070 R3 2 Pulmonary arterial hypertension 60824411 I27.21 Serum savannah min B12 below reference range 888423125 R79.89 Vitamin D deficiency 347 31171 E55.9 [id number] MD [facility] (Adult Med) [address] [place] [address] 26594-513 0 01/02/2022 16:54:18 01/03/2022 11:33:45 Vitamin D deficiency 53991249 E55.9 Congestive heart failure 74383744 I50.9 Low back pain 545366429 M54.50 Asthma 356068241 J45.90 9 Bilateral arthritis of knees 5018411380 955394 M13.861 Essential hypertension 41460671 I10 Fracture o f thoracic spine 872122313 S22.009A Hyperlipidemia 35645840 E78.5 Incontinence 81241817 R3 2 Insomnia 123766284 G47.0 0 Neuropathy 735764425 G62 .9 Pulmonary arterial hypertension 10800333 I27.21 Serum savannah min B12 below reference range 097305853 R79.89 Subar[place] hemorrhage 29896270 I60.9 Traumatic brain injury 261354721 S06.5X9D [id number] MD [facility] (Adult Med) [address] [place] [address] 60667-942 0 02/06/2022 13:37:46 02/07/2022 10:33:49 Screening for malignant neoplasm of breast 053711350 Z12.31 Pulmonary arterial hypertension 30232132 I27.21 Essential hypertension 30700139 I10 Low back pain 998441293 M54.50 Asthma 709294363 J45.90 9 Bilateral arthritis of knees 3445866364 039745 M13.861 Bilateral hearing loss 50025628 H91.93 Congestive heart failure 88572708 I50.9 Depressive disorder 3548 9007 F32.9 Gastroesop hageal reflux disease 156666173 K21.9 Hyperlipidemia 78846284 E78.5 Incontinence 96869163 R3 2 Insomnia 612370945 G47.0 0 Neuropathy 671410136 G62 .9 Osteoporosis 54949340 M8 1.0 Serum savannah min B12 below reference range 905210193 R79.89 Subar[place] hemorrhage 07341595 I60.9 Traumatic brain injury 197418045 S06.5X9D Vitamin D deficiency 347 94496 E55.9 [id number] [facility] [address] [place] [address] 23604-905 0 05/31/2022 10:17:01 06/05/2022 11:18:05 Body mass index 30+ - obesity 751140493 Z68.42 BMI 47.1 Morbid obesity 796996574 E66.01 Neuropathy 511868360 G62 .9 Increase gabapentin back to previous dosage Essential hypertension 01929430 I10 Low back pain 344335694 M54.50 Hyperlipidemia 93583498 E78.5 Medication monitoring 39 6577180 Z51.81 Health Concerns Section Related Observation LastModified by Organization Detai ls LastModified Time None Recorded Concern Status LastModified by Organization Details LastModified Time None Recorded Advance Directives Directive None Recorded Payers Encounter Date Sequence Insurance Name Policy Number Policy Barrientos Covered Member ID Barrientos Member ID Guarantor Name 11/07/2021 1 [facility] ON OR AFTER 12/15/20 (MEDICAID REPLACEMENT - HMO) Denisha Guzman [id number] Denisha Guzman 12/01/2021 1 [facility] ON OR AFTER 12/15/20 (MEDICAID REPLACEMENT - HMO) Denisha Guzman [id number] Denisha Guzman 01/02/2022 1 [facility] ON OR AFTER 12/15/20 (MEDICAID REPLACEMENT - HMO) Denisha Guzman [id number] Denisha Guzman 02/06/2022 1 [facility] ON OR AFTER 12/15/20 (MEDICAID REPLACEMENT - HMO) Denisha Guzman [id number] Denisha Guzman 05/31/2022 1 [facility] DOS ON OR AFTER 20 (MEDICAID REPLACEMENT - HMO) Denisha Guzman [id number] Denisha Guzman Notes Date Note Type Note Provider Name and Address Organization Details Recorded Time 11/07/2021 text/html cannot tolerate more than one gabapentin per day Rob Dickerson PA-C Attn: Accounting,[address] [facility], [place], [address], [place] 11/11/2021 17:14:26 12/01/2021 text/html 1 week knot next to belly button Rob Dickerson PA-C Attn: Accounting,[address] [facility], [place], [address], [place] 12/04/2021 12:54:13 01/02/2022 text/html no changes ; would like a uche burroughs .... knees give out on her Rob Dickerson PA-C Attn: Accounting,[address] [facility], [place], [address], [place] 01/06/2022 12:08:55 02/06/2022 text/html no changes Rob Dickerson PA-C Attn: Accounting,[address] [facility], [place], [address], [facility] 02/10/2022 12:48:09 05/31/2022 text/html Has had increase d burning sensation in feet since gabapentin dose lowered. The muscle relaxant made her awaken too late. Joshua Hamilton MD Attn: Accounting,[address] [facility], [place], [address], [facility] 05/31/2022 11:23:39 OBGyn Episode No OBEpisode recorded.
--- OUTSIDE RECORDS SUMMARY | 2024-11-24 11:44 | XMS_ITS | Clinical Summary ---
Author Organization [facility] [address] Address [address] [place] [address] Care Team Providers Care Quickbooks Bookkeeper Name Role Phone Zach Telles DO Primary Care Provider +1- [phone] Allergies Active Allergy Reactions Criticality Noted Date [...] (7.5 mg total) by mouth daily Active qorsh-2-asj-epa-dpa-fis h oil 1,050-1,200 mg capsule 1 capsule [...] 10/17/2023 Assessment & Plan (04/22/2024 3:47 PM MOLD MAINTENANCE TECHNICIAN): 63 y.o. female with history of Osteopenia-Osteoporosis [...] 01/09/2021 Assessment & Plan (04/22/2024 3:46 PM MOLD MAINTENANCE TECHNICIAN): 63 y.o. and female with dyslipidemia, including [...] subarachnoid hemorrhage 01/09/2021 Atypical chest pain 11/09/2011 Surgical History Surgery Date Site/Laterality Comments CHOLECYSTECTOMY [...] on file Legal Sex Female 7:35 AM MOLD MAINTENANCE TECHNICIAN Gender Identity Not on file Sexual Orientation Not on file Obstetrics History Last Filed Vital Signs Vital Sign Reading Time Taken Comments Blood Pressure 124/77 04/22/2024 3:02 PM MOLD MAINTENANCE TECHNICIAN Pulse 83 04/22/2024 3:02 PM MOLD MAINTENANCE TECHNICIAN Temperature 36.7 C (98.1 F) 04/22/2024 3:02 PM MOLD MAINTENANCE TECHNICIAN Respiratory Rate 16 11/21/2023 10:0 7 AM CDT Oxygen Saturation 95% 11/21/2023 10: 07 AM CDT Inhaled Oxygen Concentration - - Weight 111.9 kg (246 lb 9.6 oz) 04/22/2024 3:02 PM MOLD MAINTENANCE TECHNICIAN Height 147.3 cm (4' 10) 04/22/2024 3:02 PM MOLD MAINTENANCE TECHNICIAN Body Mass Index 51.54 04/22/2024 3:02 PM MOLD MAINTENANCE TECHNICIAN Plan of Treatment Health Maintenance Due Date Last Done Comments Breast Cancer Screening-Mammogram 1962 Colon Cancer Screening-Colonoscopy 1962 Depression Screening 1962 Hepatitis C Screening 1962 DTaP/Tdap/Td Vaccine (1 - Tdap) 1973 Hepatitis B Screening 1980 Regular Well Visit/Exam 18-64 1980 Zoster Vaccine (1 of 2) 2012 Pneumococcal vaccine <65 (2 of 2 - PCV) 11/07/2022 11/07/2021 Influenza Vaccine (Season Ended) 2025 05/03/2021, 06/01/2019, 02/26/2017, Additional history exists Insurance Care Teams Quickbooks Bookkeeper Relationship Specialty Start Date End Date Zach Telles DO PCP - General Internal Medicine 07/23/23
--- OUTSIDE RECORDS SUMMARY | 2024-11-24 11:44 | XMS_ITS | Patient Health Record ---
Author Organization [facility] Address [address] [place] [address] Care Team Providers Care Corporate Aircraft Mechanic Name Role Phone Jackelyn Latifjose c Primary Care Provider [phone] Allergies Allergen (clinical drug ingredient) Drug/Non Drug [...] at HS for chronic pain Active Ergocalciferol 28483 UNIT 1 capsule Oral ly weekly for [...] Problem Status W/U Status Risk Notes Problem 53885320 Other chronic pain (G89.29) Active confirmed Problem 46925409 Vitamin D deficiency (E55.9) Active confirmed Problem 73343549 Essential hypertension (I10) Active confirmed Problem 762659391 Lymphedema (I89.0) Active confirmed Problem 70340731 Bilateral hearin g loss, unspecified hearing loss type (H91.93) Active confirmed Plan Of Treatment Pending Test Test Name Order Date Vitamin D, 25-Hydroxy* 06/13/2017 Insurance Providers Payer Name Payer Address Payer Phone Subscriber Number Group Number Insured Name Patient Relationship to Insured Coverage Start Date Coverage End Date [facility] Attn Claims Department [address] [place] [address] [id number] Cubethanieq Denisha encarnacion Self - patient is the insured 7 Medical (General) History Surgical History Surgery Date(Month/Year) 1986 Gallbladder removed 2014
--- OUTSIDE RECORDS SUMMARY | 2024-11-24 11:44 | XMS_ITS | Encounter Summary ---
Author Organization [facility] Address [address] [facility] [place] [address] Care Team Providers Care Antenna Installer Name Role Phone Zach Telles DO Primary Care Provider [phone] [phone] Reason for Visit * Reason Onset Date Comments Rx Medication Issue 03/12/2024 Spk to daljit willard Floridalma Duran, stated her sister is requesting a medication refill for a muscle relaxer and the pharmacy has not received anything yet. [place] in [facility] [phone]. Please follow up Denisha Encounter Details Date Type Department Care Team (Late st Contact Info) Description 03/12/2024 Telephone [facility] - Centralized Scheduling [address] [place] [address] Bernard Kurtz MD [address] [address] Rx Medication Issue (Spk to friend Floridalma Duran, stated her sister is requesting a medication refill for a muscle relaxer and the pharmacy has not received anything yet. [place]o [address] in [facility] [phone]. Please follow up Denisha) Social History Tobacco [...] on file Legal Sex Female 10:02 PM GLASS FURNACE TENDER Gender Identity Female 06/01/2019 7:38 AM GLASS FURNACE TENDER Sexual Orientation Not on file documented as of this encounter Functional Status * Is person deaf or have serious hearing difficulty? Answer Date of Assessment Author Yes 06/01/2019 12:30 PM GLASS FURNACE TENDER Rob Coronado RN * Is person blind or have serious difficulty seeing? Answer Date of Assessment Author Yes 06/01/2019 12:30 PM Rob Moseley RN * Does person have serious difficulty walking/climbing stairs? Answer Date of Assessment Author Yes 06/01/2019 12:30 PM Rob Moseley RN * Does person have difficulty dressing/bathing? Answer Date of Assessment Author No 06/01/2019 12:30 PM Rob Moseley RN * Does person have difficulty doing errands alone? Answer Date of Assessment Author Yes 06/01/2019 12:30 PM Rob Moseley RN documented as of this encounter Mental [...] pharmacy has not received anything yet. Chayo [address] in [facility] [phone]. Please follow up documented in this encounter Plan of Treatment Upcoming Encounters Date Type Department Care Team (Late st Contact Info) Description 01/12/2025 1:00 PM CDT Office Visit [facility] - Orthopedic Surgery [address] [facility] [place] [address] Bernard Kurtz MD [address] [place] [address] documented as of this encounter Goals Goal Patient Goal Type Associated Problems Recent Progress Patient-Stated? Author Mobility General Worsening(08/15 11:15 AM CDT) No Lu Cope RN Note: Expected end date: 06/17/2019 The goal is to maintain or improve your mobility at the optimum level for you. Interventions: documented as of this encounter Visit Diagnoses Not on filedocumented in this encounter Care Teams Antenna Installer Relationship Specialty Start Date End Date Zach Telles DO PCP - General 08/14/22 documented as of this encounter
--- OUTSIDE RECORDS SUMMARY | 2024-11-24 11:44 | XMS_ITS | Encounter Summary ---
Author Organization [facility] Address [address] [place] [address] Phone Care Team Providers Care Electronic Heat Seal Operator Name Role Phone Zach Telles DO Primary Care Provider +1- [phone] Encounter Details Date Type Department Care Team (Late st Contact Info) Description 08/29/2023 Documentation [facility] Endocrinology Metabolism and Lipid [address] [facility] Advanced Medicine 13th [place] [address] [place] [address] Martha Park CMA Social History Tobacco Use Types Packs/Day Years Used Date Smoking Tobacco: Never Smokeless Tobacco: Never Comments Unknown Sex and Gender Information Value Date Recorded Sex Assigned at Not on file Legal Sex Female 7:35 AM DIGITAL MEASUREMENT ADVISOR Gender Identity Not on file Sexual Orientation Not on file documented as of this encounter Plan of Treatment Not on file documented as of this encounter Visit Diagnoses Not on filedocumented in this encounter Care Teams Electronic Heat Seal Operator Relationship Specialty Start Date End Date Zach Telles DO PCP - General Internal Medicine 07/23/23 documented as of this encounter
[2024-11-24 11:49] LABS: Hemoglobin A1C 5.1 % (<5.7)
[2024-11-25 19:59] LABS: Amphetamines NEGATIVE ng/mL (<500); Barbiturates NEGATIVE ng/mL (<300); Benzodiazepines NEGATIVE ng/mL (<100); Cocaine Metabolite NEGATIVE ng/mL (<150); Marijuana Metabolite NEGATIVE ng/mL (<20); Methadone Metabolite NEGATIVE ng/mL (<100); Opiates NEGATIVE ng/mL (<100); Oxidant NEGATIVE mcg/mL (<200); PCP NEGATIVE ng/mL (<25); pH 5.8 (4.5-9.0)
[2024-11-27 11:37] LABS: Apolipoprotein B 61 mg/dL
== END 2024-11-24 10:32 | disposition home or self-care (01) ==
PROVIDERS: PCP Internal Medicine; Visit Provider Internal Medicine
DX: R73.9 Hyperglycemia, unspecified (principal); I11.0 Hypertensive heart disease with heart failure; I50.9 Heart failure, unspecified; M80.00XA Age-related osteoporosis with current pathological fracture, unspecified site, initial encounter for fracture; E66.01 Morbid (severe) obesity due to excess calories; I89.0 Lymphedema, not elsewhere classified; Z79.891 Long term (current) use of opiate analgesic
CPT/HCPCS: 36415; 80053; 80061; 80307; 82172; 82306; 83036; 85025

== ENCOUNTER 2025-01-01 09:54 | Outpatient (NON) | payer OTHER, SELFPAY ==
--- OUTSIDE RECORDS SUMMARY | 2025-01-01 09:57 | XMS_ITS | Continuity of Care Document ---
Author Organization [facility] Address [address] [place] [address] Phone Care Team Providers Care Building Maintenance Repairer Name Role Phone Rob Combs Unavailable Unavailable Procedures Procedure Date Office/outpatient Visit, [facility] Advance Directives Directive Yes / No Effective Date File Name No Information Encounters Encounter Description Practice Location Reason(s) For Visit Diagnoses Date Provider Providers Copied on Encounter Office/outpat ient Visit, [facility], [address], [place], [place], [id number], [place] tel:[phone] [facility] No Information [address]ret Rivas. [address] [facility] , [address], [place], [address], [place]. tel:[phone] Family History Family Member Type Diagnosis Age At Onset No Information Payers Payer name Insurance type Covered constitution party ID Authoriza tion(s) Medicaid [facility] [id number] Social History Type Description Quantity Date Captured [...]
--- OUTSIDE RECORDS SUMMARY | 2025-01-01 09:57 | XMS_ITS | Encounter Summary ---
Author Organization [facility] Address [address] [facility] [place] [address] Care Team Providers Care General Claims Agent Name Role Phone Zach Telles DO Primary Care Provider [phone] Reason for Visit * Reason Onset Date Comments Rx Medication Issue 03/12/2024 Spk to daljit willard Floridalma Duran, stated her sister is requesting a medication refill for a muscle relaxer and the pharmacy has not received anything yet. Chayo [address] in [facility] [phone]. Please follow up Denisha Encounter Details Date Type Department Care Team (Late st Contact Info) Description 03/12/2024 Telephone [facility] - Centralized Scheduling [address] [place] [address] Bernard Kurtz MD [address] [address] Rx Medication Issue (Spk to friend Floridalma Duran, stated her sister is requesting a medication refill for a muscle relaxer and the pharmacy has not received anything yet. Chayo [address] in [facility] [phone]. Please follow up Denisha) Social History Tobacco [...] on file Legal Sex Female 10:02 PM ACCESS RN Gender Identity Female 06/01/2019 7:38 AM ACCESS RN Sexual Orientation Not on file documented as of this encounter Functional Status * Is person deaf or have serious hearing difficulty? Answer Date of Assessment Author Yes 06/01/2019 12:30 PM ACCESS RN Rob Coronado RN * Is person blind [...] anything yet. Chayo [address] in [facility] [phone]. Please follow up documented in this encounter Plan of Treatment Upcoming Encounters Date Type Department Care Team (Late st Contact Info) Description 01/12/2025 1:00 PM CDT Office Visit [facility] - Orthopedic Surgery [address] [place] [address] Bernard Kurtz MD [address] [place] [address] documented as of this encounter Goals Goal Patient Goal Type Associated Problems Recent Progress Patient-Stated? Author Mobility General Worsening(08/15 11:15 AM CDT) No Lu Cope RN Note: Expected end date: 06/17/2019 The goal is to maintain or improve your mobility at the optimum level for you. Interventions: documented as of this encounter Visit Diagnoses Not on filedocumented in this encounter Care Teams General Claims Agent Relationship Specialty Start Date End Date Zach Telles DO PCP - General 08/14/22 documented as of this encounter
--- OUTSIDE RECORDS SUMMARY | 2025-01-01 09:57 | XMS_ITS | Referral Summary ---
Author Organization [facility] [address] Address [address] [place] [address] Care Team Providers Care Social Worker Clinical Name Role Phone Zach Telles DO Primary Care Provider +1- [phone] Allergies Active Allergy Reactions Criticality Noted Date [...] (7.5 mg total) by mouth daily Active fwhdo-5-vrw-epa-dpa-fis h oil 1,050-1,200 mg capsule 1 capsule [...] 10/17/2023 Assessment & Plan (04/22/2024 3:47 PM CHILD CARE ATTENDANT SCHOOL): 63 y.o. female with history of Osteopenia-Osteoporosis [...] 01/09/2021 Assessment & Plan (04/22/2024 3:46 PM CHILD CARE ATTENDANT SCHOOL): 63 y.o. and female with dyslipidemia, including [...] on file Legal Sex Female 7:35 AM CHILD CARE ATTENDANT SCHOOL Gender Identity Not on file Sexual Orientation Not on file Last Filed Vital Signs Vital Sign Reading Time Taken Comments Blood Pressure 124/77 04/22/2024 3:02 PM CHILD CARE ATTENDANT SCHOOL Pulse 83 04/22/2024 3:02 PM CHILD CARE ATTENDANT SCHOOL Temperature 36.7 C (98.1 F) 04/22/2024 3:02 PM CHILD CARE ATTENDANT SCHOOL Respiratory Rate 16 11/21/2023 10:0 7 AM CDT Oxygen Saturation 95% 11/21/2023 10: 07 AM CDT Inhaled Oxygen Concentration - - Weight 111.9 kg (246 lb 9.6 oz) 04/22/2024 3:02 PM CHILD CARE ATTENDANT SCHOOL Height 147.3 cm (4' 10) 04/22/2024 3:02 PM CHILD CARE ATTENDANT SCHOOL Body Mass Index 51.54 04/22/2024 3:02 PM CHILD CARE ATTENDANT SCHOOL Plan of Treatment Not on file Insurance [facility] Care Teams Social Worker Clinical Relationship Specialty Start Date End Date Zach Telles DO PCP - General Internal Medicine 07/23/23
--- OUTSIDE RECORDS SUMMARY | 2025-01-01 09:57 | XMS_ITS | Clinical Summary ---
Author Organization [facility] [address] Address [address] [place] [address] Care Team Providers Care Public Information Coordinator Name Role Phone Zach Telles DO Primary Care Provider +1- [phone] Allergies Active Allergy Reactions Criticality Noted Date [...] (7.5 mg total) by mouth daily Active lpqnk-5-zqp-epa-dpa-fis h oil 1,050-1,200 mg capsule 1 capsule [...] 10/17/2023 Assessment & Plan (04/22/2024 3:47 PM AMF MECHANIC): 63 y.o. female with history of Osteopenia-Osteoporosis [...] 01/09/2021 Assessment & Plan (04/22/2024 3:46 PM AMF MECHANIC): 63 y.o. and female with dyslipidemia, including [...] on file Legal Sex Female 7:35 AM AMF MECHANIC Gender Identity Not on file Sexual Orientation Not on file Obstetrics History Last Filed Vital Signs Vital Sign Reading Time Taken Comments Blood Pressure 124/77 04/22/2024 3:02 PM AMF MECHANIC Pulse 83 04/22/2024 3:02 PM AMF MECHANIC Temperature 36.7 C (98.1 F) 04/22/2024 3:02 PM AMF MECHANIC Respiratory Rate 16 11/21/2023 10:0 7 AM CDT Oxygen Saturation 95% 11/21/2023 10: 07 AM CDT Inhaled Oxygen Concentration - - Weight 111.9 kg (246 lb 9.6 oz) 04/22/2024 3:02 PM AMF MECHANIC Height 147.3 cm (4' 10) 04/22/2024 3:02 PM AMF MECHANIC Body Mass Index 51.54 04/22/2024 3:02 PM AMF MECHANIC Plan of Treatment Health Maintenance Due Date [...] 02/26/2017, Additional history exists Insurance Care Teams Public Information Coordinator Relationship Specialty Start Date End Date Zach Telles DO PCP - General Internal Medicine 07/23/23
--- OUTSIDE RECORDS SUMMARY | 2025-01-01 09:57 | XMS_ITS | Encounter Summary ---
Author Organization [facility] Address [address] [facility] [place] [address] Care Team Providers Care Hiv Prevention Specialist Name Role Phone Zach Telles DO Primary Care Provider +1 [phone] Encounter Details Date Type Department Care Team (Late st Contact Info) Description 07/29/2023 Telephone [facility] - Ophthalmology [address] [place] [address] Alfonso Koo I, OD [address] [place] [address] [place] [address] Social History Tobacco Use Types Packs/Day Years [...] on file Legal Sex Female 10:02 PM MICA MINER BLASTING Gender Identity Female 06/01/2019 7:38 AM MICA MINER BLASTING Sexual Orientation Not on file documented as of this encounter Functional Status * Is person deaf or have serious hearing difficulty? Answer Date of Assessment Author Yes 06/01/2019 12:30 PM MICA MINER BLASTING Rob Coronado RN * Is person blind or have serious difficulty seeing? Answer Date of Assessment Author Yes 06/01/2019 12:30 PM MICA MINER BLASTING Rob Coronado RN * Does person have serious difficulty walking/climbing stairs? Answer Date of Assessment Author Yes 06/01/2019 12:30 PM MICA MINER BLASTING Rob Coronado RN * Does person have difficulty dressing/bathing? Answer Date of Assessment Author No 06/01/2019 12:30 PM Rob Moseley RN * Does person have difficulty doing errands alone? Answer Date of Assessment Author Yes 06/01/2019 12:30 PM MICA MINER BLASTING Rob Coronado RN documented as of this [...] Please advise, patient's last appt was 02/02/21 MINER BLASTING documented in this encounter Plan of Treatment Upcoming Encounters Date Type Department Care Team (Late st Contact Info) Description 01/12/2025 1:00 PM CDT Office Visit [facility] - Orthopedic Surgery [address] [place] [phone] Bernard Kurtz MD [address] [facility] [address] [place] [address] documented as of this encounter Goals Goal Patient Goal Type Associated Problems Recent Progress Patient-Stated? Author Mobility General Worsening(08/15 11:15 AM CDT) No Lu Cope RN Note: Expected end date: 06/17/2019 The goal is to maintain or improve your mobility at the optimum level for you. Interventions: documented as of this encounter Visit Diagnoses Not on filedocumented in this encounter Care Teams Hiv Prevention Specialist Relationship Specialty Start Date End Date Zach Telles DO PCP - General 08/14/22 documented as of this encounter
--- OUTSIDE RECORDS SUMMARY | 2025-01-01 09:57 | XMS_ITS | Clinical Summary ---
Author Organization [facility] Address [address] [facility] [place] [address] Care Team Providers Care Hot Plate Plywood Press Operator Name Role Phone Zach Telles DO Primary Care Provider Source Comments [facility],non-owned Affiliates and Associated Physician Practices is amultiple site organization consisting of ambulatory clinics and hospital sitesin [place], [place], [place] and [place]. This disclosure is being madepursuant to the Care Everywhere program and may not contain all information available regarding this patient. Last updated 18.[facility] Allergies Active Allergy Reactions Criticality Noted Date [...] Active vitamin D, ergocalciferol, (DRISDOL) 1.25 MG (44302 UT) capsule 2 Active furosemide (LASIX) 20 MG tablet 2 Active furosemide (LASIX) 20 MG tablet Take 1 (one) tablet by mouth once daily 2 Active Pollard-3 Fatty Acids (fish oil) 1000 MG capsule [...] Description 10/13/2024 1:15 PM CDT Office Visit [facility] - Orthopedic Surgery [address] [place] [phone] Bernard Kurtz MD Primary osteoarthritis of both knees (Primary Dx) 10/13/2024 Travel from Last 3 Months Immunizations Immunization Administration [...] on file Legal Sex Female 10:02 PM ELECTRICAL DESIGNER Gender Identity Female 06/01/2019 7:38 AM ELECTRICAL DESIGNER Sexual Orientation Not on file Last Filed Vital Signs Vital Sign Reading Time Taken Comments Blood Pressure 124/85 10/22/2023 2:46 PM CDT Pulse 94 10/22/2023 2:46 PM CDT Temperature 36.1 C (97 F) 06/18/2019 3:27 PM ELECTRICAL DESIGNER Respiratory Rate 20 06/18/2019 3:27 PM ELECTRICAL DESIGNER Oxygen Saturation 92% 10/22/2023 2:46 PM CDT Inhaled Oxygen Concentration 50% 06/01/2019 8 :20 AM ELECTRICAL DESIGNER Weight 111.1 kg (245 lb) 03/11/2024 1:39 PM CDT Height 149.9 cm (4' 11) 03/11/2024 1:39 PM CDT Body Mass Index 49.48 03/11/2024 1:39 PM CDT Plan of Treatment Upcoming Encounters Date Type Department Care Team (Late st Contact Info) Description 01/12/2025 1:00 PM CDT Office Visit [facility] - Orthopedic Surgery [address] [place] [phone] Bernard Kurtz MD [address] [facility] [address] [place] [address] Health Maintenance Due Date Last Done Comments COLOGUARD (AGES 45-75) - COLON CA SCREENING 1960 COLON MONITORING 1962 COLONOSCOPY - COLON CA SCREENING 1962 CT COLONOGRAPHY - COLON CA SCREENING 1962 Colorectal Cancer Screening 1962 FIT - COLON CA SCREENING 1962 FLEX SIG - COLON CA SCREENING 1962 MAMMOGRAM 1962 HIV SCREENING 1977 HEPATITIS C SCREENING 09/11/1980 DTAP/TDAP/TD VACCINES (1 - Tdap) 1981 PAP SMEAR 09/17/1983 PNEUMOCOCCAL VACCINE 50+ (1 of 1 - PCV) 2012 ZOSTER VACCINE (1 of 2) 2012 Respiratory Syncytial Virus (RSV) Vaccine Pt: or over 60 yrs (1 - Risk 60-74 years 1-dose series) 2022 COVID-19 VACCINE ( - season) 2024 DEPRESSION SCREENING 06/17/2024 INFLUENZA VACCINE (#1) 2025 1, 06/01/2019, 02/26/2017, Additional history exists SCREENING FOR DIABETES 11/20/2026 4, 01/09/2021, 06/18/2019, Additional history exists HEPATITIS B [...] Worsening(08/15 11:15 AM CDT) No Lu Cope, ABDOULAYE Note: Expected end date: 06/17/2019 The goal is to maintain or improve your mobility at the optimum level for you. Interventions: Medical Devices Implanted Type Area Machine Cage Maker Device Identifier Shelf Expiration Date Model / Serial / Lot Plate 2 Hl Ult Lopro Chmfr Edg Crnl Implanted:Qty: 3 on 05/31/2019 by Nate Haynes MD at [facility] [employer] [facility] 062 / / 4mm Screws Implanted:Qty: 21 on 05/31/2019 by Nate Haynes MD at [facility] [employer] [facility] 104. 01 / / Plate 4 Hl Ult Lopro Chmfr Edg Crnl 14 Implanted:Qty: 2 on 05/31/2019 by Nate Haynes MD at [facility] [employer] [facility] 065 / / Plate 2 Hl Cntr Spc Rgd Crnl 12mmx.4mm Implanted:Qty: 3 on 05/31/2019 by Nate Haynes MD at [facility] [employer] 2 / / Synthes Ulp Caitlin Hole Cover Implanted:Qty: 1 on 05/31/2019 by Nate Haynes MD at [facility] .028 / / Procedures Procedure Name Priority Date/Time Associated Diagnosis Comments PA DRAIN/INJECT LARGE JOINT/BURSA Routine 10/13/2024 1:38 PM CDT Primary osteoarthritis of both knees PA DRAIN/INJECT LARGE JOINT/BURSA Routine 10/13/2024 1:38 PM CDT Primary osteoarthritis of both knees COMPREHENSIVE METABOLIC PANEL Routine 06/18/2019 5:02 AM ELECTRICAL DESIGNER from Last 3 Months or Most Recently Relevant to Health Maintenance Results * PA DRAIN/INJECT LARGE JOINT/BURSA (10/13/2024 1:38 PM CDT) Narrative Bernard Kurtz MD - 10/13/2024 1:38 PM CDT Bernard Kurtz MD 10/14/2024 8:46 AM Orthopaedic Surgery Procedure Note Denisha Macdonald [id number] Diagnosis: Left knee pain Procedure: Injection of [...] PROCEDURE/MINOR SURGICAL OR DERABLES Final Result * PA DRAIN/INJECT LARGE JOINT/BURSA (10/13/2024 1:38 PM CDT) Narrative Bernard Kurtz MD - 10/13/2024 1:38 PM CDT Bernard Kurtz MD 10/14/2024 8:46 AM Orthopaedic Surgery Procedure Note Denisha Macdonald [id number] Diagnosis: Right knee pain Procedure: Injection of [...] (ABNORMAL) COMPREHENSIVE METABOLIC PANEL (06/18/2019 5:02 AM ELECTRICAL DESIGNER) Glucose 98 70 - 105 mg/dL 06/18/2019 6:24 AM [facility] Sodium 137 136 - 145 mmol/L 06/18/2019 6:24 AM [facility] Potassium 4.4 3.5 - 4.7 mmol/L 06/18/2019 6:24 AM [facility] Chloride 104 98 - 107 mmol/L 06/18/2019 6:24 AM [facility] CO2 26 23 - 31 mmol/L 06/18/2019 6:24 AM [facility] Calcium 9.2 8.4 - 10.4 mg/dL 06/18/2019 6:24 AM [facility] Anion Gap 7(L) 8 - 16 mmol/L 06/18/2019 6:24 AM [facility] BUN 13 9.8 - 20.1 mg/dL 06/18/2019 6:24 AM [facility] Creatinine 0.67 0.57 - 1.11 mg/dL 06/18/2019 6:24 AM [facility] Alkaline Phosphatase 107 40 - 150 U/L 06/18/2019 6:24 AM [facility] ALT 14 0 - 61 U/L 06/18/2019 6:24 AM [facility] AST 17 5 - 34 U/L 06/18/2019 6:24 AM [facility] Protein Total 6.7 6.4 - 8.3 gm/dL 06/18/2019 6:24 AM [facility] Albumin 3.6 3.5 - 5.2 gm/dL 06/18/2019 6:24 AM [facility] Bilirubin Total 0.7 0.2 - 1.0 mg/dL 06/18/2019 6:24 AM [facility] eGFR by MDRD >60 >60 mL/min/1.7 3m2 06/18/2019 6:24 AM [facility] eGFR by MDRD >60 >60 mL/min/1.7 3m2 06/18/2019 6:24 AM ELECTRICAL DESIGNER [facility] Blood BLOOD SPECIMEN / Unknown Lab Venipuncture / Unknown 06/18/2019 5:02 AM ELECTRICAL DESIGNER 06/18/2019 6:00 AM ELECTRICAL DESIGNER Rosa Elenaaguilar Ferraro Thomas DENTAL THERAPIST-[facility] - CHEMISTRY ORDERA BLES Final Result Performing Organization Address City/State/[facility] Co de Phone Number [facility] [address] [place] [address] from Last 3 Months or Most Recently Relevant to Health Maintenance Insurance [facility] * Guarantor: DENISHA DURAN Account Type Relation to Patient Date of Phone Billing Address Personal/Family [phone] Advance Directives * Full Code (Latest Code Status on File) Date Activated Date Inactivated Comments 06/05/2019 4:59 PM 06/19/2019 8:59 AM * Full Code Date Activated Date Inactivated Comments 05/31/2019 10:57 PM 06/05/2019 4:53 PM Care Teams Hot Plate Plywood Press Operator Relationship Specialty Start Date End Date Zach Telles DO PCP - General 08/14/22
--- OUTSIDE RECORDS SUMMARY | 2025-01-01 09:57 | XMS_ITS | Continuity of Care Document ---
Author Organization [facility] Address [address] [address] [place] [address] Phone Care Team Providers Care Pen Ruler Operator Name Role Phone Torey Collins MD Unavailable Unavailable Allergies, Adverse Reactions, Alerts Substance Reaction Status Criticality codeine Active No Information Medications Medication Instructions Dosage Effective Dates (start - stop) Status Comments Ventolin HFA 90 mcg/actuation aerosol inhaler inhale 2 puff by inhalation route every 4 - 6 hours as needed - Active Zoloft 100 mg tablet take 1 tablet by oral route every day 100 MG - Active Emerson 7.5 mg-325 mg tablet take 1 tablet by oral route 2 times every day as needed for pain 1 tablet - Active avoid driving o operate machines cyclobenzaprine 10 mg tablet take 1 tablet by oral route 2 times every day as needed 10 MG - Active avoid driving or oeprate machines Zocor 20 mg tablet take 1 tablet (20MG) by oral route every day in the evening - Active fenofibrate 160 mg tablet take 1 tablet (160MG) by oral route every day - Active Norvasc 10 mg tablet take 1 tablet (10MG) by oral route every day - Active losartan 100 mg tablet take 1 tablet (100MG) by oral route every day - Active Vitamin D2 50,000 unit capsule take 1 capsule (70599SWKRF) by oral route every week - Active Procedures Procedure Date PREV VISIT, EST, AGE 40-64 OFFICE/OUTPATIENT VISIT, EST OFFICE/OUTPATIENT VISIT, EST OFFICE/OUTPATIENT VISIT, EST OFFICE/OUTPATIENT VISIT, EST OFFICE/OUTPATIENT VISIT, EST OFFICE/OUTPATIENT VISIT, EST OFFICE/OUTPATIENT VISIT, EST OFFICE/OUTPATIENT VISIT, EST OFFICE/OUTPATIENT VISIT, EST OFFICE/OUTPATIENT VISIT, EST PREV VISIT, NEW, AGE 40-64 Advance Directives Directive Yes / No Effective Date File Name No Information Encounters Encounter Description Practice Location Reason(s) For Visit Diagnoses Date Provider Providers Copied on Encounter [facility], [address], [place], [place], [id number], [place] tel:[phone] [facility] No Information 5 Dennis Lema. [address], [place], [place], [address] , [place]. tel:[phone] PREV VISIT, EST, AGE 40-64 [facility], [address], [place], [place], [address], [place] tel:[phone] [facility] Physical (chief complaint) Dietary surveillance and counselingEncounte r for adult health check-up 5 Dennis Bailey [address], [place], [place], [address] , [place]. tel:[phone] Referring Provider: Priyank Gutierrez, [place], [place], [id number]. tel:[phone] OFFICE/OUTPA TIENT VISIT, EST [facility], [address], [place], [place], [address], [place] tel:[phone] [facility] knee pain (chief complaint)H TN (chief complaint)H LP (chief complaint) Pain in joint involving lower legOther and unspecified hyperlipidemiaGene ralized anxiety disorderNoncomplia nce with treatmentDietary surveillance and counseling 5 Dennis Bailey [address], [place], [place], [address] , [place]. tel:[phone] Referring Provider: Torey Collins, [address], [place], [place], [address]. tel:[phone] OFFICE/OUTPA TIENT VISIT, [facility], [address], [place], [place], [address], [place] [phone] [facility] knee pain (chief complaint)C AD (chief complaint)a nxiety (chief complaint) Dietary surveillance and counselingPain in joint involving lower legGeneralized anxiety disorderCAD, [place] 5 Dennis Lema. [address], [place], [place], [address] , [place]. tel:[phone] Referring Provider: Priyank Gutierrez [address], [place], [place], [address]. tel:[phone] OFFICE/OUTPA TIENT VISIT, [facility], [address], [place], [place], [address], [place] tel:[phone] [facility] knee pain (chief complaint)N Ot feel well (chief complaint)C AD (chief complaint)a nxiety (chief complaint) Dietary surveillance and counselingCAD, [place] VesselViral Infection, UnspecifiedGeneral ized anxiety disorderPain in joint involving lower leg 5 Dennis Lema. [address], [place], [place], [address] , [place]. [phone] Referring Provider: Priyank Gutierrez [address], [place], [place], [address]. tel:[phone] OFFICE/OUTPA TIENT VISIT, [facility], [address], [place], [place], [address], [place] [phone] [facility] leg pain (chief complaint)a nxiety (chief complaint)C AD (chief complaint)H LP (chief complaint) Pain in limbDietary surveillance and counselingOther and unspecified hyperlipidemiaCAD, [place] VesselGeneralized anxiety disorder Fe 5 Dennis Lema. [address], [place], [place], [address] , [place]. tel:[phone] Referring Provider: Priyank Gutierrez [address], [place], [place], [address]. tel:[phone] OFFICE/OUTPA TIENT VISIT, [facility], [address], [place], [place], [address], [place] tel:[phone] [facility] CAD (chief complaint)T G (chief complaint)K Nee pain (chief complaint)g lucose (chief complaint) Dietary surveillance and counselingCAD, [place] VesselOther and unspecified hyperlipidemiaHype rglycemiaPain in joint involving lower leg May- 4 Dennis Lema. [address], [place], [place], [address] , [place]. tel:[phone] Referring Provider: Priyank Gutierrez [address], [place], [place], [address]. tel:[phone] OFFICE/OUTPA TIENT VISIT, [facility], [address], [place], [place], [address], [place] tel:[phone] [facility] ambulatory (chief complaint) DIFFICULTY IN WALKINGOther and unspecified hyperlipidemia 0 4 Dennis Lema. [address], [place], [place], [address] , [place]. [phone] Referring Provider: Priyank Gutierrez [address], [place], [place], [address]. tel:[phone] OFFICE/OUTPA TIENT VISIT, [facility], [address], [place], [place], [address], [place] tel:[phone] [facility] knee pain (chief complaint)H TN (chief complaint)H LP (chief complaint)n europathy (chief complaint) Other and unspecified hyperlipidemiaPain in joint involving lower legHypertension, UnspecifiedBMI 50.0-59.9, ADULT Nov- 4 Dennis Lema. [address], [place], [place], [address] , [place]. [phone] Referring Provider: Priyank Gutierrez [address], [place], [place], [address]. tel:[phone] OFFICE/OUTPA TIENT VISIT, [facility], [address], [place], [place], [address], [place] tel:[phone] [facility] HTN (chief complaint)H LP (chief complaint)f amily history of CAD (chief complaint)n europathy (chief complaint) Pain in joint involving lower legObesity, MorbidHypertension , UnspecifiedFamily Hx of Cardiovascular DiseaseDietary surveillance and counseling 4 Dennis Lema. [address], [place], [place], [address] , [place]. tel:[phone] Referring Provider: Priyank Gutierrez [address], [place], [place], [address]. tel:[phone] OFFICE/OUTPA TIENT VISIT, [facility], [address], [place], [place], [address], [place] tel:[phone] [facility] ear pain (chief complaint)H LP (chief complaint)k nee pain (chief complaint)H TN (chief complaint) Dietary surveillance and counselingViral Infection, UnspecifiedOther and unspecified hyperlipidemiaHype rtension, UnspecifiedPain in joint involving lower leg 4 Dennis Lema. [address], [place], [place], [address] , [place]. [phone] Referring Provider: Priyank Gutierrez [address], [place], [place], [address]. tel:[phone] OFFICE/OUTPA TIENT VISIT, [facility], [address], [place], [place], [address], [place] tel:[phone] [facility] Knee pain (chief complaint)H LP (chief complaint)b reast pain (chief complaint) Dietary surveillance and counselingPain in joint involving lower legOther and unspecified hyperlipidemiaObes ity, Morbid Aug- 4 Dennis Bailey [address], [place], [place], [address] , [place]. tel:[phone] Referring Provider: Priyank Gutierrez [address], [place], [place], [address]. tel:[phone] PREV VISIT, NEW, AGE 40-64 [facility], [address], [place], [place], [address], tel:[phone] [facility] Physical (chief complaint) Dietary surveillance and counselingRoutine Medical ExamRoutine Medical Exam 4 Dennis Lema. [address], [place], [place], [address] , [place]. tel:[phone] Family History Family Member Type Diagnosis Age At Onset Brother Problem (finding) Alive and well Father Problem (finding) Coronary artery disease 56 Mother Problem (finding) Diabetes mellitus Sister Problem (finding) Cancer, breast Father Problem (finding) Unknown Disease Payers Payer name Insurance type Covered democrat ID Authoriza tion(s) No Information Social History Type Description Quantity Date Captured Comments Sex Female Smoking Status No Information Chief Complaint And Reason For Visit No Information Plan Of Treatment Date Type Action Status Referral Ordered: Dakotah Zimmerman (related to Encounter for adult health check-up) ordered Referral Referred To: Dakotah Zimmerman [address] [place], [phone] Ordered: Referrals: Dakotah Zimmerman. Evaluate and treat ordered Referral Ordered: MAMMOGRAM, SCREENING ordered Referral Ordered: US VENOUS DOPPLER ordered Referral Ordered: Referral: Cardiology. Evaluate and treat. ordered Referral Ordered: KNEE XRAY TWO-VIEW Bilateral ordered Referral Ordered: CARDIOVASCULAR STRESS TEST ordered Referral Ordered: MAMMOGRAM, BOTH BREASTS ordered Referral Ordered: COLONOSCOPY AND BIOPSY ordered History Of Present Illness Encounter Date Complaint History Of Prese nt Illness Physical Pt needs annual physical. Pt has history of CAD. Pt denies any chest pain. Pt is noncompliant with cardiology. Pt still has not seen cardiology yet. Pt has HLP and she is noncompliant and she has not done any lab work. Pt has chornic knee pain. Pt was seeing Dr. Stinson but was referred to [facility]? Pt told me they dont take her meridian. Pt has bilateal knee pain all the time. Pt is able to walk but she is on wheelchair most of the time. knee pain Location: knee. Additional information: Pt has chornic knee pain. Pt is seeing ortho now. Pt denies nay worsening pain. HTN Pt takes lorsart an and norvac. Her BP is ok HLP Pt atkes feno an d zocor. Pt denies any myalgia Instructions Date Instruction Additional Infor mation Prescribed Activity and Exercise Education Related to Dietary Surveillance and Counseling Prescribed Diet Educ ation/Lifestyle Education Regarding Diet Related to Dietary Surveillance and Counseling Prescribed Activity and Exercise Education Related to Dietary Surveillance and Counseling Prescribed Diet Educ ation/Lifestyle Education Regarding Diet Related to Dietary Surveillance and Counseling Physical activity counseling Rel ated to Dietary surveillance counseling Decrease caloric intake Related to Dietary surveillance counseling Physical activity counseling Rel ated to Dietary surveillance counseling Decrease caloric intake Related to Dietary surveillance counseling Physical activity counseling Rel ated to Dietary surveillance counseling Decrease caloric intake Related to Dietary surveillance counseling Physical activity counseling Rel ated to Dietary surveillance counseling Decrease caloric intake Related to Dietary surveillance counseling Physical activity counseling Rel ated to Dietary surveillance counseling Decrease caloric intake Related to Dietary surveillance counseling Dietary counseling Related to Di etary surveillance counseling Decrease caloric intake Related to Dietary surveillance counseling Dietary counseling Related to Di etary surveillance counseling Decrease caloric intake Related to Dietary surveillance counseling Dietary counseling Related to Di etary surveillance counseling Decrease caloric intake Related to Dietary surveillance counseling Dietary counseling Related to Di etary surveillance counseling Decrease caloric intake Related to Dietary surveillance counseling Assessments Type Assessment Date No Information
--- OUTSIDE RECORDS SUMMARY | 2025-01-01 09:57 | XMS_ITS | Encounter Summary ---
Author Organization [facility] Address [address] [place] [address] Phone Care Team Providers Care Cement Car Dumper Name Role Phone Zach Telles DO Primary Care Provider [phone] Encounter Details Date Type Department Care Team (Late st Contact Info) Description 08/29/2023 Documentation [facility] Endocrinology Metabolism and Lipid [address] [facility] 13th [place] [address] [place] [id number] Martha Park CMA Social History Tobacco Use Types Packs/Day Years Used Date Smoking Tobacco: Never Smokeless Tobacco: Never Comments Unknown Sex and Gender Information Value Date Recorded Sex Assigned at Not on file Legal Sex Female 7:35 AM LOOP PULLER Gender Identity Not on file Sexual Orientation Not on file documented as of this encounter Plan of Treatment Not on file documented as of this encounter Visit Diagnoses Not on filedocumented in this encounter Care Teams Cement Car Dumper Relationship Specialty Start Date End Date Zach Telles DO PCP - General Internal Medicine 07/23/23 documented as of this encounter
== END 2025-01-01 09:55 | disposition home or self-care (01) ==
LOC: ANHGOSHLAB 09:55
PROVIDERS: PCP Internal Medicine; Visit Provider Nurse Practitioner
DX: R31.9 Hematuria, unspecified (principal)
CPT/HCPCS: 87086

== ENCOUNTER 2025-01-01 09:57 | Outpatient (CLI) | payer OTHER, SELFPAY ==
--- NOTE | ~2025-01-01 | CT_ITS ---
CT of the Abdomen and Pelvis: Indication: Abdominal pain Technique: 2.5 mm axial scans were obtained through the abdomen and pelvis following intravenous adm inistration of 100 cc of Omnipaque 350. Dose reduction technique was used on this scan by utilizing a utomated exposure control and iterative reconstruction technique. The dose-length product (DLP) was 1 058.66 mGy-cm. Findings: Scans through the lung bases are unremarkable. The liver, spleen, pancreas, adrenals and kidneys are within normal limits. Cholecystectomy clips are present. No evidence of aortic aneurysm. No lymphadenopathy. No bowel obstruction or bowel wall thickening. There is no evidence to suggest acute appendicitis. Images through the pelvis were performed. There is a 3.5 mm stone at the right UVJ. No right hydronep hrosis or hydroureter. Urinary bladder otherwise unremarkable. No pelvic mass seen. No ascites. Numerous compression fractures are present the spine, with a chronic appearance overall, including T7 , T8, T11, T12, L1, and L4. Impression: 3.5 mm stone at the right UVJ. No hydronephrosis or hydroureter. Numerous spinal compression fractures, as detailed above. Reviewed, dictated and finalized at [facility]. Impression: 3.5 mm stone at the right UVJ. No hydronephrosis or hydroureter. Numerous spinal compression fractures, as detailed above.
[2025-01-01 10:28] LABS: Estimated Glomerular Filt Rate > 60
== END 2025-01-01 09:58 | disposition home or self-care (01) ==
LOC: ANHIMG 09:59
PROVIDERS: PCP Internal Medicine; Visit Provider Nurse Practitioner
DX: N20.1 Calculus of ureter (principal); S22.060A Wedge compression fracture of T7-T8 vertebra, initial encounter for closed fracture; S22.080A Wedge compression fracture of T11-T12 vertebra, initial encounter for closed fracture; S32.010A Wedge compression fracture of first lumbar vertebra, initial encounter for closed fracture; S32.040A Wedge compression fracture of fourth lumbar vertebra, initial encounter for closed fracture; X58.XXXA Exposure to other specified factors, initial encounter
CPT/HCPCS: 74177; 87086; Q9967

== ENCOUNTER 2025-04-06 12:27 | Outpatient (CLI) | payer OTHER, SELFPAY ==
--- NOTE | ~2025-04-06 | XR_ITS ---
EXAMINATION: XR tibia fibula LT 2V, 04/06/2025 12:45 CDT HISTORY: M79.605 - Pain in left leg COMPARISON: No comparisons available. Findings: No acute fracture or malalignment. Severe degenerative changes of the knee. Soft tissues unremarkable. Impression: No acute fracture or malalignment. Reviewed, dictated and finalized at location P. Impression: No acute fracture or malalignment.
--- NOTE | ~2025-04-06 | US_ITS ---
LEFT LOWER EXTREMITY VENOUS DUPLEX Clinical History: M79.605 - Pain in left leg COMPARISON: None TECHNIQUE: Grayscale, color, duplex/spectral Doppler sonography left leg FINDINGS: Left leg common femoral, femoral, popliteal, and calf veins compressible and color Doppler patent. Peroneal vein however not seen. Normal augmentation with distal compression. No internal echoes. IMPRESSION: 1. No left leg DVT identified. Reviewed, dictated and finalized at location R.
--- OUTSIDE RECORDS SUMMARY | 2025-04-06 15:06 | XMS_ITS | Encounter Summary ---
Author Organization [facility] Address [address] [place] [address] Phone Care Team Providers Care Behavioral Analyst Name Role Phone Zach Telles DO Primary Care Provider Encounter Details Date Type Department Care Team (Late st Contact Info) Description 08/29/2023 Documentation [facility] Endocrinology Metabolism and Lipid [address] [facility] 13th [place] [address] [place] [address] Martha Park CMA Social History Tobacco Use Types Packs/Day Years Used Date Smoking Tobacco: Never Smokeless Tobacco: Never Comments Unknown Sex and Gender Information Value Date Recorded Sex Assigned at Not on file Legal Sex Female 7:35 AM CIVIL STRUCTURAL DESIGNER Gender Identity Not on file Sexual Orientation Not on file documented as of this encounter Plan of Treatment Not on file documented as of this encounter Visit Diagnoses Not on filedocumented in this encounter Care Teams Behavioral Analyst Relationship Specialty Start Date End Date Zach Telles DO PCP - General Internal Medicine 07/23/23 documented as of this encounter
--- OUTSIDE RECORDS SUMMARY | 2025-04-06 15:06 | XMS_ITS | Encounter Summary ---
Author Organization [facility] Address [address] [facility] [place] [address] Care Team Providers Care Tailor Fitter Name Role Phone Zach Telles DO Primary Care Provider +[phone] Reason for Visit * Reason Onset Date Comments Rx Medication Issue 03/12/2024 Spk to daljit willard Floridalma Duran, stated her sister is requesting a medication refill for a muscle relaxer and the pharmacy has not received anything yet. Chayo [address] in [facility] [phone]. Please follow up Denisha Encounter Details Date Type Department Care Team (Late st Contact Info) Description 03/12/2024 Telephone [facility] - Centralized Scheduling [address] [place] [phone] Bernard Kurtz MD [address] [address] Rx Medication Issue (Spk to friend Floridalma Duran, stated her sister is requesting a medication refill for a muscle relaxer and the pharmacy has not received anything yet. Chayo [address] in [facility] [phone]. Please follow up Denisha) Social History Tobacco [...] on file Legal Sex Female 10:02 PM FILM PROCESSING SUPERVISOR Gender Identity Female 06/01/2019 7:38 AM FILM PROCESSING SUPERVISOR Sexual Orientation Not on file documented as of this encounter Functional Status * Is person deaf or have serious hearing difficulty? Answer Date of Assessment Author Yes 06/01/2019 12:30 PM FILM PROCESSING SUPERVISOR Rob Coronado RN * Is person blind or have serious difficulty seeing? Answer Date of Assessment Author Yes 06/01/2019 12:30 PM FILM PROCESSING SUPERVISOR Rob Coronado RN * Does person have serious difficulty walking/climbing stairs? Answer Date of Assessment Author Yes 06/01/2019 12:30 PM FILM PROCESSING SUPERVISOR Rob Coronado RN * Does person have difficulty dressing/bathing? Answer Date of Assessment Author No 06/01/2019 12:30 PM FILM PROCESSING SUPERVISOR Rob Coronado RN * Does person have difficulty doing errands alone? Answer Date of Assessment Author Yes 06/01/2019 12:30 PM FILM PROCESSING SUPERVISOR Rob Coronado RN documented as of this encounter Mental Status * Does person have difficulty concentrating/remembering/making decisions? Answer Entry Date Author Yes 06/01/2019 12:30 PM FILM PROCESSING SUPERVISOR Rob Coronado RN documented in this encounter Miscellaneous Notes * Telephone Encounter - Murtaza Chawla - 03/12/2024 10:23 AM CDT Spk to friend Floridalma Duran, stated her sister is requesting a medication refill for a muscle relaxer and the pharmacy has not received anything yet. Chayo [address] in [facility] [phone]. Please follow up documented in this encounter Plan of Treatment Upcoming Encounters Date Type Department Care Team (Late st Contact Info) Description 04/28/2025 1:30 PM FILM PROCESSING SUPERVISOR Office Visit [facility] - Orthopedic Surgery [address] [place] [address] Gabriele Tang, CLIENT SERVICES ANALYST-EXECUTIVE MANAGER [address] [place] [address] documented as of this encounter Goals Goal Patient Goal Type Associated Problems Recent Progress Patient-Stated? Author Mobility General Worsening(08/15 11:15 AM CDT) Lu Nugent, ABDOULAYE Note: Expected end date: 06/17/2019 The goal is to maintain or improve your mobility at the optimum level for you. Interventions: documented as of this encounter Visit Diagnoses Not on filedocumented in this encounter Care Teams Tailor Fitter Relationship Specialty Start Date End Date Zach Telles DO PCP - General 08/14/22 documented as of this encounter
--- OUTSIDE RECORDS SUMMARY | 2025-04-06 15:07 | XMS_ITS | Clinical Summary ---
Author Organization [facility] [address] Address [address] [place] [address] Care Team Providers Care Automobile Rental Agent Name Role Phone ArabellaashiaZach dugan Primary Care Provider Allergies Active Allergy Reactions Criticality Noted Date [...] (7.5 mg total) by mouth daily Active lbbqj-4-vyu-epa-dpa-fis h oil 1,050-1,200 mg capsule 1 capsule [...] 10/17/2023 Assessment & Plan (04/22/2024 3:47 PM BATCH UNLOADER): 63 y.o. female with history of Osteopenia-Osteoporosis [...] 01/09/2021 Assessment & Plan (04/22/2024 3:46 PM BATCH UNLOADER): 63 y.o. and female with dyslipidemia, including [...] on file Legal Sex Female 7:35 AM BATCH UNLOADER Gender Identity Not on file Sexual Orientation Not on file Obstetrics History Last Filed Vital Signs Vital Sign Reading Time Taken Comments Blood Pressure 124/77 04/22/2024 3:02 PM BATCH UNLOADER Pulse 83 04/22/2024 3:02 PM BATCH UNLOADER Temperature 36.7 C (98.1 F) 04/22/2024 3:02 PM BATCH UNLOADER Respiratory Rate 16 11/21/2023 10:0 7 AM CDT Oxygen Saturation 95% 11/21/2023 10: 07 AM CDT Inhaled Oxygen Concentration - - Weight 111.9 kg (246 lb 9.6 oz) 04/22/2024 3:02 PM BATCH UNLOADER Height 147.3 cm (4' 10) 04/22/2024 3:02 PM BATCH UNLOADER Body Mass Index 51.54 04/22/2024 3:02 PM BATCH UNLOADER Plan of Treatment Health Maintenance Due Date Last Done Comments Breast Cancer Screening-Mammogram 1960 Colon Cancer Screening-Colonoscopy 1962 Depression Screening 1962 Hepatitis C Screening 1962 DTaP/Tdap/Td Vaccine (1 - Tdap) 1973 Hepatitis B Screening 1980 Regular Well Visit/Exam 18-64 1980 Zoster Vaccine (1 of 2) 2012 Pneumococcal vaccine <65 (2 of 2 - PCV) 11/07/2022 11/07/2021 Influenza Vaccine (#1) 2025 , 06/01/2019, 02/26/2017, Additional history exists Insurance Care Teams Automobile Rental Agent Relationship Specialty Start Date End Date Zach Telles DO PCP - General Internal Medicine 07/23/23
--- OUTSIDE RECORDS SUMMARY | 2025-04-06 15:07 | XMS_ITS | Encounter Summary ---
Author Organization [facility] Address [address] [facility] [place] [address] Care Team Providers Care Waterproofing Mixer Name Role Phone Zach Telles DO Primary Care Provider Encounter Details Date Type Department Care Team (Late st Contact Info) Description 07/29/2023 Telephone [facility] - Ophthalmology [address] [place] [phone] Alfonso Koo I, OD [address] [place] [address] [place] [phone] Social History Tobacco Use Types Packs/Day Years [...] on file Legal Sex Female 10:02 PM SURGERY SPECIALIST Gender Identity Female 06/01/2019 7:38 AM SURGERY SPECIALIST Sexual Orientation Not on file documented as of this encounter Functional Status * Is person deaf or have serious hearing difficulty? Answer Date of Assessment Author Yes 06/01/2019 12:30 PM SURGERY SPECIALIST Rob Coronado RN * Is person blind or have serious difficulty seeing? Answer Date of Assessment Author Yes 06/01/2019 12:30 PM SURGERY SPECIALIST Rob Coronado RN * Does person have serious difficulty walking/climbing stairs? Answer Date of Assessment Author Yes 06/01/2019 12:30 PM SURGERY SPECIALIST Rob Coronado RN * Does person have difficulty dressing/bathing? Answer Date of Assessment Author No 06/01/2019 12:30 PM SURGERY SPECIALIST Rob Coronado RN * Does person have difficulty doing errands alone? Answer Date of Assessment Author Yes 06/01/2019 12:30 PM SURGERY SPECIALIST Rob Coronado RN documented as of this [...] Please advise, patient's last appt was 02/02/21 ERY SPECIALIST documented in this encounter Plan of Treatment Upcoming Encounters Date Type Department Care Team (Late st Contact Info) Description 04/28/2025 1:30 PM SURGERY SPECIALIST Office Visit [facility] - Orthopedic Surgery [address] [place] [phone] Gabriele Tang, ROLL ICER MACHINE-COMPUTER REPAIR ENGINEER [address] [facility] [address] [place] [address] documented as of this encounter Goals Goal Patient Goal Type Associated Problems Recent Progress Patient-Stated? Author Mobility General Worsening(08/15 11:15 AM CDT) No Lu Cope, RN Note: Expected end date: 06/17/2019 The goal is to maintain or improve your mobility at the optimum level for you. Interventions: documented as of this encounter Visit Diagnoses Not on filedocumented in this encounter Care Teams Waterproofing Mixer Relationship Specialty Start Date End Date Zach Telles DO PCP - General 08/14/22 documented as of this encounter
--- OUTSIDE RECORDS SUMMARY | 2025-04-06 15:07 | XMS_ITS | Clinical Summary ---
Author Organization [facility] Address [address] [place] [address] Care Team Providers Care Long Chain Beamer Name Role Phone Zach Telles DO Primary Care Provider Source Comments [facility],non-owned Affiliates and Associated Physician Practices is amultiple site organization consisting of ambulatory clinics and hospital sitesin [place], [place], [place] and [place]. This disclosure is being madepursuant to the Care Everywhere program and may not contain all information available regarding this patient. Last updated 18.[facility] Allergies Active Allergy Reactions Criticality Noted Date Comments Codeine Nausea and/or Vomiting Low 11/15/2015 Medications * Be aware that medications may not be up to date on this document. Alwaysverify current medications with the patient. piroxicam (FELDENE) 20 MG capsule Take 20 mg by mouth DAILY. 30 capsule 3 7 Active albuterol HFA (VENTOLIN HFA) 108 (90 BASE) [...] every 4 hours as needed 9 Active Acetaminophen Childrens 160 MG/5ML SOLN Take 20.3125 [...] Active vitamin D, ergocalciferol, (DRISDOL) 1.25 MG (21425 UT) capsule 2 Active furosemide (LASIX) 20 MG tablet 2 Active furosemide (LASIX) 20 MG tablet Take 1 (one) tablet by mouth once daily 2 Active [place]-3 Fatty Acids (fish oil) 1000 MG capsule [...] Encounters Date Type Department Care Team Description 03/31/2025 Telephone [facility] - Centralized Scheduling [address] [place] [address] Gabriele Tang, AUTOMOTIVE DETAILER-ACID PURIFICATION EQUIPMENT OPERATOR Appointment 03/31/2025 Telephone [facility] - Orthopedic Surgery [address] [place] [address] Venkat Eckert, RN Appointment 02/26/2025 Refill [facility] - Orthopedic Surgery [address] [place] [phone] Bernard Kurtz MD MEDICATION REFILL 01/12/2025 1:00 PM CDT Office Visit [facility] - Orthopedic Surgery [address] [place] [phone] Bernard Kurtz MD Primary osteoarthritis of both knees (Primary Dx) 01/12/2025 Travel from Last 3 Months Immunizations Immunization [...] on file Legal Sex Female 10:02 PM PROGRAM SPECIALIST Gender Identity Female 06/01/2019 7:38 AM PROGRAM SPECIALIST Sexual Orientation Not on file Last Filed Vital Signs Vital Sign Reading Time Taken Comments Blood Pressure 124/85 10/22/2023 2:46 PM CDT Pulse 94 10/22/2023 2:46 PM CDT Temperature 36.1 C (97 F) 06/18/2019 3:27 PM PROGRAM SPECIALIST Respiratory Rate 20 06/18/2019 3:27 PM PROGRAM SPECIALIST Oxygen Saturation 92% 10/22/2023 2:46 PM CDT Inhaled Oxygen Concentration 50% 06/01/2019 8 :20 AM PROGRAM SPECIALIST Weight 111.1 kg (245 lb) 03/11/2024 1:39 PM CDT Height 149.9 cm (4' 11) 03/11/2024 1:39 PM CDT Body Mass Index 49.48 03/11/2024 1:39 PM CDT Plan of Treatment Upcoming Encounters Date Type Department Care Team (Late st Contact Info) Description 04/28/2025 1:30 PM PROGRAM SPECIALIST Office Visit [facility] - Orthopedic Surgery [address] [place] [phone] Gabriele Tang, AUTOMOTIVE DETAILER-ACID PURIFICATION EQUIPMENT OPERATOR [address] [facility] [address] [place] [address] Health Maintenance Due Date Last Done Comments COLON MONITORING 1962 COLONOSCOPY - COLON CA SCREENING 1962 CT COLONOGRAPHY - COLON CA SCREENING 1962 FIT - COLON CA SCREENING 1962 FLEX SIG - COLON CA SCREENING 1962 MAMMOGRAM 1962 HIV SCREENING 1977 HEPATITIS C SCREENING 09/11/1980 DTAP/TDAP/TD VACCINES (1 - Tdap) 1981 PNEUMOCOCCAL VACCINE 50+ (1 of 2 - PCV) 1981 PAP SMEAR 09/17/1983 ZOSTER VACCINE (1 of 2) 2012 Respiratory Syncytial Virus (RSV) Vaccine Pt: or over 60 yrs (1 - Risk 60-74 years 1-dose series) 2022 DEPRESSION SCREENING 06/17/2024 COVID-19 VACCINE ( - 2023- season) 2025 INFLUENZA VACCINE (#1) 2025 , 06/01/2019, 02/26/2017, Additional history exists COLOGUARD (AGES 45-75) - COLON CA SCREENING 12/08/2027 12/07/2024 Colorectal Cancer Screening 12/08/2027 HEPATITIS B VACCINE Aged Out No longe [...] you. Interventions: Medical Devices Implanted Type Area Blow Molder Device Identifier Shelf Expiration Date Model / Serial / Lot Plate 2 Hl Ult Lopro Chmfr Edg Crnl Implanted:Qty: 3 on 05/31/2019 by Nate Haynes MD at [facility] [employer] [facility] [id number] / / 4mm Screws Implanted:Qty: 21 on 05/31/2019 by Nate Haynes MD at [facility] [employer] [facility] [id number] / / Plate 4 Hl Ult Lopro Chmfr Edg Crnl 14 Implanted:Qty: 2 on 05/31/2019 by Nate Haynes MD at [facility] [employer] [facility] [id number] / / Plate 2 Hl Cntr Spc Rgd Crnl 12mmx.4mm Implanted:Qty: 3 on 05/31/2019 by Nate Haynes MD at [facility] [employer] [id number] / / Synthes Ulp [place] Hole Cover Implanted:Qty: 1 on 05/31/2019 by Nate Haynes MD at [facility] [id number] / / Procedures Procedure Name Priority Date/Time Associated Diagnosis Comments DE DRAIN/INJECT LARGE JOINT/BURSA Routine 01/12/2025 1:38 PM CDT Primary osteoarthritis of both knees DE DRAIN/INJECT LARGE JOINT/BURSA Routine 01/12/2025 1:38 PM CDT Primary osteoarthritis of both knees from Last 3 Months Results * DE DRAIN/INJECT LARGE JOINT/BURSA (01/12/2025 1:38 PM CDT) Narrative Bernard Kurtz MD - 01/12/2025 1:38 PM CDT Bernard Kurtz MD 01/12/2025 1:39 PM Orthopaedic Surgery Procedure Note Denisha Macdonald [id number] Diagnosis: Left knee pain Procedure: Injection of [...] for the entire procedure Bernard Kurtz MD 01/12/2025 1:38 PM Bernard Kurtz MD PROCEDURE/MINOR SURGICAL OR DERABLES Final Result * DE DRAIN/INJECT LARGE JOINT/BURSA (01/12/2025 1:38 PM CDT) Narrative Bernard Kurtz MD - 01/12/2025 1:38 PM CDT Bernard Kurtz MD 01/12/2025 1:39 PM Orthopaedic Surgery Procedure Note Denisha Macdonald [id number] Diagnosis: Right knee pain Procedure: Injection of [...] for the entire procedure Bernard Kurtz MD 01/12/2025 1:38 PM Bernard Kurtz MD PROCEDURE/MINOR SURGICAL OR DERABLES Final Result from Last 3 Months Insurance [facility] * Guarantor: DENISHA DURAN Account Type Relation to Patient Date of Phone Billing Address Personal/Family [id number] Advance Directives * Full Code (Latest Code Status on File) Date Activated Date Inactivated Comments 06/05/2019 4:59 PM 06/19/2019 8:59 AM * Full Code Date Activated Date Inactivated Comments 05/31/2019 10:57 PM 06/05/2019 4:53 PM Care Teams Long Chain Beamer Relationship Specialty Start Date End Date Zach Telles DO PCP - General 08/14/22
== END 2025-04-06 12:28 | disposition home or self-care (01) ==
PROVIDERS: PCP Internal Medicine
DX: M17.12 Unilateral primary osteoarthritis, left knee (principal)
CPT/HCPCS: 73590; 93971

== ENCOUNTER 2025-04-19 15:36 | Outpatient (CLI) | payer OTHER, SELFPAY ==
--- OUTSIDE RECORDS SUMMARY | 2009-08-29 07:00 | XMS_ITS | Continuity of Care Document ---
Author Organization [facility] Address [address] [place] [address] Phone Care Team Providers Care Buccaro Name Role Phone Rob Combs Unavailable Unavailable Procedures Procedure Date Office/outpatient Visit, [facility] Advance Directives Directive Yes / No Effective Date File Name No Information Encounters Encounter Description Practice Location Reason(s) For Visit Diagnoses Date Provider Providers Copied on Encounter Office/outpat ient Visit, [facility], [address], [place], [place], [id number], [place] tel:[phone] [address] [facility] No Information [address] Garret Rivas. [address] , [address], [place], [address], [place]. tel:[phone] Family History Family Member Type Diagnosis Age At Onset No Information Payers Payer name Insurance type Covered republican ID Authoriza tion(s) Medicaid [facility] [id number] Social History Type Description Quantity Date Captured Comments Sex Female Smoking Status No Information Chief Complaint And Reason For Visit No Information Reason For Referral Reason For Referral No Information History Of Present Illness Encounter Date Complaint History Of Prese nt Illness No Information Functional Status Date Functional Assessmen t No Information Instructions Date Instruction Additional Infor mation No Information Assessments Type Assessment Date No Information Patient Care Teams Name Effective Dates (start - stop) Status Members No Information
--- NOTE | ~2025-04-19 | XR_ITS ---
XR lumbar spine 2-3V Indication: M54.9 - Dorsalgia, unspecified Comparison: None Findings: There is a remote compression fracture of L1 with loss of height 50%, no acute fracture or subluxation. Moderate loss of disc at L4-5 and L5-S1 Soft tissues unremarkable Impression: No acute abnormality. Reviewed, dictated and finalized at location P. OOR LANDSCAPE ARCHITECT Impression: No acute abnormality.
--- NOTE | ~2025-04-19 | XR_ITS ---
XR thoracic spine 3V Indication: W19.XXXA - Unspecified fall, initial encounter Comparison: None Findings: Mild levoconvex scoliosis. Moderate loss of vertebral heights. There are remote compression fractures of T12 and T11, no acute fracture is identified. Moderate to severe loss of disc height throughout. Soft tissues unremarkable Impression: No acute abnormality. Reviewed, dictated and finalized at location P. TEGIC COMMUNICATIONS SPECIALIST Impression: No acute abnormality.
--- OUTSIDE RECORDS SUMMARY | 2025-04-19 15:55 | XMS_ITS | Encounter Summary ---
Author Organization [facility] Address [address] [place] [address] Care Team Providers Care Gold And Silver Assayer Name Role Phone Zach Telles DO Primary Care Provider +1 [phone] Encounter Details Date Type Department Care Team (Late st Contact Info) Description 07/29/2023 Telephone [facility] - Ophthalmology [address] [place] [phone] Alfonso Koo I, OD [address] [place] [address] [place] [phone] Social History Tobacco Use Types Packs/Day Years [...] on file Legal Sex Female 10:02 PM MECHANICAL MAINTENANCE FOREMAN Gender Identity Female 06/01/2019 7:38 AM MECHANICAL MAINTENANCE FOREMAN Sexual Orientation Not on file documented as of this encounter Functional Status * Is person deaf or have serious hearing difficulty? Answer Date of Assessment Author Yes 06/01/2019 12:30 PM MECHANICAL MAINTENANCE FOREMAN Rob Coronado RN * Is person blind or have serious difficulty seeing? Answer Date of Assessment Author Yes 06/01/2019 12:30 PM MECHANICAL MAINTENANCE FOREMAN Rob Coronado RN * Does person have serious difficulty walking/climbing stairs? Answer Date of Assessment Author Yes 06/01/2019 12:30 PM MECHANICAL MAINTENANCE FOREMAN Rob Coronado RN * Does person have difficulty dressing/bathing? Answer Date of Assessment Author No 06/01/2019 12:30 PM MECHANICAL MAINTENANCE FOREMAN Rob Coronado RN * Does person have difficulty doing errands alone? Answer Date of Assessment Author Yes 06/01/2019 12:30 PM MECHANICAL MAINTENANCE FOREMAN Rob Coronado RN documented as of this [...] Please advise, patient's last appt was 02/02/21 ANICAL MAINTENANCE FOREMAN documented in this encounter Plan of Treatment Upcoming Encounters Date Type Department Care Team (Late st Contact Info) Description 04/28/2025 1:30 PM MECHANICAL MAINTENANCE FOREMAN Office Visit [facility] - Orthopedic Surgery [address] [place] [phone] Gabriele Tang, CORK INSULATION SETTER-PRODUCT DEVELOPMENT CONSULTANT [address] [facility] [address] [place] [address] documented as of this encounter Goals Goal Patient Goal Type Associated Problems Recent Progress Patient-Stated? Author Mobility General Worsening(08/15 11:15 AM CDT) No Lu Cope, RN Note: Expected end date: 06/17/2019 The goal is to maintain or improve your mobility at the optimum level for you. Interventions: documented as of this encounter Visit Diagnoses Not on filedocumented in this encounter Care Teams Gold And Silver Assayer Relationship Specialty Start Date End Date Zach Telles DO PCP - General 08/14/22 documented as of this encounter
--- OUTSIDE RECORDS SUMMARY | 2025-04-19 15:55 | XMS_ITS | Encounter Summary ---
Author Organization [facility] Address [address] [place] [address] Phone Care Team Providers Care Income Tax Analyst Name Role Phone Zach Telles DO Primary Care Provider Encounter Details Date Type Department Care Team (Late st Contact Info) Description 08/29/2023 Documentation [facility] and Lipid [address] [facility] Advanced [facility] 13th [place] [address] [place] [address] Martha Park CMA Social History Tobacco Use Types Packs/Day Years Used Date Smoking Tobacco: Never Smokeless Tobacco: Never Comments Unknown Sex and Gender Information Value Date Recorded Sex Assigned at Not on file Legal Sex Female 7:35 AM CASH ROOM CLERK Gender Identity Not on file Sexual Orientation Not on file documented as of this encounter Plan of Treatment Not on file documented as of this encounter Visit Diagnoses Not on filedocumented in this encounter Care Teams Income Tax Analyst Relationship Specialty Start Date End Date Zach Telles DO PCP - General Internal Medicine 07/23/23 documented as of this encounter
--- OUTSIDE RECORDS SUMMARY | 2025-04-19 15:55 | XMS_ITS | Clinical Summary ---
Author Organization [facility] [address] Address [address] [place] [address] Care Team Providers Care Systems Designer Name Role Phone ArabellaashiaZach dugan Primary Care [...] (7.5 mg total) by mouth daily Active ivfko-9-jbi-epa-dpa-fis h oil 1,050-1,200 mg capsule 1 capsule [...] 10/17/2023 Assessment & Plan (04/22/2024 3:47 PM SPORTS COMPLEX ATTENDANT): 63 y.o. female with history of Osteopenia-Osteoporosis [...] 01/09/2021 Assessment & Plan (04/22/2024 3:46 PM SPORTS COMPLEX ATTENDANT): 63 y.o. and female with dyslipidemia, including [...] on file Legal Sex Female 7:35 AM SPORTS COMPLEX ATTENDANT Gender Identity Not on file Sexual Orientation Not on file Last Filed Vital Signs Vital Sign Reading Time Taken Comments Blood Pressure 124/77 04/22/2024 3:02 PM SPORTS COMPLEX ATTENDANT Pulse 83 04/22/2024 3:02 PM SPORTS COMPLEX ATTENDANT Temperature 36.7 C (98.1 F) 04/22/2024 3:02 PM SPORTS COMPLEX ATTENDANT Respiratory Rate 16 11/21/2023 10:0 7 AM CDT Oxygen Saturation 95% 11/21/2023 10: 07 AM CDT Inhaled Oxygen Concentration - - Weight 111.9 kg (246 lb 9.6 oz) 04/22/2024 3:02 PM SPORTS COMPLEX ATTENDANT Height 147.3 cm (4' 10) 04/22/2024 3:02 PM SPORTS COMPLEX ATTENDANT Body Mass Index 51.54 04/22/2024 3:02 PM SPORTS COMPLEX ATTENDANT Plan of Treatment Health Maintenance Due Date [...] 02/26/2017, Additional history exists Insurance Care Teams Systems Designer Relationship Specialty Start Date End Date Zach Telles DO PCP - General Internal Medicine 07/23/23
--- OUTSIDE RECORDS SUMMARY | 2025-04-19 15:55 | XMS_ITS | Patient Health Record ---
Author Organization [facility] Address [address] [place] [address] Care Team Providers Care Picture Enlarger Name Role Phone Jackelyn Latifjose c Primary Care Provider Allergies Allergen (clinical drug ingredient) Drug/Non Drug [...] 1 tablet as needed Orally twice a day; Duration: 30 days 06/06/2017 Active Gabapentin 600 MG 2 capsule before bedtime Orally at HS for chronic pain Active Ergocalciferol 48381 UNIT 1 capsule Oral ly weekly; Duration: 30 days 06/13/2017 Active Flonase 50 MCG/DOSE 2 spray in each nostril Nasally Once a day; Duration: 30 day(s) 07/21/2017 Active Losartan Potassium 100 MG 1 tablet Orall y Once a day; Duration: 30 days Active Naproxen 500 MG 1 tablet with food o r milk as needed for pain Orally three a day Active ProAir HFA 108 (90 Base) MCG/ACT 2 puffs as needed Inhalation every 6 hrs; Duration: 30 days Active Social History Tobacco Use: Social History Observation Description Date Details (start date - stop date) Never Smoker NA - NA Dont use, Tobacco Use/Smoking Question Answer Notes Are you a nonsmoker Problems Problem Type SNOMED Code ICD Code Onset Dates Problem Status W/U Status Risk Notes Problem Chronic pain (40389243) Other chronic pain (G89.29) Active confirmed Problem Vitamin D deficiency (83450948) Vitamin D deficiency (E55.9) Active confirmed Problem Essential hypertension (22299230) Essential hypertension (I10) Active confirmed Problem Lymphedema (64173053) Lymphedema (I89.0) Active confirmed Problem Hearing loss (12808901) Bilateral hearing loss, unspecified hearing loss type (H91.93) Active confirmed Plan Of Treatment Pending Test Test Name Order Date Vitamin D, 25-Hydroxy* 06/13/2017 Insurance Providers Payer Name Payer Address Payer Phone Subscriber Number Group Number Insured Name Patient Relationship to Insured Coverage Start Date Coverage End Date [facility] Attn Claims Department [address] [place] [address] [id number] Denisha Medellin Self - patient is the insured 7 Medical (General) History Surgical History Surgery Date(Month/Year) 1986 Gallbladder removed 2014
--- OUTSIDE RECORDS SUMMARY | 2025-04-19 15:55 | XMS_ITS | Clinical Summary ---
Author Organization [email or web address] Address [address] [place] [address] Care Team Providers Care Smelter Liner Name Role Phone Zach Telles DO Primary Care Provider [phone] Source Comments [email or web address],non-owned Affiliates and Associated Physician Practices is amultiple site organization consisting of ambulatory clinics and hospital sitesin [place], [place], [place] and [place]. This disclosure is being madepursuant to the Care Everywhere program and may not contain all information available regarding this patient. Last updated 18.[email or web address] Allergies Active Allergy Reactions Criticality Noted Date [...] Active vitamin D, ergocalciferol, (DRISDOL) 1.25 MG (34824 UT) capsule 2 Active furosemide (LASIX) 20 MG tablet 2 Active furosemide (LASIX) 20 MG tablet Take 1 (one) tablet by mouth once daily 2 Active [place]-3 Fatty Acids (fish oil) 1000 MG capsule [...] [facility] - Centralized Scheduling [address] [place] [address] Gabriele Tang, SERVICE CAR DRIVER-METER SHOP SUPERVISOR Appointment 03/31/2025 Telephone [facility] - Orthopedic Surgery [address] [place] [address] Venkat Eckert, RN Appointment 02/26/2025 Refill [facility] - Orthopedic Surgery [address] [place] [phone] Bernard Kurtz MD MEDICATION REFILL from Last 3 Months Immunizations Immunization Administration [...] on file Legal Sex Female 10:02 PM WINDING MACHINE OPERATOR Gender Identity Female 06/01/2019 7:38 AM WINDING MACHINE OPERATOR Sexual Orientation Not on file Last Filed Vital Signs Vital Sign Reading Time Taken Comments Blood Pressure 124/85 10/22/2023 2:46 PM CDT Pulse 94 10/22/2023 2:46 PM CDT Temperature 36.1 C (97 F) 06/18/2019 3:27 PM WINDING MACHINE OPERATOR Respiratory Rate 20 06/18/2019 3:27 PM WINDING MACHINE OPERATOR Oxygen Saturation 92% 10/22/2023 2:46 PM CDT Inhaled Oxygen Concentration 50% 06/01/2019 8 :20 AM WINDING MACHINE OPERATOR Weight 111.1 kg (245 lb) 03/11/2024 1:39 PM CDT Height 149.9 cm (4' 11) 03/11/2024 1:39 PM CDT Body Mass Index 49.48 03/11/2024 1:39 PM CDT Plan of Treatment Upcoming Encounters Date Type Department Care Team (Late st Contact Info) Description 04/28/2025 1:30 PM WINDING MACHINE OPERATOR Office Visit [facility] - Orthopedic Surgery [address] [place] [phone] Gabriele Tang, SERVICE CAR DRIVER-METER SHOP SUPERVISOR [address] [facility] [address] [place] [address] Health Maintenance Due Date Last Done Comments [...] series) 2022 DEPRESSION SCREENING 06/17/2024 COVID-19 VACCINE (1 - 2023- season) 2025 INFLUENZA VACCINE (#1) [...] you. Interventions: Medical Devices Implanted Type Area Cementing Bulk Material Operator Device Identifier Shelf Expiration Date Model / Serial / Lot Plate 2 Hl Ult Lopro Chmfr Edg Crnl Implanted:Qty: 3 on 05/31/2019 by Nate Haynes MD at [facility] [id number] / / 4mm Screws Implanted:Qty: 21 on 05/31/2019 by Nate Haynes MD at [facility] [id number] / / Plate 4 Hl Ult Lopro Chmfr Edg Crnl 14 Implanted:Qty: 2 on 05/31/2019 by Nate Haynes MD at [facility] [id number] / / Plate 2 Hl Cntr Spc Rgd Crnl 12mmx.4mm Implanted:Qty: 3 on 05/31/2019 by Nate Haynes MD at [facility] [employer] [id number] / / Synthes Ulp Caitlin Hole Cover Implanted:Qty: 1 on 05/31/2019 by Nate Haynes MD at [facility] [id number] / / Insurance [facility] [place] [address] * Guarantor: DENISHA DURAN Account Type Relation to Patient Date of Phone Billing Address Personal/Family [phone] Advance Directives * Full Code (Latest Code Status on File) Date Activated Date Inactivated Comments 06/05/2019 4:59 PM 06/19/2019 8:59 AM * Full Code Date Activated Date Inactivated Comments 05/31/2019 10:57 PM 06/05/2019 4:53 PM Care Teams Smelter Liner Relationship Specialty Start Date End Date Zach Telles DO [phone] (work) [facility] - General 08/14/22
--- OUTSIDE RECORDS SUMMARY | 2025-04-19 15:55 | XMS_ITS | Encounter Summary ---
Author Organization [facility] Address [address] [facility] [place] [address] Care Team Providers Care Greige Goods Marker Name Role Phone Zach Telles DO Primary Care Provider [phone] Reason for Visit * Reason Onset Date Comments Rx Medication Issue 03/12/2024 Spk to daljit willard Floridalma Duran, stated her sister is requesting a medication refill for a muscle relaxer and the pharmacy has not received anything yet. [address] in [facility] [phone]. Please follow up Denisha Encounter Details Date Type Department Care Team (Late st Contact Info) Description 03/12/2024 Telephone [facility] - Centralized Scheduling [address] [place] [phone] Bernard Kurtz MD [address] [address] Rx Medication Issue (Spk to friend Floridalma Duran, stated her sister is requesting a medication refill for a muscle relaxer and the pharmacy has not received anything yet. [address] in [facility] [phone]. Please follow up Denisha) Social History Tobacco [...] on file Legal Sex Female 10:02 PM FASHION CONSULTANT Gender Identity Female 06/01/2019 7:38 AM FASHION CONSULTANT Sexual Orientation Not on file documented as of this encounter Functional Status * Is person deaf or have serious hearing difficulty? Answer Date of Assessment Author Yes 06/01/2019 12:30 PM FASHION CONSULTANT Rob Coronado RN * Is person blind or have serious difficulty seeing? Answer Date of Assessment Author Yes 06/01/2019 12:30 PM FASHION CONSULTANT Rob Coronado RN * Does person have serious difficulty walking/climbing stairs? Answer Date of Assessment Author Yes 06/01/2019 12:30 PM FASHION CONSULTANT Rob Coronado RN * Does person have difficulty dressing/bathing? Answer Date of Assessment Author No 06/01/2019 12:30 PM FASHION CONSULTANT Rob Coronado RN * Does person have difficulty doing errands alone? Answer Date of Assessment Author Yes 06/01/2019 12:30 PM FASHION CONSULTANT Rob Coronado RN documented as of this encounter Mental Status * Does person have difficulty concentrating/remembering/making decisions? Answer Entry Date Author Yes 06/01/2019 12:30 PM FASHION CONSULTANT Rob Coronado RN documented in this encounter Miscellaneous Notes * Telephone Encounter - Murtaza Chawla - 03/12/2024 10:23 AM CDT Spk to friend Floridalma Duran, stated her sister is requesting a medication refill for a muscle relaxer and the pharmacy has not received anything yet. [address]ay[address] in [facility] [phone]. Please follow up documented in this encounter Plan of Treatment Upcoming Encounters Date Type Department Care Team (Late st Contact Info) Description 04/28/2025 1:30 PM FASHION CONSULTANT Office Visit [facility] - Orthopedic Surgery [address] [place] [address] Gabriele Tang, STREET DEPARTMENT DISPATCHER-PHP MAGENTO DEVELOPER [address] [place] [address] documented as of this encounter Goals Goal Patient Goal Type Associated Problems Recent Progress Patient-Stated? Author Mobility General Worsening(08/15 11:15 AM CDT) Lu Nugent, ABDOULAYE Note: Expected end date: 06/17/2019 The goal is to maintain or improve your mobility at the optimum level for you. Interventions: documented as of this encounter Visit Diagnoses Not on filedocumented in this encounter Care Teams Greige Goods Marker Relationship Specialty Start Date End Date Zach Telles DO PCP - General 08/14/22 documented as of this encounter
== END 2025-04-19 15:37 | disposition home or self-care (01) ==
PROVIDERS: PCP Internal Medicine
DX: M54.9 Dorsalgia, unspecified (principal); W19.XXXA Unspecified fall, initial encounter
CPT/HCPCS: 72072; 72100